=== PATIENT | male | born 1960 | race Hispanic/Latino ===

== ENCOUNTER 2018-07-27 16:06 | Observation (INO) | payer OTHER ==
[2018-07-27 17:20] LABS: Absolute Lymphocytes (CBC) 1.6 K/uL (0.7-4.9); Absolute Monocytes 0.4 K/uL (0.1-1.3); Absolute Neutrophil 3.7 K/uL (1.8-8.0); Basophils % 0.4 % (0-1.3); Hematocrit 39.2 % (39.6-49.0); Lymphocytes % 27.3 % (15.3-44.8); MPV 8.5 fL (7.6-11.3); Monocytes % 7.3 % (3.3-12.3); RBC Red Blood Cell Count 4.74 M/uL (4.33-5.43)
[2018-07-27 17:21] LABS: Protime INR 1.12
[2018-07-27 17:40] LABS: ALT/SGPT 37 U/L (12-78); AST/SGOT 44 U/L (15-37); Albumin 2.9 g/dL (3.4-5.0); Alkaline Phosphatase 78 U/L (45-117); BUN Blood Urea Nitrogen 17 mg/dL (7-18); Bicarbonate 27 mmol/L (21-32); Bilirubin Direct 0.2 mg/dL (0-0.2); Bilirubin Total 0.5 mg/dL (0.2-1.0); Glucose Level 90 mg/dL (74-106); Magnesium 2.7 mg/dL (1.8-2.4); NT PRO-BNP 905 pg/mL (<125); Potassium 4.2 mmol/L (3.5-5.1); Protein, Total 7.1 g/dL (6.4-8.2); Sodium Level 144 mmol/L (136-145); Troponin (Emerg Dept Use Only) 0.03 ng/mL (0.0-0.045)
[2018-07-27 17:59] LABS: Platelet Estimate ADEQ
[2018-07-27 18:00] LABS: Blood Morphology Comment NOT SEEN (NOT SEEN)
--- NOTE | 2018-07-27 18:07 | RAD REPORT ---
EXAM DESCRIPTION: RAD - Chest Single View - 07/27/2018 5:56 pm CLINICAL HISTORY: DYSPNEA Chest pain. COMPARISON: <Comparisons> FINDINGS: Portable technique limits examination quality. Moderate bilateral pulmonary opacities are present compatible with pulmonary edema. The heart is mode rately enlarged in size. No displaced fractures. IMPRESSION: Moderate CHF versus volume overload pattern.
[2018-07-27] MEDS ORDERED: FUROSEMIDE 20 MG/ 2ML VIAL ONE (18:36)
[2018-07-27] MEDS ORDERED: FUROSEMIDE 40 MG/4 ML VIAL ONE (18:36)
--- NOTE | 2018-07-27 18:47 | ER ---
Nurse's Notes [facility] Name: Urban Cronin Age: 58 yrs Sex: Male : 1960 Arrival Date: 07/27/2018 Time: 16:08 Bed 18 Private MD: Diagnosis: Pulmonary edema;Suspected endocarditis vs myocarditis;Hypoxia Presentation: 07/27 16:42 Presenting complaint: Patient states: He was diagnosed with pneumonia on , he was ss given antibiotics, reports that when he followed up today his oxygen level was low, he isn't feeling any better and he is still having shortness of breath. Transition of care: patient was not received from another setting of care. Onset of symptoms was July 2018. Risk Assessment: Do you want to hurt yourself or someone else? Patient reports no desire to harm self or others. Initial Sepsis Screen: Does the patient meet any 2 criteria? RR > 20 per min. No. Patient's initial sepsis screen is negative. Does the patient have a suspected source of infection? Yes: Productive cough/pneumonia. Care prior to arrival: None. 16:42 Method Of Arrival: Ambulatory ss 16:42 Acuity: SHIVA 2 ss Triage Assessment: 16:46 General: Appears in no apparent distress. uncomfortable, Behavior is calm, cooperative, ss appropriate for age. Pain: Denies pain. Neuro: Level of Consciousness is awake, alert, obeys commands, Oriented to person, place, time, situation. Cardiovascular: Patient's skin is warm and dry. Respiratory: Reports shortness of breath cough that is productive, Airway is patent Respiratory effort is even, unlabored, Respiratory pattern is regular, symmetrical, Onset: The symptoms/episode began/occurred 2 days ago, the patient has moderate shortness of breath. Historical: - Allergies: 16:45 No Known Allergies; ss - Home Meds: 19:30 atorvastatin 40 mg oral tab 1 tab once daily [Active]; amlodipine 5 mg tab 1 tab once cc3 daily [Active]; - PMHx: 16:45 Hypertension; Hyperlipidemia; CVA; Gout; ss - Immunization history:: Flu vaccine is not up to date. - Social history:: Smoking status: Patient/guardian denies using tobacco. - Ebola Screening: : Patient denies travel to an Ebola-affected area in the 21 days before illness onset. Screenin:49 Abuse screen: Denies threats or abuse. Denies injuries from another. Nutritional hj screening: No deficits noted. Tuberculosis screening: No symptoms or risk factors identified. Fall Risk None identified. Assessment: 16:49 Cardiovascular: Rhythm is. Respiratory: Airway is patent Respiratory effort is even, hj unlabored, Respiratory pattern is regular, symmetrical, Breath sounds with crackles. 16:49 General: Appears in no apparent distress. uncomfortable, Behavior is calm, cooperative, hj appropriate for age. Pain: Denies pain. Neuro: Level of Consciousness is awake, alert, obeys commands, Oriented to person, place, time, situation, Appropriate for age. GI: No signs and/or symptoms were reported involving the gastrointestinal system. : No signs and/or symptoms were reported regarding the genitourinary system. EENT: No signs and/or symptoms were reported regarding the EENT system. Derm: No signs and/or symptoms reported regarding the dermatologic system. Musculoskeletal: No signs and/or symptoms reported regarding the musculoskeletal system. 17:50 Reassessment: Patient and/or family updated on plan of care and expected duration. Pain hj level reassessed. Patient is alert, oriented x 3, equal unlabored respirations, skin warm/dry/pink. awaiting results and POC;. 18:29 Reassessment: medicated; awaiting meds from pharmacy;. hj 19:15 Reassessment: Patient appears in no apparent distress at this time. Patient and/or cc3 family updated on plan of care and expected duration. Pain level reassessed. Patient is alert, oriented x 3, equal unlabored respirations, skin warm/dry/pink. Received this male patient from morning shift MARY Christensen as a case of shortness of breath for admission awaiting orders. With IV cannula gauge 20 at the left ACV saline locked. On oxygen therapy by nasal cannula at 2 LPM saturating 98% not in distress. Patient denies pain at this time. 20:00 Reassessment: Patient appears in no apparent distress at this time. Patient and/or cc3 family updated on plan of care and expected duration. Pain level reassessed. Patient is alert, oriented x 3, equal unlabored respirations, skin warm/dry/pink. Room available in 210, called for report and handed over to MARY Villegas for continuity of care and management. 20:30 Reassessment: Patient appears in no apparent distress at this time. Patient and/or cc3 family updated on plan of care and expected duration. Pain level reassessed. Patient is alert, oriented x 3, equal unlabored respirations, skin warm/dry/pink. Patient left ER for admission vitally stable by wheelchair on oxygen therapy escorted by concrete technician Elfego and the patient's . Patient denies pain at this time. Vital Signs: 16:45 BP 122 / 76; Pulse 85; Resp 24; Temp 97.; Pulse Ox 88% on R/A; Weight 93.89 kg (R); ss Height 5 ft. 8 in. (172.72 cm) (R); 17:50 BP 109 / 76; Pulse 87; Resp 18; Pulse Ox 97% on 2 lpm NC; hj 18:29 BP 112 / 77; Pulse 81; Resp 18; Pulse Ox 100% on 2 lpm NC; hj 18:53 BP 125 / 84; Pulse 77; Resp 18; Pulse Ox 96% on 2 lpm NC; hj 19:30 BP 123 / 71; Pulse 81; Resp 25 S; Temp 98.8(O); Pulse Ox 98% on 2 lpm NC; cc3 20:15 BP 124 / 82; Pulse 83; Resp 25 S; Pulse Ox 98% on 2 lpm NC; cc3 16:45 Body Mass Index 31.47 (93.89 kg, 172.72 cm) ED Course: 16:08 Patient arrived in ED. as 16:45 Triage completed. ss 16:45 Arm band placed on Patient placed in an exam room. ss 16:48 Fermin Velasquez RN is Primary Nurse. 16:49 Jorgito Austin PA is PHCP. jr8 16:49 Daniel Alvarado MD is Attending Physician. jr8 16:50 Patient has correct armband on for positive identification. Placed in gown. Bed in low hj position. Call light in reach. Side rails up X 1. Adult w/ patient. 17:00 Inserted saline lock: 20 gauge in left forearm, using aseptic technique. Blood hj collected. 17:00 Initial lab(s) drawn, by me, sent to lab. First set of blood cultures drawn by me. hj 17:26 EKG done, by recycling technician. reviewed by Jorgito HAYWARD. sm3 17:56 XRAY Chest (1 view) In Process Unspecified. EDMS 18:24 Rn Cvicu paged at 18:24 Dr. Valle will be returning the page. eb 18:30 Rn Cvicu returned call at 18:30. connected with Jorgito Hayward for patient consultation. eb 18:45 Sunday Pitts MD is Hospitalizing Provider. jr8 20:30 No provider procedures requiring assistance completed. Patient admitted, IV remains in cc3 place. Administered Medications: 18:10 Drug: Lasix 60 mg Route: IVP; Site: left antecubital; hj 18:28 Follow up: Response: No adverse reaction hj 18:50 Follow up: Response: No adverse reaction hj 18:21 Not Given (Physician Discretion): LevaQUIN 500 mg 100 ml IVPB once over 60 mins jr8 18:38 Not Given (Other Intervention Used): DAPTOmycin 6 mg/kg IV at calculated rate once; jr8 administer over 30 minutes 19:25 Drug: Gentamicin 1 mg/kg Route: IVPB; Infused Over: 30 mins; Site: left antecubital; cc3 20:00 Follow up: Response: No adverse reaction; IV Status: Completed infusion; IV Intake: cc3 100ml 20:02 Drug: vancoMYCIN 1 grams Route: IVPB; Infused Over: 2 hrs; Site: left antecubital; cc3 20:05 Follow up: Response: No adverse reaction; IV Status: Infusion continued upon admission cc3 Intake: 20:00 IV: 100ml; Total: 100ml. cc3 Output: 20:00 Urine: 1625ml (Voided); Total: 1625ml. cc3 Outcome: 18:46 Decision to Hospitalize by Provider. jr8 20:30 Admitted to Med/surg accompanied by tech, family with patient, via wheelchair, room cc3 210, with oxygen, with chart, Report called to MARY Villegas 20:30 Condition: stable 20:30 Instructed on the need for admit, Demonstrated understanding of instructions. 20:35 Patient left the ED. cc3 Signatures: Dispatcher [employer] EDMS Kalani Gonzalez Shelby, RN RN ss Roszak, Josh, PA PA [facility] Fermin Velasquez RN RN hj Botello, Elizabeth Sandee Quach sm3 Gita Robertson cc3 Corrections: (The following items were deleted from the chart) 17:50 16:49 Respiratory: Airway is patent Respiratory effort is even, unlabored, Respiratory hj pattern is regular, symmetrical, hj
--- NOTE | 2018-07-27 18:47 | EDPHYS ---
Physician Documentation [facility] Name: Urban Cronin Age: 58 yrs Sex: Male : 1960 Arrival Date: 07/27/2018 Time: 16:08 Bed 18 Private MD: ED Physician Daniel Alvarado HPI: 07/27 18:46 This 58 yrs old Male presents to ER via Ambulatory with complaints of Cough, jr8 Fever, Shortness Of Breath. 18:46 The patient or guardian reports cough, that is intermittent, described as moderate, jr8 with productive sputum, that is yellow. Onset: The symptoms/episode began/occurred gradually, 1 week(s) ago. Severity of symptoms: At their worst the symptoms were moderate. Modifying factors: The symptoms are alleviated by nothing, the symptoms are aggravated by nothing. Associated signs and symptoms: Pertinent positives: shortness of breath. The patient has not experienced similar symptoms in the past. The patient has been recently seen by a physician:. Patient stated that he started with flu like symptoms in [place] about one week ago. Upon arriving home went to see PCP and was given zithromax. No imaging done at that time. Went for follow up today. PCP noted him to have bibasilar crackles and low SPO2. Sent to ED at that time for further evaluation. Patient stated that he is very short of breath with short walks. Very atypical for him. Historical: - Allergies: 16:45 No Known Allergies; ss - Home Meds: 19:30 atorvastatin 40 mg oral tab 1 tab once daily [Active]; amlodipine 5 mg tab 1 tab once cc3 daily [Active]; - PMHx: 16:45 Hypertension; Hyperlipidemia; CVA; Gout; ss - Immunization history:: Flu vaccine is not up to date. - Social history:: Smoking status: Patient/guardian denies using tobacco. - Ebola Screening: : Patient denies travel to an Ebola-affected area in the 21 days before illness onset. ROS: 19:08 Eyes: Negative for injury, pain, redness, and discharge, ENT: Negative for injury, jr8 pain, and discharge, Neck: Negative for injury, pain, and swelling, Cardiovascular: Negative for chest pain, palpitations, and edema, Abdomen/GI: Negative for abdominal pain, nausea, vomiting, diarrhea, and constipation, Back: Negative for injury and pain, MS/Extremity: Negative for injury and deformity, Skin: Negative for injury, rash, and discoloration, Neuro: Negative for headache, weakness, numbness, tingling, and seizure. 19:08 Constitutional: Positive for fever. 19:08 Respiratory: Positive for cough, dyspnea on exertion, shortness of breath. Exam: 19:08 Eyes: Pupils equal round and reactive to light, extra-ocular motions intact. Lids and jr8 lashes normal. Conjunctiva and sclera are non-icteric and not injected. Cornea within normal limits. Periorbital areas with no swelling, redness, or edema. ENT: Nares patent. No nasal discharge, no septal abnormalities noted. Tympanic membranes are normal and external auditory canals are clear. Oropharynx with no redness, swelling, or masses, exudates, or evidence of obstruction, uvula midline. Mucous membranes moist. Neck: Trachea midline, no thyromegaly or masses palpated, and no cervical lymphadenopathy. Supple, full range of motion without nuchal rigidity, or vertebral point tenderness. No Meningismus. Abdomen/GI: Soft, non-tender, with normal bowel sounds. No distension or tympany. No guarding or rebound. No evidence of tenderness throughout. Back: No spinal tenderness. No costovertebral tenderness. Full range of motion. Skin: Warm, dry with normal turgor. Normal color with no rashes, no lesions, and no evidence of cellulitis. MS/ Extremity: Pulses equal, no cyanosis. Neurovascular intact. Full, normal range of motion. Neuro: Awake and alert, GCS 15, oriented to person, place, time, and situation. Cranial nerves II-XII grossly intact. Motor strength 5/5 in all extremities. Sensory grossly intact. Cerebellar exam normal. Normal gait. 19:08 Cardiovascular: Rate: normal, Rhythm: regular, Pulses: Pulses are 2+ in right radial artery and left radial artery. Heart sounds: S4, increased, Edema: is not appreciated, JVD: is not appreciated. 19:08 Respiratory: mild respiratory distress is noted, Respirations: tachypnea, Breath sounds: rales, that are moderate, are located in both bases. Vital Signs: 16:45 BP 122 / 76; Pulse 85; Resp 24; Temp 97.; Pulse Ox 88% on R/A; Weight 93.89 kg (R); ss Height 5 ft. 8 in. (172.72 cm) (R); 17:50 BP 109 / 76; Pulse 87; Resp 18; Pulse Ox 97% on 2 lpm NC; hj 18:29 BP 112 / 77; Pulse 81; Resp 18; Pulse Ox 100% on 2 lpm NC; hj 18:53 BP 125 / 84; Pulse 77; Resp 18; Pulse Ox 96% on 2 lpm NC; hj 19:30 BP 123 / 71; Pulse 81; Resp 25 S; Temp 98.8(O); Pulse Ox 98% on 2 lpm NC; cc3 20:15 BP 124 / 82; Pulse 83; Resp 25 S; Pulse Ox 98% on 2 lpm NC; cc3 16:45 Body Mass Index 31.47 (93.89 kg, 172.72 cm) ss MDM: 16:49 Patient medically screened. jr8 18:33 ED course: Dr. Valle consulted and will see patient. Good with keeping him here. Will jr8 get echo first thing in the AM . 19:10 Data reviewed: vital signs, nurses notes, lab test result(s), EKG, radiologic studies, jr8 plain films. Data interpreted: Pulse oximetry: on room air is 88 %. Interpretation: hypoxia. Counseling: I had a detailed discussion with the patient and/or guardian regarding: the historical points, exam findings, and any diagnostic results supporting the discharge/admit diagnosis, lab results, radiology results, the need for further work-up and treatment in the hospital. Physician consultation: Sunday Pitts MD was called at 19:10, was contacted at 19:10, regarding admission, to the telemetry unit. consult, patient's condition, and will see patient. Admission orders: after a detailed discussion of the patient's condition and case, the admit orders are written by me. 07/27 16:57 Order name: Basic Metabolic Panel [facility] 07/27 16:57 Order name: CBC with Diff; Complete Time: 18:[address] [facility] 07/27 16:57 Order name: LFT's [facility] 07/27 16:57 Order name: Magnesium [facility] 07/27 16:57 Order name: NT PRO-BNP; Complete Time: 18:[address] [facility] 07/27 16:57 Order name: PT-INR; Complete Time: 17:32 07/27 16:57 Order name: Troponin (emerg Dept Use Only); Complete Time: 18:10 07/27 16:57 Order name: Blood Culture Adult (2) 07/27 16:57 Order name: Procalcitonin; Complete Time: 18:10 07/27 16:57 Order name: Lactate; Complete Time: 18:10 07/27 16:58 Order name: Basic Metabolic Panel; Complete Time: 18:10 EDTN 07/27 16:58 Order name: Liver (Hepatic) Function; Complete Time: 18:10 EDMS 07/27 16:58 Order name: Magnesium; Complete Time: 18:10 EDMS 07/27 17:27 Order name: Manual Differential; Complete Time: 18:10 [facility] 07/27 16:57 Order name: XRAY Chest (1 view); Complete Time: 18:10 07/27 16:57 Order name: EKG; Complete Time: 16:59 07/27 16:57 Order name: Cardiac monitoring; Complete Time: 17:07 07/27 16:57 Order name: EKG - Nurse/Tech; Complete Time: 17:28 07/27 16:57 Order name: IV Saline Lock; Complete Time: 17:07 07/27 16:57 Order name: Labs collected and sent; Complete Time: 17:07 07/27 16:57 Order name: O2 Per Protocol; Complete Time: 17:08 07/27 16:57 Order name: O2 Sat Monitoring; Complete Time: 17:08 Administered Medications: 18:10 Drug: Lasix 60 mg Route: IVP; Site: left antecubital; hj 18:28 Follow up: Response: No adverse reaction hj 18:50 Follow up: Response: No adverse reaction hj 18:21 Not Given (Physician Discretion): LevaQUIN 500 mg 100 ml IVPB once over 60 mins jr8 18:38 Not Given (Other Intervention Used): DAPTOmycin 6 mg/kg IV at calculated rate once; jr8 administer over 30 minutes 19:25 Drug: Gentamicin 1 mg/kg Route: IVPB; Infused Over: 30 mins; Site: left antecubital; cc3 20:00 Follow up: Response: No adverse reaction; IV Status: Completed infusion; IV Intake: cc3 100ml 20:02 Drug: vancoMYCIN 1 grams Route: IVPB; Infused Over: 2 hrs; Site: left antecubital; cc3 20:05 Follow up: Response: No adverse reaction; IV Status: Infusion continued upon admission cc3 Disposition: 07/27/18 18:46 Hospitalization ordered by Sunday Pitts for Observation. Preliminary diagnosis are Pulmonary edema, Suspected endocarditis vs myocarditis, Hypoxia. - Bed requested for Telemetry/MedSurg (observation). - Status is Observation. cc3 - Condition is Fair. - Problem is new. - Symptoms have improved. UTI on Admission? No Addendum: 08/01/2018 10:22 Co-signature as Attending Physician, Daniel Alvarado MD I agree with the assessment and k dr plan of care. Signatures: Dispatcher [employer] EDMS Maude Arredondo RN RN mw Rittger, Kevin, MD MD [facility] Vandana Patel RN RN Jorgito Austin PA PA jr8 Fermin Velasquez RN RN Gita Robertson cc3 Corrections: (The following items were deleted from the chart) 07/27 19:15 18:46 Hospitalization Ordered by Sunday Pitts MD for Observation. Preliminary diagnosis mw is Pulmonary edema; Suspected endocarditis vs myocarditis; Hypoxia. Bed requested for Telemetry/MedSurg (observation). Status is Observation. Condition is Fair. Problem is new. Symptoms have improved. UTI on Admission? No. jr8 19:16 19:15 07/27/2018 18:46 Hospitalization Ordered by Sunday Pitts MD for Observation. mw Preliminary diagnosis is Pulmonary edema; Suspected endocarditis vs myocarditis; Hypoxia. Bed requested for Telemetry/MedSurg (observation). Status is Observation. Condition is Fair. Problem is new. Symptoms have improved. UTI on Admission? No. mw 20:35 19:16 07/27/2018 18:46 Hospitalization Ordered by Sunday Pitts MD for Observation. cc3 Preliminary diagnosis is Pulmonary edema; Suspected endocarditis vs myocarditis; Hypoxia. Bed requested for Telemetry/MedSurg (observation). Status is Observation. Condition is Fair. Problem is new. Symptoms have improved. UTI on Admission? No. mw
[2018-07-27] MEDS ORDERED: VANCOMYCIN/NS 1 gm 1 GM/250 ML BAG IV ONE (19:00)
[2018-07-27] MEDS ORDERED: GENTAMICIN IVPB ONE (19:00)
[2018-07-27] MEDS ORDERED: NA CHLORIDE 0.9% IVPB ONE (19:00)
[2018-07-27] MEDS ORDERED: ONDANSETRON 4 MG/2 ML VIAL IV PRN (19:02)
[2018-07-27] MEDS ORDERED: ALBUTEROL 2.5 MG/3 ML NEB SOL NEB PRN (19:02)
[2018-07-27] MEDS ORDERED: ACETAMINOPHEN 500 MG TAB PO PRN (19:02)
[2018-07-27] MEDS ORDERED: NA CHLORIDE 0.9% 1,000 ML IV SCH (20:00)
[2018-07-27 21:46] VITALS: BMI 31.4
[2018-07-27 22:07] LABS: Urine Appearance CLEAR; Urine Bilirubin NEGATIVE (NEG); Urine Blood NEGATIVE (NEG); Urine Color YELLOW; Urine Glucose NEGATIVE (NEG); Urine Protein NEGATIVE (NEG); Urine Urobilinogen 0.2 mg/dL (0.2-1.0)
[2018-07-27 22:08] LABS: Urine Microscopic Reflex NO UMIC
[2018-07-28] MEDS ORDERED: METHYLPREDNISOLONE 125 MG INJ IV ONE (05:32)
[2018-07-28] MEDS ORDERED: BENZONATATE 100 MG CAP PO PRN (05:32)
[2018-07-28] MEDS ORDERED: CEFTRIAXONE 1 GM/NS 50 ML 1 GM/50 ML BAG IV SCH (06:00)
[2018-07-28 06:07] LABS: Absolute Lymphocytes (CBC) 1.5 K/uL (0.7-4.9); Absolute Monocytes 0.4 K/uL (0.1-1.3); Absolute Neutrophil 3.7 K/uL (1.8-8.0); Basophils % 0.6 % (0-1.3); Eosinophils % 1.5 % (0-4.4); Hematocrit 38.2 % (39.6-49.0); Lymphocytes % 26.4 % (15.3-44.8); MPV 8.3 fL (7.6-11.3); Monocytes % 6.9 % (3.3-12.3); RBC Red Blood Cell Count 4.62 M/uL (4.33-5.43)
[2018-07-28] MEDS: CEFTRIAXONE/SWI 1gm 1 GM/10 ML SYR IV SCH ×2 (06:10→21:23)
[2018-07-28 06:14] LABS: ALT/SGPT 33 U/L (12-78); AST/SGOT 29 U/L (15-37); Albumin 2.8 g/dL (3.4-5.0); Alkaline Phosphatase 74 U/L (45-117); BUN Blood Urea Nitrogen 15 mg/dL (7-18); Bicarbonate 28 mmol/L (21-32); Bilirubin Total 0.5 mg/dL (0.2-1.0); Glucose Level 95 mg/dL (74-106); Magnesium 2.5 mg/dL (1.8-2.4); Phosphorus 4.1 mg/dL (2.5-4.9); Potassium 3.6 mmol/L (3.5-5.1); Sodium Level 143 mmol/L (136-145); Troponin I 0.03 ng/mL (0.0-0.045)
--- NOTE | 2018-07-28 06:43 | EKG ---
Test Date: 2018-07-27 Test Time: 17:14:54 Print Finishing Worker: LISY MEASUREMENT RESULTS: Intervals: Rate: 76 NC: 154 QRSD: 146 QT: 412 QTc: 463 Dewey: P: 62 NC: 154 QRS: 101 T: 2 INTERPRETIVE STATEMENTS: Normal sinus rhythm Right bundle branch block T wave abnormality, consider lateral ischemia Abnormal ECG No previous ECG available for comparison Electronically Signed On 07-28-18 06:42:13 CDT by Jitendra Valle
--- NOTE | 2018-07-28 07:48 | P.HP ---
Certification for Inpatient Patient admitted to: Inpatient With expected LOS: >2 Midnights Patient will require the following post-hospital care: None Practitioner: I am a practitioner with admitting privileges, knowledge of patient current condition, hospital course, and medical plan of care. Services: Services provided to patient in accordance with Admission requirements found in Title 42 Section 412.3 of the Code of Federal Regulations Patient History Date of Service: 07/27/18 Reason for admission: FEVER/COUGH/CONGESTION History of Present Illness: Patient is a 58-year-old gentleman who came into the hospital from [facility]. He was seen at the [facility] [place] in told by the physician there that he needed to be evaluated in the emergency room. He had gone there earlier in the week and diagnosed with pneumonia. His symptoms started when he was in [place]. 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 By Tuesday, he was feeling really bad with cough and congestion. He states he has been feeling better since taking antibiotics. However, because he was told to go to the emergency room by the occupational health people at [place] he decided to get evaluated. He was surprised when he was told in the emergency room that he may have fluid around the heart. He is on further evaluation the chest x-ray reveals cardiomegaly with pulmonary edema. It appears he may have congestive heart failure. Will get an echocardiogram but will also need to continue him on IV antibiotic therapy for his upper respiratory infection. He spiked a temp of a 102. Continue with current workup at this time. Allergies No Known Allergies Allergy (Verified 07/27/18 20:54) Home Medications: Allopurinol 100 mg PO DAILY 07/27/18 Amlodipine [Norvasc] 5 mg PO DAILY 07/27/18 Atorvastatin Calcium 40 mg PO DAILY 07/27/18 - Past Medical/Surgical History Has patient received pneumonia vaccine in the past: No Diabetic: No -: hypertension -: hyperlipidemia -: CVA -: Gout -: [place] Past Surgical History: Patient denies surgical history - Family History Father Family History: Reviewed- Non-Contributory - Social History Smoking Status: Current every day smoker Alcohol use: Yes CD- Drugs: No Caffeine use: Yes Place of Residence: Home Review of Systems 10-point ROS is otherwise unremarkable Physical Examination - Vital Signs Temperature: 97.8 F Blood Pressure: 109/62 Pulse: 71 Respirations: 22 Pulse Ox (%): 94 - Physical Exam General: Alert, In no apparent distress, Oriented x3 HEENT: Atraumatic, PERRLA, Mucous membr. moist/pink, EOMI, Sclerae nonicteric Neck: Supple, 2+ carotid pulse no bruit, No LAD, Without JVD or thyroid abnormality Respiratory: Expiratory wheezes, Other ( Coarse breath sounds) Cardiovascular: Regular rate/rhythm, Normal S1 S2, No murmurs Gastrointestinal: Normal bowel sounds, Soft and benign, Non-distended, No tenderness Musculoskeletal: No clubbing, No swelling, No tenderness Integumentary: No rashes Neurological: Normal gait, Normal speech, Normal strength at 5/5 x4 extr, Normal tone, Sensation intact, Cranial nerves 3-12 intact, Normal affect Lymphatics: No axilla or inguinal lymphadenopathy - Studies Laboratory Data (last 24 hrs) 07/27/18 17:00: PT 13.2 H, INR 1.12 07/27/18 17:00: WBC 5.7, Hgb 13.0 L, Hct 39.2 L, Plt Count 170 07/27/18 17:00: Sodium 144, Potassium 4.2, BUN 17, Creatinine 0.86, Glucose 90, Magnesium 2.7 H, Total Bilirubin 0.5, AST 44 H, ALT 37, Alkaline Phosphatase 78 Assessment & Plan - Problems (Diagnosis) (1) Pneumonia Current Visit: Yes Status: Acute (2) Congestive heart failure, acute Current Visit: Yes Status: Acute (3) Pulmonary edema Current Visit: Yes Status: Acute - Plan Plan: 1. Continue with IV antibiotics 2. Awaiting sputum and blood culture; procalcitonin level 3. Repeat chest x-ray in AM 4. Will order CT scan of the chest w/o 5. No need for Respiratory isolation at this time 6. Continue with nebs as needed 7. O2 per protocol 8. Continue with KVO IVFs 9. Repeat labs including CBC and renal function in a.m. 10. Outpt follow-up with Pulmonary 11. Echocardiogram if it has not been performed in the last 6 months 12. We will start patient on an DAYANA inhibitor / ARB 13. We will start patient on low dose Beta wes 14. Cardiology consultation 15. Gentle diuresis 16. Strict I's and O's/Daily weights 17. Education regarding diet and treatment of congestive heart failure Discharge Plan: Home Plan to discharge in: 48 Hours - Advance Directives Does patient have a Living Will: No Does patient have a Durable POA for Healthcare: No - Code Status/Comfort Care Code Status Assessed: Yes Code Status: Full Code Critical Care: No Time Spent Managing PTS Care (In Minutes): 45
--- NOTE | 2018-07-28 08:39 | RAD REPORT ---
EXAM DESCRIPTION: CT - Thorax Wo Con - 07/28/2018 8:06 am CLINICAL HISTORY: Cough, shortness of breath COMPARISON: Chest film July 27 TECHNIQUE: Axial 5 mm thick images of the chest were obtained without IV contrast. All CT scans are performed using dose optimization technique as appropriate and may include automated exposure control or mA/KV adjustment according to patient size. FINDINGS: Minimal patchy alveolar opacification present in the right upper lobe. Left upper lobe is clear of any significant process. Minimal alveolar opacity in the right middle lobe. Superior aspect of the right lower lobe shows extensive airspace opacification with a few air bronchograms. There is airspace opacification through most of the left lower lobe with air bronchograms present. Minimal earline ateral pleural effusions are present. No pleural thickening or pleural based mass. No pneumothorax. No abnormal mediastinal or hilar masses or lymphadenopathy seen. No gross aortic or pulmonary artery finding suspected. Assessment is limited in the absence of IV contrast. Cardiomegaly is present. Per icardial effusion is present up to 15 mm in thickness. Coronary artery calcifications are present. No chest wall mass or abnormal axillary lymphadenopathy. IMPRESSION: Extensive airspace opacification in the lower lobes with cardiomegaly and significant pe ricardial adhesions at 15 mm. Findings favor CHF/volume overload. Bilateral lung base pneumonia is also a strong consideration and could be independent or concurrent with failure.
[2018-07-28] MEDS ORDERED: POTASSIUM CL SA 10 MEQ TAB PO ONE (09:00)
[2018-07-28] MEDS ORDERED: FUROSEMIDE 40 MG/4 ML VIAL IV SCH (09:00)
[2018-07-28] MEDS: ENOXAPARIN 40 MG/0.4 ML SQ SCH (09:13)
[2018-07-28] MEDS: AZITHROMYCIN IV 500 MG in NA CHLORIDE 0.9% 250 ML IVPB SCH (10:04)
--- NOTE | 2018-07-28 11:28 | ECHO ---
HEIGHT: 5 ft 8 in WEIGHT: 207 lb 0 oz DATE OF STUDY: 07/28/[address]: Mauri Levin MD 2-DIMENSIONAL: YES M.MODE: YES DOPPLER: YES COLOR FLOW: YES TDS: NO PORTABLE: NO DEFINITY: NO BUBBLE STUDY: NO DIAGNOSIS: CONGESTIVE HEART FAILURE/ ENDOCARDITIS CARDIAC HISTORY: CATHERIZATION: NO SURGERY: NO PROSTHETIC VALVE: NO PACEMAKER: NO MEASUREMENTS (cm) DIASTOLIC (NORMALS) SYSTOLIC (NORMALS) IVSd 1.5 (0.6-1.2) LA Diam 4.3 (1.9-4.0) LVEF 71% LVIDd 5.0 (3.5-5.7) LVIDs 3.0 (2.0-3.5) %FS 41% LVPWd 1.4 (0.6-1.2) Ao Diam 3.1 (2.0-3.7) 2 DIMENSIONAL ASSESSMENT: RIGHT ATRIUM: NORMAL LEFT ATRIUM: DILATED RIGHT VENTRICLE: NORMAL LEFT VENTRICLE: NORMAL TRICUSPID VALVE: NORMAL MITRAL VALVE: NORMAL PULMONIC VALVE: NORMAL AORTIC VALVE: NORMAL PERICARDIAL EFFUSION: MODERATE AORTIC ROOT: NORMAL LEFT VENTRICULAR WALL MOTION: NORMAL. DOPPLER/COLOR FLOW: MILD TRICUSPID REGURGITATION. COMMENTS: MODERATE PERICARDIAL EFFUSION. NO TAMPONADE. NORMAL LEFT VENTRICULAR SIZE AND FUNCTION. TECHNOLOGIST: JANET GORDON RDCS
--- NOTE | 2018-07-28 12:16 | CON ---
Date of Consultation: 07/28/[address] Levin's service on 07/27/2018. Reason For Consultation: Possible congestive heart failure. History Of Present Illness: Mr. Cronin is a 58-year-old [place] male with history of hyperten edward, dyslipidemia, gout. Supposedly he had a stroke about 3 years ago, was seen evaluate d and was told to have a blocked carotid artery on the right, but no medication or intervention was d one at that time. Also, according to him, he had an NH about 10 years ago and was evaluated by cardi ologist in [place], but does not remember having a heart catheterization. History in that regard is very vague nevertheless. He came in with approximately a week worth of cough, shortness of breath, fever, body aches, headaches, general weakness, unresponsive to 3 days of azithromycin, was found to have what appears to be congestive heart failure on the chest x-ray, elevated BNP of 907, elevated pr ocalcitonin, abnormal EKG with a right bundle, was admitted for further evaluation and treatment. Ov ernight, he has received antibiotics and IV Lasix and he has improved. An echocardiogram is pending. Past Medical History: As stated above. Allergies: NONE. Review of Systems: Negative. Social History: Negative for tobacco, drugs, or alcohol. Family History: Positive for heart disease. Medications: At home include allopurinol, Norvasc, and Lipitor. Physical Examination: General: Mr. Cronin seems to be rather anxious and somehow in some form of denial, has improved since yesterday, but no chest pain and no shortness of breath of breath reported. Vital Signs: Stable. He was in a sinus rhythm. He was afebrile. HEENT: Negative. Neck: Supple without bruit. No lymphadenopathy, JVD or thyromegaly. Chest: Reveals some crackles bilaterally. Cardiac: Revealed a regular rhythm and rate with what sounds like an S3 gallops. Abdomen: Benign. Extremities: Revealed trace edema. Diagnostic Data: As stated earlier. Impression And Plan: New-onset congestive heart failure. Certainly this could be a viral myocarditi s situation or a diastolic congestive heart failure secondary to his recent flu. He obviously did durant ve some kind of viral syndrome because he was having fever, chills, and cough, sore throat and headac he. The echocardiogram on this is going to be our biggest diagnostic tool to see if we are dealing w ith a cardiac issue versus a pulmonary issue. This certainly could have some form of pneumonitis as well. Nevertheless, I would continue IV Lasix and antibiotics and see how he does. Regarding his pa st medical history of possible coronary artery disease and possible cerebrovascular accident and a po ssible carotid stenosis, multiple risk factors with hypertension, dyslipidemia. Mr. Cronin need for sure to have a carotid Doppler and a Lexiscan as an outpatient and I will try to arrange that after we get through this. SATINDER/FAY Voice ID: [id number] Report ID: [id number]
[2018-07-28] MEDS: IBUPROFEN 200 MG TAB PO SCH ×2 (13:44→21:24)
--- NOTE | 2018-07-28 14:22 | P.PN ---
Subjective Date of Service: 07/28/18 Chief Complaint: FEVER/COUGH/CONGESTION Subjective: Improving Patient seen and examined at bedside. Family at bedside. Chart reviewed and case discussed with nursing staff and Dr. perez. Patient reports feeling better. Reports improved chest pain. No respiratory distress. Afebrile overnight. No acute event noted overnight. Review of Systems 10-point ROS is otherwise unremarkable Physical Examination - Vital Signs Temperature: 97.2 F Blood Pressure: 129/82 Pulse: 78 Respirations: 18 Pulse Ox (%): 94 - Physical Exam General: Alert, In no apparent distress HEENT: Atraumatic, PERRLA, EOMI Neck: Supple, JVD not distended Respiratory: Clear to auscultation bilaterally, Normal air movement Cardiovascular: Regular rate/rhythm, Abnormal S4, Systolic murmur Gastrointestinal: Normal bowel sounds, No tenderness Musculoskeletal: No tenderness Integumentary: No rashes Neurological: Normal speech, Normal tone, Normal affect Lymphatics: No axilla or inguinal lymphadenopathy - Studies Laboratory Data (last 24 hrs) 07/27/18 17:00: PT 13.2 H, INR 1.12 07/27/18 17:00: WBC 5.7, Hgb 13.0 L, Hct 39.2 L, Plt Count 170 07/27/18 17:00: Sodium 144, Potassium 4.2, BUN 17, Creatinine 0.86, Glucose 90, Magnesium 2.7 H, Total Bilirubin 0.5, AST 44 H, ALT 37, Alkaline Phosphatase 78 Assessment And Plan - Current Problems (Diagnosis) (1) Pericarditis Current Visit: Yes Status: Acute Qualifiers: Pericarditis type: infectious Infectious pericarditis etiology: viral Chronicity: acute Qualified Code(s): I30.1 - Infective pericarditis (2) Splenomegaly Current Visit: Yes Status: Acute (3) Pneumonia Current Visit: Yes Status: Acute Qualifiers: Pneumonia type: due to unspecified organism - Plan Pneumonia Continue with IV antibiotics Awaiting sputum and blood cultures Repeat chest x-ray in AM CT scan with : Extensive airspace opacification in the lower lobes with cardiomegaly and significant pericardial adhesions at 15 mm. Findings favor CHF/volume overload. Bilateral lung base pneumonia is also a strong consideration and could be independent or concurrent with failure. Continue with oxygen and nebs prn. Pericardial fluid Pericarditis Likely secondary to viral infection as patient with upper respiratory symptoms ECHO done, preserved EF but evidence of pericardial effusion, not enough to drain. Cardiology consulted Discontinue lasix, per cardiology. Start ibuprofen and colchicine Continue ACEi, and BB Splenomegaly Likely secondary to viral infection [place] screen ordered. DVT Prophylaxis: Lovenox GI prophylaxis: None Diet: Heart healthy Disposition: Pending symptomatic improvement Plan to discharge in: Greater than 2 days
[2018-07-28] MEDS ORDERED: ATORVASTATIN 40 MG TAB PO SCH (21:00)
[2018-07-28] MEDS: COLCHICINE 0.6 MG TAB PO SCH (21:23)
[2018-07-29] MEDS: IBUPROFEN 200 MG TAB PO SCH ×2 (05:19→13:00)
[2018-07-29 06:23] LABS: BUN Blood Urea Nitrogen 21 mg/dL (7-18); Bicarbonate 26 mmol/L (21-32); Glucose Level 105 mg/dL (74-106); Potassium 3.3 mmol/L (3.5-5.1); Sodium Level 143 mmol/L (136-145); Troponin I 0.02 ng/mL (0.0-0.045)
[2018-07-29] MEDS: CEFTRIAXONE/SWI 1gm 1 GM/10 ML SYR IV SCH (08:56)
[2018-07-29] MEDS: ENOXAPARIN 40 MG/0.4 ML SQ SCH (08:56)
[2018-07-29] MEDS: AZITHROMYCIN IV 500 MG in NA CHLORIDE 0.9% 250 ML IVPB SCH (08:56)
[2018-07-29] MEDS: COLCHICINE 0.6 MG TAB PO SCH (08:58)
[2018-07-29] MEDS ORDERED: AMLODIPINE 5 MG TAB PO SCH (09:00)
[2018-07-29] MEDS ORDERED: POTASSIUM 25 MEQ EFFERV TAB PO ONE (09:00)
--- NOTE | 2018-07-29 11:22 | P.SSS ---
Patient History Date of Service: 07/29/18 Reason for admission: FEVER/COUGH/CONGESTION History of Present Illness: Patient is a 58-year-old gentleman who came into the hospital from [place]. He was seen at the [facility] [place] in told by the physician there that he needed to be evaluated in the emergency room. He had gone there earlier in the week and diagnosed with pneumonia. His symptoms started when he was in [place]. 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 By Tuesday, he was feeling really bad with cough and congestion. He states he has been feeling better since taking antibiotics. However, because he was told to go to the emergency room by the occupational health people at [place] he decided to get evaluated. He was surprised when he was told in the emergency room that he may have fluid around the heart. He is on further evaluation the chest x-ray reveals cardiomegaly with pulmonary edema. It appears he may have congestive heart failure. Will get an echocardiogram but will also need to continue him on IV antibiotic therapy for his upper respiratory infection. He spiked a temp of a 102. Continue with current workup at this time. Allergies No Known Allergies Allergy (Verified 07/27/18 20:54) Home Medications: Allopurinol 100 mg PO DAILY 07/27/18 Amlodipine [Norvasc*] 5 mg PO DAILY 07/27/18 Atorvastatin Calcium 40 mg PO DAILY 07/27/18 Azithromycin 250 mg PO DAILY #7 tablet 07/29/18 Colchicine [Colcrys *] 0.6 mg PO BID #28 tab 07/29/18 Ibuprofen [Motrin*] 600 mg PO Q8H #30 tab 07/29/18 - Past Medical/Surgical History Has patient received pneumonia vaccine in the past: No Diabetic: No -: hypertension -: hyperlipidemia -: CVA -: Gout -: IN - Social History Smoking Status: Current every day smoker Alcohol use: Yes CD- Drugs: No Caffeine use: Yes Place of Residence: Home Review of Systems 10-point ROS is otherwise unremarkable Physical Examination - Vital Signs Temperature: 97.6 F Blood Pressure: 98/63 Pulse: 72 Respirations: 17 Pulse Ox (%): 95 - Physical Exam General: Alert, In no apparent distress, Oriented x3 HEENT: Atraumatic, PERRLA, Mucous membr. moist/pink, EOMI, Sclerae nonicteric Neck: Supple, 2+ carotid pulse no bruit, No LAD, Without JVD or thyroid abnormality Respiratory: Clear to auscultation bilaterally, Normal air movement Cardiovascular: Regular rate/rhythm, Abnormal S4 Gastrointestinal: Normal bowel sounds, No tenderness Musculoskeletal: No tenderness Integumentary: No rashes Neurological: Normal gait, Normal speech, Normal strength at 5/5 x4 extr, Normal tone, Normal affect Lymphatics: No axilla or inguinal lymphadenopathy - Diagnosis (Problem(s)) (1) Pericarditis Current Visit: Yes Status: Acute Qualifiers: Pericarditis type: infectious Infectious pericarditis etiology: viral Chronicity: acute Qualified Code(s): I30.1 - Infective pericarditis (2) Splenomegaly Current Visit: Yes Status: Acute (3) Pneumonia Current Visit: Yes Status: Acute Qualifiers: Pneumonia type: due to unspecified organism Treatment Summary: Patient was admitted for cough, fever and upper respiratory symptoms. In the ER he was found to have pericardial fluid. He was admitted. CT scan showed extensive airspace opacification in the lower lobes with cardiomegaly and significant pericardial adhesions at 15 mm. Findings favor CHF/volume overload. Bilateral lung base pneumonia is also a strong consideration and could be independent or concurrent with failure. He was started on IV antibiotics. Cardiology was consulted. Echocardiogram was done which showed preserved ejection fraction but evidence of pericardial effusion which was not enough to drain. It was thought that this pericardial fluid may be secondary to pericarditis secondary to a viral infection. He was given Lasix x1, without adequate diuresis. His Lasix was discontinued and he was started on ibuprofen and colchicine. His symptoms improved and resolved. He is very anxious to go home. He was cleared for discharge from cardiology point of view. He was instructed that he does need a repeat echo. He was instructed to follow up with cardiology in the next week. He was given prescription for colchicine and ibuprofen. He was also given a prescription for azithromycin to complete a course for pneumonia. Initially CT scan with no mention of splenomegaly but and addendum was added later with findings of splenomegaly. [place] screen was negative. Patient was educated on splenomegaly at increased risk for rupture. He was educated on avoidance of contact sports in strenuous activity. He was instructed to follow up with his primary care physician in 2-3 days. Prior to discharge, he was alert oriented x3, in no acute distress and hemodynamically stable. His diagnosis and treatment plan were explained to him. All questions were answered and patient verbalized understanding. He was discharged home a safe and stable manner. - Disposition Discharge Date: 07/29/18 Disposition: ROUTINE DISCHARGE Condition: GOOD Consultations: Cardiology Patient Discharge Instructions: Please follow up with the primary care physician in 2-3 days. Please follow up with Dr. Valle, cardiology, within 1 week. New medications: Colchicine, azithromycin and ibuprofen as prescribed. Please return to the emergency room for worsening symptoms Diet: AHA Activity: Ad ivan Time Spent Managing Pts Care (In Minutes): 55
[2018-07-29 14:43] VITALS: BP 97/61; TEMP 97.7
[2018-07-29 14:46] VITALS: O2SAT 98
== END 2018-07-29 14:00 | disposition home or self-care (01) ==
LOC: ER 16:06 → ERHOLD 18:42 → 2ND 20:05
PROVIDERS: ADMIT Family Medicine; ATTEND Hospitalist
DX: I30.1 Infective pericarditis (principal); R16.1 Splenomegaly, not elsewhere classified; J18.9 Pneumonia, unspecified organism; I10 Essential (primary) hypertension; E78.5 Hyperlipidemia, unspecified; M10.9 Gout, unspecified; I25.2 Old myocardial infarction; Z86.73 Personal history of transient ischemic attack (TIA), and cerebral infarction without residual deficits; F17.210 Nicotine dependence, cigarettes, uncomplicated
CPT/HCPCS: 36415; 71045; 71250; 80048; 80053; 80076; 81003; 83605; 83735; 83880; 84100; 84145; 84484; 85025; 85610; 85652; 86140; 86308; 87040; 87070; 87205; 93005; 93306; 96365; 96375; 99285; G0378; J0456; J0696; J1580; J1650; J1940; J2930; J3370; J7030

== ENCOUNTER 2018-11-03 01:43 | Emergency (ER) | payer OTHER ==
--- OUTSIDE RECORDS SUMMARY | 2018-11-03 01:45 | XMS REPORT ---
:1960 [facility] Address [address] [place] [address] Dr. Levine [address] [place] [id number] Care Team Providers Name Role Phone Unavailable Unavailable Unavailable Problems This patient has no known problems. Allergies, Adverse Reactions, Alerts This patient has no known allergies or adverse reactions. Medications This patient has no known medications.
[2018-11-03 02:45] LABS: Absolute Lymphocytes (CBC) 2.5 K/uL (0.7-4.9); Basophils % 1.2 % (0-1.3); Hematocrit 41.4 % (39.6-49.0); Lymphocytes % 28.1 % (15.3-44.8); MPV 8.7 fL (7.6-11.3); RBC Red Blood Cell Count 5.03 M/uL (4.33-5.43)
[2018-11-03 03:08] LABS: Protime INR 1.13
[2018-11-03 03:09] LABS: Albumin 3.7 g/dL (3.4-5.0); Bilirubin Direct 0.3 mg/dL (0-0.2); Bilirubin Total 1.1 mg/dL (0.2-1.0); CKMB Creatine Kinase MB 6.9 ng/mL (0.3-3.6); Magnesium 2.3 mg/dL (1.8-2.4); Potassium 3.2 mmol/L (3.5-5.1); Protein, Total 7.6 g/dL (6.4-8.2); Troponin (Emerg Dept Use Only) 0.06 ng/mL (0.0-0.045)
[2018-11-03] MEDS ORDERED: ASPIRIN 81 MG CHEWABLE TABLET ONE (03:21)
[2018-11-03] MEDS ORDERED: POTASSIUM 25 MEQ EFFERV TAB ONE (03:21)
[2018-11-03 03:56] LABS: Arterial Blood Carboxyhemoglob 2.5 % (0-1.5); Blood Gas Oxyhemoglobin 92.7 % (94-97); Blood O2 Saturation 95.8 % (92-98.5)
--- NOTE | 2018-11-03 05:52 | ER ---
Nurse's Notes [facility] Name: Urban Cronin Age: 58 yrs Sex: Male : 1960 Arrival Date: 11/03/2018 Time: 01:43 Bed 5 Private MD: Diagnosis: Acute shortness of breath;Acute CHF Presentation: 11/03 01:58 Presenting complaint: Patient states: cough and SOB intermittent since July after ak1 being admitted to hospital. pt stated SOB increased. Transition of care: patient was not received from another setting of care. Onset of symptoms is unknown. Risk Assessment: Do you want to hurt yourself or someone else? Patient reports no desire to harm self or others. Initial Sepsis Screen: Does the patient meet any 2 criteria? No. Patient's initial sepsis screen is negative. Does the patient have a suspected source of infection? No. Patient's initial sepsis screen is negative. Care prior to arrival: None. 01:58 Method Of Arrival: Ambulatory ak1 01:58 Acuity: SHIVA 2 ak1 Triage Assessment: 02:00 General: Appears distressed, uncomfortable, Behavior is calm. ak1 02:37 Respiratory: Onset: The symptoms/episode began/occurred gradually, the patient has jd3 moderate shortness of breath. Historical: - Allergies: 02:00 No Known Allergies; ak1 - Home Meds: 02:00 amlodipine 5 mg tab 1 tab once daily [Active]; atorvastatin 40 mg Oral tab 1 tab once ak1 daily [Active]; aspirin 81 mg Oral TbEC [Active]; colchicine 0.6 mg Oral tab 1 tab 2 times per day [Active]; - PMHx: 02:00 CVA; Gout; Hyperlipidemia; Hypertension; ak1 - PSHx: 02:00 None; ak1 - Immunization history:: Adult Immunizations unknown. - Social history:: Smoking status: Patient/guardian denies using tobacco. - Ebola Screening: : No symptoms or risks identified at this time. - Family history:: not pertinent. - Hospitalizations: : No recent hospitalization is reported. Screenin:27 Abuse screen: Denies threats or abuse. Denies injuries from another. Nutritional ak1 screening: No deficits noted. Tuberculosis screening: No symptoms or risk factors identified. Fall Risk None identified. Assessment: 02:07 General: Appears uncomfortable, well groomed, Behavior is cooperative, appropriate for jd3 age, anxious. Pain: Complains of pain in chest Quality of pain is described as pressure, Is continuous. Neuro: Level of Consciousness is awake, alert, obeys commands, Oriented to person, place, time, situation. Cardiovascular: Heart tones S1 S2 present Capillary refill < 3 seconds Patient's skin is warm and dry. Rhythm is sinus tachycardia. Respiratory: Reports shortness of breath cough that is non-productive, persistent pain with cough Airway is patent Respiratory effort is labored, Respiratory pattern is symmetrical, tachypnea Breath sounds are clear bilaterally. GI: No signs and/or symptoms were reported involving the gastrointestinal system. : No signs and/or symptoms were reported regarding the genitourinary system. EENT: No signs and/or symptoms were reported regarding the EENT system. Derm: Skin is intact, Skin is dry, Skin is normal, Skin temperature is warm. Musculoskeletal: Circulation, motion, and sensation intact. Range of motion: intact in all extremities. 03:00 Reassessment: Patient appears in no apparent distress at this time. Patient and/or jd3 family updated on plan of care and expected duration. Pain level reassessed. Patient is alert, oriented x 3, equal unlabored respirations, skin warm/dry/pink. Patient states feeling better. 03:45 Reassessment: Patient appears in no apparent distress at this time. No changes from jd3 previously documented assessment. Patient and/or family updated on plan of care and expected duration. Pain level reassessed. Patient is alert, oriented x 3, equal unlabored respirations, skin warm/dry/pink. 04:44 Reassessment: Patient appears in no apparent distress at this time. Patient and/or jd3 family updated on plan of care and expected duration. Pain level reassessed. Patient is alert, oriented x 3, equal unlabored respirations, skin warm/dry/pink. Patient states feeling better. 05:57 Reassessment: Patient appears in no apparent distress at this time. Patient and/or jd3 family updated on plan of care and expected duration. Pain level reassessed. Patient is alert, oriented x 3, equal unlabored respirations, skin warm/dry/pink. Patient states feeling better. 06:05 Reassessment: report given to Karen HERNANDEZ at [facility]. [facility] 06:45 Reassessment: Patient appears in no apparent distress at this time. Patient and/or jd3 family updated on plan of care and expected duration. Pain level reassessed. Patient is alert, oriented x 3, equal unlabored respirations, skin warm/dry/pink. awaiting EMS for transfer. 06:55 Reassessment: Patient appears in no apparent distress at this time. Patient and/or jd3 family updated on plan of care and expected duration. Pain level reassessed. Patient is alert, oriented x 3, equal unlabored respirations, skin warm/dry/pink. report given to EMS. IV remained in pt. site clean and dry with no redness or swelling. Vital Signs: 02:00 BP 114 / 81; Pulse 130; Resp 32; Temp 98.0(O); Pulse Ox 92% on R/A; Weight 90.72 kg ak1 (R); Height 5 ft. 8 in. (172.72 cm) (R); Pain 8/10; 02:07 Pulse Ox 67% on R/A; jd3 02:10 Pulse Ox 100% on 100% Non-rebreather mask; jd3 02:33 BP 113 / 63; Pulse 106; Resp 33 S; Pulse Ox 100% on 50% Venturi mask; jd3 02:52 BP 113 / 63; Pulse 101; Resp 38; Pulse Ox 100% on 50% Venturi mask; ak1 03:45 BP 120 / 73; Pulse 97; Resp 28 S; Pulse Ox 100% on 50% Venturi mask; jd3 04:44 BP 99 / 46; Pulse 93; Resp 24 S; Pulse Ox 100% on 50% Venturi mask; jd3 05:55 BP 108 / 72; Pulse 89; Resp 22 S; Pulse Ox 100% on 50% Venturi mask; jd3 06:54 BP 104 / 76; Pulse 96; Resp 22 S; Pulse Ox 100% on 50% Venturi mask; jd3 02:00 Body Mass Index 30.41 (90.72 kg, 172.72 cm) ak1 02:07 pulse oximeter location changed multiple times. pt placed on non-rebreather, provider stella paged. ED Course: 01:43 Patient arrived in ED. ds1 01:58 Katie Carlton, RN is Primary Nurse. ak1 01:59 Triage completed. ak1 02:00 Arm band placed on Patient placed in an exam room, on a stretcher, on oxygen, on ak1 child monitor, on pulse oximetry, Patient notified of wait time. 02:02 Grey Hutson MD is Attending Physician. wa 02:05 Patient has correct armband on for positive identification. ekg monitor tech on. Pulse jd3 ox on. NIBP on. 02:05 Warm blanket given. jd3 02:09 Inserted saline lock: 20 gauge in left forearm, using aseptic technique. Blood jd3 collected. 02:39 Bryce Enriquez RN is Primary Nurse. jd3 02:43 X-ray completed. Portable x-ray completed in exam room. Patient tolerated procedure kw well. 02:44 XRAY CXR (1 view) In Process Unspecified. EDMS 03:24 Notified ED physician of a critical lab result(s). D-Dimer 822. 05:38 CT Chest For PE Angio In Process Unspecified. EDMS 06:56 No provider procedures requiring assistance completed. Patient transferred, IV remains jd3 in place. Administered Medications: 03:29 Drug: Aspirin Chewable Tablet 324 mg Route: PO; jd3 04:29 Follow up: Response: No adverse reaction jd3 03:29 Drug: Potassium Effervescent Tablet 50 mEq Route: PO; jd3 04:29 Follow up: Response: No adverse reaction jd3 06:29 Drug: Albuterol - atroVENT (3:1) (2.5 mg - 0.5 mg) 3 ml Route: Nebulizer; jd3 06:57 Follow up: Response: No adverse reaction jd3 06:29 Drug: Lasix 40 mg Route: IVP; Site: left antecubital; jd3 06:57 Follow up: Response: No adverse reaction jd3 Outcome: 05:51 ER care complete, transfer ordered by . wa 06:56 Transferred by ground EMS to [facility], Transfer form completed. jd3 X-rays sent w/ patient. 06:56 Condition: stable 06:56 Instructed on the need for transfer, Demonstrated understanding of instructions. 06:57 Patient left the ED. jd3 Signatures: Dispatcher [employer] EDNY Anahi Jaime RN RN Malina Cyr 1 Dayami Doyle Amber, RN RN ak1 Grey Hutson MD MD wa Davies, Jonathon, RN RN jd3 Corrections: (The following items were deleted from the chart) 06:56 06:55 Reassessment: report given to MAURI CASTILLO. IV remained in pt. site clean and dry with jd3 no redness or swelling. jd3
--- NOTE | 2018-11-03 05:52 | EDPHYS ---
Physician Documentation [facility] Name: Urban Cronin Age: 58 yrs Sex: Male : 1960 Arrival Date: 11/03/2018 Time: 01:43 Bed 5 Private MD: ED Physician Grey Hutson HPI: 11/03 05:32 This 58 yrs old Male presents to ER via Ambulatory with complaints of wa Shortness Of Breath. 05:32 The patient has shortness of breath at rest. Onset: The symptoms/episode began/occurred wa today. Duration: The symptoms are continuous, and are steadily getting worse. The patient's shortness of breath is aggravated by exertion, is alleviated by nothing. Associated signs and symptoms: Pertinent negatives: non-productive cough, dizziness, fever, hemoptysis, loss of consciousness. Severity of symptoms: At their worst the symptoms were severe in the emergency department the symptoms are worse moderately. 06:08 The patient has experienced a previous episode. The patient has not recently seen a ks physician. states has h/o pneumonia and fluid around the heart and sees a car sander. has been doing better but became SOB today. drove self here. Historical: - Allergies: 02:00 No Known Allergies; ak1 - Home Meds: 02:00 amlodipine 5 mg tab 1 tab once daily [Active]; atorvastatin 40 mg Oral tab 1 tab once ak1 daily [Active]; aspirin 81 mg Oral TbEC [Active]; colchicine 0.6 mg Oral tab 1 tab 2 times per day [Active]; - PMHx: 02:00 CVA; Gout; Hyperlipidemia; Hypertension; ak1 - PSHx: 02:00 None; ak1 - Immunization history:: Adult Immunizations unknown. - Social history:: Smoking status: Patient/guardian denies using tobacco. - Ebola Screening: : No symptoms or risks identified at this time. - Family history:: not pertinent. - Hospitalizations: : No recent hospitalization is reported. ROS: 06:09 Constitutional: Negative for fever, chills, and weight loss, Eyes: Negative for injury, wa pain, redness, and discharge, ENT: Negative for injury, pain, and discharge, Neck: Negative for injury, pain, and swelling, Abdomen/GI: Negative for abdominal pain, nausea, vomiting, diarrhea, and constipation, Back: Negative for injury and pain, : Negative for injury, bleeding, discharge, and swelling, MS/Extremity: Negative for injury and deformity, Skin: Negative for injury, rash, and discoloration, Neuro: Negative for headache, weakness, numbness, tingling, and seizure, Psych: Negative for depression, anxiety, suicide ideation, homicidal ideation, and hallucinations, Allergy/Immunology: Negative for hives, rash, and allergies. 06:09 Cardiovascular: Negative for chest pain, edema, palpitations. 06:09 Respiratory: Positive for cough, dyspnea on exertion, shortness of breath. 06:09 All other systems are negative. Exam: 06:10 Head/Face: Normocephalic, atraumatic. Eyes: Pupils equal round and reactive to light, wa extra-ocular motions intact. Lids and lashes normal. Conjunctiva and sclera are non-icteric and not injected. Cornea within normal limits. Periorbital areas with no swelling, redness, or edema. ENT: Nares patent. No nasal discharge, no septal abnormalities noted. Tympanic membranes are normal and external auditory canals are clear. Oropharynx with no redness, swelling, or masses, exudates, or evidence of obstruction, uvula midline. Mucous membranes moist. Neck: Trachea midline, no thyromegaly or masses palpated, and no cervical lymphadenopathy. Supple, full range of motion without nuchal rigidity, or vertebral point tenderness. No Meningismus. Chest/axilla: Normal chest wall appearance and motion. Nontender with no deformity. No lesions are appreciated. Abdomen/GI: Soft, non-tender, with normal bowel sounds. No distension or tympany. No guarding or rebound. No evidence of tenderness throughout. Back: No spinal tenderness. No costovertebral tenderness. Full range of motion. Skin: Warm, dry with normal turgor. Normal color with no rashes, no lesions, and no evidence of cellulitis. MS/ Extremity: Pulses equal, no cyanosis. Neurovascular intact. Full, normal range of motion. Neuro: Awake and alert, GCS 15, oriented to person, place, time, and situation. Cranial nerves II-XII grossly intact. Motor strength 5/5 in all extremities. Sensory grossly intact. Cerebellar exam normal. Normal gait. Psych: Awake, alert, with orientation to person, place and time. Behavior, mood, and affect are within normal limits. 06:10 Constitutional: The patient appears alert, in obvious distress, moderately distressed. 06:10 Cardiovascular: Rate: normal, Rhythm: regular, Pulses: no pulse deficits are appreciated, Heart sounds: normal, Edema: is not appreciated, JVD: is not appreciated. 06:10 Respiratory: moderate respiratory distress is noted, Respirations: tachypnea, Breath sounds: coarse bilaterally, Respiratory rate: tachypneic Vital Signs: 02:00 BP 114 / 81; Pulse 130; Resp 32; Temp 98.0(O); Pulse Ox 92% on R/A; Weight 90.72 kg ak1 (R); Height 5 ft. 8 in. (172.72 cm) (R); Pain 8/10; 02:07 Pulse Ox 67% on R/A; jd3 02:10 Pulse Ox 100% on 100% Non-rebreather mask; jd3 02:33 BP 113 / 63; Pulse 106; Resp 33 S; Pulse Ox 100% on 50% Venturi mask; jd3 02:52 BP 113 / 63; Pulse 101; Resp 38; Pulse Ox 100% on 50% Venturi mask; ak1 03:45 BP 120 / 73; Pulse 97; Resp 28 S; Pulse Ox 100% on 50% Venturi mask; jd3 04:44 BP 99 / 46; Pulse 93; Resp 24 S; Pulse Ox 100% on 50% Venturi mask; jd3 05:55 BP 108 / 72; Pulse 89; Resp 22 S; Pulse Ox 100% on 50% Venturi mask; jd3 06:54 BP 104 / 76; Pulse 96; Resp 22 S; Pulse Ox 100% on 50% Venturi mask; jd3 02:00 Body Mass Index 30.41 (90.72 kg, 172.72 cm) ak1 02:07 pulse oximeter location changed multiple times. pt placed on non-rebreather, provider jd3 paged. MDM: 02:02 Patient medically screened. ks 06:11 Differential diagnosis: asthma, Bronchitis CHF exacerbation, Chronic Obstructive wa Pulmonary Disease Myocardial Infarction pneumonia, pulmonary edema, Pulmonary Embolism reactive airway disease, Unstable Angina. Data reviewed: vital signs, nurses notes. 06:11 Test interpretation: by ED physician or midlevel provider: EKG: interp by me: HR 116. wa sinus tach. RBBB. Diffuse T wave abnml. consider ischemia. . Response to treatment: the patient's symptoms have mildly improved after treatment. Physician consultation:. ED course: improving. noted coughing. Will give nebs. noted non-sustained runs of V-tach. will transfer for further cardiac care. 06:14 Test interpretation: by ED physician or midlevel provider: ABG noted wnl. elevated BNP ks at 1478. D-dimer 822. trop 0.06. lance K at 3.2. low plt at 148. CXR noted for cardiomegaly and CHF. 06:18 Test interpretation: by ED physician or midlevel provider: CT chest: no PE. extensive ks CHF with bilateral pleural effusions. moderate pericardial effusions. hepatosplenomegaly. 11/03 02:27 Order name: Blood Culture Adult (2) ks 11/03 02:27 Order name: BMP ks 11/03 02:27 Order name: CBC with Diff ks 11/03 02:27 Order name: Ckmb ks 11/03 02:27 Order name: CPK ks 11/03 02:27 Order name: D-Dimer ks 11/03 02:27 Order name: Hepatic Function ks 11/03 02:27 Order name: Lipase; Complete Time: 03:15 ks 11/03 02:27 Order name: Magnesium; Complete Time: 03:15 ks 11/03 02:27 Order name: NT PRO-BNP; Complete Time: 03:14 ks 11/03 02:27 Order name: PT-INR; Complete Time: 04:13 ks 11/03 02:27 Order name: Ptt, Activated; Complete Time: 04:13 ks 11/03 02:27 Order name: Troponin (emerg Dept Use Only); Complete Time: 03:14 ks 11/03 02:28 Order name: Blood Culture [facility] 11/03 02:27 Order name: XRAY CXR (1 view) ks 11/03 02:27 Order name: EKG; Complete Time: 02:29 ks 11/03 02:27 Order name: Cardiac monitoring; Complete Time: 02:28 ks 11/03 02:27 Order name: EKG - Nurse/Tech; Complete Time: 02:29 ks 11/03 02:28 Order name: Basic Metabolic Panel; Complete Time: 03:15 EDMN 11/03 02:28 Order name: CBC with Automated Diff; Complete Time: 03:14 EDMN 11/03 02:28 Order name: CKMB Creatine Kinase MB; Complete Time: 03:15 [facility] 11/03 02:28 Order name: Creatine Phosphokinase; Complete Time: 03:15 [facility] 11/03 02:28 Order name: D-Dimer; Complete Time: 04:13 [facility] 11/03 02:28 Order name: Liver (Hepatic) Function; Complete Time: 03:14 [facility] 11/03 03:14 Order name: ABG; Complete Time: 04:12 ks 11/03 04:14 Order name: CT Chest For PE Angio ks 11/03 02:27 Order name: IV Saline Lock; Complete Time: 02:29 ks 11/03 02:27 Order name: Labs collected and sent; Complete Time: 02:29 ks 11/03 02:27 Order name: O2 Per Protocol; Complete Time: 02:29 ks 11/03 02:27 Order name: O2 Sat Monitoring; Complete Time: 02:29 ks Administered Medications: 03:29 Drug: Aspirin Chewable Tablet 324 mg Route: PO; jd3 04:29 Follow up: Response: No adverse reaction jd3 03:29 Drug: Potassium Effervescent Tablet 50 mEq Route: PO; jd3 04:29 Follow up: Response: No adverse reaction jd3 06:29 Drug: Albuterol - atroVENT (3:1) (2.5 mg - 0.5 mg) 3 ml Route: Nebulizer; jd3 06:57 Follow up: Response: No adverse reaction jd3 06:29 Drug: Lasix 40 mg Route: IVP; Site: left antecubital; jd3 06:57 Follow up: Response: No adverse reaction jd3 Disposition: 11/03/18 05:[address] [facility]. Diagnosis are Acute shortness of breath, Acute CHF. - Reason for transfer: Higher level of care. - Accepting physician is Dr. Rosenberg at [facility] . - Condition is Stable. - Problem is new. - Symptoms have improved. Signatures: Dispatcher [employer] Katie Brown RN RN ak1 Grey Hutson MD MD wa Davies, Jonathon, RN RN jd3 Corrections: (The following items were deleted from the chart) 06:57 05:51 11/03/2018 05:[address] [facility]. Diagnosis is jd3 Acute shortness of breath; Acute CHF. Reason for transfer: Higher level of care. Accepting physician is Dr. Rosenberg at [facility] . Condition is Stable. Problem is new. Symptoms have improved. wa
[2018-11-03] MEDS ORDERED: ALBUTEROL 2.5 MG/3 ML NEB SOL ONE (06:21)
[2018-11-03] MEDS ORDERED: FUROSEMIDE 40 MG/4 ML VIAL ONE (06:22)
[2018-11-03] MEDS ORDERED: IPRATROPIUM BROM 0.5MG/2.5ML ONE (06:22)
[2018-11-03 07:29] VITALS: TEMP 98
[2018-11-03 07:31] VITALS: O2SAT 100
[2018-11-03 07:46] VITALS: BP 104/76
--- NOTE | 2018-11-03 08:30 | RAD REPORT ---
EXAM DESCRIPTION: Yary Single View11/03/2018 2:43 am CLINICAL HISTORY: Shortness of breath COMPARISON: August 2018 FINDINGS: Moderate bilateral pulmonary opacities. Small bilateral pleural effusions. Cardiac silhou ette remains enlarged IMPRESSION: Moderate bilateral pulmonary opacities could represent pulmonary edema or pneumonia. Cardiac silhouette remains enlarged likely representing a combination of pericardial effusion and car diomegaly
--- NOTE | 2018-11-03 12:34 | EKG ---
Test Date: 2018-11-03 Test Time: 02:01:41 Agency Manager: MARCELINO MEASUREMENT RESULTS: Intervals: Rate: 116 OR: 146 QRSD: 142 QT: 362 QTc: 503 [place]: P: 35 OR: 146 QRS: 108 T: 7 INTERPRETIVE STATEMENTS: Sinus tachycardia Right bundle branch block T wave abnormality, consider lateral ischemia Abnormal ECG Compared to ECG 07/27/2018 17:14:54 Sinus rhythm no longer present T-wave abnormality still present Possible ischemia still present Electronically Signed On 11-03-18 12:32:43 CDT by Jitendra Valle
--- NOTE | 2018-11-06 14:02 | RAD REPORT ---
EXAM DESCRIPTION: CT - Chest For Pe Angio - 11/04/2018 3:42 am CLINICAL HISTORY: The patient is 58 years old and is Male; SOB TECHNIQUE: Axial computed tomographic angiography images of the chest with intravenous contrast usin g pulmonary embolism protocol. Sagittal and coronal reformatted images were created and reviewed. This CT exam was performed using one or more of the following dose reduction techniques: automated exposure control, adjustment of the mA and/or kV according to patient size, and/or use of iterative reconstruction technique. MIP reconstructed images were created and reviewed. COMPARISON: CT of the chest July 28, 2018. FINDINGS: PULMONARY ARTERIES: There are no obvious filling defects identified within the pulmonary arteries to suggest pulmonary embolism. AORTA: No acute findings. No thoracic aortic aneurysm. LUNGS: Extensive groundglass opacities with diffuse septal thickening is noted throughout the bud ngs. PLEURAL SPACE: Moderate bilateral pleural effusions are present. No pneumothorax. HEART: A moderate sized pericardial effusion is present. Measuring 2.1 cm in greatest thickness. This has increased in size from prior exam. No evidence of RV dysfunction. BONES/JOINTS: No acute fracture. No dislocation. SOFT TISSUES: Unremarkable. LYMPH NODES: Unremarkable. No enlarged lymph nodes. LIVER: The liver is enlarged. SPLEEN: The spleen is enlarged. IMPRESSION: 1. No evidence of pulmonary embolism. 2. Findings suggestive of extensive interstitial edema with moderate bilateral pleural effusions. 3. Moderate pericardial effusion, increased from prior exam. 4. Hepatosplenomegaly Electronically signed by: Carolann Roy MD 11/03/2018 5:54 AM CDT Due to temporary technical issues with the PACS/Fluency reporting system, reports are being signed by the in house radiologist as a courtesy to ensure prompt reporting. The interpreting radiologist is f ully responsible for the content of the report.
== END 2018-11-03 06:57 | disposition short-term general hospital (02) ==
LOC: ER 01:43
DX: I11.0 Hypertensive heart disease with heart failure (principal); I50.9 Heart failure, unspecified; E78.5 Hyperlipidemia, unspecified; M10.9 Gout, unspecified; Z79.82 Long term (current) use of aspirin; Z86.73 Personal history of transient ischemic attack (TIA), and cerebral infarction without residual deficits
CPT/HCPCS: 36415; 71045; 71275; 80048; 80076; 82550; 82553; 82805; 83690; 83735; 83880; 84484; 85025; 85379; 85610; 85730; 87040; 93005; 94640; 96374; 99285; J1940; Q9967

== ENCOUNTER 2018-12-26 14:47 | Emergency (ER) | payer OTHER ==
[2018-12-26] MEDS ORDERED: FUROSEMIDE 100 MG/10 ML VIAL IV ONE (15:28)
--- NOTE | 2018-12-26 15:40 | RAD REPORT ---
EXAM DESCRIPTION: RAD - Chest Single View - 12/26/2018 3:30 pm CLINICAL HISTORY: DYSPNEA Chest pain. COMPARISON: Chest Single View dated 11/03/2018; Chest Pa And Lat (2 Views) dated 08/04/2018; Chest Singl e View dated 07/27/2018; CHEST PA AND LAT 2 VIEW dated 05/06/2010; Chest For Pe Angio dated 11/03/2018 FINDINGS: Portable technique limits examination quality. Mild bilateral pulmonary opacities are present, appearing less severe than on the comparative radiogr aphs. The heart is mildly to moderately enlarged in size. No displaced fractures.
[2018-12-26 15:58] LABS: Protime INR 1.18
[2018-12-26 15:59] LABS: Basophils % 0.9 % (0-1.3); Hematocrit 30.9 % (39.6-49.0); Lymphocytes % 25.8 % (15.3-44.8); MPV 7.9 fL (7.6-11.3); RBC Red Blood Cell Count 3.86 M/uL (4.33-5.43)
[2018-12-26 16:09] LABS: Albumin 3.3 g/dL (3.4-5.0); Bilirubin Direct 0.3 mg/dL (0-0.2); Bilirubin Total 0.9 mg/dL (0.2-1.0); Magnesium 2.2 mg/dL (1.8-2.4); Protein, Total 6.6 g/dL (6.4-8.2); Troponin (Emerg Dept Use Only) 0.04 ng/mL (0.0-0.045)
--- NOTE | 2018-12-26 16:46 | RAD REPORT ---
EXAM DESCRIPTION: CT - Chest For Pe Angio - 12/26/2018 4:31 pm CLINICAL HISTORY: Chest pain. DYSPNEA COMPARISON: Chest For Pe Angio dated 11/03/2018 TECHNIQUE: CT angiogram of the pulmonary arteries was performed with MIP. All CT scans are performed using dose optimization technique as appropriate and may include automated exposure control or mA/KV adjustment according to patient size. FINDINGS: No evidence of pulmonary thromboembolism. No acute aortic finding demonstrated. Moderate bilateral pulmonary opacities are present, greatest in the lower lobes suggesting pulmonary edema or pneumonia. Small bilateral pleural effusions. No concerning bony finding. The spleen appears significantly enlarged. IMPRESSION: No evidence of pulmonary thromboembolism. Moderate bilateral pulmonary opacities are present with small bilateral pleural effusions, probably p ulmonary edema or less likely pneumonia. The degree of pulmonary opacities is not as severe as on the 11/03/2018 prior study. Splenomegaly.
--- NOTE | 2018-12-26 17:52 | ER ---
Nurse's Notes [facility] Name: Urban Cronin Age: 58 yrs Sex: Male : 1960 Arrival Date: 12/26/2018 Time: 14:53 Bed 4 Private MD: Diagnosis: Acute on chronic systolic (congestive) heart failure Presentation: 12/26 14:54 Presenting complaint: Patient states: SOB for a couple of weeks, was going to see Dr jorge Chowdary today to discuss treatment for small B cell lymphoma and was sent here. Pt reports this is a recent diagnosis and we transferred him to [place] and they drained fluid from his heart. Transition of care: patient was not received from another setting of care. Onset of symptoms was December 2018. Risk Assessment: Do you want to hurt yourself or someone else? Patient reports no desire to harm self or others. Care prior to arrival: None. 14:54 Method Of Arrival: Wheelchair sv 14:54 Acuity: SHIVA 2 sv 15:15 Initial Sepsis Screen: Does the patient meet any 2 criteria? No. Patient's initial hb sepsis screen is negative. Does the patient have a suspected source of infection? No. Patient's initial sepsis screen is negative. Historical: - Allergies: 14:56 No Known Allergies; sv - PMHx: 14:56 CVA; Gout; Hyperlipidemia; Hypertension; Small B cell lymphoma; Spleenomegaly; sv - PSHx: 14:56 None; sv - Immunization history:: Adult Immunizations up to date. - Social history:: Smoking status: Patient/guardian denies using tobacco. - Ebola Screening: : No symptoms or risks identified at this time. Screenin:43 Abuse screen: Denies threats or abuse. Denies injuries from another. Nutritional hb screening: No deficits noted. Tuberculosis screening: No symptoms or risk factors identified. Fall Risk None identified. Assessment: 15:31 General: Appears in no apparent distress. Behavior is calm, cooperative. Pain: Denies hb pain. Neuro: Level of Consciousness is awake, alert, obeys commands, Oriented to person, place, time, situation. Cardiovascular: Heart tones S1 S2 present Capillary refill < 3 seconds Patient's skin is warm and dry. Rhythm is regular. Respiratory: Reports shortness of breath Airway is patent Respiratory effort is even, unlabored, Respiratory pattern is tachypnea Breath sounds are clear bilaterally. GI: No signs and/or symptoms were reported involving the gastrointestinal system. : No signs and/or symptoms were reported regarding the genitourinary system. EENT: No signs and/or symptoms were reported regarding the EENT system. Derm: Skin is intact, is healthy with good turgor, Skin is pink, warm \T\ dry. Musculoskeletal: No signs and/or symptoms reported regarding the musculoskeletal system. 16:30 Reassessment: Patient appears in no apparent distress at this time. Patient and/or hb family updated on plan of care and expected duration. Pain level reassessed. Patient is alert, oriented x 3, equal unlabored respirations, skin warm/dry/pink. 17:30 Reassessment: Patient appears in no apparent distress at this time. Patient and/or hb family updated on plan of care and expected duration. Pain level reassessed. Patient is alert, oriented x 3, equal unlabored respirations, skin warm/dry/pink. Vital Signs: 14:56 BP 129 / 75; Pulse 91; Resp 22; Pulse Ox 82% on R/A; Weight 85.28 kg; Height 5 ft. 8 sv in. (172.72 cm); Pain 0/10; 16:30 BP 120 / 77; Pulse 87; Resp 17; Pulse Ox 94% 3 lpm ; hb 17:44 Pulse 67; Resp 20 S; Pulse Ox 100% on R/A; iw 14:56 Body Mass Index 28.59 (85.28 kg, 172.72 cm) sv 14:56 Pt placed on O2 \T\ 3L per NC. O2 sat up to 97%. sv ED Course: 14:53 Patient arrived in ED. sv 14:55 Triage completed. sv 14:57 Arm band placed on. sv 15:13 Samanta Liu FNP-C is PHCP. snw 15:13 Garret Rodriguez MD is Attending Physician. snw 15:14 EKG done, by outdoor emergency care technician. reviewed by Garret Rodriguez MD. sm3 15:15 Elkin Estrada MD is Attending Physician. snw 15:22 Radiology exam delayed due to lab results not completed at this time. (BUN/Creatinine) sj IV insertion attempt and/or patient not having appropriate IV at this time. 15:33 Inserted saline lock: 20 gauge in right antecubital area, using aseptic technique. hb Blood collected. 15:34 XRAY Chest (1 view) In Process Unspecified. EDMS 15:43 Patient has correct armband on for positive identification. Bed in low position. Call hb light in reach. Side rails up X 1. 15:46 Juliette Terrazas, RN is Primary Nurse. hb 16:33 CT Chest For PE Angio In Process Unspecified. EDMS 18:18 No provider procedures requiring assistance completed. IV discontinued, intact, hb bleeding controlled, No redness/swelling at site. Pressure dressing applied. Administered Medications: 15:33 Drug: Lasix 60 mg Route: IVP; Site: right antecubital; hb 16:30 Follow up: Response: No adverse reaction hb Outcome: 17:51 Discharge ordered by . 18:18 Discharged to home ambulatory, with family. hb 18:18 Condition: stable 18:18 Discharge instructions given to patient, Instructed on discharge instructions, follow up and referral plans. Demonstrated understanding of instructions, follow-up care. 18:19 Patient left the ED. hb Signatures: Dispatcher [employer] EDAR Carmen Robles, RN RN Samanta Bonilla, DIRECTOR OF SUPPLY CHAIN-C DIRECTOR OF SUPPLY CHAIN-Csnw Liya Madrid Irene, RN RN iw Baxter, Heather, Elkin Mike RN, MD MD gs Montes, Shakira 3
--- NOTE | 2018-12-26 17:52 | EDPHYS ---
Physician Documentation [facility] Name: Urban Cronin Age: 58 yrs Sex: Male : 1960 Arrival Date: 12/26/2018 Time: 14:53 Bed 4 Private MD: ED Physician Elkin Estrada HPI: 12/26 17:44 This 58 yrs old Male presents to ER via Wheelchair with complaints of gs Shortness Of Breath. 17:44 The patient has shortness of breath during heavy activity. Onset: The symptoms/episode gs began/occurred gradually, 3 day(s) ago, and became worse and became persistent. Duration: The symptoms are continuous. The patient's shortness of breath is aggravated by exertion. Associated signs and symptoms: Pertinent negatives: chest pain. Severity of symptoms: At their worst the symptoms were severe in the emergency department the symptoms are unchanged. The patient has experienced similar episodes in the past, a few times. Historical: - Allergies: 14:56 No Known Allergies; sv - PMHx: 14:56 CVA; Gout; Hyperlipidemia; Hypertension; Small B cell lymphoma; Spleenomegaly; sv - PSHx: 14:56 None; sv - Immunization history:: Adult Immunizations up to date. - Social history:: Smoking status: Patient/guardian denies using tobacco. - Ebola Screening: : No symptoms or risks identified at this time. ROS: 17:44 All other systems are negative. gs Exam: 17:44 Head/Face: Normocephalic, atraumatic. Eyes: Pupils equal round and reactive to light, gs extra-ocular motions intact. Lids and lashes normal. Conjunctiva and sclera are non-icteric and not injected. Cornea within normal limits. Periorbital areas with no swelling, redness, or edema. ENT: Nares patent. No nasal discharge, no septal abnormalities noted. Tympanic membranes are normal and external auditory canals are clear. Oropharynx with no redness, swelling, or masses, exudates, or evidence of obstruction, uvula midline. Mucous membranes moist. Neck: Trachea midline, no thyromegaly or masses palpated, and no cervical lymphadenopathy. Supple, full range of motion without nuchal rigidity, or vertebral point tenderness. No Meningismus. Chest/axilla: Normal chest wall appearance and motion. Nontender with no deformity. No lesions are appreciated. Cardiovascular: Regular rate and rhythm with a normal S1 and S2. No gallops, murmurs, or rubs. Normal PMI, no JVD. No pulse deficits. 17:44 Abdomen/GI: Soft, non-tender, with normal bowel sounds. No distension or tympany. No guarding or rebound. No evidence of tenderness throughout. Back: No spinal tenderness. No costovertebral tenderness. Full range of motion. Skin: Warm, dry with normal turgor. Normal color with no rashes, no lesions, and no evidence of cellulitis. MS/ Extremity: Pulses equal, no cyanosis. Neurovascular intact. Full, normal range of motion. Neuro: Awake and alert, GCS 15, oriented to person, place, time, and situation. Cranial nerves II-XII grossly intact. Motor strength 5/5 in all extremities. Sensory grossly intact. Cerebellar exam normal. Normal gait. 17:44 Constitutional: The patient appears alert, awake, in obvious distress, moderately distressed. 17:44 ECG was reviewed by the Attending Physician. 17:44 Respiratory: the patient does not display signs of respiratory distress, Respirations: tachypnea, Breath sounds: rales, that are severe, are located in both bases. Vital Signs: 14:56 BP 129 / 75; Pulse 91; Resp 22; Pulse Ox 82% on R/A; Weight 85.28 kg; Height 5 ft. 8 sv in. (172.72 cm); Pain 0/10; 16:30 BP 120 / 77; Pulse 87; Resp 17; Pulse Ox 94% 3 lpm ; hb 17:44 Pulse 67; Resp 20 S; Pulse Ox 100% on R/A; iw 14:56 Body Mass Index 28.59 (85.28 kg, 172.72 cm) sv 14:56 Pt placed on O2 \T\ 3L per NC. O2 sat up to 97%. sv MDM: 15:14 Patient medically screened. snw 15:18 Patient medically screened. gs 17:36 Physician consultation: Jitendra Valle MD regarding echo, says no pericardial effusion. gs 17:44 Differential diagnosis: CHF exacerbation, Myocardial Infarction pericardial effusion gs tamponade. Data reviewed: vital signs, nurses notes. 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 12/26 15:20 Order name: Basic Metabolic Panel; Complete Time: 16:12 12/26 15:20 Order name: CBC with Diff; Complete Time: 16:12 12/26 15:20 Order name: LFT's; Complete Time: 16:12 12/26 15:20 Order name: Magnesium; Complete Time: 16:12 12/26 15:20 Order name: NT PRO-BNP; Complete Time: 16:12 12/26 15:20 Order name: PT-INR; Complete Time: 16:12 12/26 15:20 Order name: Troponin (emerg Dept Use Only); Complete Time: 16:12 12/26 15:20 Order name: XRAY Chest (1 view); Complete Time: 16:12 12/26 15:20 Order name: EKG; Complete Time: 15:22 12/26 15:20 Order name: Cardiac monitoring; Complete Time: 15:42 12/26 15:20 Order name: EKG - Nurse/Tech; Complete Time: 15:42 12/26 15:20 Order name: CT Chest For PE Angio; Complete Time: 17:38 gs 12/26 15:20 Order name: Echo w/ Doppler 12/26 15:20 Order name: IV Saline Lock; Complete Time: 15:42 gs 12/26 15:20 Order name: Labs collected and sent; Complete Time: 15:42 12/26 15:20 Order name: O2 Per Protocol; Complete Time: 15:42 12/26 15:20 Order name: O2 Sat Monitoring; Complete Time: 15:42 gs EC:44 Rate is 85 beats/min. Rhythm is regular. MN interval is normal. QRS interval is gs prolonged. T waves are Inverted. Clinical impression: Abnormal EKG without significant change. Interpreted by me. Administered Medications: 15:33 Drug: Lasix 60 mg Route: IVP; Site: right antecubital; hb 16:30 Follow up: Response: No adverse reaction hb Disposition: 12/26/18 17:51 Discharged to Home. Impression: Acute on chronic systolic (congestive) heart failure. - Condition is Stable. - Discharge Instructions: Heart Failure. - Medication Reconciliation Form, Thank You Letter, Antibiotic Education, Prescription Opioid Use form. - Follow up: Private Physician; When: 2 - 3 days; Reason: Re-evaluation by your physician. - Notes: INCREASE LASIX TO 40 TWICE A DAY Signatures: Dispatcher [employer] EDCarmen Redman, RN RN Samanta Liu, ACADEMIC HOSPITALIST-C ACADEMIC HOSPITALIST-Csnw Juliette Terrazas RN RN Elkin Estrada MD MD gs Corrections: (The following items were deleted from the chart) 18:19 17:51 12/26/2018 17:51 Discharged to Home. Impression: Acute on chronic systolic hb (congestive) heart failure. Condition is Stable. Forms are Medication Reconciliation Form, Thank You Letter, Antibiotic Education, Prescription Opioid Use. Follow up: Private Physician; When: 2 - 3 days; Reason: Re-evaluation by your physician. gs
[2018-12-26 18:30] VITALS: BP 120/77
[2018-12-26 18:31] VITALS: O2SAT 100
--- NOTE | 2018-12-27 07:57 | ECHO ---
HEIGHT: 5 ft 8 in WEIGHT: 188 lb 0 oz DATE OF STUDY: 12/26/[address]: Elkin Estrada MD 2-DIMENSIONAL: YES M.MODE: YES DOPPLER: YES COLOR FLOW: YES TDS: NO PORTABLE: NO DEFINITY: NO BUBBLE STUDY: NO DIAGNOSIS: EVALUATE PERICARDIAL EFFUSION CARDIAC HISTORY: CATHERIZATION: NO SURGERY: NO PROSTHETIC VALVE: NO PACEMAKER: NO MEASUREMENTS (cm) DIASTOLIC (NORMALS) SYSTOLIC (NORMALS) IVSd 1.4 (0.6-1.2) LA Diam 3.9 (1.9-4.0) LVEF 63% LVIDd 3.7 (3.5-5.7) LVIDs 2.4 (2.0-3.5) %FS 34% LVPWd 1.4 (0.6-1.2) Ao Diam 2.7 (2.0-3.7) 2 DIMENSIONAL ASSESSMENT: RIGHT ATRIUM: NORMAL LEFT ATRIUM: NORMAL RIGHT VENTRICLE: NORMAL LEFT VENTRICLE: LEFT VENTRICULAR HYPERTROPHY TRICUSPID VALVE: NORMAL MITRAL VALVE: NORMAL PULMONIC VALVE: NORMAL AORTIC VALVE: NORMAL PERICARDIAL EFFUSION: NONE AORTIC ROOT: NORMAL LEFT VENTRICULAR WALL MOTION: LEFT VENTRICULAR HYPERTROPHY. NORMAL LEFT VENTRICULAR EJECTION FRACTION. DOPPLER/COLOR FLOW: MILD TRICUSPID REGURGITATION. NORMAL RIGHT VENTRICULAR SYSTOLIC PRESSURE. COMMENTS: NORMAL LEFT VENTRICULAR EJECTION FRACTION AND FUNCTION. LEFT VENTRICULAR HYPERTROPHY. MILD TRICUSPID REGURGITATION. NORMAL RIGHT VENTRICULAR SYSTOLIC PRESSURE. NO PERICARDIAL EFFUSION. TECHNOLOGIST: Tom STARR
--- NOTE | 2018-12-27 09:25 | EKG ---
Test Date: 2018-12-26 Test Time: 15:04:16 Manager Validation: LISY MEASUREMENT RESULTS: Intervals: Rate: 85 [place]: 154 QRSD: 144 QT: 400 QTc: 476 [place]: P: 48 [place]: 154 QRS: 70 T: 258 INTERPRETIVE STATEMENTS: Normal sinus rhythm Right bundle branch block T wave abnormality, consider inferolateral ischemia Abnormal ECG Compared to ECG 11/03/2018 02:01:41 Sinus tachycardia no longer present T-wave abnormality still present Possible ischemia still present Electronically Signed On 12-27-18 09:23:47 CDT by Colt Valenzuela
== END 2018-12-26 18:19 | disposition home or self-care (01) ==
LOC: ER 14:47
DX: I50.23 Acute on chronic systolic (congestive) heart failure (principal)
CPT/HCPCS: 93005; 93306; 85025; 80048; 36415; 83735; 85610; 80076; 84484; 83880; 71275; 71045; 96374; 99284; Q9967

== ENCOUNTER 2019-01-24 15:20 | Inpatient (IN) | payer OTHER ==
[2019-01-24 15:47] LABS: Arterial Blood Carboxyhemoglob 3.3 % (0-1.5); Blood Gas Oxyhemoglobin 95.9 % (94-97); Blood O2 Saturation 99.7 % (92-98.5)
[2019-01-24] MEDS ORDERED: FUROSEMIDE 40 MG/4 ML VIAL ONE (16:15)
--- NOTE | 2019-01-24 16:18 | RAD REPORT ---
EXAM DESCRIPTION: RAD - Chest Single View - 01/24/2019 4:11 pm CLINICAL HISTORY: CONGESTION Chest pain. COMPARISON: Chest Single View dated 12/26/2018; Chest Single View dated 11/03/2018; Chest Pa And Lat (2 Views) dated 08/04/2018; Chest Single View dated 07/27/2018 FINDINGS: Portable technique limits examination quality. Moderate bilateral pulmonary opacities are present likely representing pulmonary edema. The heart is moderately enlarged. No displaced fractures. IMPRESSION: Moderate CHF versus volume overload pattern.
[2019-01-24 16:33] LABS: Absolute Lymphocytes (CBC) 0.5 K/uL (0.7-4.9); Basophils % 0.6 % (0-1.3); Hematocrit 27.7 % (39.6-49.0); Lymphocytes % 8.6 % (15.3-44.8); MPV 9.3 fL (7.6-11.3); RBC Red Blood Cell Count 3.55 M/uL (4.33-5.43)
[2019-01-24 16:36] LABS: Protime INR 1.52
[2019-01-24 16:48] LABS: Albumin 3.4 g/dL (3.4-5.0); Bilirubin Direct 0.8 mg/dL (0-0.2); Bilirubin Total 1.8 mg/dL (0.2-1.0); Protein, Total 6.6 g/dL (6.4-8.2); Troponin (Emerg Dept Use Only) 0.45 ng/mL (0.0-0.045)
[2019-01-24 16:53] LABS: CKMB Creatine Kinase MB 13.5 ng/mL (0.3-3.6)
--- NOTE | 2019-01-24 17:37 | RAD REPORT ---
EXAM DESCRIPTION: CT - Thorax Wo Con CLINICAL HISTORY: Chest pain CONGESTION COMPARISON: Chest For Pe Angio dated 12/26/2018; Chest Single View dated 01/24/2019 FINDINGS: Extensive bilateral alveolar lung opacities are present with small pleural effusions. Ther e is a basilar predominance of the opacities. The heart is mildly enlarged in size. No pericardial ef fusion. No pneumothorax. A few mildly prominent lymph nodes are seen in the mediastinum. Marked splenomegaly. No lytic or blastic bone lesion. All CT scans are performed using dose optimization technique as appropriate and may include automated exposure control or mA/KV adjustment according to patient size. IMPRESSION: Extensive bilateral alveolar lung opacities are present probably representing pulmonary edema.This could be related to CHF or volume overload. Small bilateral pleural effusions. Splenomegaly.
--- NOTE | 2019-01-24 18:45 | EDPHYS ---
Physician Documentation [facility] Name: Urban Cronin Age: 58 yrs Sex: Male : 1960 Arrival Date: 01/24/2019 Time: 15:21 Bed 4 Private MD: Colt Cummingsama ED Physician Jose Lowery HPI: 01/24 16:49 This 58 yrs old Male presents to ER via Wheelchair with complaints of kdr Breathing Difficulty. 16:49 The patient has shortness of breath at rest, with light activity. Onset: The kdr symptoms/episode began/occurred gradually, yesterday. Duration: The symptoms are continuous, and are unchanged since they started, and are steadily getting worse, and are markedly worse than the original presentation. The patient's shortness of breath is aggravated by supine position, walking, is alleviated by nothing. Associated signs and symptoms: Pertinent positives: chest pain, diaphoresis, nausea. Severity of symptoms: At their worst the symptoms were moderate just prior to arrival, in the emergency department the symptoms are unchanged. The patient has experienced similar episodes in the past, but today's symptoms are worse, more painful. The patient has been recently seen by a physician: Sent from Dr. Chowdary's office today prior to getting his second dose of chemo. had his first dose yestateday.. He was noted to be hypotensive and hypoxic sats in the 60's and c,early dyspneic - concerned for possible recurrent pericardial effusion. Historical: - Allergies: 15:31 No Known Allergies; hb - Home Meds: 19:20 amlodipine 5 mg tab 1 tab once daily [Active]; aspirin 81 mg Oral TbEC [Active]; cc3 atorvastatin 40 mg Oral tab 1 tab once daily [Active]; colchicine 0.6 mg Oral tab 1 tab 2 times per day [Active]; - PMHx: 15:31 CVA; Gout; Hyperlipidemia; Hypertension; Small B cell lymphoma; Spleenomegaly; hb - Immunization history:: Adult Immunizations unknown. - Social history:: Smoking status: Patient/guardian denies using tobacco. - Ebola Screening: : No symptoms or risks identified at this time. ROS: 01/25 09:44 Constitutional: Negative for fever, chills, and weight loss, Eyes: Negative for injury, kdr pain, redness, and discharge, ENT: Negative for injury, pain, and discharge, Neck: Negative for injury, pain, and swelling, Cardiovascular: Negative for chest pain, palpitations, and edema, Abdomen/GI: Negative for abdominal pain, nausea, vomiting, diarrhea, and constipation, Back: Negative for injury and pain, : Negative for injury, bleeding, discharge, and swelling, MS/Extremity: Negative for injury and deformity, Skin: Negative for injury, rash, and discoloration, Neuro: Negative for headache, weakness, numbness, tingling, and seizure activity. Psych: Negative for depression, anxiety, suicide ideation, homicidal ideation, and hallucinations, Allergy/Immunology: Negative for hives, rash, and allergies, Endocrine: Negative for neck swelling, polydipsia, polyuria, polyphagia, and marked weight changes, Hematologic/Lymphatic: Negative for swollen nodes, abnormal bleeding, and unusual bruising. Respiratory: Positive for cough, dyspnea on exertion, shortness of breath, wheezing, Negative for hemoptysis. Exam: 09:44 Constitutional: This is a well developed, well nourished patient who is awake, alert, kdr and in no acute distress. Head/Face: Normocephalic, atraumatic. Eyes: Pupils equal round and reactive to light, extra-ocular motions intact. Lids and lashes normal. Conjunctiva and sclera are non-icteric and not injected. Cornea within normal limits. Periorbital areas with no swelling, redness, or edema. Neck: Trachea midline, no thyromegaly or masses palpated, and no cervical lymphadenopathy. Supple, full range of motion without nuchal rigidity, or vertebral point tenderness. No Meningismus. Chest/axilla: Normal chest wall appearance and motion. Nontender with no deformity. No lesions are appreciated. Cardiovascular: Regular rate and rhythm with a normal S1 and S2. No gallops, murmurs, or rubs. Normal PMI, no JVD. No pulse deficits. Abdomen/GI: Soft, non-tender, with normal bowel sounds. No distension or tympany. No guarding or rebound. No evidence of tenderness throughout. Back: No spinal tenderness. No costovertebral tenderness. Full range of motion. Skin: Warm, dry with normal turgor. Normal color with no rashes, no lesions, and no evidence of cellulitis. MS/ Extremity: Pulses equal, no cyanosis. Neurovascular intact. Full, normal range of motion. Neuro: Awake and alert, GCS 15, oriented to person, place, time, and situation. Cranial nerves II-XII grossly intact. Motor strength 5/5 in all extremities. Sensory grossly intact. Cerebellar exam normal. Normal gait. 09:44 Respiratory: mild respiratory distress is noted, Respirations: normal, Breath sounds: rales, rhonchi, that are mild, are scattered, are located in both bases, are heard diffusely, stridor, is not appreciated, wheezing: Vital Signs: 01/24 15:30 BP 98 / 68; Pulse 102; Resp 24; Temp 97.2; Pulse Ox 68% on R/A; Weight 81.65 kg; Height hb 5 ft. 7 in. (170.18 cm); Pain 4/10; 16:42 BP 107 / 71; Pulse 79; Resp 20; Pulse Ox 100% on 100% Non-rebreather mask; ph 17:46 BP 175 / 68; Pulse 57; Resp 15; Temp 97.6(TE); Pulse Ox 98% on Non-rebreather mask; mh5 18:24 BP 108 / 74; Pulse 77; Resp 22; Pulse Ox 100% on Non-rebreather mask; ph 19:20 BP 109 / 67; Pulse 71; Resp 30 S; Temp 97.5(O); Pulse Ox 93% on 4 lpm NC; Pain 0/10; cc3 20:22 BP 104 / 73; Pulse 79; Resp 24 S; Pulse Ox 95% on 4 lpm NC; Pain 0/10; cc3 15:30 Body Mass Index 28.19 (81.65 kg, 170.18 cm) hb MDM: 18:44 Patient medically screened. tw4 01/25 09:44 Data reviewed: vital signs, nurses notes, lab test result(s), radiologic studies. kdr 01/24 15:33 Order name: Basic Metabolic Panel; Complete Time: 17:01 kdr 01/24 15:33 Order name: Blood Culture Adult (2) kdr 01/24 15:33 Order name: CBC with Diff kdr 01/24 15:33 Order name: Ckmb; Complete Time: 17:01 kdr 01/24 15:33 Order name: CPK; Complete Time: 17:01 kdr 01/24 15:33 Order name: Lactate; Complete Time: 17:01 [facility] 01/24 18:17 Interpretation: Abnormal: LAC 3.2. tw4 01/24 15:33 Order name: LFT's; Complete Time: 17:01 [facility] 01/24 18:17 Interpretation: Abnormal: AST 261; ALT 239; ALK 164; BILIT 1.8; BILID 0.8. 4 01/24 15:33 Order name: Lipase; Complete Time: 17:01 kdr 01/24 15:33 Order name: Procalcitonin; Complete Time: 18:11 kdr 01/24 18:11 Interpretation: Abnormal. 4 01/24 15:33 Order name: Protime (+inr); Complete Time: 16:48 kdr 01/24 18:17 Interpretation: Abnormal: PT 17.6. 4 01/24 15:33 Order name: Ptt, Activated; Complete Time: 16:48 [facility] 01/24 15:33 Order name: Troponin (emerg Dept Use Only); Complete Time: 17:01 [facility] 01/24 15:33 Order name: Urine Microscopic Only [facility] 01/24 15:33 Order name: ABG; Complete Time: 16:48 [facility] 01/24 18:51 Order name: CBC Smear Scan EDMS 01/24 19:27 Order name: NT PRO-BNP EDMS 01/24 19:27 Order name: Comprehensive Metabolic Panel EDMS 01/24 19:27 Order name: Comprehensive Metabolic Panel EDMS 01/24 19:27 Order name: Magnesium EDMS 01/24 19:27 Order name: Magnesium EDMS 01/24 19:27 Order name: Phosphorus EDMS 01/24 19:27 Order name: Phosphorus EDMS 01/24 19:27 Order name: NT PRO-BNP EDMS 01/24 19:27 Order name: NT PRO-BNP EDMS 01/24 19:28 Order name: ABG Arterial Blood Gas EDMS 01/24 19:28 Order name: ABG Arterial Blood Gas EDMS 01/24 19:28 Order name: CBC with Automated Diff EDMS 01/24 19:28 Order name: CBC with Automated Diff EDMS 01/24 19:28 Order name: Sedimentation Rate, [place] EDMS 01/24 19:28 Order name: Sedimentation Rate, [place] EDMS 01/24 15:33 Order name: Chest Single View XRAY; Complete Time: 16:48 [facility] 01/24 15:33 Order name: Accucheck; Complete Time: 16:30 [facility] 01/24 15:33 Order name: Cardiac monitoring; Complete Time: 16:30 [facility] 01/24 15:33 Order name: EKG - Nurse/Tech; Complete Time: 16:31 [facility] 01/24 15:33 Order name: IV Saline Lock - Large Bore; Complete Time: 16:31 [facility] 01/24 15:33 Order name: Labs collected and sent; Complete Time: 16:31 [facility] 01/24 15:33 Order name: O2 Per Protocol; Complete Time: 16:31 [facility] 01/24 15:33 Order name: O2 Sat Monitoring; Complete Time: 16:31 [facility] 01/24 15:33 Order name: Urine Dipstick-Ancillary (obtain specimen); Complete Time: 20:01 [facility] 01/24 17:05 Order name: Thorax Wo Con; Complete Time: 18:11 [facility] 01/24 18:11 Interpretation: Abnormal. [facility] 01/24 17:57 Order name: EKG Electrocardiogram; Complete Time: 18:07 [facility] 01/24 19:42 Order name: Lactate Sepsis 2 HR Follow-up [facility] 01/24 20:04 Order name: Urine Dipstick--Ancillary (enter results) mw2 Administered Medications: 01/24 16:30 Drug: Lasix 40 mg Route: IVP; Site: left hand; ph 18:53 Follow up: Response: No adverse reaction ph 19:14 Drug: Zosyn 2.25 grams Route: IVPB; Infused Over: 60 mins; Site: left hand; ph 20:18 Follow up: Response: No adverse reaction; IV Status: Completed infusion; IV Intake: cc3 100ml Disposition: 01/24/19 18:44 Hospitalization ordered by Mauri Levin for Inpatient Admission. Preliminary diagnosis are Acute pulmonary edema, Hypoxemia. - Bed requested for Intensive Care Unit. - Status is Inpatient Admission. cc3 - Condition is Fair. - Problem is an acute exacerbation. - Symptoms have improved. UTI on Admission? No Signatures: Dispatcher [employer] EDKY Maude Arredondo RN RN Daniel Alvarado MD MD [facility] Melissa Livingston RN RN Juliette Terrazas RN RN Jose Lowery MD MD [facility] Gita Robertson cc3 Corrections: (The following items were deleted from the chart) 17:05 15:43 Chest For PE Angio+CT.RAD.BRZ ordered. EDMS EDMS 19:33 18:44 Hospitalization Ordered by Mauri Levin MD for Inpatient Admission. Preliminary mw diagnosis is Acute pulmonary edema; Hypoxemia. Bed requested for Intensive Care Unit. Status is Inpatient Admission. Condition is Fair. Problem is an acute exacerbation. Symptoms have improved. UTI on Admission? No. tw4 20:56 19:33 01/24/2019 18:44 Hospitalization Ordered by Mauri Levin MD for Inpatient cc3 Admission. Preliminary diagnosis is Acute pulmonary edema; Hypoxemia. Bed requested for Intensive Care Unit. Status is Inpatient Admission. Condition is Fair. Problem is an acute exacerbation. Symptoms have improved. UTI on Admission? No. mw
--- NOTE | 2019-01-24 18:45 | ER ---
Nurse's Notes [facility] Name: Urban Cronin Age: 58 yrs Sex: Male : 1960 Arrival Date: 01/24/2019 Time: 15:21 Bed 4 Private MD: Eli Cummings Diagnosis: Acute pulmonary edema;Hypoxemia Presentation: 01/24 15:28 Presenting complaint: Sent from Dr. Chowdary's office for SOB. Pt c/o SOB upon waking and hb N/V today. Transition of care: patient was not received from another setting of care. Onset of symptoms was January 24, 2019. Risk Assessment: Do you want to hurt yourself or someone else? Patient reports no desire to harm self or others. Care prior to arrival: None. 15:28 Method Of Arrival: Wheelchair hb 15:28 Acuity: SHIVA 2 hb 16:41 Initial Sepsis Screen: Does the patient meet any 2 criteria? RR > 20 per min. HR > 90 ph bpm. Does the patient have a suspected source of infection? No. Patient's initial sepsis screen is negative. Triage Assessment: 19:15 General: Appears in no apparent distress. comfortable, Behavior is calm, cooperative, cc3 appropriate for age. Respiratory: Onset: The symptoms/episode began/occurred this morning. Respiratory: the patient reports symptoms have resolved. Historical: - Allergies: 15:31 No Known Allergies; hb - Home Meds: 19:20 amlodipine 5 mg tab 1 tab once daily [Active]; aspirin 81 mg Oral TbEC [Active]; cc3 atorvastatin 40 mg Oral tab 1 tab once daily [Active]; colchicine 0.6 mg Oral tab 1 tab 2 times per day [Active]; - PMHx: 15:31 CVA; Gout; Hyperlipidemia; Hypertension; Small B cell lymphoma; Spleenomegaly; hb - Immunization history:: Adult Immunizations unknown. - Social history:: Smoking status: Patient/guardian denies using tobacco. - Ebola Screening: : No symptoms or risks identified at this time. Screenin:10 Abuse screen: Denies threats or abuse. Denies injuries from another. Nutritional ph screening: No deficits noted. Tuberculosis screening: No symptoms or risk factors identified. Fall Risk None identified. Assessment: 15:45 General: Appears in no apparent distress. uncomfortable, well groomed, Behavior is ph calm, cooperative, appropriate for age, Denies fever. Pain: Denies pain. Neuro: Level of Consciousness is awake, obeys commands, Oriented to person, place, time, situation, Reports dizziness. Cardiovascular: Reports fatigue, lightheadedness, nausea, shortness of breath, vomiting, Denies chest pain, Rhythm is sinus rhythm. Respiratory: Reports shortness of breath at rest Airway is patent Respiratory effort is even, labored, Respiratory pattern is tachypnea Breath sounds with crackles bilaterally. GI: Abd is soft X 4 quads Abdomen is tender to palpation X 4 quads. Reports nausea, vomiting. Derm: Skin is intact, Skin is pale, Skin temperature is cool. Musculoskeletal: Circulation, motion, and sensation intact. Range of motion: intact in all extremities. 16:32 Reassessment: Patient appears in no apparent distress at this time. Patient and/or ph family updated on plan of care and expected duration. Pain level reassessed. Patient is alert, oriented x 3, equal unlabored respirations, skin warm/dry/pink. Pt color improving, reports feeling better after receiving o2 via NRB, Spo2 100%, awaiting lab and CXR results. 17:30 Reassessment: Patient appears in no apparent distress at this time. Patient and/or ph family updated on plan of care and expected duration. Pain level reassessed. Patient is alert, oriented x 3, equal unlabored respirations, skin warm/dry/pink. 18:23 Reassessment: Patient appears in no apparent distress at this time. Patient and/or ph family updated on plan of care and expected duration. Pain level reassessed. Patient is alert, oriented x 3, equal unlabored respirations, skin warm/dry/pink. Spoke to ERP about pt labs and administration of IV fluids per sepsis protocol, provider declined to order IV fluids at this time r/t pt's pulmonary edema and CHF. 19:15 Reassessment: Patient appears in no apparent distress at this time. Patient and/or cc3 family updated on plan of care and expected duration. Pain level reassessed. Patient is alert, oriented x 3, equal unlabored respirations, skin warm/dry/pink. Received this male patient from morning shift MARY Torres for admission to ICU awaiting bed availability. With IV cannula gauge 22 at the left hand with ongoing Zosyn 2.25 grams infusing well, on oxygen therapy by nasal cannula at 4LPM saturating 93%. Patient denies pain at this time. General: Appears in no apparent distress. comfortable, well groomed, Behavior is calm, cooperative, appropriate for age, Denies fever. Pain: Denies pain. Neuro: Level of Consciousness is awake, alert, obeys commands, Oriented to person, place, time, situation, Appropriate for age. Cardiovascular: Denies chest pain, Capillary refill < 3 seconds in bilateral fingers Patient's skin is warm and dry. Rhythm is sinus rhythm. Respiratory: Reports shortness of breath on exertion Airway is patent Respiratory effort is even, unlabored, Respiratory pattern is tachypnea Breath sounds with crackles bilaterally. GI: Abdomen is round non-distended, Bowel sounds present X 4 quads. Abd is soft X 4 quads Abdomen is tender to palpation X 4 quads. : No signs and/or symptoms were reported regarding the genitourinary system. EENT: No signs and/or symptoms were reported regarding the EENT system. Derm: Skin is intact, is healthy with good turgor, Skin is pale, Skin temperature is warm. Musculoskeletal: Circulation, motion, and sensation intact. Range of motion: intact in all extremities. 19:50 Reassessment: Room available in ICU Bed 3, report called and handed over to RN Sabina Parnell for continuity of care and management. Patient denies pain at this time. 20:40 Reassessment: Patient appears in no apparent distress at this time. Patient and/or cc3 family updated on plan of care and expected duration. Pain level reassessed. Patient is alert, oriented x 3, equal unlabored respirations, skin warm/dry/pink. Patient left ER for admission vitally stable by stretcher escorted by in, senior technical business analystrosa Perla and the patient's relative on continuous cardiac monitoring. No valuables left in the patient's room. Patient denies pain at this time. Patient states feeling better. Patient states symptoms have improved. Vital Signs: 15:30 BP 98 / 68; Pulse 102; Resp 24; Temp 97.2; Pulse Ox 68% on R/A; Weight 81.65 kg; Height hb 5 ft. 7 in. (170.18 cm); Pain 4/10; 16:42 BP 107 / 71; Pulse 79; Resp 20; Pulse Ox 100% on 100% Non-rebreather mask; ph 17:46 BP 175 / 68; Pulse 57; Resp 15; Temp 97.6(TE); Pulse Ox 98% on Non-rebreather mask; mh5 18:24 BP 108 / 74; Pulse 77; Resp 22; Pulse Ox 100% on Non-rebreather mask; ph 19:20 BP 109 / 67; Pulse 71; Resp 30 S; Temp 97.5(O); Pulse Ox 93% on 4 lpm NC; Pain 0/10; cc3 20:22 BP 104 / 73; Pulse 79; Resp 24 S; Pulse Ox 95% on 4 lpm NC; Pain 0/10; cc3 15:30 Body Mass Index 28.19 (81.65 kg, 170.18 cm) hb ED Course: 15:21 Patient arrived in ED. ag5 15:22 Eli Cummings MD is Private Physician. ag5 15:30 Triage completed. hb 15:30 Arm band placed on. hb 15:32 Daniel Alvarado MD is Attending Physician. kdr 15:40 Patient has correct armband on for positive identification. Placed in gown. Bed in low mh5 position. Call light in reach. Side rails up X 1. Adult w/ patient. Warm blanket given. ekg monitor on. Pulse ox on. NIBP on. 15:44 Radiology exam delayed due to lab results not completed at this time. (BUN/Creatinine). ka 15:48 EKG done, by telecommunication tower technician. reviewed by Daniel Alvarado MD. sm3 16:00 Inserted saline lock: 22 gauge in left hand, using aseptic technique. ph 16:03 Melissa Livingston, RN is Primary Nurse. ph 16:12 Chest Single View XRAY In Process Unspecified. EDMS 16:16 Radiology exam delayed due to lab results not completed at this time. (BUN/Creatinine). ka 16:27 Radiology exam delayed due to lab results not completed at this time. (BUN/Creatinine). ka 16:40 No provider procedures requiring assistance completed. ph 16:43 Notified ED physician of a critical lab result(s). plt 42. ss 16:50 Radiology exam delayed due to lab results not completed at this time. (BUN/Creatinine). ka 16:53 Notified ED physician of a critical lab result(s). [id number]. ss 17:21 Thorax Wo Con In Process Unspecified. EDMS 18:42 Attending Physician role handed off by Daniel Alvarado MD tw4 18:42 Jose Lowery MD is Attending Physician. tw4 18:42 Mauri Levin MD is Hospitalizing Provider. tw4 19:50 Patient admitted, IV remains in place. cc3 Administered Medications: 16:30 Drug: Lasix 40 mg Route: IVP; Site: left hand; ph 18:53 Follow up: Response: No adverse reaction ph 19:14 Drug: Zosyn 2.25 grams Route: IVPB; Infused Over: 60 mins; Site: left hand; ph 20:18 Follow up: Response: No adverse reaction; IV Status: Completed infusion; IV Intake: cc3 100ml Intake: 20:18 IV: 100ml; Total: 100ml. cc3 Output: 19:14 Urine: 1200ml (Voided); Total: 1200ml. ph Outcome: 18:44 Decision to Hospitalize by Provider. tw4 19:50 Admitted to ICU accompanied by nurse, accompanied by tech, family with patient, via cc3 stretcher, room 3, with oxygen, on monitor, with chart, Report called to MARY Parnell 19:50 Condition: stable 19:50 Instructed on the need for admit, Demonstrated understanding of instructions. 20:56 Patient left the ED. cc3 Signatures: Dispatcher [employer] EDMS Daniel Alvarado MD MD [facility] Vandana Patel RN RN ss Hall, Patricia, RN RN Alie Velazquez Heather, MARY HERNANDEZ Trice Gonzalez [facility] Jose Lowery MD MD [facility] Sandee Quach 3 Gita Robertson 3 Mariana Mariscal [facility] Corrections: (The following items were deleted from the chart) 17:49 17:46 BP 175 / 68; Pulse 57bpm; Resp 15bpm; Pulse Ox 98% Non-rebreather mask; [place] [id number] 20:23 19:20 BP 109 / 67; Pulse 71bpm; Resp 30bpm; Spontaneous; Pulse Ox 93% 4 lpm Nasal cc3 Cannula; Temp 97.5F Oral; cc3
[2019-01-24 18:51] LABS: Anisocytosis 2+; Blood Morphology Comment NOTED (NOT SEEN); Platelet Estimate DECR; Platelets, Giant FEW; Urine White Blood Cell Casts OK
[2019-01-24] MEDS ORDERED: PIPER/TAZO/NS 2.25gm 2.25 GM/100 ML BAG ONE (18:51)
[2019-01-24] MEDS ORDERED: ACETAMINOPHEN 500 MG TAB PO PRN (19:21)
[2019-01-24] MEDS ORDERED: ONDANSETRON 4 MG/2 ML VIAL IV PRN (19:21)
[2019-01-24] MEDS ORDERED: AZITHROMYCIN IV 500 MG in NA CHLORIDE 0.9% 250 ML IVPB ONE (19:25)
[2019-01-24] MEDS: ALBUTEROL 2.5 MG/3 ML NEB SOL NEB SCH (20:00)
[2019-01-24] MEDS: IPRATROPIUM BROM 0.5MG/2.5ML NEB SCH (20:00)
[2019-01-24] MEDS ORDERED: CEFTRIAXONE/SWI 1gm 1 GM/10 ML SYR ONE (20:42)
[2019-01-24] MEDS ORDERED: AZITHROMYCIN 500 MG INJ IVPB ONE (20:44)
[2019-01-24] MEDS ORDERED: NA CHLORIDE 0.9% 250 ML ONE (20:55)
[2019-01-24] MEDS ORDERED: CEFTRIAXONE 1 GM/NS 50 ML 1 GM/50 ML BAG IV SCH (21:00)
[2019-01-24] MEDS: POTASSIUM 25 MEQ EFFERV TAB PO SCH (21:05)
[2019-01-24 21:33] LABS: Urine Blood NEGATIVE (NEG); Urine Glucose NEGATIVE (NEG); Urine Protein NEGATIVE (NEG); Urine Specific Gravity 1.015 (1.005-1.030)
--- NOTE | 2019-01-24 22:08 | EKG ---
Test Date: 2019-01-24 Test Time: 15:40:21 Electric Stop Installer: LISY MEASUREMENT RESULTS: Intervals: Rate: 86 WV: 166 QRSD: 140 QT: 404 QTc: 483 [place]: P: 61 WV: 166 QRS: 94 T: 235 INTERPRETIVE STATEMENTS: Normal sinus rhythm Right bundle branch block T wave abnormality, consider lateral ischemia Abnormal ECG Compared to ECG 12/26/2018 15:04:16 No significant changes Electronically Signed On 01-24-19 22:08:31 CDT by Colt Valenzuela
[2019-01-24 22:52] LABS: Urine Appearance CLEAR; Urine Bilirubin NEGATIVE (NEG); Urine Blood NEGATIVE (NEG); Urine Color YELLOW; Urine Glucose NEGATIVE (NEG); Urine Protein NEGATIVE (NEG); Urine Specific Gravity 1.015 (1.005-1.030); Urine Urobilinogen 0.2 mg/dL (0.2-1.0); Urine pH 6.5 (5.0-7.0)
[2019-01-24 23:22] LABS: Urine Bacteria <20 /HPF (NONE SEEN); Urine Culture Reflex Order NOT NEEDED; Urine RBC NONE SEEN /HPF (NONE SEEN)
[2019-01-24] MEDS: METHYLPREDNISOLONE 125 MG INJ IV SCH (23:59)
[2019-01-25] MEDS: ALBUTEROL 2.5 MG/3 ML NEB SOL NEB SCH ×2 (02:00→08:25)
[2019-01-25] MEDS: IPRATROPIUM BROM 0.5MG/2.5ML NEB SCH ×2 (02:00→08:25)
[2019-01-25 05:23] LABS: Absolute Lymphocytes (CBC) 0.3 K/uL (0.7-4.9); Basophils % 0.5 % (0-1.3); Hematocrit 27.1 % (39.6-49.0); Lymphocytes % 5.4 % (15.3-44.8); RBC Red Blood Cell Count 3.45 M/uL (4.33-5.43)
[2019-01-25 05:58] LABS: Albumin 3.3 g/dL (3.4-5.0); Bilirubin Total 1.1 mg/dL (0.2-1.0); Magnesium 2.6 mg/dL (1.8-2.4); Phosphorus 4.1 mg/dL (2.5-4.9); Potassium 4.1 mmol/L (3.5-5.1); Protein, Total 6.6 g/dL (6.4-8.2)
[2019-01-25] MEDS: METHYLPREDNISOLONE 125 MG INJ IV SCH ×3 (06:08→17:30)
[2019-01-25 06:14] VITALS: BMI 27.8
[2019-01-25 06:43] LABS: Arterial Blood Carboxyhemoglob 3.5 % (0-1.5); Blood Gas Oxyhemoglobin 94.5 % (94-97); Blood O2 Saturation 98.1 % (92-98.5)
[2019-01-25] MEDS ORDERED: ALBUTEROL 2.5 MG/3 ML NEB SOL NEB PRN ×2 (08:41→15:00)
--- NOTE | 2019-01-25 08:42 | P.CNS ---
Date of Consult: 01/25/19 Chief Complaint: Shortness of breath History of Present Illness: Patient is 58 years of age recent diagnosis of B-cell lymphoma apparently got 1 dose of chemotherapy few days ago got acutely worse started having more shortness of breath patient was diagnosed with B-cell lymphoma at the [facility] presented initially with shortness of breath and was transferred there and denies any fever chills has some hemoptysis no chest pain apparently he also has splenomegaly patient does not smoke Allergies No Known Allergies Allergy (Verified 01/24/19 21:41) Home Medications: Allopurinol 300 mg PO DAILY 07/27/18 Atorvastatin Calcium 40 mg PO DAILY 07/27/18 Colchicine [Colcrys *] 0.6 mg PO BID #28 tab 07/29/18 Furosemide 40 mg PO BID 01/24/19 Ondansetron HCl [Zofran] 4 mg PO Q4HP PRN 01/24/19 Sulfamethoxazole/Trimethoprim [Sulfamethoxazole-Tmp Ds Tablet] 1 each PO M,W,F 01/24/19 Valacyclovir [Valtrex*] 500 mg PO DAILY 01/24/19 - Past Medical/Surgical History Diabetic: No -: HTN -: hyperlipidemia -: CVA -: Gout -: [place] -: CHF -: small b cell lymphoma -: spleenomegaly - Family History Father Medical History: Heart disease Brother Medical History: Hypertension, Diabetes Mother Medical History: Cancer - Social History Alcohol use: No CD- Drugs: No Caffeine use: Yes Place of Residence: Home Review of Systems 10-point ROS is otherwise unremarkable General: Weakness Respiratory: Shortness of Breath Physical Examination Temp Pulse Resp BP Pulse Ox 97 F 84 27 H 101/71 98 01/25/19 04:00 01/25/19 07:00 01/25/19 07:00 01/25/19 07:00 01/25/19 07:00 General: Alert, Oriented x3, Severe distress Neck: Supple Respiratory: Crackles/rales (Crackles bilaterally right worse than the left most home the posterior lung bases) Cardiovascular: No edema, Regular rate/rhythm, Normal S1 S2 Gastrointestinal: Normal bowel sounds, Soft and benign Musculoskeletal: No clubbing, No swelling Laboratory Data (last 24 hrs) 01/25/19 04:46: Sodium 140, Potassium 4.1, BUN 32 H, Creatinine 1.11, Glucose 133 H, Phosphorus 4.1, Magnesium 2.6 H, Total Bilirubin 1.1 H, AST 334 H*, ALT 380 H* D, Alkaline Phosphatase 149 H 01/25/19 04:46: WBC 4.8, Hgb 8.7 L, Hct 27.1 L, Plt Count 42 L* 01/24/19 16:00: PT 17.6 H, INR 1.52, APTT 25.7 01/24/19 16:00: WBC 5.4, Hgb 9.2 L, Hct 27.7 L, Plt Count 42 L* 01/24/19 16:00: Sodium 135 L, Potassium 4.0, BUN 40 H, Creatinine 1.81 H, Glucose 95, Total Bilirubin 1.8 H, AST 261 H, ALT 239 H, Alkaline Phosphatase 164 H, Lipase 206 - Problems (1) ARDS (adult respiratory distress syndrome) Current Visit: Yes Status: Acute Plan: Patient is 58 years of age admitted with ARDS secondary to chemotherapy. CT scan shows diffuse lung damage read BiPAP agree with steroids Dc Zithromax and use dose of Lasix to 40 mg daily labs reviewed patient is anemic thrombocytopenic abnormal liver function tests blood pressure is stable continue to monitor
[2019-01-25] MEDS: POTASSIUM 25 MEQ EFFERV TAB PO SCH ×2 (08:52→19:42)
[2019-01-25] MEDS: CEFTRIAXONE/SWI 1gm 1 GM/10 ML SYR IV SCH ×2 (08:52→19:42)
[2019-01-25] MEDS ORDERED: FUROSEMIDE 40 MG/4 ML VIAL IV SCH ×2 (09:00)
[2019-01-25] MEDS ORDERED: ENOXAPARIN 40 MG/0.4 ML SQ SCH (09:00)
[2019-01-25] MEDS ORDERED: AZITHROMYCIN IV 250 MG in NA CHLORIDE 0.9% 250 ML IVPB SCH (09:00)
--- NOTE | 2019-01-25 10:13 | RAD REPORT ---
EXAM DESCRIPTION: US - Liver Only - 01/25/2019 10:03 am CLINICAL HISTORY: Abnormal liver function COMPARISON: None. TECHNIQUE: Sonographic evaluation of the right upper quadrant was performed as a dedicated liver ult rasound study. FINDINGS: The liver is 14-15 cm in maximum dimension. No focal liver lesion is identifiable. Liver p arenchyma is slightly echogenic but not definitive for fatty infiltration or other diffuse hepatic pa renchymal disease. Trace amount of free fluid was seen adjacent to the right lobe. Doppler evaluation shows normal velocity, waveform and flow direction of the portal vein. No portal vein thrombus. No i ntrahepatic biliary tree dilatation. Splenomegaly is present to 17-18 cm. No focal splenic finding. No adjacent lymphadenopathy. IMPRESSION: No focal liver abnormality seen. Liver parenchymal pattern is nonspecific. Splenomegaly to 17-18 cm.
--- NOTE | 2019-01-25 12:22 | P.HP ---
Certification for Inpatient Patient admitted to: Inpatient With expected LOS: >2 Midnights Patient will require the following post-hospital care: None Practitioner: I am a practitioner with admitting privileges, knowledge of patient current condition, hospital course, and medical plan of care. Services: Services provided to patient in accordance with Admission requirements found in Title 42 Section 412.3 of the Code of Federal Regulations Patient History Date of Service: 01/24/19 Reason for admission: Shortness of breath History of Present Illness: Patient is a 58-year-old gentleman who came into the hospital with shortness of breath. Patient originally came into the hospital this past July. He has shortness of breath and his workup at that time revealed that he had extensive bilateral opacities on his CT of his chest. He was having fevers and he had been on antibiotics. An echocardiogram did not reveal cardiomyopathy. His ejection fraction was normal and there was no diastolic dysfunction. He was released with a diagnosis of pneumonia. Upon follow-up patient was diagnosed with lymphoma and recently he was started on chemotherapy. he developed some shortness of breath and is CT scan revealed extensive bilateral pulmonary opacities once again. In the emergency room they felt he may have CHF and they started him on IV diuresing. Patient diuresed about 2 L of fluid and his oxygenation has improved somewhat. However , in light of the fact that he is still having significant shortness of breath even after removal of almost 2 L of fluid I believe he may have something more extensive going on. He could have a pneumonic process or this could be related to his lymphoma. Will get pulmonary consultation as well. We will get Oncology to see the patient in the hospital as well. Allergies No Known Allergies Allergy (Verified 01/24/19 21:41) Home Medications: Allopurinol 300 mg PO DAILY 07/27/18 Atorvastatin Calcium 40 mg PO DAILY 07/27/18 Colchicine [Colcrys *] 0.6 mg PO BID #28 tab 07/29/18 Furosemide 40 mg PO BID 01/24/19 Ondansetron HCl [Zofran] 4 mg PO Q4HP PRN 01/24/19 Sulfamethoxazole/Trimethoprim [Sulfamethoxazole-Tmp Ds Tablet] 1 each PO M,W,F 01/24/19 Valacyclovir [Valtrex*] 500 mg PO DAILY 01/24/19 - Past Medical/Surgical History Has patient received pneumonia vaccine in the past: No Diabetic: No -: HTN -: hyperlipidemia -: CVA -: Gout -: [place] -: CHF -: small b cell lymphoma -: spleenomegaly Past Surgical History: Patient denies surgical history - Family History Father Medical History: Heart disease Brother Medical History: Hypertension, Diabetes Mother Medical History: Cancer - Social History Alcohol use: No CD- Drugs: No Caffeine use: Yes Place of Residence: Home Review of Systems 10-point ROS is otherwise unremarkable Physical Examination - Vital Signs Temperature: 97 F Blood Pressure: 110/69 Pulse: 81 Respirations: 27 Pulse Ox (%): 98 - Physical Exam General: Alert, In no apparent distress, Oriented x3 HEENT: Atraumatic, PERRLA, Mucous membr. moist/pink, EOMI, Sclerae nonicteric Neck: Supple, 2+ carotid pulse no bruit, No LAD, Without JVD or thyroid abnormality Respiratory: Diminished, Crackles/rales Cardiovascular: Regular rate/rhythm, Normal S1 S2, No murmurs Gastrointestinal: Normal bowel sounds, Soft and benign, Non-distended, No tenderness Musculoskeletal: No clubbing, No tenderness, Swelling Integumentary: No rashes Neurological: Normal gait, Normal speech, Normal strength at 5/5 x4 extr, Normal tone, Sensation intact, Cranial nerves 3-12 intact, Normal affect Lymphatics: No axilla or inguinal lymphadenopathy - Studies Laboratory Data (last 24 hrs) 01/25/19 04:46: Sodium 140, Potassium 4.1, BUN 32 H, Creatinine 1.11, Glucose 133 H, Phosphorus 4.1, Magnesium 2.6 H, Total Bilirubin 1.1 H, AST 334 H*, ALT 380 H* D, Alkaline Phosphatase 149 H 01/25/19 04:46: WBC 4.8, Hgb 8.7 L, Hct 27.1 L, Plt Count 42 L* 01/24/19 16:00: PT 17.6 H, INR 1.52, APTT 25.7 01/24/19 16:00: WBC 5.4, Hgb 9.2 L, Hct 27.7 L, Plt Count 42 L* 01/24/19 16:00: Sodium 135 L, Potassium 4.0, BUN 40 H, Creatinine 1.81 H, Glucose 95, Total Bilirubin 1.8 H, AST 261 H, ALT 239 H, Alkaline Phosphatase 164 H, Lipase 206 Assessment & Plan - Problems (Diagnosis) (1) B-cell lymphoma Current Visit: Yes Status: Acute (2) Hypoxemia Current Visit: Yes Status: Acute (3) Status post chemotherapy Current Visit: Yes Status: Acute (4) Congestive heart failure, acute Current Visit: No Status: Acute (5) Pneumonia Current Visit: No Status: Acute Qualifiers: Pneumonia type: due to unspecified organism (6) Pulmonary edema Current Visit: No Status: Acute - Plan Plan: 1. Continue with BiPAP support 2. Continue with IV antibiotics and IV steroids 3. Continue with diuresing 4. Pulmonary consultation 5. We will also see if Oncology will be available to see the patient and give recommendations as well. 6. Wean O2 per protocol and continue nebs as needed. 7. Monitor closely in the ICU. We will make sure patient is hemodynamically stable prior to going to the floor. 8. GI and DVT prophylaxis Discharge Plan: Home Plan to discharge in: Greater than 2 days - Advance Directives Does patient have a Living Will: No Does patient have a Durable POA for Healthcare: No - Code Status/Comfort Care Code Status Assessed: Yes Code Status: Full Code Critical Care: Yes Time Spent Managing PTS Care (In Minutes): 50
--- NOTE | 2019-01-25 13:45 | RAD REPORT ---
EXAM DESCRIPTION: RAD - Chest Single View - 01/25/2019 1:06 pm CLINICAL HISTORY: Volume overload COMPARISON: January 24 TECHNIQUE: AP portable chest image was obtained 1302 hours . FINDINGS: Lungs remain underinflated. Alveolar opacities are present in the mid and lower right lung field with alveolar opacification slightly less pronounced in the mid and lower left lung field. Ove rall pattern is improved slightly from the prior study but significant airspace disease remains. Pleu ral effusion appears less evident. Cardiomegaly remains. Vasculature remains prominent. Trachea is in the midline. No pneumothorax. No acute bony abnormality seen. No acute aortic findings suspected. IMPRESSION: Pleural fluid component appears improved from prior day imaging. Airspace disease is sli ghtly improved but significant alveolar opacification remains.
--- NOTE | 2019-01-25 14:01 | ECHO ---
HEIGHT: 5 ft 7 in WEIGHT: 178 lb 0 oz DATE OF STUDY: 01/25/[address]: Jose Hidalgo DO 2-DIMENSIONAL: YES M.MODE: YES DOPPLER: YES COLOR FLOW: YES TDS: NO PORTABLE: NO DEFINITY: NO BUBBLE STUDY: NO DIAGNOSIS: CONGESTIVE HEART FAILURE CARDIAC HISTORY: CATHERIZATION: NO SURGERY: NO PROSTHETIC VALVE: NO PACEMAKER: NO MEASUREMENTS (cm) DIASTOLIC (NORMALS) SYSTOLIC (NORMALS) IVSd 1.3 (0.6-1.2) LA Diam 4.1 (1.9-4.0) LVEF 70% LVIDd 4.2 (3.5-5.7) LVIDs 2.6 (2.0-3.5) %FS 39% LVPWd 1.2 (0.6-1.2) Ao Diam 2.8 (2.0-3.7) 2 DIMENSIONAL ASSESSMENT: RIGHT ATRIUM: NORMAL LEFT ATRIUM: NORMAL RIGHT VENTRICLE: NORMAL LEFT VENTRICLE: NORMAL TRICUSPID VALVE: NORMAL MITRAL VALVE: NORMAL PULMONIC VALVE: NORMAL AORTIC VALVE: NORMAL PERICARDIAL EFFUSION: NONE AORTIC ROOT: NORMAL LEFT VENTRICULAR WALL MOTION: NORMAL DOPPLER/COLOR FLOW: MILD TRICUSPID REGURGITATION. NORMAL RIGHT VENTRICULAR SYSTOLIC PRESSURE. COMMENTS: MILD TRICUSPID REGURGITATION. NORMAL RIGHT VENTRICULAR SYSTOLIC PRESSURE. NO EFFUSION. NO WALL MOTION ABNORMALITY. TECHNOLOGIST: Tom STARR
--- NOTE | 2019-01-25 14:31 | P.PN ---
Subjective Date of Service: 01/25/19 Primary Care Provider: Oncology-Dr. Odell; Cardiology-Dr. Jasso Chief Complaint: Shortness of breath Subjective: Other (Patient currently on BiPAP.) Physical Examination - Vital Signs Temperature: 97 F Blood Pressure: 110/69 Pulse: 81 Respirations: 27 Pulse Ox (%): 98 - Physical Exam General: Alert, Mild distress HEENT: Atraumatic Neck: Supple Respiratory: Diminished (Bilateral) Cardiovascular: Normal pulses, Regular rate/rhythm Gastrointestinal: Normal bowel sounds, Soft and benign, Non-distended, No tenderness, No masses, No rebound, No guarding Musculoskeletal: No erythema, No tenderness, No warmth Integumentary: No tenderness/swelling, No erythema, No warmth, No cyanosis Neurological: Normal speech, Normal strength at 5/5 x4 extr, Normal tone, Normal affect - Studies Laboratory Data (last 24 hrs) 01/25/19 04:46: Sodium 140, Potassium 4.1, BUN 32 H, Creatinine 1.11, Glucose 133 H, Phosphorus 4.1, Magnesium 2.6 H, Total Bilirubin 1.1 H, AST 334 H*, ALT 380 H* D, Alkaline Phosphatase 149 H 01/25/19 04:46: WBC 4.8, Hgb 8.7 L, Hct 27.1 L, Plt Count 42 L* 01/24/19 16:00: PT 17.6 H, INR 1.52, APTT 25.7 01/24/19 16:00: WBC 5.4, Hgb 9.2 L, Hct 27.7 L, Plt Count 42 L* 01/24/19 16:00: Sodium 135 L, Potassium 4.0, BUN 40 H, Creatinine 1.81 H, Glucose 95, Total Bilirubin 1.8 H, AST 261 H, ALT 239 H, Alkaline Phosphatase 164 H, Lipase 206 Medications List Reviewed: Yes Assessment & Plan Discharge Plan: Home Physician Review Additional Text: Impression: Acute respiratory failure with hypoxia suspect ARDS 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 Echocardiogram shows no pericardial effusion. Normal ejection fraction noted. Pulmonology suspects acute respiratory distress syndrome. This is likely related to recent chemotherapy. Oncology recommends transfer to higher level of care center for further evaluation as patient had recent hospitalization in [place] for pericardial effusion. Discussed case with ICU transfer center. Dr. Hoffman has agreed to accept the patient. Patient will continue with current IV Solu-Medrol, IV antibiotic therapy. Will hold IV Lasix at this time as the patient appears to be euvolemic. Patient stable for transfer. Patient will continue with BiPAP. FiO2 currently at 45% Time Spent Managing Pts Care (In Minutes): 65
--- NOTE | 2019-01-25 15:47 | P.DS ---
Admission Date: 01/25/19 Discharge Date: 01/25/19 Primary Care Provider: Oncology-Dr. Odell; Cardiology-Dr. Jasso Disposition: TRANSFER TO [facility] Discharge Condition: GOOD Reason for Admission: Shortness of breath Consultations: Cardiology-Dr. Valle Pulmonary-Dr. Chanel Oncology-Dr. Odell Nephrology-Dr. Mcclelland Procedures: Chest CT: COMPARISON: Chest For Pe Angio dated 12/26/2018; Chest Single View dated 2018 FINDINGS: Extensive bilateral alveolar lung opacities are present with small pleural effusions. There is a basilar predominance of the opacities. The heart is mildly enlarged in size. No pericardial effusion. No pneumothorax. A few mildly prominent lymph nodes are seen in the mediastinum. Marked splenomegaly. No lytic or blastic bone lesion. All CT scans are performed using dose optimization technique as appropriate and may include automated exposure control or mA/KV adjustment according to patient size. IMPRESSION: Extensive bilateral alveolar lung opacities are present probably representing pulmonary edema.This could be related to CHF or volume overload. Small bilateral pleural effusions. Splenomegaly. ECHO: EF 70% LEFT VENTRICULAR WALL MOTION: NORMAL DOPPLER/COLOR FLOW: MILD TRICUSPID REGURGITATION. NORMAL RIGHT VENTRICULAR SYSTOLIC PRESSURE. COMMENTS: MILD TRICUSPID REGURGITATION. NORMAL RIGHT VENTRICULAR SYSTOLIC PRESSURE. NO EFFUSION. NO WALL MOTION ABNORMALITY. Follow CXR: FINDINGS: Lungs remain underinflated. Alveolar opacities are present in the mid and lower right lung field with alveolar opacification slightly less pronounced in the mid and lower left lung field. Overall pattern is improved slightly from the prior study but significant airspace disease remains. Pleural effusion appears less evident. Cardiomegaly remains. Vasculature remains prominent. Trachea is in the midline. No pneumothorax. No acute bony abnormality seen. No acute aortic findings suspected. IMPRESSION: Pleural fluid component appears improved from prior day imaging. Airspace disease is slightly improved but significant alveolar opacification remains Liver ultrasound: FINDINGS: The liver is 14-15 cm in maximum dimension. No focal liver lesion is identifiable. Liver parenchyma is slightly echogenic but not definitive for fatty infiltration or other diffuse hepatic parenchymal disease. Trace amount of free fluid was seen adjacent to the right lobe. Doppler evaluation shows normal velocity, waveform and flow direction of the portal vein. No portal vein thrombus. No intrahepatic biliary tree dilatation. Splenomegaly is present to 17-18 cm. No focal splenic finding. No adjacent lymphadenopathy. IMPRESSION: No focal liver abnormality seen. Liver parenchymal pattern is nonspecific. Splenomegaly to 17-18 cm. 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 Patient with complicated history of CAD, history CVA, hypertension, hyperlipidemia, and small B-cell lymphoma. Patient was recently hospitalized at [facility] for pericardial effusion in the recent past. Patient required pericardiocentesis at that time. Most recently patient presented to the ER with shortness of breath. He reports starting chemotherapy on Tuesday. Since that time he has been having shortness of breath. Patient admitted for further evaluation. Hospital Course: Patient presented with shortness of breath secondary to acute respiratory failure with hypoxia and noted bilateral pleural effusion. Patient had recent chemotherapy for splenic marginal B-cell lymphoma this week. In the ER he was found to have bilateral opacities. Patient was admitted to ICU for further management. Patient was given Lasix early on for possible underlying acute CHF. Patient seen and evaluated by pulmonology, cardiology. Pulmonology suspects acute respiratory distress syndrome secondary to recent chemotherapy. Patient started on IV Solu-Medrol and IV antibiotic therapy. Pro calcitonin elevated. Blood cultures obtained. Echocardiogram performed showed normal ejection fraction with no pericardial effusion. Patient currently stable on on BiPAP with FiO2 of 45. Case discussed at length with hematology/oncology. Hematology/oncology is concerned that patient may worsen if with ARDS. Hematology/oncology prefers the patient to be at a higher level care center to further evaluate and treat. Case discussed with patient and he agrees. Case also discussed with pulmonology and cardiology. Case discussed with transfer center/clinical training specialist Dr. Hoffman from [facility]. Transfer accepted. Patient will be transferred for higher level of care to further evaluate and treat. Patient stable for discharge. Patient will transfer with BiPAP. Patient remains on IV Rocephin, IV Solu-Medrol, and respiratory support. Other issues include elevated liver function likely related to possible chemotherapy versus other etiology. Patient with history of splenomegaly related to lymphoma. Patient also had acute renal failure. This may be related to ARDS. Nephrology was consulted. Nephrology can be further consulted at high-level center to further assess. Patient appears to be euvolemic at this time. Cardiac enzyme and BNP were elevated. As mentioned above echo shows normal ejection fraction with no pericardial effusion. Patient may require further cardiac workup at High-level Center. Patient with prior history of pericardial effusion with pericardiocentesis in the past. Anemia of chronic disease with thrombocytopenia noted. This will need to be further monitored and addressed closely. Vital Signs/Physical Exam: Temp Pulse Resp BP Pulse Ox 97 F 79 28 H 106/68 94 01/25/19 14:31 01/25/19 15:00 01/25/19 15:00 01/25/19 15:00 01/25/19 15:00 General: Alert, Mild distress HEENT: Atraumatic Neck: Supple Respiratory: Diminished (Bilateral) Cardiovascular: Normal pulses, Regular rate/rhythm Gastrointestinal: Normal bowel sounds, Soft and benign, Non-distended, No tenderness, No masses, No rebound, No guarding Musculoskeletal: No erythema, No tenderness, No warmth Integumentary: No erythema, No warmth, No cyanosis Neurological: Normal speech, Normal strength at 5/5 x4 extr, Normal tone, Normal affect Laboratory Data at Discharge: WBC 4.8 K/uL (4.3-10.9) 01/25/19 04:46 Hgb 8.7 g/dL (13.6-17.9) L 01/25/19 04:46 Hct 27.1 % (39.6-49.0) L 01/25/19 04:46 Plt Count 42 K/uL (152-406) L* 01/25/19 04:46 PT 17.6 SECONDS (9.5-12.5) H 01/24/19 16:00 INR 1.52 01/24/19 16:00 APTT 25.7 SECONDS (24.3-36.9) 01/24/19 16:00 Sodium 140 mmol/L (136-145) 01/25/19 04:46 Potassium 4.1 mmol/L (3.5-5.1) 01/25/19 04:46 BUN 32 mg/dL (7-18) H 01/25/19 04:46 Creatinine 1.11 mg/dL (0.55-1.3) 01/25/19 04:46 Glucose 133 mg/dL (74-106) H 01/25/19 04:46 Phosphorus 4.1 mg/dL (2.5-4.9) 01/25/19 04:46 Magnesium 2.6 mg/dL (1.8-2.4) H 01/25/19 04:46 Total Bilirubin 1.1 mg/dL (0.2-1.0) H 01/25/19 04:46 AST 334 U/L (15-37) H* 01/25/19 04:46 ALT 380 U/L (12-78) H* D 01/25/19 04:46 Alkaline Phosphatase 149 U/L (45-117) H 01/25/19 04:46 Lipase 206 U/L (73-393) 01/24/19 16:00 Home Medications: Allopurinol 300 mg PO DAILY 07/27/18 Atorvastatin Calcium 40 mg PO DAILY 07/27/18 Colchicine [Colcrys *] 0.6 mg PO BID #28 tab 07/29/18 Furosemide 40 mg PO BID 01/24/19 Ondansetron HCl [Zofran] 4 mg PO Q4HP PRN 01/24/19 Sulfamethoxazole/Trimethoprim [Sulfamethoxazole-Tmp Ds Tablet] 1 each PO M,W,F 01/24/19 Valacyclovir [Valtrex*] 500 mg PO DAILY 01/24/19 Patient Discharge Instructions: Transfer to higher level care center for further evaluation and treatment of possible ARDS. Diet: AHA Activity: Bedrest Time spent managing pt's care (in minutes): 55
[2019-01-25 15:55] VITALS: O2SAT 100
--- NOTE | 2019-01-25 16:11 | CON ---
Date of Consultation: 01/25/2019 Reason For Consultation: Congestive heart failure. History Of Present Illness: Mr. Cronin is a 58-year-old [place] male with new diagnosis of sm all B-cell lymphoma. He underwent the chemotherapy first time yesterday. He came in with what appea rs to be congestive heart failure on chest x-ray. He is complaining of shortness of breath. He had a recent history of pericardial effusion, status post pericardiocentesis and he was then cared for by Dr. Jasso. He has a history of CVA, gout, and dyslipidemia. He was placed on colchicine after his pericardiocentesis. He denied any chest pain, palpitations, or syncope. Denied any fevers or chills . Past Medical History: As stated above. Allergies: NONE. Review of Systems: Negative. Social History: Negative. Family History: Noncontributory. Medications: At home include Lipitor, colchicine, Lasix, allopurinol, Valtrex, and Bactrim. Physical Examination: General: He appeared to be in mild respiratory distress. Vital Signs: He was on a face mask, 100% non-rebreather with a pO2 of 101, pCO2 of 39, pH is 7.40. HEENT: Negative. Neck: Supple with no bruit. Chest: Some rales bilaterally. Cardiac: Tachycardia with no murmurs, gallops, or rubs. Abdomen: Benign. Extremities: Revealed no clubbing, cyanosis, or edema. Skin: Dry and intact. Neurologic: Nonfocal. Diagnostic Data: Chest x-ray shows congestive heart failure. AST is 334, ALT is 380. BNP is 5060. EKG showed right bundle-branch block. Chest x-ray and CT angiogram showed congestive heart failure. Hemoglobin is 8.7, creatinine is 1.1, platelet count is 42,000. Impression And Plan: 1.Acute onset congestive heart failure, probably systolic. Patient has a history of pericardial eff usion, status post pericardiocentesis. EKG does not show any electrical alternans. We will get an e chocardiogram to check his ejection fraction and see if he has any pericardial effusion. I agree wit h IV Lasix. 2.Elevated liver function enzymes and BNP possibly secondary to congestive heart failure. The liver sonogram is pending. 3.Anemia and thrombocytopenia, probably secondary to his lymphoma and chemotherapy. Dr. Chowdary from ematology/Oncology has been consulted on his case. I agree with present regimen. I will discuss the case further with Dr. Hidalgo. SATINDER/FAY Voice ID: [id number] Report ID: [id number]
[2019-01-26] MEDS: METHYLPREDNISOLONE 125 MG INJ IV SCH (00:46)
[2019-01-26 01:22] VITALS: TEMP 98.1
[2019-01-26 01:24] VITALS: BP 103/69
== END 2019-01-26 02:25 | disposition short-term general hospital (02) | DRG 189 ==
LOC: ER 15:20 → 3RD-ICU 20:03 → OBSVTOIN 01-25 07:59
PROVIDERS: ADMIT Hospitalist; ATTEND Family Medicine
PROC: 5A09457 Assistance with Respiratory Ventilation, 24-96 Consecutive Hours, Continuous Positive Airway Pressure (ICD-10-PCS; principal; 2019-01-25)
DX: J96.01 Acute respiratory failure with hypoxia (principal); I50.21 Acute systolic (congestive) heart failure; C83.07 Small cell B-cell lymphoma, spleen; N17.9 Acute kidney failure, unspecified; I11.0 Hypertensive heart disease with heart failure; E78.5 Hyperlipidemia, unspecified; D64.81 Anemia due to antineoplastic chemotherapy; D69.59 Other secondary thrombocytopenia; R94.5 Abnormal results of liver function studies; I45.10 Unspecified right bundle-branch block; Z86.73 Personal history of transient ischemic attack (TIA), and cerebral infarction without residual deficits; I25.2 Old myocardial infarction; Z90.81 Acquired absence of spleen
CPT/HCPCS: 36415; 71045; 71250; 76705; 80048; 80053; 80076; 81001; 81003; 82550; 82553; 82805; 83605; 83690; 83735; 83880; 84100; 84145; 84484; 85025; 85610; 85652; 85730; 87040; 93005; 93306; 94640; 94660; 94760; 96365; 96375; 99285; G0378; J0456; J0696; J1940; J2543; J2930; J7030

== ENCOUNTER 2020-02-06 11:43 | Inpatient (IN) | payer OTHER ==
--- OUTSIDE RECORDS SUMMARY | 2020-02-06 11:55 | XMS REPORT | Clinical Summary ---
:1960 Author Organization [facility] Address [address] [place] [address] Care Team Providers Name Role Phone Pcp, No Primary Care Provider Unavailable Allergies No Known Allergies Medications Medication Sig Dispensed Refills Start Date End Date Status colchicine Take 0.6 mg 0 Active (COLCRYS) 0.6 mg by mouth 2 tabletIndications: (two) times acute gouty daily. arthritis aspirin 81 MG EC Take 81 mg 0 Ac tive tablet by mouth daily. atorvastatin Take 40 mg 0 Active (LIPITOR) 40 MG by mouth tablet nightly. allopurinol Take 300 mg 3 01/15/2019 Activ e (ZYLOPRIM) 300 MG by mouth tablet daily. valACYclovir Take 500 mg 0 Activ e (VALTREX) 500 MG by mouth tablet daily. sulfamethoxazole-t Take 1 0 A ctive rimethoprim tablet by (BACTRIM DS) mouth every 800-160 mg per Tuesday, tabletIndications: Tuesday, ppx Tuesday. furosemide (LASIX) Take 1 0 02/05/2019 Active 40 MG tablet tablet (40 mg total) by mouth daily. furosemide (LASIX) Take 40 mg 0 Discontinued 40 MG tablet by mouth 2 9 (Reord er) (two) times daily. amLODIPine Take 10 mg 0 Disconti nued (NORVASC) 10 MG by mouth 9 (Sto p Taking at tablet daily. Discharge) predniSONE Take 1 14 tablet 0 02/06/2019 (DELTASONE) 50 MG tablet (50 9 tablet mg total) by mouth daily for 14 days. pantoprazole Take 1 14 tablet 0 02/06/2019 d (PROTONIX) 40 MG tablet (40 9 tablet mg total) by mouth daily for 14 days. 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 Abnormal liver enzymes 11/30/2018 Hepatosplenomegaly 11/04/2018 Thrombocytopenia 11/04/2018 Shortness of breath 11/03/2018 Pericardial effusion 11/03/2018 Pleural effusion 11/03/2018 Acute respiratory insufficiency 11/03/2018 Encounters Date Type Specialty Care Team Description 01/09/2020 Outside Orders Central Scheduling Edgard Del Valle, Inte rstitial lung disease (HCC) (Primary Dx); MD Guillen of br eath 04/16/2019 Hospital Encounter Computed Tomography Chin Billingsley lenic marginal Chrissy zone b-cell lym ezio Tony MD ([facility]) [facility] 04/16/2019 Hospital Encounter Computed Tomography Chin Billingsley lenic marginal Chrissy zone b-cell lym ezio Tony MD ([facility]) [facility] 04/02/2019 Outside Orders Central Scheduling Jose Cruz, Splenic marginal Chrissy zone b-cell lym ezio Tony MD ([facility]) (Primary Dx) 03/08/2019 Outside Orders Central Scheduling Edgard Del Valle, Inte rstitial lung MD disease ([facility]) (Primary Dx) 01/26/2019 - Hospital Encounter Cardiology Hoffman Abnormal liver enzymes; 02/05/2019 , ARDS (adult res piratory distress syndrome) ([facility]); MD Mp Pericardial effusion; Hakeem, Acute respirato ry insufficiency; MD Robbi Acute hypoxemic respiratory failure ([facility] ); Cate, Hepatosplenomeg driss Gonzalez MD Pleural effusion; Payal Wynnopa Shortness of br eath; MD Melinda Hemoptysis; Diffuse pulmona ry alveolar hemorrhage; Splenic margina l zone b-cell lymphoma (HCC); RANI (obstructiv e sleep apnea); Pulmonary HTN ( HCC) after 02/05/2019 Social History Tobacco Use Types Packs/Day Years Used Date Never Smoker Smokeless Tobacco: Never Used Alcohol Use Drinks/Week oz/Week Comments No Alcohol Habits Answer Date Recorded How often do you have a drink containing alcohol? Never 11/03/2018 How many drinks containing alcohol do you have on a typical Not asked day when you are drinking? How often do you have six or more drinks on one occasion? No t asked Sex Assigned at Date Recorded Not on file Last Filed Vital Signs Vital Sign Reading Time Taken Comments Blood Pressure 93/58 02/05/2019 7:59 AM BLOWER MECHANIC Pulse 90 02/05/2019 12:40 PM BLOWER MECHANIC Temperature 35.8 C (96.4 F) 02/05/2019 7:59 AM BLOWER MECHANIC Respiratory Rate 18 02/05/2019 12:40 PM BLOWER MECHANIC Oxygen Saturation 95% 02/05/2019 12:40 PM BLOWER MECHANIC Inhaled Oxygen Concentration - - Weight 82.2 kg (181 lb 4.8 oz) 02/05/2019 5:00 AM BLOWER MECHANIC Height - - Body Mass Index 27.57 01/26/2019 3:45 AM CDT Plan of Treatment Date Type Specialty Care Team Description 07/09/2020 Appointment Computed Tomography Akash Del Valle MD [address] [facility] [address] [place] [address] [phone] [facility] Health Maintenance Due Date Last Done Comments COLON CANCER SCREENING COLONOSCOPY 1960 PNEUMOCOCCAL VACCINE 0-64 YRS (1 of 3 - PCV13) 1968 INFLUENZA VACCINE (#1) 2019 LIPID PANEL 10/23/2022 10/24/2019 Procedures Procedure Name Priority Date/Time Associated Comments Diagnosis CT CHEST WITH IV Routine 04/16/2019 12:40 Splenic marginal Res ults for this CONTRAST PM BLOWER MECHANIC zone b-cell procedure are i n lymphoma (HCC) the results section. CT ABDOMEN/PELVIS WITH Routine 04/16/2019 12:40 Splenic margin al Results for this IV CONTRAST PM [employer]OWER MECHANIC zone b-cell procedure are i n lymphoma (HCC) the results section. POCT-CREATININE Routine 04/16/2019 12:11 Results for this PM [employer]OWER MECHANIC procedure are i n the results section. REPORT OF PROCEDURE - 02/07/2019 12:05 ENDOSCOPY SCAN PM BLOWER MECHANIC RHYTHM STRIP - SCAN 02/07/2019 12:04 PM BLOWER MECHANIC POCT-GLUCOSE METER Routine 02/05/2019 7:48 Resul ts for this AM [employer] MECHANIC procedure are i n the results section. CBC W/PLT COUNT & AUTO Routine 02/05/2019 3:59 R esults for this DIFFERENTIAL AM BLOWER MECHANIC procedure are i n the results section. COMPREHENSIVE Routine 02/05/2019 3:59 Results fo r this METABOLIC PANEL AM BLOWER MECHANIC procedure ar e in the results section. CBC W/PLT COUNT & AUTO Routine 02/05/2019 3:59 R esults for this DIFFERENTIAL AM BLOWER MECHANIC procedure are i n the results section. PHOSPHORUS Routine 02/05/2019 3:59 Results for this AM BLOWER MECHANIC procedure are i n the results section. MAGNESIUM Routine 02/05/2019 3:59 Results for this AM BLOWER MECHANIC procedure are i n the results section. after 02/05/[address] Abdomen/Pelvis with IV Contrast (04/16/2019 12:40 PM BLOWER MECHANIC) Specimen Narrative Performed At FINAL REPORT [place] [facility] CT of the chest, abdomen and pelvis, wit h contrast Clinical History: Splenic marginal zon e b-cell lymphoma Technique: CT of the chest, abdomen and pelvis is performed with intravenous contrast administration. T his exam was performed according to our departmental dose optim ization program which includes automated exposure control, adj ustment of the mA and/or kV according to patient's size and/or use o f iterative reconstructive technique. Comparison Film: November 08, 2018, Augus t 2018 Discussion: Visualized thyroid gland is unremarkable . No supraclavicular, and axillary, and mediastinal or hilar lymph adenopathy. Heart is borderline enlarged, no pericardial effu edward. There is a mild degree of peripheral int erstitial thickening with groundglass opacities in both lungs, ashwin carol in the lower lungs, and mild degree of traction bronchiectas is, suggestive of pulmonary fibrosis. There is no new mass or consol idation. A 4 mm nodule in the right upper lobe, and a 5 mm groundglass nodule in the right lower lobe are unchanged. Previously seen left upper lobe nodules no longer identified. No liver lesion is identified. There is no biliary ductal dilatation, and the gallbladder is unremarkable. Spl een is enlarged, measuring 15.2 cm sagittally, and this has improve d since the previous exam, measuring 23.4 cm previously. The pancreas, adrenal glands are unremar kable. Kidneys demonstrate no mass, hydronephrosis, or radiopaque ston e. There is no evidence of bowel obstructio n, or abnormal bowel wall thickening. Normal appendix. In the pelvis, bladder is unremarkable. There is a small to moderate right inguinal hernia containing fat and trace fluid. Prostate and seminal vesicles also appear unremarkabl e There is no ascites. No lymphadenopathy. No suspicious bony lesion is identified. Impression: Decreased splenomegaly. Resolution of pleural effusions. Right inguinal hernia. Mild fibrotic changes in lung. Signed: Keli Mike MD Report Verified Date/Time: 04/16/2019 15:00:21 Reading Location: [facility] C013X [facility] Procedure Note Interface, External Ris In - 04/16/2019 3:02 PM BLOWER MECHANIC FINAL REPORT CT of the chest, abdomen and pelvis, wit h contrast 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 Th is exam was performed according to our departmental dose optim ization program which includes automated exposure control, adj ustment of the mA and/or kV according to patient's size and/or use o f iterative reconstructive technique. Comparison Film: November 08, 2018, November 06, 2018 Discussion: Visualized thyroid gland is unremarkable . No supraclavicular, and axillary, and mediastinal or hilar lymph adenopathy. Heart is borderline enlarged, no pericardial effu edward. There is a mild degree of peripheral int erstitial thickening with groundglass opacities in both lungs, ashwin carol in the lower lungs, and mild degree of traction bronchiectas is, suggestive of pulmonary fibrosis. There is no new mass or consol idation. A 4 mm nodule in the right upper lobe, and a 5 mm groundglass nodule in the right lower lobe are unchanged. Previously seen left upper lobe nodules no longer identified. No liver lesion is identified. There is no biliary ductal dilatation, and the gallbladder is unremarkable. Spl een is enlarged, measuring 15.2 cm sagittally, and this has improve d since the previous exam, measuring 23.4 cm previously. The pancreas, adrenal glands are unremar kable. Kidneys demonstrate no mass, hydronephrosis, or radiopaque ston e. There is no evidence of bowel obstructio n, or abnormal bowel wall thickening. Normal appendix. In the pelvis, bladder is unremarkable. There is a small to moderate right inguinal hernia containing fat and trace fluid. Prostate and seminal vesicles also appear unremarkabl e There is no ascites. No lymphadenopathy. No suspicious bony lesion is identified. Impression: Decreased splenomegaly. Resolution of pleural effusions. Right inguinal hernia. Mild fibrotic changes in lung. Signed: Keli Mike MD Report Verified Date/Time: 04/16/2019 1 5:00:21 Reading Location: [facility] C013X [facility] Reading Room Performing Organization Address City/State/Zipcode Phone Number [place] [facility] [facility] CT Chest with IV Contrast (04/16/2019 12:40 PM BLOWER MECHANIC) Specimen Narrative Performed At FINAL REPORT [place] CT of the chest, abdomen and pelvis, wit h contrast Clinical History: Splenic marginal zon e b-cell lymphoma Technique: CT of the chest, abdomen and pelvis is performed with intravenous contrast administration. T his exam was performed according to our departmental dose optim ization program which includes automated exposure control, adj ustment of the mA and/or kV according to patient's size and/or use o f iterative reconstructive technique. Comparison Film: November 08, 2018, Augus t 2018 Discussion: Visualized thyroid gland is unremarkable . No supraclavicular, and axillary, and mediastinal or hilar lymph adenopathy. Heart is borderline enlarged, no pericardial effu edward. There is a mild degree of peripheral int erstitial thickening with groundglass opacities in both lungs, ashwin carol in the lower lungs, and mild degree of traction bronchiectas is, suggestive of pulmonary fibrosis. There is no new mass or consol idation. A 4 mm nodule in the right upper lobe, and a 5 mm groundglass nodule in the right lower lobe are unchanged. Previously seen left upper lobe nodules no longer identified. No liver lesion is identified. There is no biliary ductal dilatation, and the gallbladder is unremarkable. Spl een is enlarged, measuring 15.2 cm sagittally, and this has improve d since the previous exam, measuring 23.4 cm previously. The pancreas, adrenal glands are unremar kable. Kidneys demonstrate no mass, hydronephrosis, or radiopaque ston e. There is no evidence of bowel obstructio n, or abnormal bowel wall thickening. Normal appendix. In the pelvis, bladder is unremarkable. There is a small to moderate right inguinal hernia containing fat and trace fluid. Prostate and seminal vesicles also appear unremarkabl e There is no ascites. No lymphadenopathy. No suspicious bony lesion is identified. Impression: Decreased splenomegaly. Resolution of pleural effusions. Right inguinal hernia. Mild fibrotic changes in lung. Signed: Keli Mike MD Report Verified Date/Time: 04/16/2019 15:00:21 Reading Location: [facility] C013X [facility] sult Reading Room Procedure Note Interface, External Ris In - 04/16/2019 3:02 PM BLOWER MECHANIC FINAL REPORT CT of the chest, abdomen and pelvis, wit h contrast 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 Th is exam was performed according to our departmental dose optim ization program which includes automated exposure control, adj ustment of the mA and/or kV according to patient's size and/or use o f iterative reconstructive technique. Comparison Film: November 08, 2018, November 06, 2018 Discussion: Visualized thyroid gland is unremarkable . No supraclavicular, and axillary, and mediastinal or hilar lymph adenopathy. Heart is borderline enlarged, no pericardial effu edward. There is a mild degree of peripheral int erstitial thickening with groundglass opacities in both lungs, ashwin carol in the lower lungs, and mild degree of traction bronchiectas is, suggestive of pulmonary fibrosis. There is no new mass or consol idation. A 4 mm nodule in the right upper lobe, and a 5 mm groundglass nodule in the right lower lobe are unchanged. Previously seen left upper lobe nodules no longer identified. No liver lesion is identified. There is no biliary ductal dilatation, and the gallbladder is unremarkable. Spl een is enlarged, measuring 15.2 cm sagittally, and this has improve d since the previous exam, measuring 23.4 cm previously. The pancreas, adrenal glands are unremar kable. Kidneys demonstrate no mass, hydronephrosis, or radiopaque ston e. There is no evidence of bowel obstructio n, or abnormal bowel wall thickening. Normal appendix. In the pelvis, bladder is unremarkable. There is a small to moderate right inguinal hernia containing fat and trace fluid. Prostate and seminal vesicles also appear unremarkabl e There is no ascites. No lymphadenopathy. No suspicious bony lesion is identified. Impression: Decreased splenomegaly. Resolution of pleural effusions. Right inguinal hernia. Mild fibrotic changes in lung. Signed: Keli Mike MD Report Verified Date/Time: 04/16/2019 1 5:00:21 Reading Location: [facility] C013X [facility] Reading Room Performing Organization Address City/[facility]/Zipcode Phone Number [facility] POC-Creatinine (04/16/2019 12:11 PM BLOWER MECHANIC) [facility] POC-Creatinine 0.9Comment: TESTED 0.6 - 1.3 [facility] 7200 mg/dL [facility] [address] POC-EGFR 87 mL/min/1.73M2 [facility] Specimen Blood Performing Organization Address [facility] Cent[facility]ode Phone Number [address] [address] CENTER EKG-SCANNED (02/07/2019 12:05 PM BLOWER MECHANIC) Narrative Performed At This result has an attachment that is no t available. RHYTHM STRIP - SCAN (02/07/2019 12:04 PM BLOWER MECHANIC) Narrative Performed At This result has an attachment that is no t available. POC-Glucose meter (02/05/2019 7:48 AM BLOWER MECHANIC) [facility] POC-Glucose Meter 71Comment: : 70 - 110 mg/dL [facility] TESTED AT [address], [id number]: Photographer Helper/Technici an ID = [id number] for JENNA MALAGON Specimen Blood Performing Organization Address [facility]/Zipcode Phone Number [address] [address] [place] CBC with platelet count + automated diff (02/05/2019 3:59 AM BLOWER MECHANIC) Pathologist [facility] WBC 4.7 3.5 - 10.5 [facility] RBC 3.80 (L) 4.63 - 6.08 [facility] M/L [facility] Hemoglobin 9.2 (L) 13.7 - 17.5 [facility] GM/DL [facility] Hematocrit 32.4 (L) 40.1 - 51.0 % [facility] MCV 85.3 79.0 - 92.2 fL [facility] MCH 24.2 (L) 25.7 - 32.2 pg [facility] MCHC 28.4 (L) 32.3 - 36.5 [facility] GM/DL [facility] RDW 17.3 (H) 11.6 - 14.4 % [facility] Platelets 202 150 - 450 K/CU [facility] MPV 9.1 (L) 9.4 - 12.4 fL [facility] nRBC 0 0 - 0 /100 WBC [facility] % Neutros 71 % [facility] % Lymphs 19 % [facility] % Monos 7 % [facility] % Eos 2 % [facility] % Baso 0 % [facility] # Neutros 3.35 1.78 - 5.38 [facility] # Lymphs 0.90 (L) 1.32 - 3.57 [facility] # Monos 0.35 0.30 - 0.82 [facility] # Eos 0.10 0.04 - 0.54 [facility] # Baso 0.01 0.01 - 0.08 [facility] Immature 1 0 - 1 % [facility] Granulocytes-Relative [facility] Specimen Blood Performing Organization Address City/State/Zipcode Phone Number [address] [address] CENTER Phosphorus (02/05/2019 3:59 AM BLOWER MECHANIC) Pathologist Sig nature Phosphorus 4.0 2.3 - 4.7 mg/dL [facility] Specimen Blood Performing Organization Address City/[facility]/Zipcode Phone Number [address] [address] CENTER Magnesium (02/05/2019 3:59 AM BLOWER MECHANIC) Pathologist Sig nature Magnesium 2.0 1.6 - 2.6 mg/dL [facility] Specimen Blood Performing Organization Address City/[facility] Cent[facility]ode Phone Number [address] [address] CENTER Comprehensive metabolic panel (02/05/2019 3:59 AM BLOWER MECHANIC) Protein, Total 4.9 (L) 6.0 - 8.3 [facility] gm/dL [facility] Albumin 3.2 (L) 3.5 - 5.0 [facility] g/dL [facility] Alkaline 54 40 - 150 U/L [facility] Phosphatase [facility] Total Bilirubin 0.4 0.2 - 1.2 [facility] mg/dL [facility] Sodium 137 136 - 145 [facility] meq/L [facility] Potassium 3.9 3.5 - 5.1 [facility] meq/L [facility] Chloride 105 98 - 107 [facility] meq/L [facility] CO2 24 22 - 29 meq/L [facility] BUN 16 7 - 21 mg/dL [facility] Creatinine 0.68 0.57 - 1.25 [facility] mg/dL [facility] Glucose 88 70 - 105 [facility] mg/dL [facility] Calcium 8.1 (L) 8.4 - 10.2 [facility] mg/dL [facility] AST 21 5 - 34 U/L [facility] ALT 51 6 - 55 U/L [facility] EGFR 121Comment: mL/min/1.73 [facility] ESTIMATED GFR IS sq m [facility] NOT ACCURATE MEDICAL CENTER CREATININE CLEARANCE IN PREDICTING GLOMERULAR FILTRATION RATE. ESTIMATED GFR IS NOT APPLICABLE FOR DIALYSIS PATIENTS. Specimen Blood Performing Organization Address City/State/Zipcode Phone Number [facility] [address], [place] [id number] CENTER after 02/05/2019 Insurance Payer Benefit Plan / Subscriber ID Effective Dates Phone Addre ss Type Group [employer] - MGD [employer] HMO POS [id number] 2018-Present HMO/POS CARE QPOS Advance Directives For more information, please contact: [phone] Code Status Date Activated Date Inactivated Comments Full Code 01/26/2019 4:17 AM 02/05/2019 4:57 PM This code status was determined by: Patient Full Code 11/03/2018 8:49 AM 11/09/2018 7:23 PM This code status was determined by: Patient
--- OUTSIDE RECORDS SUMMARY | 2020-02-06 11:59 | XMS REPORT | Summary of Care ---
:1960 Author Organization [place] [address] Care Team Providers Name Role Phone Unavailable Primary Care Provider Unavailable Reason for Referral Consult, Test & Treat (Routine) Status Reason Specialty Diagnoses / Referred By Referred To Procedures Contact Contact Pending Consult, Gastroenterology Diagnoses Abdominal bloating Edgard Del Valle Mn Test, and Procedures CT OFFICE OUTPATIENT NEW 30 MINUTES Gastroenterolog Treat [address] [facility] [address], Phone: [phone] [phone] [place], [place] Fax: [phone] Radiology Services (Routine) Status Reason Specialty Diagnoses / Referred By Contact Refe rred To Contact Procedures Pending Radiology Diagnoses Shortness of breath Interstitial lung disease (HCCode) Edgard Del Valle MD Radiology, Daniel Procedures CT CHEST HIGH RESOLUTION WO CONTRAST [address] [facility] [address] [place], [address] [facility] 8A Floor [place], [place] [address] [place] [address] Phone: [phone] (Routine) Status Reason Specialty Diagnoses / Procedures Referred By R eferred To Contact Contact E-Auth Not Pulmonology Diagnoses Shortness of breath Interstitial lung disease (HCCode) Edgard Del Valle Mn Pft Lab Needed Procedures COMPLETE PFT WITHOUT BRONCHODILATOR CT BREATHING CAPACITY TEST CT PLETHYSMOGRAPHY LUNG VOLUMES W/WO AIRWAY RESIST CT DIFFUSING CAPACITY [address] [place] [address] [facility]; [place], [place] [address] [address] [place], [place] Phone: [phone] Phone: Reason for Visit Reason Comments Shortness of Breath Encounter Details Date Type Department Care Team Description 01/09[facility]2020 [facility] Shortness of Breath Medicine Pulmonary [address] [place] [address]; [address] [place] [address] [place], [place] [phone] Allergies No Known Allergiesdocumented as of this encounter (statuses as of 01/09/2020) Medications Medication Sig Dispensed Refills Start Date End Date Status furosemide (LASIX) Take 40 mg by 0 Active 40 MG tablet mouth daily. ASPIRIN 81 OR Take by 0 Active mouth. metoprolol (TOPROL Take 1 Tab by 90 Tab 3 10/24/2019 Active XL) 25 MG XL mouth daily. tablet colchicine 0.6 MG Take 0.6 mg 0 Discontinued tablet by mouth two 0 (*Thera py times daily. complet ed) atorvastatin Take 40 mg by 0 Dis continued (LIPITOR) 40 MG mouth daily. 0 ( *Therapy tablet completed) allopurinol Take 300 mg 0 01/15/2019 Disco ntinued (ZYLOPRIM) 300 MG by mouth 0 (* Therapy tablet daily. completed) valacyclovir daily. 0 01/24/2019 Discon tinued (VALTREX) 500 MG 0 (*T herapy tablet completed) ondansetron 4 Act by 0 01/24/2019 Discont inued (ZOFRAN) 4 MG Anterior 0 (*Ther apy tablet [facility] complete d) route two times daily. allopurinol 100 mg two 0 07/27/2018 Discon tinued (ZYLOPRIM) 100 MG times daily. 0 tablet atorvastatin 40 mg two 0 07/27/2018 Discon tinued (LIPITOR) 40 MG times daily. 0 ( *Therapy tablet completed) colchicine 0.6 MG 0.6 mg two 0 07/29/2018 Discontinued tablet times daily. 0 (*Thera py completed) furosemide (LASIX) 40 mg two 0 01/24/2019 Discontinued 40 MG tablet times daily. 0 (*Th erapy completed) documented as of this encounter (statuses as of 01/09/2020) Active Problems Problem Noted Date Apical variant hypertrophic cardiomyopathy (HCCode) Overview: Echo reviewed Will obtain exercise echo to evaluate gr adient and pulmonary pressures. After stress test done start Toprol XL 2 5 C/w asa and lipitor for hx of CVA Check lipidis Check HbA1c Last Assessment & Plan: Echo reviewed Will obtain exercise echo to evaluate gr adient and pulmonary pressures. 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 Never 11/27/2018 How many drinks containing alcohol do you have on a typical Not asked day when you are drinking? How often do you have six or more drinks on one occasion? No t asked Sex Assigned at Date Recorded Male 10/10/2019 9:19 AM CDT documented as of this encounter Last Filed Vital Signs Vital Sign Reading Time Taken Comments Blood Pressure 119/69 01/09/2020 8:42 AM CDT Pulse 96 01/09/2020 8:42 AM CDT Temperature 36.3 C (97.4 F) 01/09/2020 8:42 AM CDT Respiratory Rate 16 01/09/2020 8:42 AM CDT Oxygen Saturation - - Inhaled Oxygen Concentration - - Weight 97.1 kg (214 lb) 01/09/2020 8:42 AM CDT Height 165.1 cm (5' 5") 01/09/2020 8:42 AM CDT Body Mass Index 35.61 01/09/2020 8:42 AM CDT documented in this encounter Patient Instructions Patient InstructionsKEdgard khan MD - 01/09/2020 8:40 AM CDTStay active Return visit in [address] chest and pulmonary function test I will prepare portable oxygen to use during exercise and heavy physical activity documented in this encounter Progress Notes Soraya Ford - 01/09/2020 8:48 AM CDT Patients oxygen saturations were 96 at rest on room air Patients oxygen saturations were 84 during exercise on room air Patients oxygen saturations were 90 during exercise with 2 L/Min per Nasal Cannula Patient is in need of oxygen to maintain o2 above 90% to help overall and maintain health. Edgard Del Valle MD - 01/09/2020 8:40 AM CDT [facility] Follow Up Reason for Visit/CC: follow up shortness of breath Date last seen: 05/04/2019 Initial HPI: He was diagnosed of splenic marginal zone lymphoma in 11/2018, received the first dose of rituximab 375mg/m2 without streoid on 01/23, developed acute respiratory distress and hospitalized at [facility] between 01/26-02/05/2019. His other medical history includes pericardial effusion at the time of lymphoma diagnosis in 11/2018 s/p drainage, stroke, CAD, HTN, HLD, gout. He complains of chronic hemoptysis for many months, and CT of the chest shows diffuse GGOs. No pulmonary embolism is present. Sputum culture is growing respiratory olya only. Negative studiesinclude Streptococus pneumoniae and Legionella Ags, MRSA screen, and RVP. Of note T-Spot TB was borderline in 11/2018, however repeat on 01/30 was negative. TTE on 01/26 demonstrates LVEF >60%, mildly dilated RV with normal function, and PASP 30-35 mmHg. Diagnostic bronchoscopy with BALon 01/31 demonstratesdiffuse alveolar hemorrhage (DAH). BAL studies are notable for negative RVP, infectious stains, cytology, and flow cytometry. DAH serologic evaluation is notable for RF 1:2, FRACISCO 1:160 with cytoplasmic staining, and negative anti-dsDNA.Etiologies for DAHwas thought to be possibly fromlymphoma,rheumatologic disease (given son with juvenile rheumatoid arthritis),systemic vasculitis, and less likely Rituximab itself. Upon discharge, he was prescribed of rapid tapering regimen of steroid x 2weeks and he was off of steroid complete for the last 1 week. He continues to cough up the same amount of blood daily. He has shortness of breath with exertion, but he feels 'fine' and able to walk 2 miles daily. Received oxygenupon discharge, but does not use anymore. Interval history 05/04/2019 Hemoptysis has resolved since last winter, after the visit with me. He noted exertional shortness ofbreath but still able to walk 3 miles daily and tries to stay active. Intermittent cough when tryingto take a deep breaths. Noted dry skin on bilateral harrell, a new hip pain, but otherwise he is doing well and overall feeling better compared to his last visit with me. Denies fever, sputum, night sweat, weight loss, leg swelling, chest pain, dizziness or syncope. He was seen by Dr. Tena, rheumatology and seems to not meet criteria for any specific connective tissue disease/vasculitis. Dr. Billingsley, hematology, is planning to review the re-staging scan (which was done in Apr 16 2019) and decide regarding further treatment of lymphoma, either with rituximab single or BR. 6min walk today reveals desaturation to 86% upon exertion but patient declined to use oxygen. Pulmonary function test is consistent to mild restriction, and DLCO was not able to be done due to coughing. 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 There are scattered micronodules. HPI/interval history: 01/09/2020 He completed the course of rituximab single agent for his lymphoma throughout this year (his local oncologist. Dr. Samuels had also been in communication with him). Due to covid19 pandemic, the infusion had been interrupted and recently the course had been completed ( he recalls maybe a month ago), and hewas told that his sleep is now smaller. He reports persistent shortness of breath with extreme exertion or after eating. He noticed that hisoxygen level remains stable with sleep or mild exertion that he had not been using oxygen, but did notice shortness of breath when going up on stairs or lifting heavy weights. Denies hemoptysis, fever,sputum production. Along with worsening shortness of breath right after eating, he noticed mild abdominal distention with bloating sensation, morning cough, and reflux symptoms. Mild abdominal tenderness on epigastric area, felt to be 'bulging'. Prior echo noted to have high LVOT gradient and PASP. Repeat echo confirmed apical variant hypertrophic cardiomyopathy, seen by marble machine tender recently and started on beta wes. Continued on furosemide. Dr. Tena noted that repeat rheum serologies had been converted to negative/lower titer in October 2019, after rituximab. (anticardiolipin IgM, complements, ANCA titer). Most recent CT chest imaging was in Apr 2019, reviewed as above. PFT today shows restrictive pattern, FVC 2.84 (63.7%) FEV1 2.42(69.8%) TLC 4.34 (64.6%), and DLCO was not able to be performed due to coughing. Compared to prior study in 05/03/2019, lung volumes have been mildly, but further reduced. Review of Systems A 14 system ROS negative except as mentioned in HPI and below Past Medical History: Diagnosis Date Hypertension Irregular heartbeat Lymphoma (HCCode) Splenic marginal lymphoma Pericardial effusion November 2018 Stroke (HCCode) No past surgical history on file. Social History Socioeconomic History Marital status: Spouse name: Not on file Number of children: 3 Years of education: Not on file Highest education level: Not on file Occupational History Occupation: Chemical plant Social Needs Financial resource strain: Not on file Food insecurity Worry: Not on file Inability: Not on file Transportation needs Medical: Not on file Non-medical: Not on file Tobacco Use Smoking status: Never Smoker Smokeless tobacco: Current User Substance and Sexual Activity Alcohol use: Not Currently Frequency: Never Drug use: Not Currently Comment: Tried MJ in high school. Sexual activity: Not Currently Partners: Female Comment: No stable sexual partner - has ex . Lifestyle Physical activity Days per week: Not on file Minutes per session: Not on file Stress: Not on file Relationships Social connections Talks on phone: Not on file Gets together: Not on file Attends pentecostal service: Not on file Active member of club or organization: Not on file Attends meetings of clubs or organizations: Not on file Relationship status: Not on file Intimate partner violence Fear of current or ex partner: Not on file Emotionally abused: Not on file Physically abused: Not on file Forced sexual activity: Not on file Other Topics Concerns: Not on file Social History Narrative Not on file Family History Problem Relation Name Age of Onset Lung Cancer Mother Heart Attack Father Hypertension Brother Diabetes Brother Liver Disease Brother Other (juvenile arthritis) Other Son Medications: Current Outpatient Medications: ASPIRIN 81 OR, Take by mouth., Disp: , Rfl: furosemide (LASIX) 40 MG tablet, Take 40 mg by mouth daily., Disp: , Rfl: metoprolol (TOPROL XL) 25 MG XL tablet, Take 1 Tab by mouth daily., Disp: 90 Tab, Rfl: 3 Physical Exam: Vital Signs Height: 5' 5" (165.1 cm) Weight - Scale: 214 lb (97.1 kg) Temp: 97.4 F (36.3 C) Temp Source: Oral Pulse: 96 Respirations: 16 BP: 119/69 Patient Position: Sitting Cuff Size: regular BP Location: right arm Oxygen Therapy O2 Sat: 97 % Height and Weight BSA (Calculated - sq m): 2.11 sq meters BMI (Calculated): 35.7 Predicted Body Weight: 135.58 Physical Exam Constitutional: He is oriented to person, place, and time and well-developed, well-nourished, and inno distress. No distress. HENT: Head: Normocephalic and atraumatic. Eyes: Pupils are equal, round, and reactive to light. Conjunctivae are normal. Neck: Normal range of motion. Neck supple. Cardiovascular: Normal rate, regular rhythm and normal heart sounds. Exam reveals no friction rub. No murmur heard. Pulmonary/Chest: Breath sounds normal. No respiratory distress. He has no wheezes. He has no rales. He exhibits no tenderness. Abdominal: Soft. He exhibits distension. He exhibits no mass. There is abdominal tenderness. There is no rebound and no guarding. Musculoskeletal: Normal range of motion. Neurological: He is alert and oriented to person, place, and time. He exhibits normal muscle tone. Coordination normal. Skin: Skin is warm and dry. He is not diaphoretic. Lab or Test Results: reviewed as above Assessment # chronic exertional hypoxia, likely associated with pulmonary peripheral scarring, likely from the event of DAH. Component of cardiac (HCM), on diuretics and beta wes. Cannot completely rule out progressive pulmonary fibrosis or vasculitic process. - mildly worsening lung volumes. Patient was never be able to perform DLCO. # Diffuse alveolar hemorrhage, chronic hemoptysis has resolved. #. Interstitial lung disease, consistent to NSIP pattern/diffuse GGO initially, now more fibrotic #. Marginal zone lymphoma s/p rituximab [id number] #. History of pericardial effusion in Nov 2018 #. Shortness of breath #. Apical variant hypertropic cardiomyopathy # mild elevation of serum Cr compared to prior, was noted. # abdominal distention and bloating sensation Recommendation - PFT suggestive of progressive restrictive process and exertional hypoxia persists. Although weightgain and cardiac condition may contribute shortness of breath. Immediate immunosuppression would notbe indicated as patient recently completed the course of rituximab and diagnosis of primariy vasculit ic/connective tissue disease is unclear. DAH in 2019 was thought to be associated with lymphoma. Will continue follow up his lung function and image study in 6-8 months, and determine further necessityfor immunosuppression or antifibrotic use. - GI consultation for abdominal distention and bloating. Possible dysmotility or hernia - preserved exercise capacity despite exertional hypoxia. Given high activity level, portal oxygen is indicated and will request, 2LPM - monitor renal function - patient refused flu shot - return visit in 6-8 months Edgard Del Valle MD documented in this encounter Plan of Treatment Date Type Specialty Care Team Description 01/09/2020 Ancillary Procedure Cardiology Arrived 01/15/2020 Office Visit Rheumatology Yaw Tena MD [address] [place], [place] [address] [phone] 07/09/2020 Procedure Visit-Tech Pulmonology [facility] Pft-Pft Tech Performed 07/09/2020 Procedure Visit-Tech Pulmonology [facility] Pft-Pft Tech Performed 07/09/2020 Office Visit Pulmonology Edgard Del Valle MD [address] [place], [place] [address] [phone] Name Type Priority Associated Order Schedule Diagnoses NOVEL 2019 Microbiology Routine Screening for viral 1 Occurr ences CORONAVIRUS(COVID-19),NA disease sta rting 01/09/2020 A until COMPLETE PFT WITHOUT PFT Routine Shortness o f breath Expected: BRONCHODILATOR Interstitial lung 07/10/19 21, Expires: disease (HCCode) 01/08/2021 SIX MINUTE WALK TEST PFT Routine Shortness o f breath Expected: Interstitial lung 07/09/2020 , Expires: disease (HCCode) 01/08/2021 CT CHEST HIGH RESOLUTION Imaging Routine Shortne ss of breath Expected: WO CONTRAST Interstitial lung 07/09/2020 , Expires: disease (HCCode) 01/08/2021 Name Type Priority Associated Order Schedule Diagnoses AMB REF TO Outpatient Routine Abdominal bloating Ordered: GASTROENTEROLOGY [facility] Referral 10/2019 Health Maintenance Due Date Last Done Comments COLON CANCER SCREENING: COLONOSCOPY 1960 TETANUS SHOT (ADULT) 1977 BMI FOLLOW UP PLAN 1980 ZOSTER VACCINE (1 of 2) 2012 HEPATITIS C SCREENING Completed 11/04/2018, 11/04/2018 HIV SCREENING Completed 11/07/2018, 11/07/2018 FLU VACCINE > 6 MONTHS Discontinued documented as of this encounter Results Not on filedocumented in this encounter Visit Diagnoses Diagnosis Dyspnea, unspecified type Interstitial lung disease (HCCode) Postinflammatory pulmonary fibrosis Screening for viral disease Special screening examination for unspec ified viral disease Abdominal bloating Flatulence, eructation, and gas pain Apical variant hypertrophic cardiomyopat hy (HCCode) Other primary cardiomyopathies documented in this encounter Insurance Payer Benefit Plan / Subscriber ID Effective Dates Phone Addre ss Type Group [employer] OPEN ACCESS [id number] 2000-Present [address] POS HMO/POS/EPO/PPO - [place], [place] [employer] [phone] documented as of this encounter
--- OUTSIDE RECORDS SUMMARY | 2020-02-06 11:59 | XMS REPORT | Continuity of Care Document ---
:1960 Author Organization [facility] t Address [address] [place] [address] Care Team Providers Name Role Phone Pcp, No Primary Care Physician Unavailable Yaw Tena MD Attending Clinician Ivon HERMAN Attending Clinician Ivon HERMAN Attending Clinician Lawrence Wheatley MD Attending Clinician Elizabeth Billingsley MD Attending Clinician [phone] Elizabeth Billingsley MD Attending Clinician [phone] Room Attending Clinician Unavailable ELIZABETH BILLINGSLEY Attending Clinician Unavailable YASMIN CASTILLO Attending Clinician Unavailable Yasmin Castillo MD Attending Clinician Hakeem HERMAN Attending Clinician Cate HERMAN Attending Clinician Melinda Wynn MD Attending Clinician Arya HERMAN, PhD Attending Clinician [phone] HELDER HAYDEN Attending Clinician Unavailable YASMIN CASTILLO Admitting Clinician Unavailable HELDER HAYDEN Admitting Clinician Unavailable Payers Payer Name Policy Type Policy Number Effective Date Expiration Date Rubén wilkinson AETNA - MGD [id number] [address] [facility] CAREAETNA HMO 00:00:00 - Medical POS Center [id number] /POS Problems Condition Condition Condition Status Onset Resolution Last Treating Co mments Source Name Details Category Date Date Treatment Clinician Date Coronary Coronary Disease [facility] 2018[facility] - disease disease 00:00: Medical 00 [place] HLD HLD Disease Active 2018-[address] (hyperlipi (hyperlipi 0-28 Charley kes - demia) demia) 00:00: Medical 00 [place] Hypertensi Hypertensi Disease Active 2018-[address] on on 0 [facility] - 00:00: Medical 00 [place] Lymphoma Lymphoma Disease Active 2018-04 [facility] - 00:[facility]: Medical 00 [place] Acute Acute Disease Active 2018-[address] hypoxemic hypoxemic 0-25 [facility] - respirator respirator 00:00: Me dical y failure y failure 00 Cent er Splenic Splenic Disease Active [facility] marginal marginal 11-30 [facility] - zone zone 00:00: Medical b-cell b-cell 00 Center lymphoma lymphoma Abnormal Abnormal Disease Active [facility] liver liver 8 [facility] - enzymes enzymes 00:00: Medical 00 [place] Hepatosple Hepatosple Disease Active [facility] nomegaly nomegaly 11-04 [facility] - 00:00: Medical 00 [place] Thrombocyt Thrombocyt Disease Active [facility] openia openia 11-04 [facility] - 00:00: Medical 00 [place] Shortness Shortness Disease Active [address] [facility] of breath of breath 8 [facility] - 00:00: Medical 00 [place] Pericardia Pericardia Disease Active 2019- [facility] l effusion l effusion 8- [facility] kes - 00:00: Medical 00 [place] Pleural Pleural Disease Active [address] effusion effusion 8 [facility] - 00:00: Medical 00 Center Acute Acute Disease Active [address] respirator respirator 8- Charley kes - y y 00:00: Medical insufficie insufficie 00 Ce nter ncy ncy Allergies, Adverse Reactions, Alerts This patient has no known allergies or adverse reactions. Social History Social Habit Start Date Stop Date Quantity Comments Source History SDOH [facility] - Alcohol Std Drinks Medica l Center History SDOH [facility] - Alcohol Binge Medical [address] ter Sex Assigned At [facility] kes - [facility] Tobacco use and 2019-01-30 2019-01-30 Never used [facility] Charley kes - exposure 00:00:00 00:00:00 [facility] Alcohol intake 2019-01-30 2019-01-[address] [address] [facility] - 00:00:00 00:00:00 non-drinker of Medical Ce nter alcohol (finding) History SDOH 2018-11-03 2018-11-[address] [facility] - Alcohol Frequency 00:00:00 00:00:00 Medical Center Smoking Status Start Date Stop Date Source [facility] smoker [facility] Medications Ordered Filled Start Stop Current Ordering Indication Dosage Frequency Signature Comments Components Source Medication Medication Date Date Medication? Clinician (SIG) Name Name predniSONE 2018-04 No 50mg QD Take [address] [facility] [address] (DELTASONE) 04-08- tablet (50 L ukes - 50 MG 00:00: 23:59 mg total) Medica l tablet 00 :00 by mouth Center daily for 14 days. pantoprazol 2018-04 No 40mg QD Take [address] e 04-08- tablet (40 [facility] - (PROTONIX) 00:00: 23:59 mg total) M edical 40 MG 00 :00 by mouth Center tablet daily for 14 days. colchicine 2018-04 Yes acute gouty .6mg Q.5D Take 0.[address] (COLCRYS) 1-04 arthritis mg by Luke s - 0.6 mg 14:57: mouth 2 Medical tablet 45 (two) Center times daily. aspirin 81 2018-04 Yes 81mg QD Take [address] MG EC 1-04 by mouth [facility] - tablet 14:57: daily. Medical 45 [place] atorvastati 2018-04 Yes 40mg QD Take [address] n (LIPITOR) 1-04 by mouth Luke s - 40 MG 14:57: nightly. Medical tablet 45 Center valACYclovi 2018-04 Yes 500mg QD Take [address] (VALTREX) 1-04 mg by [facility] - 500 MG 14:57: mouth Medical tablet 45 daily. Center sulfamethox 2018-04 Yes 1{tbl} Take [address] azole-trime 1-04 tablet by Seema es - thoprim 14:57: mouth Medical (BACTRIM 45 every Center DS) 800-160 Tuesday, mg per Tuesday, tablet Tuesday. furosemide 2018-04- No 40mg Q.5D Take [address] [facility] (LASIX) 40 04-07 by mouth 2 Charley kes - MG tablet 10:00: 00:00 (two) Medica l 04 :00 times Center daily. amLODIPine 2018-04- No 10mg QD Take [address] (NORVASC) 04-07 by mouth [facility] - 10 MG 10:00: 00:00 daily. Medical tablet 04 :00 Center furosemide 2018-04 Yes 40mg QD Take 1 [facility] (LASIX) 40 04-07 tablet (40 Seema es - MG tablet 00:00: mg total) Med ical 00 by mouth Center daily. allopurinol 2018-04 Yes 300mg QD Take [address] (ZYLOPRIM) 0-14 mg by [facility] - 300 MG 00:00: mouth Medical tablet 00 daily. Center Vital Signs Vital Name Observation Time Observation Value Comments Source Heart rate 2019-02-05 12:40:00 90 /min [facility] Respiratory rate 2019-02-05 12:40:00 18 /min [facility] Oxygen saturation in 2019-02-05 12:40:00 95 /min [facility] - Arterial blood by Medical Ce nter Pulse oximetry Systolic blood 2019-02-05 07:59:00 93 mm[Hg] [facility] Diastolic blood 2019-02-05 07:59:00 58 mm[Hg] [facility] S t [facility] Body temperature 2019-02-05 07:59:00 35.78 Erin [facility] Body weight 2019-02-05 05:00:00 82.237 kg [facility] BMI 2019-02-05 05:00:00 27.57 kg/m2 [facility] Procedures Procedure Date / Time Performed Performing Clinician [facility] e CT ABDOMEN/PELVIS WITH IV 2019-04-16 12:40:00 Yoni Billingsley ma [facility] - CONTRAST [facility] CT CHEST WITH IV CONTRAST 2019-04-16 12:40:00 Jose CruzYoni ma [facility] POCT-CREATININE 2019-04-16 12:11:00 Jose CruzChrissy [facility] REPORT OF PROCEDURE - 2019-02-07 12:05:03 Provider, Default [facility] ENDOSCOPY SCAN [facility] RHYTHM STRIP - SCAN 2019-02-07 12:04:51 Provider, Default [facility] Scanning [facility] POCT-GLUCOSE METER 2019-02-05 07:48:00 Carrie Wynn [facility] MAGNESIUM 2019-02-05 03:59:00 Halie [facility] [place] PHOSPHORUS 2019-02-05 03:59:00 Ambrose [facility] [place] COMPREHENSIVE METABOLIC 2019-02-05 03:59:00 Tabitha Carrie Melinda I [facility] CBC W/PLT COUNT & AUTO 2019-02-05 03:59:00 Ted Cat [facility] Plan of Care Planned Activity Planned Date Details Comments Source Future Scheduled 2022-10-23 [facility]id [facility] Test 00:00:00 (procedure) [code = [facility] [id number]] Future Scheduled 2019-12-04 INFLUENZA VACCINE (#1) [facility] - Test 00:00:00 [code = INFLUENZA Medical Ce nter VACCINE (#1)] Future Scheduled [address] [facility] - Test 00:00:00 0-64 YRS (1 of 3 - Medical C enter PCV13) [code = PNEUMOCOCCAL VACCINE 0-64 YRS (1 of 3 - PCV13)] Future Scheduled [address] [facility] - Test 00:00:00 malignant neoplasm of Medica l Center colon (procedure) [code = 381074239] Encounters Start End Encounter Admission Attending Care Care Encounter Source Date/Time Date/Time Type Type Clinicians Facility Department ID 2020-01-15 2020-01-15 Office Yaw Tena [id number] 07:32:40 08:38:39 Visit Chuan AMBULATOR [id number] Y [id number] [id number] 2020-01-09 2020-01-09 Office AGAPITO Del Valle [id number] 07:44:47 09:54:57 Visit Eliudung AMBULATOR [id number] Y 0.2.7.2.686 [id number] 2019-10-24 2019-10-24 Office Mika ALTMAN [id number] 07:41:16 11:36:09 Visit Ruiz Dangelo AMBULATOR [id number] Lawrence Y 0.2.7.2.686 [id number] 2019-10-12 2019-10-[address] [facility] [id number] 11:23:18 11:53:18 Visit Kielan AMBULATOR [id number] Y 0.2.7.2.686 [id number] 2019-06-12 2019-06-[address] [facility] [id number] 13:43:22 14:55:38 Visit Matthew AMBULATOR [id number] Y 0.2.7.2.686 [id number] 2019-05-14 2019-05-[address] [facility] [id number] 10:48:49 11:18:49 Visit , Chrissy Bondr 350.1.13.21 Sravanti 0.2.7.2.686 [id number] 2019-05-04 2019-05-04 Office AGAPITO Del Valle [id number] 14:34:20 15:51:39 Visit Eliudung AMBULATOR 350.1.13.21 Y 0.2.7.2.686 [id number] 2019-01-01 2019-01-01 Office [facility] 1.2.840.114 [id number] 11:58:16 13:17:42 Visit , Chrissy MckeonNair 350.1.13.21 Sravanti 0.2.7.2.686 [id number] 2018-12-25 2018-12-25 Office Lashawn BCM 1.2.840.114 [id number] 08:22:24 09:37:53 Visit -Osvaldo AMBULATOR 350.1.13.21 Deidre Y 0.2.7.2.686 [id number] 2018-11-27 2018-11-27 Office Jose Cruz B[facility] 1.2.840.114 [id number] 12:30:35 13:50:17 Visit , Chrissy AMBULATOR 350.1.13.21 Elizabeth Y 0.2.7.2.686 [id number] Results Test Description Test Time Test Comments Results Result [facility] e Comments CT, ABDOMEN 2019-04-16 FINAL REPORT 15:00:00 CT of the chest, abdomen and pelvis, with contrast 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 This exam was performed according to our departmental dose optimization program which includes automated exposure control, adjustment of the mA and/or kV according to patient's size and/or use of iterative reconstructive technique. Comparison Film: November 08, 2018, November 06, 2018 Discussion: Visualized thyroid gland is unremarkable. No supraclavicular, and axillary, and mediastinal or hilar lymphadenopathy. Heart is borderline enlarged, no pericardial effusion. There is a mild degree of peripheral interstitial thickening with groundglass opacities in both lungs, primarily in the lower lungs, and mild degree of traction bronchiectasis, suggestive of pulmonary fibrosis. There is no new mass or consolidation. A 4 mm nodule in the right upper lobe, and a 5 mm groundglass nodule in the right lower lobe are unchanged. Previously seen left upper lobe nodules no longer identified. No liver lesion is identified. There is no biliary ductal dilatation, and the gallbladder is unremarkable. Spleen is enlarged, measuring 15.2 cm sagittally, and this has improved since the previous exam, measuring 23.4 cm previously. The pancreas, adrenal glands are unremarkable. Kidneys demonstrate no mass, hydronephrosis, or radiopaque stone. There is no evidence of bowel obstruction, or abnormal bowel wall thickening. Normal appendix. In the pelvis, bladder is unremarkable. There is a small to moderate right inguinal hernia containing fat and trace fluid. Prostate and seminal vesicles also appear unremarkable There is no ascites. No lymphadenopathy. No suspicious bony lesion is identified. Impression: Decreased splenomegaly. Resolution of pleural effusions. Right inguinal hernia. Mild fibrotic changes in lung. 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 This exam was performed according to our departmental dose optimization program which includes automated exposure control, adjustment of the mA and/or kV according to patient's size and/or use of iterative reconstructive technique. Comparison Film: November 08, 2018, November 06, 2018 Discussion: Visualized thyroid gland is unremarkable. No supraclavicular, and axillary, and mediastinal or hilar lymphadenopathy. Heart is borderline enlarged, no pericardial effusion. There is a mild degree of peripheral interstitial thickening with groundglass opacities in both lungs, primarily in the lower lungs, and mild degree of traction bronchiectasis, suggestive of pulmonary fibrosis. There is no new mass or consolidation. A 4 mm nodule in the right upper lobe, and a 5 mm groundglass nodule in the right lower lobe are unchanged. Previously seen left upper lobe nodules no longer identified. No liver lesion is identified. There is no biliary ductal dilatation, and the gallbladder is unremarkable. Spleen is enlarged, measuring 15.2 cm sagittally, and this has improved since the previous exam, measuring 23.4 cm previously. The pancreas, adrenal glands are unremarkable. Kidneys demonstrate no mass, hydronephrosis, or radiopaque stone. There is no evidence of bowel obstruction, or abnormal bowel wall thickening. Normal appendix. In the pelvis, bladder is unremarkable. There is a small to moderate right inguinal hernia containing fat and trace fluid. Prostate and seminal vesicles also appear unremarkable There is no ascites. No lymphadenopathy. No suspicious bony lesion is identified. Impression: Decreased splenomegaly. Resolution of pleural effusions. Right inguinal hernia. Mild fibrotic changes in lung. 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 This exam was performed according to our departmental dose optimization program which includes automated exposure control, adjustment of the mA and/or kV according to patient's size and/or use of iterative reconstructive technique. Comparison Film: November 08, 2018, November 06, 2018 Discussion: Visualized thyroid gland is unremarkable. No supraclavicular, and axillary, and mediastinal or hilar lymphadenopathy. Heart is borderline enlarged, no pericardial effusion. There is a mild degree of peripheral interstitial thickening with groundglass opacities in both lungs, primarily in the lower lungs, and mild degree of traction bronchiectasis, suggestive of pulmonary fibrosis. There is no new mass or consolidation. A 4 mm nodule in the right upper lobe, and a 5 mm groundglass nodule in the right lower lobe are unchanged. Previously seen left upper lobe nodules no longer identified. No liver lesion is identified. There is no biliary ductal dilatation, and the gallbladder is unremarkable. Spleen is enlarged, measuring 15.2 cm sagittally, and this has improved since the previous exam, measuring 23.4 cm previously. The pancreas, adrenal glands are unremarkable. Kidneys demonstrate no mass, hydronephrosis, or radiopaque stone. There is no evidence of bowel obstruction, or abnormal bowel wall thickening. Normal appendix. In the pelvis, bladder is unremarkable. There is a small to moderate right inguinal hernia containing fat and trace fluid. Prostate and seminal vesicles also appear unremarkable There is no ascites. No lymphadenopathy. No suspicious bony lesion is identified. Impression: Decreased splenomegaly. Resolution of pleural effusions. Right inguinal hernia. Mild fibrotic changes in lung. 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 This exam was performed according to our departmental dose optimization program which includes automated exposure control, adjustment of the mA and/or kV according to patient's size and/or use of iterative reconstructive technique. Comparison Film: November 08, 2018, November 06, 2018 Discussion: Visualized thyroid gland is unremarkable. No supraclavicular, and axillary, and mediastinal or hilar lymphadenopathy. Heart is borderline enlarged, no pericardial effusion. There is a mild degree of peripheral interstitial thickening with groundglass opacities in both lungs, primarily in the lower lungs, and mild degree of traction bronchiectasis, suggestive of pulmonary fibrosis. There is no new mass or consolidation. A 4 mm nodule in the right upper lobe, and a 5 mm groundglass nodule in the right lower lobe are unchanged. Previously seen left upper lobe nodules no longer identified. No liver lesion is identified. There is no biliary ductal dilatation, and the gallbladder is unremarkable. Spleen is enlarged, measuring 15.2 cm sagittally, and this has improved since the previous exam, measuring 23.4 cm previously. The pancreas, adrenal glands are unremarkable. Kidneys demonstrate no mass, hydronephrosis, or radiopaque stone. There is no evidence of bowel obstruction, or abnormal bowel wall thickening. Normal appendix. In the pelvis, bladder is unremarkable. There is a small to moderate right inguinal hernia containing fat and trace fluid. Prostate and seminal vesicles also appear unremarkable There is no ascites. No lymphadenopathy. No suspicious bony lesion is identified. Impression: Decreased splenomegaly. Resolution of pleural effusions. Right inguinal hernia. Mild fibrotic changes in lung. Signed: Keli Mike MDReport Verified Date/Time: 04/16/2019 15:00:21 Reading Location: [address] Consult Reading Room -Creatinine 2019-04-16 12:17:00 Test Item Value Reference Range Interpretation Comme nts POC-Creatinine (test code = 0.9 mg/dL 0.6-1.[address] [facility] 7200 1859) CARMELITA BLDG A [facility] [address] POC-EGFR (test code = 1860) 87 mL/min/1.73M2 [id number] 12:17:00 Test Item Value Reference Range Interpretation Comments POC-CREATININE 0.9 mg/dL 0.6-1.3 TESTED AT [facility] 7200 (BEAKER) (test ACKERLY BLD G A code = 1859) [facility] 7703 0 POC-EGFR 87 mL/min/1.73M2 (BEAKER) (test code = 1860) AFB CULTURE + [id number] 13:09:00 Test Item Value Reference Range Interpretation Comments CULTURE (BEAKER) (test No acid-fast bacilli code = 1095) isolated in 42 days AFB SMEAR (BEAKER) No acid fast bacilli (test code = 994) seen FUNGUS CULTURE + [id number] 17:24:00 Test Item Value Reference Range Interpretation Comments CULTURE (BEAKER) (test No fungus isolated in code = 1095) 28 days FUNGUS SMEAR (BEAKER) No fungi seen (test code = 1406) CMV [id number] 07:55:00 Test Item Value Reference Range Interpretation Comments CULTURE (BEAKER) No cytomegalovirus (CMV) (test code = 1095) isolated POC-Glucose [id number] 09:00:00 Test Item Value Reference Range Interpretation Comments POC-Glucose Meter (test 71 mg/dL 70-110 : TE STED AT [facility] code = 1538) [address] [facility], 770 30: Leather Grainer/Techni reanna ID = [id number] for YAQUELIN MALAGON N Lab Interpretation (test Normal code = 41389-1) [facility] [id number] 09:00:00 Test Item Value Reference Range Interpretation Comments POC-GLUCOSE METER 71 mg/dL 70-110 : TESTED A T [facility] 6720 ([facility] (test code = GUEROWV Rosa Maria [facility], 1538) [address]: Leather Grainer/Techni reanna ID = [id number] for JENNA HARP Comprehensive metabolic [id number] 06:38:00 Test Item Value Reference Range Interpretation Comments Protein, Total (test 4.9 6.0- 8.3 gm/dL L code = 2885-2) Albumin (test code = 3.2 g/dL 3.5-5 L 49882-6) Alkaline Phosphatase 54 U/L 40-150 (test code = 6768-6) Total Bilirubin (test 0.4 mg/dL 0.2-1.2 code = 1975-2) Sodium (test code = 137 meq/L 767-856 9011-2) Potassium (test code = 3.9 meq/L 3.5-5.1 2823-3) Chloride (test code = 105 meq/L 98-107 2075-0) CO2 (test code = 24 meq/L 22-29 2028-9) BUN (test code = 16 mg/dL 7-21 3094-0) Creatinine (test code = 0.68 mg/dL 0.57-1.25 2160-0) Glucose (test code = 88 mg/dL 70-105 2345-7) Calcium (test code = 8.1 mg/dL 8.4-10.2 L 10548-3) AST (test code = 21 U/L 5-34 1920-8) ALT (test code = 51 U/L 6-55 1742-6) EGFR (test code = 121 mL/min/1.73 [place] [address]-5) NOT ACCURATE CREATININE CLEARANCE IN PREDICTING GLOMERULAR FILTRATION RATE . ESTIMATED GFR I S NOT APPLICABLE FOR DIALYSIS PATIEN TS. Lab Interpretation Abnormal (test code = 52617-8) [facility] [id number] 06:38:00 Test Item Value Reference Range Interpretation Comments TOTAL PROTEIN 4.9 gm/dL 6.0-8.3 L (BEAKER) (test code = 770) ALBUMIN (BEAKER) 3.2 g/dL 3.5-5.0 L (test code = 1145) ALKALINE PHOSPHATASE 54 U/L 40-150 (BEAKER) (test code = 346) BILIRUBIN TOTAL 0.4 mg/dL 0.2-1.2 (BEAKER) (test code = 377) SODIUM (BEAKER) (test 137 meq/L 136-145 code = 381) POTASSIUM (BEAKER) 3.9 meq/L 3.5-5.1 (test code = 379) CHLORIDE (BEAKER) 105 meq/L 98-107 (test code = 382) CO2 (BEAKER) (test 24 meq/L 22-29 code = 355) BLOOD UREA NITROGEN 16 mg/dL 7-21 (BEAKER) (test code = 354) CREATININE (BEAKER) 0.68 mg/dL 0.57-1.25 (test code = 358) GLUCOSE RANDOM 88 mg/dL 70-105 (BEAKER) (test code = 652) CALCIUM (BEAKER) 8.1 mg/dL 8.4-10.2 L (test code = 697) AST (SGOT) (BEAKER) 21 U/L 5-34 (test code = 353) ALT (SGPT) (BEAKER) 51 U/L 6-55 (test code = 347) EGFR (BEAKER) (test 121 ESTIMATE D GFR IS code = 1092) mL/min/1.73 sq NOT ACCURA TE m CREATININE CLEARANCE IN PREDICTING GLOMERULAR FILTRATION RATE . ESTIMATED GFR I S NOT APPLICABLE FOR DIALYSIS PATIEN TS. [id number] 05:53:00 Test Item Value Reference Range Interpretation Comments Magnesium (test code = 94996-2) 2.0 mg/dL 1.6-2.6 Lab Interpretation (test code = Normal 63075-1) [facility] 05:53:00 Test Item Value Reference Range Interpretation Comments Phosphorus (test code = 2777-1) 4.0 mg/dL 2.3-4.7 Lab Interpretation (test code = Normal 13621-5) [facility]-04 05:53:00 Test Item Value Reference Range Interpretation Comments MAGNESIUM (BEAKER) (test code = 2.0 mg/dL 1.6-2.6 627) [id number] 05:53:00 Test Item Value Reference Range Interpretation Comments PHOSPHORUS (BEAKER) (test code = 4.0 mg/dL 2.3-4.7 604) CBC with platelet count + automated [id number] 04:39:00 Test Item Value Reference Range Interpretation Comments WBC (test code = 6690-2) 4.7 3.5- 10.5 K/L RBC (test code = 789-8) 3.80 4.63- 6.08 M/L L MCHC (test code = 786-4) 28.4 32.3- 36.5 GM/DL L Hematocrit (test code = 4544-3) 32.4 % 40.1-51 L MCV (test code = 787-2) 85.3 fL 79-92.2 MCH (test code = 785-6) 24.2 pg 25.7-32.2 L RDW (test code = 788-0) 17.3 % 11.6-14.4 H Platelets (test code = 777-3) 202 150- 450 K/CU MM MPV (test code = 53740-9) 9.1 fL 9.4-12.4 L nRBC (test code = 413) 0 0- 0 /100 WBC % Neutros (test code = 429) 71 % % Lymphs (test code = 430) 19 % % Monos (test code = 431) 7 % % Eos (test code = 432) 2 % % Baso (test code = 437) 0 % # Neutros (test code = 670) 3.35 1.78- 5.38 K/L # Lymphs (test code = 414) 0.90 1.32- 3.57 K/L L # Monos (test code = 415) 0.35 0.30- 0.82 K/L # Eos (test code = 416) 0.10 0.04- 0.54 K/L # Baso (test code = 417) 0.01 0.01- 0.08 K/L Immature Granulocytes-Relative 1 % 0-1 (test code = 2801) Lab Interpretation (test code = Abnormal 73714-5) [facility] W/PLT COUNT & AUTO [id number] 04:39:00 Test Item Value Reference Range Interpretation Comments WHITE BLOOD CELL COUNT (BEAKER) 4.7 K/ L 3.5-10.5 (test code = 775) RED BLOOD CELL COUNT (BEAKER) 3.80 M/ L 4.63-6.08 L (test code = 761) HEMOGLOBIN (BEAKER) (test code = 9.2 GM/DL 13.7-17.5 L 410) HEMATOCRIT (BEAKER) (test code = 32.4 % 40.1-51.0 L 411) MEAN CORPUSCULAR VOLUME (BEAKER) 85.3 fL 79.0-92.2 (test code = 753) MEAN CORPUSCULAR HEMOGLOBIN 24.2 pg 25.7-32.2 L (BEAKER) (test code = 751) MEAN CORPUSCULAR HEMOGLOBIN CONC 28.4 GM/DL 32.3-36.5 L (BEAKER) (test code = 752) RED CELL DISTRIBUTION WIDTH 17.3 % 11.6-14.4 H (BEAKER) (test code = 412) PLATELET COUNT (BEAKER) (test 202 K/CU MM 150-450 code = 756) MEAN PLATELET VOLUME (BEAKER) 9.1 fL 9.4-12.4 L (test code = 754) NUCLEATED RED BLOOD CELLS 0 /100 WBC 0-0 (BEAKER) (test code = 413) NEUTROPHILS RELATIVE PERCENT 71 % (BEAKER) (test code = 429) LYMPHOCYTES RELATIVE PERCENT 19 % (BEAKER) (test code = 430) MONOCYTES RELATIVE PERCENT 7 % (BEAKER) (test code = 431) EOSINOPHILS RELATIVE PERCENT 2 % (BEAKER) (test code = 432) BASOPHILS RELATIVE PERCENT 0 % (BEAKER) (test code = 437) NEUTROPHILS ABSOLUTE COUNT 3.35 K/ L 1.78-5.38 (BEAKER) (test code = 670) LYMPHOCYTES ABSOLUTE COUNT 0.90 K/ L 1.32-3.57 L (BEAKER) (test code = 414) MONOCYTES ABSOLUTE COUNT (BEAKER) 0.35 K/ L 0.30-0.82 (test code = 415) EOSINOPHILS ABSOLUTE COUNT 0.10 K/ L 0.04-0.54 (BEAKER) (test code = 416) BASOPHILS ABSOLUTE COUNT (BEAKER) 0.01 K/ L 0.01-0.08 (test code = 417) IMMATURE GRANULOCYTES-RELATIVE 1 % 0-1 PERCENT (BEAKER) (test code = 2801) POCT-GLUCOSE [id number] 18:31:00 Test Item Value Reference Range Interpretation Comments POC-GLUCOSE METER 133 mg/dL 70-110 H : TESTED A T [facility] 6720 (BEAKER) (test code = [place], 1538) [address]: Leather Grainer/Techni reanna ID = [id number] for Juan Pablo Vogt POCT-GLUCOSE [id number] 18:29:00 Test Item Value Reference Range Interpretation Comments POC-GLUCOSE METER 69 mg/dL 70-110 L : [facility] (BEAKER) (test code = AR[place] [facility], 1538) [address]: Leather Grainer/Techni reanna ID = [id number] for Juan Pablo Richmond RAD, CHEST, 1 VIEW, NON [id number] 14:44:00Reason for exam:->DAHShould this be performed at the bedside?->YesFINAL REPORT AP chest dated 02/04/2019 Comment: Heart is in upper limits of normal in size. Pulmonary vasculature is unremarkable. Lungs are clear. No pulmonary infiltrate or pleural effusion. Impression: No active cardiopulmonary disease. Signed: Freddy Bautista MDRepvishal Verified Date/Time: 02/04/2019 14:44:02 Reading Location: [facility] [id number] Consult Reading Room Electronicallysigned by: FREDDY BAUTISTA M.D. on 02/04/2019 02:44 PMCREATINE KINASE (CK)2019-02-04 13:44:00 Test Item Value Reference Range Interpretation Comments CREATINE KINASE TOTAL (BEAKER) (test 210 U/L 29-200 H code = 380) [id number] 05:11:00 Test Item Value Reference Range Interpretation Comments PHOSPHORUS (BEAKER) (test code = 4.4 mg/dL 2.3-4.7 604) [id number] 05:11:00 Test Item Value Reference Range Interpretation Comments MAGNESIUM (BEAKER) (test code = 2.1 mg/dL 1.6-2.6 627) COMPREHENSIVE METABOLIC [id number] 05:11:00 Test Item Value Reference Range Interpretation Comments TOTAL PROTEIN 5.3 gm/dL 6.0-8.3 L (BEAKER) (test code = 770) ALBUMIN (BEAKER) 3.2 g/dL 3.5-5.0 L (test code = 1145) ALKALINE PHOSPHATASE 58 U/L 40-150 (BEAKER) (test code = 346) BILIRUBIN TOTAL 0.5 mg/dL 0.2-1.2 (BEAKER) (test code = 377) SODIUM (BEAKER) (test 140 meq/L 136-145 code = 381) POTASSIUM (BEAKER) 4.0 meq/L 3.5-5.1 (test code = 379) CHLORIDE (BEAKER) 106 meq/L 98-107 (test code = 382) CO2 (BEAKER) (test 25 meq/L 22-29 code = 355) BLOOD UREA NITROGEN 16 mg/dL 7-21 (BEAKER) (test code = 354) CREATININE (BEAKER) 0.74 mg/dL 0.57-1.25 (test code = 358) GLUCOSE RANDOM 94 mg/dL 70-105 (BEAKER) (test code = 652) CALCIUM (BEAKER) 8.3 mg/dL 8.4-10.2 L (test code = 697) AST (SGOT) (BEAKER) 22 U/L 5-34 (test code = 353) ALT (SGPT) (BEAKER) 55 U/L 6-55 (test code = 347) EGFR (BEAKER) (test 109 ESTIMATE D GFR IS code = 1092) mL/min/1.73 sq NOT ACCURA TE m CREATININE CLEARANCE IN PREDICTING GLOMERULAR FILTRATION RATE . ESTIMATED GFR I S NOT APPLICABLE FOR DIALYSIS PATIEN TS. CBC W/PLT COUNT & AUTO [id number] 04:52:00 Test Item Value Reference Range Interpretation Comments WHITE BLOOD CELL COUNT (BEAKER) 5.4 K/ L 3.5-10.5 (test code = 775) RED BLOOD CELL COUNT (BEAKER) 4.20 M/ L 4.63-6.08 L (test code = 761) HEMOGLOBIN (BEAKER) (test code = 10.2 GM/DL 13.7-17.5 L 410) HEMATOCRIT (BEAKER) (test code = 36.1 % 40.1-51.0 L 411) MEAN CORPUSCULAR VOLUME (BEAKER) 86.0 fL 79.0-92.2 (test code = 753) MEAN CORPUSCULAR HEMOGLOBIN 24.3 pg 25.7-32.2 L (BEAKER) (test code = 751) MEAN CORPUSCULAR HEMOGLOBIN CONC 28.3 GM/DL 32.3-36.5 L (BEAKER) (test code = 752) RED CELL DISTRIBUTION WIDTH 17.5 % 11.6-14.4 H (BEAKER) (test code = 412) PLATELET COUNT (BEAKER) (test 231 K/CU MM 150-450 code = 756) MEAN PLATELET VOLUME (BEAKER) 9.0 fL 9.4-12.4 L (test code = 754) NUCLEATED RED BLOOD CELLS 0 /100 WBC 0-0 (BEAKER) (test code = 413) NEUTROPHILS RELATIVE PERCENT 72 % (BEAKER) (test code = 429) LYMPHOCYTES RELATIVE PERCENT 19 % (BEAKER) (test code = 430) MONOCYTES RELATIVE PERCENT 5 % (BEAKER) (test code = 431) EOSINOPHILS RELATIVE PERCENT 3 % (BEAKER) (test code = 432) BASOPHILS RELATIVE PERCENT 0 % (BEAKER) (test code = 437) NEUTROPHILS ABSOLUTE COUNT 3.84 K/ L 1.78-5.38 (BEAKER) (test code = 670) LYMPHOCYTES ABSOLUTE COUNT 1.02 K/ L 1.32-3.57 L (BEAKER) (test code = 414) MONOCYTES ABSOLUTE COUNT (BEAKER) 0.27 K/ L 0.30-0.82 L (test code = 415) EOSINOPHILS ABSOLUTE COUNT 0.18 K/ L 0.04-0.54 (BEAKER) (test code = 416) BASOPHILS ABSOLUTE COUNT (BEAKER) 0.02 K/ L 0.01-0.08 (test code = 417) IMMATURE GRANULOCYTES-RELATIVE 1 % 0-1 PERCENT (BEAKER) (test code = 2801) POCT-GLUCOSE [id number] 18:01:00 Test Item Value Reference Range Interpretation Comments POC-GLUCOSE METER 114 mg/dL 70-110 H : TESTED A T [facility] 6720 (BEAKER) (test code = [facility], 1538) 12872: Leather Grainer/Techni reanna ID = [id number] for Juan Pablo Vogt POCT-GLUCOSE [id number] 12:15:00 Test Item Value Reference Range Interpretation Comments POC-GLUCOSE METER 83 mg/dL 70-110 : TESTED A T [facility] 6720 (BEAKER) (test code = [facility], 1538) 17334: Leather Grainer/Techni reanna ID = [id number] for Juan Pablo Richmond POCT-GLUCOSE [id number] 08:26:00 Test Item Value Reference Range Interpretation Comments POC-GLUCOSE METER 72 mg/dL 70-110 : TESTED A T [facility] 6720 (BEAKER) (test code = [place], 1538) 538[address]: Leather Grainer/Techni reanna ID = [id number] for Juan Pablo Richmond CALCIUM, [id number] 07:00:00 Test Item Value Reference Range Interpretation Comments CALCIUM IONIZED (BEAKER) (test 0.92 mmol/L 1.12-1.27 L code = 698) PH, BLOOD (BEAKER) (test code = 7.44 1810) [id number] 05:59:00 Test Item Value Reference Range Interpretation Comments PHOSPHORUS (BEAKER) (test code = 4.2 mg/dL 2.3-4.7 604) [id number] 05:59:00 Test Item Value Reference Range Interpretation Comments MAGNESIUM (BEAKER) (test code = 1.9 mg/dL 1.6-2.6 627) BASIC METABOLIC [id number] 05:59:00 Test Item Value Reference Range Interpretation Comments SODIUM (BEAKER) 140 meq/L 136-145 (test code = 381) POTASSIUM (BEAKER) 3.7 meq/L 3.5-5.1 (test code = 379) CHLORIDE (BEAKER) 108 meq/L 98-107 H (test code = 382) CO2 (BEAKER) (test 27 meq/L 22-29 code = 355) BLOOD UREA NITROGEN 17 mg/dL 7-21 (BEAKER) (test code = 354) CREATININE (BEAKER) 0.73 mg/dL 0.57-1.25 (test code = 358) GLUCOSE RANDOM 104 mg/dL 70-105 (BEAKER) (test code = 652) CALCIUM (BEAKER) 8.0 mg/dL 8.4-10.2 L (test code = 697) EGFR (BEAKER) (test 111 mL/min/1.73 ESTIM ATED GFR IS code = 1092) sq m NOT ACCURATE CREATININE CLEARANCE IN PREDICTING GLOMERULAR FILTRATION RATE . ESTIMATED GFR I S NOT APPLICABLE FOR DIALYSIS PATIEN TS. CBC W/PLT COUNT & AUTO [id number] 05:13:00 Test Item Value Reference Range Interpretation Comments WHITE BLOOD CELL COUNT (BEAKER) 4.9 K/ L 3.5-10.5 (test code = 775) RED BLOOD CELL COUNT (BEAKER) 4.05 M/ L 4.63-6.08 L (test code = 761) HEMOGLOBIN (BEAKER) (test code = 9.7 GM/DL 13.7-17.5 L 410) HEMATOCRIT (BEAKER) (test code = 34.1 % 40.1-51.0 L 411) MEAN CORPUSCULAR VOLUME (BEAKER) 84.2 fL 79.0-92.2 (test code = 753) MEAN CORPUSCULAR HEMOGLOBIN 24.0 pg 25.7-32.2 L (BEAKER) (test code = 751) MEAN CORPUSCULAR HEMOGLOBIN CONC 28.4 GM/DL 32.3-36.5 L (BEAKER) (test code = 752) RED CELL DISTRIBUTION WIDTH 17.4 % 11.6-14.4 H (BEAKER) (test code = 412) PLATELET COUNT (BEAKER) (test 218 K/CU MM 150-450 code = 756) MEAN PLATELET VOLUME (BEAKER) 8.8 fL 9.4-12.4 L (test code = 754) NUCLEATED RED BLOOD CELLS 0 /100 WBC 0-0 (BEAKER) (test code = 413) NEUTROPHILS RELATIVE PERCENT 78 % (BEAKER) (test code = 429) LYMPHOCYTES RELATIVE PERCENT 11 % (BEAKER) (test code = 430) MONOCYTES RELATIVE PERCENT 7 % (BEAKER) (test code = 431) EOSINOPHILS RELATIVE PERCENT 3 % (BEAKER) (test code = 432) BASOPHILS RELATIVE PERCENT 0 % (BEAKER) (test code = 437) NEUTROPHILS ABSOLUTE COUNT 3.83 K/ L 1.78-5.38 (BEAKER) (test code = 670) LYMPHOCYTES ABSOLUTE COUNT 0.55 K/ L 1.32-3.57 L (BEAKER) (test code = 414) MONOCYTES ABSOLUTE COUNT (BEAKER) 0.34 K/ L 0.30-0.82 (test code = 415) EOSINOPHILS ABSOLUTE COUNT 0.13 K/ L 0.04-0.54 (BEAKER) (test code = 416) BASOPHILS ABSOLUTE COUNT (BEAKER) 0.01 K/ L 0.01-0.08 (test code = 417) IMMATURE GRANULOCYTES-RELATIVE 0 % 0-1 PERCENT (BEAKER) (test code = 7161) POCT-GLUCOSE [id number] 21:42:00 Test Item Value Reference Range Interpretation Comments POC-GLUCOSE METER 153 mg/dL 70-110 H : TESTED A T [facility] 6720 (BEAKER) (test code = [facility], 1538) 14974: Leather Grainer/Techni reanna ID = [id number] for URBAN JEFFERSON POCT-GLUCOSE [id number] 17:23:00 Test Item Value Reference Range Interpretation Comments POC-GLUCOSE METER 129 mg/dL 70-110 H : TESTED A T [facility] 6720 (BEAKER) (test code = [facility], 1538) 92489: Leather Grainer/Techni reanna ID = [id number] for Juan Pablo Vogt POCT-GLUCOSE [id number] 13:12:00 Test Item Value Reference Range Interpretation Comments POC-GLUCOSE METER 81 mg/dL 70-110 : TESTED A T [facility] 6720 (BEAKER) (test code = [facility], 1538) 17727: Leather Grainer/Techni reanna ID = [id number] for Juan Pablo Richmond BRONCHIAL CULTURE + GRAM [id number] 09:57:00 Test Item Value Reference Range Interpretation Comments CULTURE (BEAKER) 1+ Normal respiratory (test code = 1095) olya present GRAM STAIN RESULT 1+ WBCs (BEAKER) (test code = 1123) GRAM STAIN RESULT No organisms seen (BEAKER) (test code = 112207) POCT-GLUCOSE [id number] 08:15:00 Test Item Value Reference Range Interpretation Comments POC-GLUCOSE METER 69 mg/dL 70-110 L : TESTED A T [facility] 6720 (BEAKER) (test code = [facility], 1538) 76731: Leather Grainer/Techni reanna ID = [id number] for Juan Pablo Richmond CALCIUM, [id number] 07:14:00 Test Item Value Reference Range Interpretation Comments CALCIUM IONIZED (BEAKER) (test 1.03 mmol/L 1.12-1.27 L code = 698) PH, BLOOD (BEAKER) (test code = 7.48 1810) [id number] 05:03:00 Test Item Value Reference Range Interpretation Comments PHOSPHORUS (BEAKER) (test code = 4.0 mg/dL 2.3-4.7 604) [id number] 05:03:00 Test Item Value Reference Range Interpretation Comments MAGNESIUM (BEAKER) (test code = 2.0 mg/dL 1.6-2.6 627) BASIC METABOLIC [id number] 05:03:00 Test Item Value Reference Range Interpretation Comments SODIUM (BEAKER) 139 meq/L 136-145 (test code = 381) POTASSIUM (BEAKER) 3.7 meq/L 3.5-5.1 (test code = 379) CHLORIDE (BEAKER) 107 meq/L 98-107 (test code = 382) CO2 (BEAKER) (test 29 meq/L 22-29 code = 355) BLOOD UREA NITROGEN 17 mg/dL 7-21 (BEAKER) (test code = 354) CREATININE (BEAKER) 0.67 mg/dL 0.57-1.25 (test code = 358) GLUCOSE RANDOM 96 mg/dL 70-105 (BEAKER) (test code = 652) CALCIUM (BEAKER) 8.0 mg/dL 8.4-10.2 L (test code = 697) EGFR (BEAKER) (test 123 mL/min/1.73 ESTIM ATED GFR IS code = 1092) sq m NOT ACCURATE CREATININE CLEARANCE IN PREDICTING GLOMERULAR FILTRATION RATE . ESTIMATED GFR I S NOT APPLICABLE FOR DIALYSIS PATIEN TS. CBC W/PLT COUNT & AUTO [id number] 04:38:00 Test Item Value Reference Range Interpretation Comments WHITE BLOOD CELL COUNT (BEAKER) 4.4 K/ L 3.5-10.5 (test code = 775) RED BLOOD CELL COUNT (BEAKER) 4.05 M/ L 4.63-6.08 L (test code = 761) HEMOGLOBIN (BEAKER) (test code = 9.9 GM/DL 13.7-17.5 L 410) HEMATOCRIT (BEAKER) (test code = 34.4 % 40.1-51.0 L 411) MEAN CORPUSCULAR VOLUME (BEAKER) 84.9 fL 79.0-92.2 (test code = 753) MEAN CORPUSCULAR HEMOGLOBIN 24.4 pg 25.7-32.2 L (BEAKER) (test code = 751) MEAN CORPUSCULAR HEMOGLOBIN CONC 28.8 GM/DL 32.3-36.5 L (BEAKER) (test code = 752) RED CELL DISTRIBUTION WIDTH 17.5 % 11.6-14.4 H (BEAKER) (test code = 412) PLATELET COUNT (BEAKER) (test 209 K/CU MM 150-450 code = 756) MEAN PLATELET VOLUME (BEAKER) 9.1 fL 9.4-12.4 L (test code = 754) NUCLEATED RED BLOOD CELLS 0 /100 WBC 0-0 (BEAKER) (test code = 413) NEUTROPHILS RELATIVE PERCENT 72 % (BEAKER) (test code = 429) LYMPHOCYTES RELATIVE PERCENT 19 % (BEAKER) (test code = 430) MONOCYTES RELATIVE PERCENT 6 % (BEAKER) (test code = 431) EOSINOPHILS RELATIVE PERCENT 3 % (BEAKER) (test code = 432) BASOPHILS RELATIVE PERCENT 0 % (BEAKER) (test code = 437) NEUTROPHILS ABSOLUTE COUNT 3.14 K/ L 1.78-5.38 (BEAKER) (test code = 670) LYMPHOCYTES ABSOLUTE COUNT 0.82 K/ L 1.32-3.57 L (BEAKER) (test code = 414) MONOCYTES ABSOLUTE COUNT (BEAKER) 0.24 K/ L 0.30-0.82 L (test code = 415) EOSINOPHILS ABSOLUTE COUNT 0.13 K/ L 0.04-0.54 (BEAKER) (test code = 416) BASOPHILS ABSOLUTE COUNT (BEAKER) 0.00 K/ L 0.01-0.08 L (test code = 417) IMMATURE GRANULOCYTES-RELATIVE 1 % 0-1 PERCENT (BEAKER) (test code = 2801) POCT-GLUCOSE [id number] 23:24:00 Test Item Value Reference Range Interpretation Comments POC-GLUCOSE METER 118 mg/dL 70-110 H : TESTED A T [facility] 6720 (BEAKER) (test code = [place], 1538) 27870: Leather Grainer/Techni reanna ID = [id number] for EV ANS, URBAN URINALYSIS WITH MICROSCOPIC IF [id number] 22:01:00 Test Item Value Reference Range Interpretation Comments COLOR (BEAKER) (test code = 470) Yellow CLARITY (BEAKER) (test code = 469) Clear SPECIFIC GRAVITY UA (BEAKER) (test 1.017 1.001-1.035 code = 468) PH UA (BEAKER) (test code = 467) 7.0 5.0-8.0 PROTEIN UA (BEAKER) (test code = Negative Negative 464) GLUCOSE UA (BEAKER) (test code = Negative Negative 365) KETONES UA (BEAKER) (test code = Negative Negative 371) BILIRUBIN UA (BEAKER) (test code = Negative Negative 462) BLOOD UA (BEAKER) (test code = 461) Negative Negative NITRITE UA (BEAKER) (test code = Negative Negative 465) LEUKOCYTE ESTERASE UA (BEAKER) Negative Negative (test code = 466) UROBILINOGEN UA (BEAKER) (test code 2.0 mg/dL 0.2-1.0 H = 463) SOURCE(BEAKER) (test code = 2795) POCT-GLUCOSE [id number] 17:09:00 Test Item Value Reference Range Interpretation Comments POC-GLUCOSE METER 123 mg/dL 70-110 H : TESTED A T [facility] 6720 (BEAKER) (test code = [facility] [employer] [facility], 1538) 47137: Leather Grainer/Techni reanna ID = [id number] for CA STRO, JENNA POCT-GLUCOSE [id number] 14:00:00 Test Item Value Reference Range Interpretation Comments POC-GLUCOSE METER 122 mg/dL 70-110 H : TESTED A T [facility] 6720 (BEAKER) (test code = [facility] [employer] [facility], 1538) 82508: Leather Grainer/Techni reanna ID = [id number] for CA STRO, JENNA DOUBLE-STRANDED DNA (DSDNA) [id number] 10:18:00 Test Item Value Reference Range Interpretation Comments ANTI-DNA DS (BEAKER) (test code = Negative 1055) POCT-GLUCOSE [id number] 09:52:00 Test Item Value Reference Range Interpretation Comments POC-GLUCOSE METER 71 mg/dL 70-110 : TESTED A T [facility] 6720 (BEAKER) (test code = [facility] [employer] [facility], 1538) 26004: Leather Grainer/Techni reanna ID = [id number] for CAST RO, JENNA POCT-GLUCOSE [id number] 09:08:00 Test Item Value Reference Range Interpretation Comments POC-GLUCOSE METER 54 mg/dL 70-110 L : TESTED A T [facility] 6720 (BEAKER) (test code = [facility], 1538) 03290: Leather Grainer/Techni reanna ID = [id number] for JENNA HARP POCT-GLUCOSE [id number] 08:14:00 Test Item Value Reference Range Interpretation Comments POC-GLUCOSE METER 68 mg/dL 70-110 L : [facility] (BEAKER) (test code = [facility], 1538) 91855: Leather Grainer/Techni reanna ID = [id number] for JENNA HARP [id number] 02:36:00 Test Item Value Reference Range Interpretation Comments PHOSPHORUS (BEAKER) (test code = 3.7 mg/dL 2.3-4.7 604) [id number] 02:36:00 Test Item Value Reference Range Interpretation Comments MAGNESIUM (BEAKER) (test code = 2.1 mg/dL 1.6-2.6 627) BASIC METABOLIC [id number] 02:36:00 Test Item Value Reference Range Interpretation Comments SODIUM (BEAKER) 141 meq/L 136-145 (test code = 381) POTASSIUM (BEAKER) 3.8 meq/L 3.5-5.1 (test code = 379) CHLORIDE (BEAKER) 108 meq/L 98-107 H (test code = 382) CO2 (BEAKER) (test 30 meq/L 22-29 H code = 355) BLOOD UREA NITROGEN 16 mg/dL 7-21 (BEAKER) (test code = 354) CREATININE (BEAKER) 0.66 mg/dL 0.57-1.25 (test code = 358) GLUCOSE RANDOM 100 mg/dL 70-105 (BEAKER) (test code = 652) CALCIUM (BEAKER) 8.0 mg/dL 8.4-10.2 L (test code = 697) EGFR (BEAKER) (test 125 mL/min/1.73 ESTIM ATED GFR IS code = 1092) sq m NOT ACCURATE CREATININE CLEARANCE IN PREDICTING GLOMERULAR FILTRATION RATE . ESTIMATED GFR I S NOT APPLICABLE FOR DIALYSIS PATIEN TS. CALCIUM, [id number] 02:30:00 Test Item Value Reference Range Interpretation Comments CALCIUM IONIZED (BEAKER) (test 1.10 mmol/L 1.12-1.27 L code = 698) PH, BLOOD (BEAKER) (test code = 7.42 1810) CBC W/PLT COUNT & AUTO [id number] 02:19:00 Test Item Value Reference Range Interpretation Comments WHITE BLOOD CELL COUNT (BEAKER) 4.8 K/ L 3.5-10.5 (test code = 775) RED BLOOD CELL COUNT (BEAKER) 4.11 M/ L 4.63-6.08 L (test code = 761) HEMOGLOBIN (BEAKER) (test code = 9.8 GM/DL 13.7-17.5 L 410) HEMATOCRIT (BEAKER) (test code = 34.1 % 40.1-51.0 L 411) MEAN CORPUSCULAR VOLUME (BEAKER) 83.0 fL 79.0-92.2 (test code = 753) MEAN CORPUSCULAR HEMOGLOBIN 23.8 pg 25.7-32.2 L (BEAKER) (test code = 751) MEAN CORPUSCULAR HEMOGLOBIN CONC 28.7 GM/DL 32.3-36.5 L (BEAKER) (test code = 752) RED CELL DISTRIBUTION WIDTH 17.5 % 11.6-14.4 H (BEAKER) (test code = 412) PLATELET COUNT (BEAKER) (test 202 K/CU MM 150-450 code = 756) MEAN PLATELET VOLUME (BEAKER) 8.8 fL 9.4-12.4 L (test code = 754) NUCLEATED RED BLOOD CELLS 0 /100 WBC 0-0 (BEAKER) (test code = 413) NEUTROPHILS RELATIVE PERCENT 77 % (BEAKER) (test code = 429) LYMPHOCYTES RELATIVE PERCENT 15 % (BEAKER) (test code = 430) MONOCYTES RELATIVE PERCENT 5 % (BEAKER) (test code = 431) EOSINOPHILS RELATIVE PERCENT 3 % (BEAKER) (test code = 432) BASOPHILS RELATIVE PERCENT 0 % (BEAKER) (test code = 437) NEUTROPHILS ABSOLUTE COUNT 3.66 K/ L 1.78-5.38 (BEAKER) (test code = 670) LYMPHOCYTES ABSOLUTE COUNT 0.70 K/ L 1.32-3.57 L (BEAKER) (test code = 414) MONOCYTES ABSOLUTE COUNT (BEAKER) 0.25 K/ L 0.30-0.82 L (test code = 415) EOSINOPHILS ABSOLUTE COUNT 0.12 K/ L 0.04-0.54 (BEAKER) (test code = 416) BASOPHILS ABSOLUTE COUNT (BEAKER) 0.00 K/ L 0.01-0.08 L (test code = 417) IMMATURE GRANULOCYTES-RELATIVE 0 % 0-1 PERCENT (BEAKER) (test code = 2801) [id number] 13:54:00Medical Cytology Report Case: [id number] Authorizing Provider: Edgard Del Valle MD Collected: 01/30/2019 1438 Ordering Location: [address] Received: 01/30/2019 1736 Service Pathologist: Larry Schroeder MD Specimen: Lung, Right Middle Lobe NEGATIVE FOR MALIGNANCY RIGHT MIDDLE LOBE LUNG BAL (CYTOSPINS): - NO MALIGNANT EPITHELIAL CELLS IDENTIFIED Signing Pathologist Direct Phone Line: [phone] signed by Larry Schroeder MD on 01/31/2019 at 1:54 [id number] on chronic respiratory failure with hypoxia, 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 on chemotherapy on 01/23 RIGHT MIDDLE LOBE LUNG BALReceived 5 ml cytorich red fixative sample Prepared 4 cytospinsCollected: [id number]: [id number].[facility], Department of Pathology, [address] [place] [address], [facility], [address] [place] [address], [facility], [address] [place] [address], [facility] [id number] 13:48:00Flow Cytometry Report Case: [id number] Authorizing Provider: Edgard Del Valle MD Collected: 01/30/2019 1435 Ordering Location: [address] Received: 01/30/2019 174 Service Pathologist: Kit Vázquez MD Specimen: Other BRONCHOALVEOLAR LAVAGE, FLOW CYTOMETRY:SPECIMEN LIMITED BY LOW VIABILITY AND PAUCITY OF LYMPHOCYTESNO MONOCLONAL B-CELL POPULATION IDENTIFIEDNO ABNORMAL T-CELL POPULATION IDENTIFIED [id number] 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 Rheumatologic process vs. vasculitisBronchoalveolar uixuqsMP02, CD3, CD4, CD8, surface-kappa, CD56, surf lukasz-lambda, CD5, CD19, CD10, [id number] Viability: 58.0% Number of Events Acquired: [id number] Thefollowing populations are identified: Lymphocytes: Bright CD45+ lymphocytes comprise 0.9% of total cells. T cells show a CD4:CD8 ratio of 4.8 and normal expression of the reis T cell antigens CD3 and CD5. B cell kappa:lambda ratio cannot be assessed due to paucity of the B-cell population. Myeloid/monocytic populations: As identified by CD45 and light scatter characteristics, granulocytes comprise 40.5% of total cells, and monocytes comprise 7.8% of total cells. The remaining events analyzed represent nonviable cells, non-hematolymphoid cells, and debris.These tests were developed and their performance characteristics determined by [facility]. They have not been cleared or approved by the U.S. Food and Drug Administration. The FDA has determined that such clearance or approval is not necessary. It should not be regarded as investigational or for research. This laboratory is certified under the Clinical Laboratory Improvement Amendments of 1988 ("CLIA") as qualified to perform high-complexity clinical testing.BLOOD [id number] 12:01:00 Test Item Value Reference Range Interpretation Comments CULTURE (BEAKER) (test No growth in 5 days code = 1095) FRACISCO TITER AND [id number] 08:49:00 Test Item Value Reference Range Interpretation Comments FRACISCO TITER :160 (BEAKER) (test code = 1541) FRACISCO PATTERN Cytoplasmic/Anti-sm Cytoplas terri (BEAKER) (test ooth muscle staining is p resent code = 1781) antibodies - see suggestive of comment Anti-smooth mus gavin antibodies. If clinically indicated, recommend testi ng for Anti-smooth muscle antibodi es. ANTI-NUCLEAR ANTIBODY (FRACISCO)2019-01-31 08:46:00 Test Item Value Reference Range Interpretation Comments ANTI-NUCLEAR ANTIBODY (FRACISCO) (BEAKER) Negative Negative (test code = 418) Test performed by IFA method.FLOW CYTOMETRY [id number] 08:05:00 Test Item Value Reference Range Interpretation Comments FLOW CYTOMETRY RESULT See Separate Report POINTER (BEAKER) (test code = 2758) FLOW CYTOMETRY AP CASE # [id number] (BEAKER) (test code = 2759) BLOOD [id number] 08:00:00 Test Item Value Reference Range Interpretation Comments CULTURE (BEAKER) (test No growth in 5 days code = 1095) [id number] 04:38:00 Test Item Value Reference Range Interpretation Comments PHOSPHORUS (BEAKER) (test code = 3.7 mg/dL 2.3-4.7 604) [id number] 04:38:00 Test Item Value Reference Range Interpretation Comments MAGNESIUM (BEAKER) (test code = 2.1 mg/dL 1.6-2.6 627) CBC W/PLT COUNT & AUTO [id number] 04:17:00 Test Item Value Reference Range Interpretation Comments WHITE BLOOD CELL COUNT (BEAKER) 5.5 K/ L 3.5-10.5 (test code = 775) RED BLOOD CELL COUNT (BEAKER) 4.29 M/ L 4.63-6.08 L (test code = 761) HEMOGLOBIN (BEAKER) (test code = 10.2 GM/DL 13.7-17.5 L 410) HEMATOCRIT (BEAKER) (test code = 35.1 % 40.1-51.0 L 411) MEAN CORPUSCULAR VOLUME (BEAKER) 81.8 fL 79.0-92.2 (test code = 753) MEAN CORPUSCULAR HEMOGLOBIN 23.8 pg 25.7-32.2 L (BEAKER) (test code = 751) MEAN CORPUSCULAR HEMOGLOBIN CONC 29.1 GM/DL 32.3-36.5 L (BEAKER) (test code = 752) RED CELL DISTRIBUTION WIDTH 17.4 % 11.6-14.4 H (BEAKER) (test code = 412) PLATELET COUNT (BEAKER) (test 200 K/CU MM 150-450 code = 756) MEAN PLATELET VOLUME (BEAKER) 8.6 fL 9.4-12.4 L (test code = 754) NUCLEATED RED BLOOD CELLS 0 /100 WBC 0-0 (BEAKER) (test code = 413) NEUTROPHILS RELATIVE PERCENT 77 % (BEAKER) (test code = 429) LYMPHOCYTES RELATIVE PERCENT 14 % (BEAKER) (test code = 430) MONOCYTES RELATIVE PERCENT 5 % (BEAKER) (test code = 431) EOSINOPHILS RELATIVE PERCENT 3 % (BEAKER) (test code = 432) BASOPHILS RELATIVE PERCENT 0 % (BEAKER) (test code = 437) NEUTROPHILS ABSOLUTE COUNT 4.26 K/ L 1.78-5.38 (BEAKER) (test code = 670) LYMPHOCYTES ABSOLUTE COUNT 0.79 K/ L 1.32-3.57 L (BEAKER) (test code = 414) MONOCYTES ABSOLUTE COUNT (BEAKER) 0.28 K/ L 0.30-0.82 L (test code = 415) EOSINOPHILS ABSOLUTE COUNT 0.14 K/ L 0.04-0.54 (BEAKER) (test code = 416) BASOPHILS ABSOLUTE COUNT (BEAKER) 0.00 K/ L 0.01-0.08 L (test code = 417) IMMATURE GRANULOCYTES-RELATIVE 1 % 0-1 PERCENT (BEAKER) (test code = 2801) SPIN/CONCENTRATION [id number] 02:42:00 Test Item Value Reference Range Interpretation Comments CONCENTRATION CHARGED (BEAKER) (test Done code = 2657) CYTOLOGY [id number] 19:00:00 Test Item Value Reference Range Interpretation Comments CYTOLOGY RESULT POINTER See Separate Report (BEAKER) (test code = 2629) BODY FLUID CELL COUNT WITH [id number] 18:22:00 Test Item Value Reference Range Interpretation Comments APPEARANCE FLUID (BEAKER) (test Bloody Clear A code = 510) COLOR FLUID (BEAKER) (test code Red Colorless, Straw A = 511) RBC FLUID (BEAKER) (test code = 71115 /cu mm <=1 H 513) ADJUSTED WBC FLUID (BEAKER) 569 /cu mm <=5 H (test code = 1691) LINING CELLS (BEAKER) (test 0 /cu mm <=1 code = 1590) NEUTROPHILS FLUID (BEAKER) 32 % (test code = 1656) LYMPHS FLUID (BEAKER) (test 18 % code = 488) MONO/MACROPHAGE FLUID (BEAKER) 50 % (test code = 489) EOSINOPHILS FLUID (BEAKER) 0 % (test code = 491) BASO FLUID (BEAKER) (test code 0 % = 492) CONTAINER BODY FLUID (BEAKER) EDTA Tube (test code = 2873) RHEUMATOID FACTOR AB, REFLEX TO [id number] 11:54:00 Test Item Value Reference Range Interpretation Comments RHEUMATOID FACTOR (BEAKER) (test Positive code = 573) RHEUMATOID FACTOR [id number] 11:54:00 Test Item Value Reference Range Interpretation Comments RHEUMATOID FACTOR TITER (BEAKER) (test :2 code = 2285) CALCIUM, [id number] 07:10:00 Test Item Value Reference Range Interpretation Comments CALCIUM IONIZED (BEAKER) (test 1.12 mmol/L 1.12-1.27 code = 698) PH, BLOOD (BEAKER) (test code = 7.38 1810) [id number] 07:10:00 Test Item Value Reference Range Interpretation Comments PHOSPHORUS (BEAKER) (test code = 4.0 mg/dL 2.3-4.7 604) [id number] 07:10:00 Test Item Value Reference Range Interpretation Comments MAGNESIUM (BEAKER) (test code = 2.1 mg/dL 1.6-2.6 627) BASIC METABOLIC [id number] 07:10:00 Test Item Value Reference Range Interpretation Comments SODIUM (BEAKER) 140 meq/L 136-145 (test code = 381) POTASSIUM (BEAKER) 4.1 meq/L 3.5-5.1 (test code = 379) CHLORIDE (BEAKER) 107 meq/L 98-107 (test code = 382) CO2 (BEAKER) (test 29 meq/L 22-29 code = 355) BLOOD UREA NITROGEN 17 mg/dL 7-21 (BEAKER) (test code = 354) CREATININE (BEAKER) 0.68 mg/dL 0.57-1.25 (test code = 358) GLUCOSE RANDOM 98 mg/dL 70-105 (BEAKER) (test code = 652) CALCIUM (BEAKER) 8.3 mg/dL 8.4-10.2 L (test code = 697) EGFR (BEAKER) (test 121 mL/min/1.73 ESTIM ATED GFR IS code = 1092) sq m NOT ACCURATE CREATININE CLEARANCE IN PREDICTING GLOMERULAR FILTRATION RATE . ESTIMATED GFR I S NOT APPLICABLE FOR DIALYSIS PATIEN TS. CBC W/PLT COUNT & AUTO [id number] 05:43:00 Test Item Value Reference Range Interpretation Comments WHITE BLOOD CELL COUNT (BEAKER) 5.4 K/ L 3.5-10.5 (test code = 775) RED BLOOD CELL COUNT (BEAKER) 4.22 M/ L 4.63-6.08 L (test code = 761) HEMOGLOBIN (BEAKER) (test code = 10.4 GM/DL 13.7-17.5 L 410) HEMATOCRIT (BEAKER) (test code = 35.3 % 40.1-51.0 L 411) MEAN CORPUSCULAR VOLUME (BEAKER) 83.6 fL 79.0-92.2 (test code = 753) MEAN CORPUSCULAR HEMOGLOBIN 24.6 pg 25.7-32.2 L (BEAKER) (test code = 751) MEAN CORPUSCULAR HEMOGLOBIN CONC 29.5 GM/DL 32.3-36.5 L (BEAKER) (test code = 752) RED CELL DISTRIBUTION WIDTH 17.2 % 11.6-14.4 H (BEAKER) (test code = 412) PLATELET COUNT (BEAKER) (test 171 K/CU MM 150-450 code = 756) MEAN PLATELET VOLUME (BEAKER) 9.1 fL 9.4-12.4 L (test code = 754) NUCLEATED RED BLOOD CELLS 0 /100 WBC 0-0 (BEAKER) (test code = 413) NEUTROPHILS RELATIVE PERCENT 73 % (BEAKER) (test code = 429) LYMPHOCYTES RELATIVE PERCENT 18 % (BEAKER) (test code = 430) MONOCYTES RELATIVE PERCENT 5 % (BEAKER) (test code = 431) EOSINOPHILS RELATIVE PERCENT 3 % (BEAKER) (test code = 432) BASOPHILS RELATIVE PERCENT 0 % (BEAKER) (test code = 437) NEUTROPHILS ABSOLUTE COUNT 3.92 K/ L 1.78-5.38 (BEAKER) (test code = 670) LYMPHOCYTES ABSOLUTE COUNT 0.99 K/ L 1.32-3.57 L (BEAKER) (test code = 414) MONOCYTES ABSOLUTE COUNT (BEAKER) 0.28 K/ L 0.30-0.82 L (test code = 415) EOSINOPHILS ABSOLUTE COUNT 0.15 K/ L 0.04-0.54 (BEAKER) (test code = 416) BASOPHILS ABSOLUTE COUNT (BEAKER) 0.01 K/ L 0.01-0.08 (test code = 417) IMMATURE GRANULOCYTES-RELATIVE 1 % 0-1 PERCENT (BEAKER) (test code = 2801) CT, CHEST WITH IV CONTRAST- PE TEST [id number] 13:10:00Possible CTEPHFINAL REPORT CT Chest PE Protocol dated 01/29/2019 Clinical information: Dyspnea, chronic Technique: This exam was performed according to our departmental dose-optimization program, which includes automated exposure control, adjustment of the mA and/or kV according to patient size and/or use of interactive reconstruction technique. Precontrast axial images were obtained at pulmonary trunk level for the purpose of monitoring subsequent IV contrast. Postcontrast axial images of the chest were obtained from above the arch level to the lower chest at maximum enhancement of pulmonary artery. Delayed axial images of the entire chest were obtained subsequently. Coronal and sagittal reformations of the pulmonary arteries were performed. Comment: Heart is in upper limits of normalin size. Greater vessels are unremarkable. No filling detect is noted in the pulmonary trunk or pulmonary arteries. No adenopathy is noted in the mediastinum or perihilar region. Trachea and mainstem bronchi are patent. Groundglass pulmonary parenchymal disease is seen in both lungs. Differential diagnosis for the groundglass pulmonary parenchymal disease is the following: usual interstitial pneumonia, nonspecific interstitial pneumonitis, desquamative interstitial pneumonia, hypersensitivity pneumonitis, pulmonary edema or pulmonary hemorrhage. There is trace bilateral pleural effusion. Impression: 1. No pulmonary thromboembolism.2. Trace bilateral pleural effusion.3. Nonspecific groundglass pulmonary parenchyma disease in both lungs. Differential as described as above but favoring pulmonary edema. Please correlate clinically. Signed: Freddy Bautista MDReport Verified Date/Time: 01/29/2019 13:10:45 Reading Location: [address] Body Reading Room SPUTUM CULTURE + GRAM [id number] 12:56:00 Test Item Value Reference Range Interpretation Comments CULTURE (BEAKER) 4+ Normal respiratory (test code = 1095) olya present GRAM STAIN RESULT 2+ White blood cells (BEAKER) (test code = seen 1123) GRAM STAIN RESULT <1+ gram negative rods (BEAKER) (test code = 28949) GRAM STAIN RESULT <1+ gram positive rods (BEAKER) (test code = 93966) GRAM STAIN RESULT 3+ gram positive cocci (BEAKER) (test code = in pairs and clusters 886383) MRSA [id number] 12:55:00 Test Item Value Reference Range Interpretation Comments CULTURE (BEAKER) (test code No MRSA isolated = 1095) CBC W/PLT COUNT & AUTO [id number] 11:59:00 Test Item Value Reference Range Interpretation Comments WHITE BLOOD CELL COUNT (BEAKER) 4.6 K/ L 3.5-10.5 (test code = 775) RED BLOOD CELL COUNT (BEAKER) 4.11 M/ L 4.63-6.08 L (test code = 761) HEMOGLOBIN (BEAKER) (test code = 10.0 GM/DL 13.7-17.5 L 410) HEMATOCRIT (BEAKER) (test code = 33.5 % 40.1-51.0 L 411) MEAN CORPUSCULAR VOLUME (BEAKER) 81.5 fL 79.0-92.2 (test code = 753) MEAN CORPUSCULAR HEMOGLOBIN 24.3 pg 25.7-32.2 L (BEAKER) (test code = 751) MEAN CORPUSCULAR HEMOGLOBIN CONC 29.9 GM/DL 32.3-36.5 L (BEAKER) (test code = 752) RED CELL DISTRIBUTION WIDTH 17.3 % 11.6-14.4 H (BEAKER) (test code = 412) PLATELET COUNT (BEAKER) (test 155 K/CU MM 150-450 code = 756) MEAN PLATELET VOLUME (BEAKER) 9.2 fL 9.4-12.4 L (test code = 754) NUCLEATED RED BLOOD CELLS 0 /100 WBC 0-0 (BEAKER) (test code = 413) NEUTROPHILS RELATIVE PERCENT 92 % (BEAKER) (test code = 429) LYMPHOCYTES RELATIVE PERCENT 4 % (BEAKER) (test code = 430) MONOCYTES RELATIVE PERCENT 3 % (BEAKER) (test code = 431) EOSINOPHILS RELATIVE PERCENT 0 % (BEAKER) (test code = 432) BASOPHILS RELATIVE PERCENT 0 % (BEAKER) (test code = 437) NEUTROPHILS ABSOLUTE COUNT 4.20 K/ L 1.78-5.38 (BEAKER) (test code = 670) LYMPHOCYTES ABSOLUTE COUNT 0.19 K/ L 1.32-3.57 L (BEAKER) (test code = 414) MONOCYTES ABSOLUTE COUNT (BEAKER) 0.13 K/ L 0.30-0.82 L (test code = 415) EOSINOPHILS ABSOLUTE COUNT 0.01 K/ L 0.04-0.54 L (BEAKER) (test code = 416) BASOPHILS ABSOLUTE COUNT (BEAKER) 0.01 K/ L 0.01-0.08 (test code = 417) IMMATURE GRANULOCYTES-RELATIVE 1 % 0-1 PERCENT (BEAKER) (test code = 2801) COMPREHENSIVE METABOLIC [id number] 08:34:00 Test Item Value Reference Range Interpretation Comments TOTAL PROTEIN 4.9 gm/dL 6.0-8.3 L (BEAKER) (test code = 770) ALBUMIN (BEAKER) 3.0 g/dL 3.5-5.0 L (test code = 1145) ALKALINE PHOSPHATASE 74 U/L 40-150 (BEAKER) (test code = 346) BILIRUBIN TOTAL 1.0 mg/dL 0.2-1.2 (BEAKER) (test code = 377) SODIUM (BEAKER) (test 139 meq/L 136-145 code = 381) POTASSIUM (BEAKER) 4.5 meq/L 3.5-5.1 (test code = 379) CHLORIDE (BEAKER) 108 meq/L 98-107 H (test code = 382) CO2 (BEAKER) (test 25 meq/L 22-29 code = 355) BLOOD UREA NITROGEN 19 mg/dL 7-21 (BEAKER) (test code = 354) CREATININE (BEAKER) 0.67 mg/dL 0.57-1.25 (test code = 358) GLUCOSE RANDOM 117 mg/dL 70-105 H (BEAKER) (test code = 652) CALCIUM (BEAKER) 8.3 mg/dL 8.4-10.2 L (test code = 697) AST (SGOT) (BEAKER) 44 U/L 5-34 H (test code = 353) ALT (SGPT) (BEAKER) 231 U/L 6-55 H (test code = 347) EGFR (BEAKER) (test 123 ESTIMATE D GFR IS code = 1092) mL/min/1.73 sq NOT ACCURA TE m CREATININE CLEARANCE IN PREDICTING GLOMERULAR FILTRATION RATE . ESTIMATED GFR I S NOT APPLICABLE FOR DIALYSIS PATIEN TS. [id number] 07:04:00 Test Item Value Reference Range Interpretation Comments PHOSPHORUS (BEAKER) (test code = 4.0 mg/dL 2.3-4.7 604) [id number] 07:04:00 Test Item Value Reference Range Interpretation Comments MAGNESIUM (BEAKER) (test code = 2.2 mg/dL 1.6-2.6 627) VANCOMYCIN LEVEL, [id number] 10:48:00 Test Item Value Reference Range Interpretation Comments VANCOMYCIN TROUGH (BEAKER) (test 9.4 ug/mL 10.0-20.0 L code = 522) [id number] 08:03:00 Test Item Value Reference Range Interpretation Comments PROCALCITONIN (BEAKER) (test code 1.98 ng/mL <0.05 H = 3036) SEPSIS RISK (ng/mL)Low: 0.05-0.50Intermediate: 0.51-2.00High: >=[id number] 07:35:00 Test Item Value Reference Range Interpretation Comments PHOSPHORUS (BEAKER) (test code = 4.4 mg/dL 2.3-4.7 604) [id number] 07:35:00 Test Item Value Reference Range Interpretation Comments MAGNESIUM (BEAKER) (test code = 2.4 mg/dL 1.6-2.6 627) COMPREHENSIVE METABOLIC [id number] 07:35:00 Test Item Value Reference Range Interpretation Comments TOTAL PROTEIN 5.4 gm/dL 6.0-8.3 L (BEAKER) (test code = 770) ALBUMIN (BEAKER) 3.3 g/dL 3.5-5.0 L (test code = 1145) ALKALINE PHOSPHATASE 84 U/L 40-150 (BEAKER) (test code = 346) BILIRUBIN TOTAL 0.9 mg/dL 0.2-1.2 (BEAKER) (test code = 377) SODIUM (BEAKER) (test 137 meq/L 136-145 code = 381) POTASSIUM (BEAKER) 4.2 meq/L 3.5-5.1 (test code = 379) CHLORIDE (BEAKER) 106 meq/L 98-107 (test code = 382) CO2 (BEAKER) (test 26 meq/L 22-29 code = 355) BLOOD UREA NITROGEN 21 mg/dL 7-21 (BEAKER) (test code = 354) CREATININE (BEAKER) 0.68 mg/dL 0.57-1.25 (test code = 358) GLUCOSE RANDOM 125 mg/dL 70-105 H (BEAKER) (test code = 652) CALCIUM (BEAKER) 8.5 mg/dL 8.4-10.2 (test code = 697) AST (SGOT) (BEAKER) 76 U/L 5-34 H (test code = 353) ALT (SGPT) (BEAKER) 322 U/L 6-55 H (test code = 347) EGFR (BEAKER) (test 121 ESTIMATE D GFR IS code = 1092) mL/min/1.73 sq NOT ACCURA TE m CREATININE CLEARANCE IN PREDICTING GLOMERULAR FILTRATION RATE . ESTIMATED GFR I S NOT APPLICABLE FOR DIALYSIS PATIEN TS. CBC W/PLT COUNT & AUTO [id number] 07:02:00 Test Item Value Reference Range Interpretation Comments WHITE BLOOD CELL COUNT (BEAKER) 3.6 K/ L 3.5-10.5 (test code = 775) RED BLOOD CELL COUNT (BEAKER) 3.72 M/ L 4.63-6.08 L (test code = 761) HEMOGLOBIN (BEAKER) (test code = 9.1 GM/DL 13.7-17.5 L 410) HEMATOCRIT (BEAKER) (test code = 31.3 % 40.1-51.0 L 411) MEAN CORPUSCULAR VOLUME (BEAKER) 84.1 fL 79.0-92.2 (test code = 753) MEAN CORPUSCULAR HEMOGLOBIN 24.5 pg 25.7-32.2 L (BEAKER) (test code = 751) MEAN CORPUSCULAR HEMOGLOBIN CONC 29.1 GM/DL 32.3-36.5 L (BEAKER) (test code = 752) RED CELL DISTRIBUTION WIDTH 17.4 % 11.6-14.4 H (BEAKER) (test code = 412) PLATELET COUNT (BEAKER) (test 125 K/CU MM 150-450 L code = 756) MEAN PLATELET VOLUME (BEAKER) 9.5 fL 9.4-12.4 (test code = 754) NUCLEATED RED BLOOD CELLS 0 /100 WBC 0-0 (BEAKER) (test code = 413) NEUTROPHILS RELATIVE PERCENT 89 % (BEAKER) (test code = 429) LYMPHOCYTES RELATIVE PERCENT 7 % (BEAKER) (test code = 430) MONOCYTES RELATIVE PERCENT 3 % (BEAKER) (test code = 431) EOSINOPHILS RELATIVE PERCENT 0 % (BEAKER) (test code = 432) BASOPHILS RELATIVE PERCENT 0 % (BEAKER) (test code = 437) NEUTROPHILS ABSOLUTE COUNT 3.18 K/ L 1.78-5.38 (BEAKER) (test code = 670) LYMPHOCYTES ABSOLUTE COUNT 0.26 K/ L 1.32-3.57 L (BEAKER) (test code = 414) MONOCYTES ABSOLUTE COUNT (BEAKER) 0.11 K/ L 0.30-0.82 L (test code = 415) EOSINOPHILS ABSOLUTE COUNT 0.00 K/ L 0.04-0.54 L (BEAKER) (test code = 416) BASOPHILS ABSOLUTE COUNT (BEAKER) 0.00 K/ L 0.01-0.08 L (test code = 417) IMMATURE GRANULOCYTES-RELATIVE 1 % 0-1 PERCENT (BEAKER) (test code = 2801) PROTHROMBIN [id number] 06:47:00 Test Item Value Reference Range Interpretation Comments PROTIME (BEAKER) (test code = 14.4 seconds 11.9-14.2 H 759) INR (BEAKER) (test code = 370) 1.2 <=5.9 Effective 08/30/2018: PT Reference Range ChangeNew: 11.9-14.2 Previous: 11.7- 14.7RECOMMENDED COUMADIN/WARFARIN INR THERAPY RANGESSTANDARD DOSE: 2.0-3.0 Includes: PROPHYLAXIS for venous thrombosis, systemic embolization; TREATMENT for venous thrombosis and/or pulmonary embolus.HIGH RISK: Target INR is2.5-3.5 for patients wiht mechanical heart valves.TROPONIN [id number] 15:48:00 Test Item Value Reference Range Interpretation Comments TROPONIN I (BEAKER) (test code = 0.05 ng/mL 0.00-0.03 H 397) Troponin I (TnI) levels must be interpreted in the context of the presenting symptoms and the clinical findings. Elevated TnI levels indicate myocardial damage, but are not specific for ischemic heart disease. Elevated TnI levels are seen in patients with other cardiac conditions (including myocarditis and congestive heart failure), and slight TnI elevations occur in patients with other conditions, including sepsis, renal failure, acidosis, acute neurological disease, and persistent tachyarrhythmia.RESPIRATORY PANEL [id number] 13:23:00 Test Item Value Reference Range Interpretation Comments HUMAN METAPNEUMOVIRUS Not detected Not detected, (BEAKER) (test code = 2683) Equivocal RHINOVIRUS (BEAKER) (test Not detected Not detected, code = 2684) Equivocal INFLUENZA A (BEAKER) (test Not detected Not detected, code = 2685) Equivocal INFLUENZA A (NO SUBTYPE) (test code = 3606) INFLUENZA A SUBTYPE H1 (BEAKER) (test code = 2686) INFLUENZA A SUBTYPE H3 (BEAKER) (test code = 2687) INFLUENZA A SUBTYPE H1-2009 (BEAKER) (test code = 3198) INFLUENZA B (BEAKER) (test Not detected Not detected, code = 2688) Equivocal RESPIRATORY SYNCYTIAL VIRUS Not detected Not detected, (BEAKER) (test code = 3199) Equivocal PARAINFLUENZA VIRUS 1 Not detected Not detected, (BEAKER) (test code = 2691) Equivocal PARAINFLUENZA VIRUS 2 Not detected Not detected, (BEAKER) (test code = 2692) Equivocal PARAINFLUENZA VIRUS 3 Not detected Not detected, (BEAKER) (test code = 2693) Equivocal PARAINFLUENZA VIRUS 4 Not detected Not detected, (BEAKER) (test code = 3200) Equivocal ADENOVIRUS (BEAKER) (test Not detected Not detected, code = 2694) Equivocal CORONAVIRUS 229E (BEAKER) Not detected Not detected, (test code = 3201) Equivocal CORONAVIRUS HKU1 (BEAKER) Not detected Not detected, (test code = 3202) Equivocal CORONAVIRUS NL63 (BEAKER) Not detected Not detected, (test code = 3203) Equivocal CORONAVIRUS OC43 (BEAKER) Not detected Not detected, (test code = 3204) Equivocal BORDETELLA PERTUSSIS Not detected Not detected, (BEAKER) (test code = 3205) Equivocal CHLAMYDOPHILA PNEUMONIAE Not detected Not detected, (BEAKER) (test code = 3206) Equivocal MYCOPLASMA PNEUMONIAE Not detected Not detected, (BEAKER) (test code = 3207) Equivocal Other viruses and bacteria not targeted by this PCR panel cannot be excluded; therefore clinical correlation and follow up of serology, culture results, and other molecular studies is required. The results are not intended to be used as the sole means for clinical diagnosis or patient management decisions. This sample was tested at the [facility] Molecular Diagnostics Laboratory using the [employer] Respiratory Panel. It is FDA cleared and has been verified and approved by the [facility] Molecular Diagnostics [facility] for clinical use on nasopharyngeal swab specimens.The performance of the FilmArrayRP has not been established in individuals who received influenza vaccine. Recent administration ofa nasal influenza vaccine may cause false positive results for Influenza A and/orInfluenza B.[id number] 04:47:00 Test Item Value Reference Range Interpretation Comments PHOSPHORUS (BEAKER) (test code = 4.7 mg/dL 2.3-4.7 604) [id number] 04:47:00 Test Item Value Reference Range Interpretation Comments MAGNESIUM (BEAKER) (test code = 2.7 mg/dL 1.6-2.6 H 627) COMPREHENSIVE METABOLIC [id number] 04:47:00 Test Item Value Reference Range Interpretation Comments TOTAL PROTEIN 5.9 gm/dL 6.0-8.3 L (BEAKER) (test code = 770) ALBUMIN (BEAKER) 3.5 g/dL 3.5-5.0 (test code = 1145) ALKALINE PHOSPHATASE 103 U/L 40-150 (BEAKER) (test code = 346) BILIRUBIN TOTAL 1.0 mg/dL 0.2-1.2 (BEAKER) (test code = 377) SODIUM (BEAKER) (test 140 meq/L 136-145 code = 381) POTASSIUM (BEAKER) 4.7 meq/L 3.5-5.1 (test code = 379) CHLORIDE (BEAKER) 106 meq/L 98-107 (test code = 382) CO2 (BEAKER) (test 28 meq/L 22-29 code = 355) BLOOD UREA NITROGEN 26 mg/dL 7-21 H (BEAKER) (test code = 354) CREATININE (BEAKER) 0.77 mg/dL 0.57-1.25 (test code = 358) GLUCOSE RANDOM 136 mg/dL 70-105 H (BEAKER) (test code = 652) CALCIUM (BEAKER) 9.0 mg/dL 8.4-10.2 (test code = 697) AST (SGOT) (BEAKER) 133 U/L 5-34 H (test code = 353) ALT (SGPT) (BEAKER) 421 U/L 6-55 H (test code = 347) EGFR (BEAKER) (test 105 ESTIMATE D GFR IS code = 1092) mL/min/1.73 sq NOT ACCURA TE m CREATININE CLEARANCE IN PREDICTING GLOMERULAR FILTRATION RATE . ESTIMATED GFR I S NOT APPLICABLE FOR DIALYSIS PATIEN TS. CBC W/PLT COUNT & AUTO [id number] 04:23:00 Test Item Value Reference Range Interpretation Comments WHITE BLOOD CELL COUNT (BEAKER) 4.2 K/ L 3.5-10.5 (test code = 775) RED BLOOD CELL COUNT (BEAKER) 3.66 M/ L 4.63-6.08 L (test code = 761) HEMOGLOBIN (BEAKER) (test code = 9.0 GM/DL 13.7-17.5 L 410) HEMATOCRIT (BEAKER) (test code = 30.6 % 40.1-51.0 L 411) MEAN CORPUSCULAR VOLUME (BEAKER) 83.6 fL 79.0-92.2 (test code = 753) MEAN CORPUSCULAR HEMOGLOBIN 24.6 pg 25.7-32.2 L (BEAKER) (test code = 751) MEAN CORPUSCULAR HEMOGLOBIN CONC 29.4 GM/DL 32.3-36.5 L (BEAKER) (test code = 752) RED CELL DISTRIBUTION WIDTH 17.8 % 11.6-14.4 H (BEAKER) (test code = 412) PLATELET COUNT (BEAKER) (test 112 K/CU MM 150-450 L code = 756) MEAN PLATELET VOLUME (BEAKER) 10.3 fL 9.4-12.4 (test code = 754) NUCLEATED RED BLOOD CELLS 0 /100 WBC 0-0 (BEAKER) (test code = 413) NEUTROPHILS RELATIVE PERCENT 92 % (BEAKER) (test code = 429) LYMPHOCYTES RELATIVE PERCENT 5 % (BEAKER) (test code = 430) MONOCYTES RELATIVE PERCENT 2 % (BEAKER) (test code = 431) EOSINOPHILS RELATIVE PERCENT 0 % (BEAKER) (test code = 432) BASOPHILS RELATIVE PERCENT 0 % (BEAKER) (test code = 437) NEUTROPHILS ABSOLUTE COUNT 3.82 K/ L 1.78-5.38 (BEAKER) (test code = 670) LYMPHOCYTES ABSOLUTE COUNT 0.22 K/ L 1.32-3.57 L (BEAKER) (test code = 414) MONOCYTES ABSOLUTE COUNT (BEAKER) 0.09 K/ L 0.30-0.82 L (test code = 415) EOSINOPHILS ABSOLUTE COUNT 0.00 K/ L 0.04-0.54 L (BEAKER) (test code = 416) BASOPHILS ABSOLUTE COUNT (BEAKER) 0.01 K/ L 0.01-0.08 (test code = 417) IMMATURE GRANULOCYTES-RELATIVE 1 % 0-1 PERCENT (BEAKER) (test code = 2801) PROTHROMBIN [id number] 04:09:00 Test Item Value Reference Range Interpretation Comments PROTIME (BEAKER) (test code = 15.0 seconds 11.9-14.2 H 759) INR (BEAKER) (test code = 370) 1.2 <=5.9 Effective 08/30/2018: PT Reference Range ChangeNew: 11.9-14.2 Previous: 11.7- 14.7RECOMMENDED COUMADIN/WARFARIN INR THERAPY RANGESSTANDARD DOSE: 2.0-3.0 Includes: PROPHYLAXIS for venous thrombosis, systemic embolization; TREATMENT for venous thrombosis and/or pulmonary embolus.HIGH RISK: Target INR is2.5-3.5 for patients wiht mechanical heart valves.B-TYPE NATRIURETIC FACTOR (BNP) 2019-01-26 20:30:00 Test Item Value Reference Range Interpretation Comments B-TYPE NATRIURETIC PEPTIDE (BEAKER) 744 pg/mL 0-100 H (test code = 700) STREP PNEUMONIAE [id number] 18:21:00 Test Item Value Reference Range Interpretation Comments STREP PNEUMONIAE Presumptive negative Presumptive negative ANTIGEN (BEAKER) for pneumococcal for pneumococcal (test code = 1615) pneumonia - see pneumonia - see comment commen Presumptive negative for pneumococcal pneumonia, suggesting no current or recent pneumococcal infection. Infection due to S. pneumoniae cannot be ruled out since the antigen present in the sample may be below the detection limit of the test. LEGIONELLA ANTIGEN, [id number] 18:20:00 Test Item Value Reference Range Interpretation Comments L. PNEUMOPHILA Negative - see Negative fo r L. SEROGP 1 UR AG comment pneumophila (BEAKER) (test code serogrou p 1 antigen, = 1156) suggesting no r ecent or current infe ction with this serog roup. Legionellosis c annot be ruled out si nce other serogroup s and species may cau se disease. RAPID INFLUENZA A&B [id number] 11:08:00 Test Item Value Reference Range Interpretation Comments RAPID INFLUENZA A AG (BEAKER) Negative Negative, Inconclusive (test code = 1622) RAPID INFLUENZA B AG (BEAKER) Negative Negative, Inconclusive (test code = 1623) BLOOD GAS, [id number] 10:49:00 Test Item Value Reference Range Interpretation Comments PH ARTERIAL (BEAKER) (test code = 7.48 7.35-7.45 H 383) PCO2 ARTERIAL (BEAKER) (test code 38 mmHg 35-45 = 384) PO2 ARTERIAL (BEAKER) (test code = 108 mmHg 80-90 H 385) O2 SATURATION ARTERIAL (BEAKER) 98.3 % 96.0-97.0 H (test code = 386) HCO3 ARTERIAL (BEAKER) (test code 28 mmol/L 21-29 = 388) BASE EXCESS ARTERIAL (BEAKER) 4.0 mmol/L -2.0-3.0 H (test code = 387) PATIENT TEMPERATURE (BEAKER) (test 36.5 C code = 1818) FIO2 (BEAKER) (test code = 1819) 40.0 % LACTIC ACID, [id number] 10:28:00 Test Item Value Reference Range Interpretation Comments LACTATE BLOOD VENOUS 0.9 mmol/L 0.5-2.2 Specime n slightly (2) (BEAKER) (test hemolyzed code = 1019) [id number] 07:47:00 Test Item Value Reference Range Interpretation Comments PROCALCITONIN (BEAKER) (test code 27.07 ng/mL <0.05 HH = 3036) SEPSIS RISK (ng/mL)Low: 0.05-0.50Intermediate: 0.51-2.00High: >=2.01TROPONIN [id number] 07:07:00 Test Item Value Reference Range Interpretation Comments TROPONIN I (BEAKER) (test code = 0.08 ng/mL 0.00-0.03 H 397) Troponin I (TnI) levels must be interpreted in the context of the presenting symptoms and the clinical findings. Elevated TnI levels indicate myocardial damage, but are not specific for ischemic heart disease. Elevated TnI levels are seen in patients with other cardiac conditions (including myocarditis and congestive heart failure), and slight TnI elevations occur in patients with other conditions, including sepsis, renal failure, acidosis, acute neurological disease, and persistent tachyarrhythmia.COMPREHENSIVE METABOLIC [id number] 07:00:00 Test Item Value Reference Range Interpretation Comments TOTAL PROTEIN 6.4 gm/dL 6.0-8.3 (BEAKER) (test code = 770) ALBUMIN (BEAKER) 3.7 g/dL 3.5-5.0 (test code = 1145) ALKALINE PHOSPHATASE 118 U/L 40-150 (BEAKER) (test code = 346) BILIRUBIN TOTAL 1.2 mg/dL 0.2-1.2 (BEAKER) (test code = 377) SODIUM (BEAKER) (test 136 meq/L 136-145 code = 381) POTASSIUM (BEAKER) 4.4 meq/L 3.5-5.1 (test code = 379) CHLORIDE (BEAKER) 103 meq/L 98-107 (test code = 382) CO2 (BEAKER) (test 26 meq/L 22-29 code = 355) BLOOD UREA NITROGEN 24 mg/dL 7-21 H (BEAKER) (test code = 354) CREATININE (BEAKER) 0.70 mg/dL 0.57-1.25 (test code = 358) GLUCOSE RANDOM 137 mg/dL 70-105 H (BEAKER) (test code = 652) CALCIUM (BEAKER) 8.8 mg/dL 8.4-10.2 (test code = 697) AST (SGOT) (BEAKER) 164 U/L 5-34 H (test code = 353) ALT (SGPT) (BEAKER) 378 U/L 6-55 H (test code = 347) EGFR (BEAKER) (test 117 ESTIMATE D GFR IS code = 1092) mL/min/1.73 sq NOT ACCURA TE m CREATININE CLEARANCE IN PREDICTING GLOMERULAR FILTRATION RATE . ESTIMATED GFR I S NOT APPLICABLE FOR DIALYSIS PATIEN TS. LACTIC ACID, [id number] 06:55:00 Test Item Value Reference Range Interpretation Comments LACTATE BLOOD VENOUS (2) (BEAKER) 0.6 mmol/L 0.5-2.2 (test code = 2872) PROTHROMBIN [id number] 06:54:00 Test Item Value Reference Range Interpretation Comments PROTIME (BEAKER) (test code = 14.9 seconds 11.9-14.2 H 759) INR (BEAKER) (test code = 370) 1.2 <=5.9 Effective 08/30/2018: PT Reference Range ChangeNew: 11.9-14.2 Previous: 11.7- 14.7RECOMMENDED COUMADIN/WARFARIN INR THERAPY RANGESSTANDARD DOSE: 2.0-3.0 Includes: PROPHYLAXIS for venous thrombosis, systemic embolization; TREATMENT for venous thrombosis and/or pulmonary embolus.HIGH RISK: Target INR is2.5-3.5 for patients wiht mechanical heart valves.CBC W/PLT COUNT & AUTO [id number] 06:50:00 Test Item Value Reference Range Interpretation Comments WHITE BLOOD CELL COUNT (BEAKER) 4.3 K/ L 3.5-10.5 (test code = 775) RED BLOOD CELL COUNT (BEAKER) 3.38 M/ L 4.63-6.08 L (test code = 761) HEMOGLOBIN (BEAKER) (test code = 8.3 GM/DL 13.7-17.5 L 410) HEMATOCRIT (BEAKER) (test code = 28.5 % 40.1-51.0 L 411) MEAN CORPUSCULAR VOLUME (BEAKER) 84.3 fL 79.0-92.2 (test code = 753) MEAN CORPUSCULAR HEMOGLOBIN 24.6 pg 25.7-32.2 L (BEAKER) (test code = 751) MEAN CORPUSCULAR HEMOGLOBIN CONC 29.1 GM/DL 32.3-36.5 L (BEAKER) (test code = 752) RED CELL DISTRIBUTION WIDTH 18.1 % 11.6-14.4 H (BEAKER) (test code = 412) PLATELET COUNT (BEAKER) (test code 80 K/CU MM 150-450 L = 756) MEAN PLATELET VOLUME (BEAKER) 11.0 fL 9.4-12.4 (test code = 754) NUCLEATED RED BLOOD CELLS (BEAKER) 0 /100 WBC 0-0 (test code = 413) NEUTROPHILS RELATIVE PERCENT 92 % (BEAKER) (test code = 429) LYMPHOCYTES RELATIVE PERCENT 5 % (BEAKER) (test code = 430) MONOCYTES RELATIVE PERCENT 2 % (BEAKER) (test code = 431) EOSINOPHILS RELATIVE PERCENT 0 % (BEAKER) (test code = 432) BASOPHILS RELATIVE PERCENT 0 % (BEAKER) (test code = 437) NEUTROPHILS ABSOLUTE COUNT 3.93 K/ L 1.78-5.38 (BEAKER) (test code = 670) LYMPHOCYTES ABSOLUTE COUNT 0.22 K/ L 1.32-3.57 L (BEAKER) (test code = 414) MONOCYTES ABSOLUTE COUNT (BEAKER) 0.08 K/ L 0.30-0.82 L (test code = 415) EOSINOPHILS ABSOLUTE COUNT 0.00 K/ L 0.04-0.54 L (BEAKER) (test code = 416) BASOPHILS ABSOLUTE COUNT (BEAKER) 0.00 K/ L 0.01-0.08 L (test code = 417) IMMATURE GRANULOCYTES-RELATIVE 1 % 0-1 PERCENT (BEAKER) (test code = 2801) RAD, CHEST, 1 VIEW, NON [id number] 05:01:00Post-intubationReason for exam:- >ARDSShould this be performed at the bedside?->YesFINAL REPORT History: ARDS. Comparison: 11/04/2018 Findings: A single view of the chest is submitted. The examination is limited by low lung volumes. The cardiac silhouette is stable in its prominent size. There is central vascular congestion. Diffuse bilateral pulmonary opacities are centered on the perihilar lungs and suggest pulmonary edema. Superimposed pneumonitis should be excluded clinically. There is no pneumothorax, large pleural effusion or acute bony abnormality. Signed: Ilana Almaguer MDReport Verified Date/Time: 01/26/2019 05:01:38 BONE MARROW [id number] 14:50:00Bone Marrow Pathology Report Case: [id number] Authorizing Provider: Saud Gonzalez MD Collected: 11/09/2018 1602 Ordering Location: [address] Received: 11/09/2018 1602 Service Pathologist: Vanessa Drummond MD Specimens: A) - Iliac Crest, Right B) -Bone Marrow, Clot C) - Bone Marrow, Core The results of the cytogenetic studies do not alter the previously rendered diagnosis (see attached report). 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 Cytogenetic studies are pending, and will be reported separately. An addendum will follow. [id number]; 31085; 41760 x 2; 31945; 88662; 50313; 95447 X5 Splenomegaly, anemiaBone marrowThe specimen is received in three parts all labeled with the patient's name, medical record number and accession number. Specimen A consists ofseveral aspirate smears, including one unstained slide for iron stain. Specimen B consists of a blood clot measuring 1.2 x 0.5cm. The specimen is sectioned and entirely submitted in B1. Specimen C received in formalin and consists of one bone cores measuring 1.4 cm in length. The specimen is entirelysubmitted in C1, following decalcification. BONE MARROW ASPIRATE:QUALITY:Aspirate- AdequateTouch imprint- AdequateMARROW DIFFERENTIAL COUNT: Number of cells counted: 3001 % Blasts 1 % Promyelocytes 17 % Myelocytes/Metamyelocytes 34 % Bands/Segmented granulocytes 1 % Eosinophils and precursors 1% Basophils and precursors 25 % Erythroid precursors 17 % Lymphocytes 2 % Monocytes1 % Plasma cellsMyeloid: Erythroid Ratio: 2.28; DecreasedBlasts: Not IncreasedErythropoiesis: Left shifted and co mplete maturation Myelopoiesis: Normal and complete maturationOther: Lymphoid cells are predominantly small in size with mature chromatin. Megakaryocytes: Present and appear normalStainable iron is very focally present based on an iron stain performed on the aspirate smear, and iron stores appear reduced. There are no ring sideroblasts identified. BONE MARROW BIOPSY:Biopsy- AdequateClot- InadequateHypercellular ( 90 %). Cellular composition similar to aspirate smears and touch imprints. Erythropoiesis and myelopoiesis are complete. Several nodular ymphoid aggregates comprised of small lymphoid cells are noted; also present is a subtle interstitial sinusoidal lymphoid infiltrate, best highlighted with immunostaining. Immunohistochemical stains reveal that majority of cells within the infiltrate are B cells positive for CD20 and neg ative for cyclin D1. Involvement is estimated at 10-20% of marrow space. Immunohistochemical stains also show very few CD138 positive plasma cells with polytypic expression of kappa and lambda light chains. A minor subset of cells within the lymphoid aggregates are CD3 positive. Megakaryocytes are present in slightly increased numbers, and are without significant morphologic abnormalities. Bony trabeculae: unremarkableStainable storageiron cannot be assessed based on an iron stain performed on the clot section due to the lack of adequate marrow particles. PERIPHERAL BLOOD:RBCs: Normocytic, increased polychromasia WBCs: Abnormal small lympoid cells with mature chromatin, moderate amounts of chromat in, occasional villous projections Platelets: Mildly decreasedThe interpretation of this case included the use of immunohistochemistry or specialstains.B1: iron C1: CD20, CD3, cyclin D1, CD138, kappa, lambdaControl Slides Examined: In-house known positive controls were evaluated along with the test tissue. These control slides run alongside of the patients sample show appropriate staining. Internal positive and negative controls when available are evaluated Immunohistochemistry technical testing was performed at [facility], Pathology Laboratory where it was developed and its performance characteristics were determined. It has not been cleared or approved by the U.S. Food and Drug Administration. The FDA has determined that such clearance or approval is not necessary. The test is used for clinical purposes. It shouldnot be regarded as investigational or for research. This laboratory is certified under the Clinical Laboratory Improvement Amendments of 1988 (CLIA-88) as qualified to perform high complexity clinical l aboratory testing.MISCELLANEOUS LAB [id number] 07:54:00 Test Item Value Reference Range Interpretation Comments SCAN RESULT (test code = 4882267) FLOW CYTOMETRY [id number] 09:03:00 Test Item Value Reference Range Interpretation Comments FLOW CYTOMETRY RESULT See Separate Report POINTER (KAITY) (test code = 2758) FLOW CYTOMETRY AP CASE # [id number] (KAITY) (test code = 2759) FLOW [id number] 08:23:00Flow Cytometry Report Case: [id number] Authorizing Provider: Suad Gonzalez MD Collected: 11/09/2018 1601 Ordering Location: [address] Received: 11/09/2018 1622 Service Pathologist: Vanessa Drummond MD Specimen: Other BONE MARROW, FLOWCYTOMETRY:-NO INCREASE IN MYELOBLASTS-MONOTYPIC B LYMPHOID POPULATION (8% OF TOTAL CELLS)-NO ABERRANT T CELL POPULATION-NO MONOTYPIC PLASMA CELL POPULATION-SEE COMMENT The history of splenomegaly is noted, however the phenotype is NOT typical of hairy cell leukemia. The differential diagnosis would include marginal zone lymphoma as well as other possibilities. See [id number] for correlation with the morphologic and other features. [id number], thrombocytopenia, splenomegaly, dyspnea, moderate pericardial effusionBone marrowCD8, surface-Goss, CD56, surface- Lambda, CD5, CD19, CD10, CD3, CD20, CD4, CD45, CD14, CD13, CD33, CD117, CD34, CD200, CD123, CD11c, CD25, CD103, CD138, cytoplasmic kappa, cytoplasmic lambda, [id number] Viability: 99.4% Number of Events Acquired: [id number], monotypic B cell population identified (8% of cellularity)POSITIVE: surface kappa light chain restricted, CD20, CD19, [id number]: CD5,CD10, CD103, CD11C, CD123, CD25, CD38 In addition, the following populations are identified: Blasts: the dim CD45+ CD34+ blasts comprise 1.3% of total cells. The majority of these cells express CD13 and CD33 (myeloblasts). Lymphocytes: Bright CD45+ lymphocytes comprise 14.0% of total cells. T cells show a CD4:CD8 ratio of 2.6 and normal expression of the reis T cell antigens CD3 and CD5. The abnormalB cell population is described above. Also present are few CD10+ B cells with an immunophenotype compatible with hematogones. Myeloid/monocytic populations: As identified by CD45 and light scatter characteristics, granulocytes comprise the majority of cells analyzed, and CD14+ monocytes comprise 1.9%of total cells. Plasma cells: Less than 1% (0.2%) CD138 positive plasma cells are noted with polytypic cytoplasmic light chain expression. The remaining events analyzed represent nonviable cells, non-hematolymphoid cells, and debris.These tests were developed and their performance characteristics determined by [facility]. They have not been cleared or approved by the U.S. Foodand Drug Administration. The FDA has determined that such clearance or approval is not necessary. Itshould not be regarded as investigational or for research. This laboratory is certified under the Clinical Laboratory Improvement Amendments of 1988 ("CLIA") as qualified to perform high-complexity clinical testing.BONE MARROW PROCESS.2018-11-09 16:34:00 Test Item Value Reference Range Interpretation Comments ANATOMIC CASE# (BEAKER) (test code M19-134 = 2470) ORDERED BY DOCTOR# (BEBETH) (test AL HADIDI code = 2457) PERFORMED BY DOCTOR# (BEAKER) (test SAMY code = 2458) CLOT RECEIVED? (BEAKER) (test code Yes = 2459) BIOPSY RECEIVED? (BEAKER) (test Yes code = 2460) CULTURE RECEIVED? (BEAKER) (test No code = 2464) FLOW RECEIVED? (BEAKER) (test code Yes = 2461) CYTOGENICS? (BEAKER) (test code = Yes 2462) MOLECULAR GENETICS? (BEAKER) (test Yes code = 2463) CBC W/PLT COUNT & AUTO [id number] 08:40:00 Test Item Value Reference Range Interpretation Comments WHITE BLOOD CELL COUNT (BEAKER) 4.0 K/ L 3.5-10.5 (test code = 775) RED BLOOD CELL COUNT (BEAKER) 3.99 M/ L 4.63-6.08 L (test code = 761) HEMOGLOBIN (BEAKER) (test code = 10.3 GM/DL 13.7-17.5 L 410) HEMATOCRIT (BEAKER) (test code = 33.8 % 40.1-51.0 L 411) MEAN CORPUSCULAR VOLUME (BEAKER) 84.7 fL 79.0-92.2 (test code = 753) MEAN CORPUSCULAR HEMOGLOBIN 25.8 pg 25.7-32.2 (BEAKER) (test code = 751) MEAN CORPUSCULAR HEMOGLOBIN CONC 30.5 GM/DL 32.3-36.5 L (BEAKER) (test code = 752) RED CELL DISTRIBUTION WIDTH 14.8 % 11.6-14.4 H (BEAKER) (test code = 412) PLATELET COUNT (BEAKER) (test 132 K/CU MM 150-450 L code = 756) MEAN PLATELET VOLUME (BEAKER) 10.5 fL 9.4-12.4 (test code = 754) NUCLEATED RED BLOOD CELLS 0 /100 WBC 0-0 (BEAKER) (test code = 413) (CELLAVISION MANUAL DIFF)2018-11-09 08:40:00 Test Item Value Reference Range Interpretation Comments NEUTROPHILS - REL 71 % (CELLAVISION)(BEAKER) (test code = 2816) LYMPHOCYTES - REL 23 % (CELLAVISION)(BEAKER) (test code = 2817) MONOCYTES - REL 4 % (CELLAVISION)(BEAKER) (test code = 2818) EOSINOPHILS - REL 1 % (CELLAVISION)(BEAKER) (test code = 2819) BANDS - REL (CELLAVISION)(BEAKER) 1 % 0-10 (test code = 2826) NEUTROPHILS - ABS 2.84 K/ul 1.78-5.38 (CELLAVISION)(BEAKER) (test code = 2830) LYMPHOCYTES - ABS 0.92 K/ul 1.32-3.57 L (CELLAVISION)(BEAKER) (test code = 2831) MONOCYTES - ABS 0.16 K/uL 0.30-0.82 L (CELLAVISION)(BEAKER) (test code = 2832) EOSINOPHILS - ABS 0.04 K/uL 0.04-0.54 (CELLAVISION)(BEAKER) (test code = 2834) BANDS - ABS (CELLAVISION)(BEAKER) 0.04 K/uL 0.00-0.80 (test code = 2840) TOTAL COUNTED (BEAKER) (test code = 100 1351) RBC MORPHOLOGY (BEAKER) (test code Normal = 762) WBC MORPHOLOGY (BEAKER) (test code Normal = 487) PLT MORPHOLOGY (BEAKER) (test code Normal = 486) ARTIFACT (CELLAVISION)(BEAKER) Present (test code = 8902) PLATELET CONCENTRATION Decreased (CELLAVISION)(BEAKER) (test code = 3438) Received comment: User comments: Slide comments:[id number] 06:03:00 Test Item Value Reference Range Interpretation Comments PHOSPHORUS (BEAKER) (test code = 4.2 mg/dL 2.3-4.7 604) [id number] 06:03:00 Test Item Value Reference Range Interpretation Comments MAGNESIUM (BEAKER) (test code = 2.4 mg/dL 1.6-2.6 627) BASIC METABOLIC [id number] 06:03:00 Test Item Value Reference Range Interpretation Comments SODIUM (BEAKER) 140 meq/L 136-145 (test code = 381) POTASSIUM (BEAKER) 4.4 meq/L 3.5-5.1 (test code = 379) CHLORIDE (BEAKER) 102 meq/L 98-107 (test code = 382) CO2 (BEAKER) (test 28 meq/L 22-29 code = 355) BLOOD UREA NITROGEN 17 mg/dL 7-21 (BEAKER) (test code = 354) CREATININE (BEAKER) 0.82 mg/dL 0.57-1.25 (test code = 358) GLUCOSE RANDOM 101 mg/dL 70-105 (BEAKER) (test code = 652) CALCIUM (BEAKER) 8.9 mg/dL 8.4-10.2 (test code = 697) EGFR (BEAKER) (test 97 mL/min/1.73 ESTIMA SHAYNE GFR IS code = 1092) sq m NOT ACCURATE CREATININE CLEARANCE IN PREDICTING GLOMERULAR FILTRATION RATE . ESTIMATED GFR I S NOT APPLICABLE FOR DIALYSIS PATIEN TS. HEPATIC FUNCTION [id number] 06:03:00 Test Item Value Reference Range Interpretation Comments TOTAL PROTEIN (BEAKER) (test code = 6.5 gm/dL 6.0-8.3 770) ALBUMIN (BEAKER) (test code = 1145) 3.5 g/dL 3.5-5.0 BILIRUBIN TOTAL (BEAKER) (test code 0.7 mg/dL 0.2-1.2 = 377) BILIRUBIN DIRECT (BEAKER) (test 0.5 mg/dL 0.1-0.5 code = 706) ALKALINE PHOSPHATASE (BEAKER) (test 309 U/L 40-150 H code = 346) AST (SGOT) (BEAKER) (test code = 94 U/L 5-34 H 353) ALT (SGPT) (BEAKER) (test code = 85 U/L 6-55 H 347) GAMMA GLUTAMYL TRANSFERASE (GGT)2018-11-09 06:03:00 Test Item Value Reference Range Interpretation Comments GAMMA GLUTAMYL TRANSFERASE (BEAKER) 110 U/L 9-64 H (test code = 364) PROTHROMBIN [id number] 05:32:00 Test Item Value Reference Range Interpretation Comments PROTIME (BEAKER) (test code = 13.8 seconds 11.9-14.2 759) INR (BEAKER) (test code = 370) 1.1 <=5.9 Effective 08/30/2018: PT Reference Range ChangeNew: 11.9-14.2 Previous: 11.7- 14.7RECOMMENDED COUMADIN/WARFARIN INR THERAPY RANGESSTANDARD DOSE: 2.0-3.0 Includes: PROPHYLAXIS for venous thrombosis, systemic embolization; TREATMENT for venous thrombosis and/or pulmonary embolus.HIGH RISK: Target INR is2.5-3.5 for patients wiht mechanical heart valves.TSH/FREE T4 IF [id number] 05:31:00 Test Item Value Reference Range Interpretation Comments THYROID STIMULATING HORMONE 4.72 uIU/mL 0.35-4.94 (BEAKER) (test code = 772) CT, CHEST, WITH [id number] 18:42:00FINAL REPORT TECHNIQUE: CT scan of the chest WITH intravenous contrast. Dose modulation, iterative reconstruction, and/or weight-based adjustment of the mA/kV was utilized to reduce the radiation dose to as low as reasonably achievable. INDICATION: Neoplasm: abdomen, heme/lymphatic, suspected. COMPARISON: CT of the abdomen and pelvis from 11/06/2018. FINDINGS: LINES/TUBES: None. LUNGS AND AIRWAYS: Prominent interstitial changes of the lungs in the bases with some underlying groundglass opacity. This appearance has decreased compared to 11/06/2018. A right middle lobe pulmonary nodule axial image 32 measures 0.4 cm. A medial right upper lobe point nodule measures 0.4 cm on axial image 17. A left upper lobe pulmonary nodule measures 0.5 cm on axial image 19. PLEURA: And left pleural effusion has decreased in size and is now trace. HEART AND MEDIASTINUM: The visualized thyroid gland is normal. Prominent but nonenlarged mediastinal lymph nodes measure up to 0.8 cm in the right upper paratracheal region on axial image 11. The left ventricular myocardium is thickened. Interval removal of the pericardial drain. Possible stent in the right coronary artery. Severe calcification left anterior descending coronary artery with mild calcification of the left circumflex coronary artery. SOFT TISSUES AND BONES: Unremarkable. UPPER ABDOMEN: The partially visualized spleen measures up to20.4 cm in length. IMPRESSION: 1.No definitive signs of lymphoma in the chest. The appearance of the lungs is most likely due to improving pulmonary edema. Improving infection is also possible but considered less likely. 2.A left pleural effusion has decreased in size and is now trace. 3.Interval removal of the pericardial drain. 4.Left ventricular hypertrophy. 5.Marked coronary arterial calcifications. 6.Pulmonary nodules measure up to 0.5 cm. If the patient is at increased risk for lung cancer, an optional follow-up chest CT can be obtained in 12 months. Otherwise, no CT follow-up is necessary. 7.The partially visualized spleen is enlarged. Signed: María Reis MDReport Verified Date/Time: 11/08/2018 18:42:57 Reading Location: [facility] B1 C013Y CT Body Reading Room PROTEIN ELECTROPHORESIS, SERUM 2018-11-08 14:08:00 Test Item Value Reference Range Interpretation Comments ALBUMIN FRACTION 2.9 g/dL 3.5-5.5 L (BEAKER) (test code = 405) ALPHA 1 FRACTION 0.5 g/dL 0.2-0.4 H (BEAKER) (test code = 389) ALPHA 2 FRACTION 1.1 g/dL 0.5-0.9 H (BEAKER) (test code = 390) BETA FRACTION 0.8 g/dL 0.6-1.1 (BEAKER) (test code = 392) GAMMA GLOBULIN 0.7 g/dL 0.7-1.7 FRACTION (BEAKER) (test code = 391) INTERPRETATION-119 Albumin decreased. Alpha (BEAKER) (test code = globulin percentages 2615) increased. This suggests an acute phase response. No monoclonal bands detected. BFAH-SFFUFIXNOST-117 Lopez Velázquez MD (BEAKER) (test code = (electronic signature) 1523) PROTEIN TOTAL SERUM, 6.0 gm/dL 6.0-8.3 SPEP (BEAKER) (test code = 2660) BLOOD [id number] 14:01:00 Test Item Value Reference Range Interpretation Comments CULTURE (BEAKER) (test No growth in 5 days code = 1095) BLOOD [id number] 12:01:00 Test Item Value Reference Range Interpretation Comments CULTURE (BEAKER) (test No growth in 5 days code = 1095) CBC W/PLT COUNT & AUTO [id number] 10:57:00 Test Item Value Reference Range Interpretation Comments WHITE BLOOD CELL COUNT (BEAKER) 3.7 K/ L 3.5-10.5 (test code = 775) RED BLOOD CELL COUNT (BEAKER) 4.11 M/ L 4.63-6.08 L (test code = 761) HEMOGLOBIN (BEAKER) (test code = 10.6 GM/DL 13.7-17.5 L 410) HEMATOCRIT (BEAKER) (test code = 33.8 % 40.1-51.0 L 411) MEAN CORPUSCULAR VOLUME (BEAKER) 82.2 fL 79.0-92.2 (test code = 753) MEAN CORPUSCULAR HEMOGLOBIN 25.8 pg 25.7-32.2 (BEAKER) (test code = 751) MEAN CORPUSCULAR HEMOGLOBIN CONC 31.4 GM/DL 32.3-36.5 L (BEAKER) (test code = 752) RED CELL DISTRIBUTION WIDTH 14.4 % 11.6-14.4 (BEAKER) (test code = 412) PLATELET COUNT (BEAKER) (test 132 K/CU MM 150-450 L code = 756) MEAN PLATELET VOLUME (BEAKER) 10.5 fL 9.4-12.4 (test code = 754) NUCLEATED RED BLOOD CELLS 0 /100 WBC 0-0 (BEAKER) (test code = 413) (CELLAVISION MANUAL DIFF)2018-11-08 10:57:00 Test Item Value Reference Range Interpretation Comments NEUTROPHILS - REL 68 % (CELLAVISION)(BEAKER) (test code = 2816) LYMPHOCYTES - REL 26 % (CELLAVISION)(BEAKER) (test code = 2817) MONOCYTES - REL 3 % (CELLAVISION)(BEAKER) (test code = 2818) EOSINOPHILS - REL 2 % (CELLAVISION)(BEAKER) (test code = 2819) ATYPICAL LYMPHOCYTES - REL 1 % 0-0 H (CELLAVISION)(BEAKER) (test code = 2829) NEUTROPHILS - ABS 2.52 K/ul 1.78-5.38 (CELLAVISION)(BEAKER) (test code = 2830) LYMPHOCYTES - ABS 0.96 K/ul 1.32-3.57 L (CELLAVISION)(BEAKER) (test code = 2831) MONOCYTES - ABS 0.11 K/uL 0.30-0.82 L (CELLAVISION)(BEAKER) (test code = 2832) EOSINOPHILS - ABS 0.07 K/uL 0.04-0.54 (CELLAVISION)(BEAKER) (test code = 2834) ATYPICAL LYMPHOCYTES - ABS 0.04 K/uL 0.00-0.00 H (CELLAVISION)(BEAKER) (test code = 2858) TOTAL COUNTED (BEAKER) (test code = 100 1351) RBC MORPHOLOGY (BEAKER) (test code Normal = 762) SMUDGE CELLS (BEAKER) (test code = Present 1371) GIANT PLATELETS (BEAKER) (test code Present = 313) ARTIFACT (CELLAVISION)(BEAKER) Present (test code = 3432) PLATELET CONCENTRATION Decreased (CELLAVISION)(BEAKER) (test code = 3438) Received comment: User comments: Slide comments:HEPATIC FUNCTION [id number] 07:05:00 Test Item Value Reference Range Interpretation Comments TOTAL PROTEIN (BEAKER) (test code = 6.5 gm/dL 6.0-8.3 770) ALBUMIN (BEAKER) (test code = 1145) 3.4 g/dL 3.5-5.0 L BILIRUBIN TOTAL (BEAKER) (test code 0.7 mg/dL 0.2-1.2 = 377) BILIRUBIN DIRECT (BEAKER) (test 0.4 mg/dL 0.1-0.5 code = 706) ALKALINE PHOSPHATASE (BEAKER) (test 262 U/L 40-150 H code = 346) AST (SGOT) (BEAKER) (test code = 63 U/L 5-34 H 353) ALT (SGPT) (BEAKER) (test code = 53 U/L 6-55 347) [id number] 06:38:00 Test Item Value Reference Range Interpretation Comments PHOSPHORUS (BEAKER) (test code = 4.6 mg/dL 2.3-4.7 604) [id number] 06:38:00 Test Item Value Reference Range Interpretation Comments MAGNESIUM (BEAKER) (test code = 2.5 mg/dL 1.6-2.6 627) BASIC METABOLIC [id number] 06:38:00 Test Item Value Reference Range Interpretation Comments SODIUM (BEAKER) 138 meq/L 136-145 (test code = 381) POTASSIUM (BEAKER) 3.2 meq/L 3.5-5.1 L (test code = 379) CHLORIDE (BEAKER) 100 meq/L 98-107 (test code = 382) CO2 (BEAKER) (test 27 meq/L 22-29 code = 355) BLOOD UREA NITROGEN 17 mg/dL 7-21 (BEAKER) (test code = 354) CREATININE (BEAKER) 0.75 mg/dL 0.57-1.25 (test code = 358) GLUCOSE RANDOM 104 mg/dL 70-105 (BEAKER) (test code = 652) CALCIUM (BEAKER) 8.7 mg/dL 8.4-10.2 (test code = 697) EGFR (BEAKER) (test 108 mL/min/1.73 ESTIM ATED GFR IS code = 1092) sq m NOT ACCURATE CREATININE CLEARANCE IN PREDICTING GLOMERULAR FILTRATION RATE . ESTIMATED GFR I S NOT APPLICABLE FOR DIALYSIS PATIEN TS. LACTATE DEHYDROGENASE (LDH)2018-11-07 16:32:00 Test Item Value Reference Range Interpretation Comments LACTATE DEHYDROGENASE 614 U/L 125-220 H Specim en slightly (BEAKER) (test code = hemoly zed 635) [id number] 15:18:00 Test Item Value Reference Range Interpretation Comments HAPTOGLOBIN (BEAKER) (test code = 354 mg/dL 14-258 H 366) RETICULOCYTE [id number] 14:30:00 Test Item Value Reference Range Interpretation Comments RETICULOCYTE COUNT PCT (BEAKER) (test 2.4 % 0.5-1.8 H code = 575) Received comment: User comments: Slide comments:TREPONEMA PALLIDUM - SYPHILIS [id number] 11:41:00 Test Item Value Reference Range Interpretation Comments TREPONEMA PALLIDUM, SYPHILIS IGG Nonreactive Nonreactive (BEAKER) (test code = 3427) Test performed by COLIN method.CBC W/PLT COUNT & AUTO [id number] 11:26:00 Test Item Value Reference Range Interpretation Comments WHITE BLOOD CELL COUNT (BEAKER) 3.7 K/ L 3.5-10.5 (test code = 775) RED BLOOD CELL COUNT (BEAKER) 3.89 M/ L 4.63-6.08 L (test code = 761) HEMOGLOBIN (BEAKER) (test code = 10.2 GM/DL 13.7-17.5 L 410) HEMATOCRIT (BEAKER) (test code = 32.1 % 40.1-51.0 L 411) MEAN CORPUSCULAR VOLUME (BEAKER) 82.5 fL 79.0-92.2 (test code = 753) MEAN CORPUSCULAR HEMOGLOBIN 26.2 pg 25.7-32.2 (BEAKER) (test code = 751) MEAN CORPUSCULAR HEMOGLOBIN CONC 31.8 GM/DL 32.3-36.5 L (BEAKER) (test code = 752) RED CELL DISTRIBUTION WIDTH 14.4 % 11.6-14.4 (BEAKER) (test code = 412) PLATELET COUNT (BEAKER) (test 141 K/CU MM 150-450 L code = 756) MEAN PLATELET VOLUME (BEAKER) 11.6 fL 9.4-12.4 (test code = 754) NUCLEATED RED BLOOD CELLS 0 /100 WBC 0-0 (BEAKER) (test code = 413) (CELLAVISION MANUAL DIFF)2018-11-07 11:26:00 Test Item Value Reference Range Interpretation Comments NEUTROPHILS - REL 62 % (CELLAVISION)(BEAKER) (test code = 2816) LYMPHOCYTES - REL 23 % (CELLAVISION)(BEAKER) (test code = 2817) MONOCYTES - REL 8 % (CELLAVISION)(BEAKER) (test code = 2818) EOSINOPHILS - REL 2 % (CELLAVISION)(BEAKER) (test code = 2819) BASOPHILS - REL 1 % (CELLAVISION)(BEAKER) (test code = 2820) BANDS - REL (CELLAVISION)(BEAKER) 2 % 0-10 (test code = 2826) ATYPICAL LYMPHOCYTES - REL 2 % 0-0 H (CELLAVISION)(BEAKER) (test code = 2829) NEUTROPHILS - ABS 2.29 K/ul 1.78-5.38 (CELLAVISION)(BEAKER) (test code = 2830) LYMPHOCYTES - ABS 0.85 K/ul 1.32-3.57 L (CELLAVISION)(BEAKER) (test code = 2831) MONOCYTES - ABS 0.30 K/uL 0.30-0.82 (CELLAVISION)(BEAKER) (test code = 2832) EOSINOPHILS - ABS 0.07 K/uL 0.04-0.54 (CELLAVISION)(BEAKER) (test code = 2834) BASOPHILS - ABS 0.04 K/uL 0.01-0.08 (CELLAVISION)(BEAKER) (test code = 2835) BANDS - ABS (CELLAVISION)(BEAKER) 0.07 K/uL 0.00-0.80 (test code = 2840) ATYPICAL LYMPHOCYTES - ABS 0.07 K/uL 0.00-0.00 H (CELLAVISION)(BEAKER) (test code = 5178) TOTAL COUNTED (BEAKER) (test code = 100 1351) WBC MORPHOLOGY (BEAKER) (test code Normal = 487) PLT MORPHOLOGY (BEAKER) (test code Normal = 486) POLYCHROMATOPHILLIC RBCS(BEAKER) 1+ few (test code = 478) ARTIFACT (CELLAVISION)(BEAKER) Present (test code = 3432) PLATELET CONCENTRATION Decreased (CELLAVISION)(BEAKER) (test code = 3438) Received comment: User comments: Slide comments:[id number] 11:13:00 Test Item Value Reference Range Interpretation Comments RPR SCREEN (BEAKER) (test code = Reactive Nonreactive A 420) RPR [id number] 11:13:00 Test Item Value Reference Range Interpretation Comments RPR TITER (BEAKER) (test code = 1485) :2 CRYPTOCOCCAL [id number] 11:12:00 Test Item Value Reference Range Interpretation Comments CRYPTOCOCCAL ANTIGEN, SERUM Negative Negative, Interference (BEAKER) (test code = 1828) VITAMIN [id number] 09:22:00 Test Item Value Reference Range Interpretation Comments VITAMIN B12 (BEAKER) (test code = 388 pg/mL 213-816 774) PERIPHERAL BLOOD SMEAR - HOLD [id number] 08:45:00 Test Item Value Reference Range Interpretation Comments PERIPHERAL SMEAR SAVE (BEAKER) (test Saved code = 1815) BODY FLUID CULTURE + GRAM [id number] 08:23:00 Test Item Value Reference Range Interpretation Comments CULTURE (BEAKER) (test No growth code = 1095) GRAM STAIN RESULT 1+ White blood cells (BEAKER) (test code = seen 1123) GRAM STAIN RESULT No organisms seen (BEAKER) (test code = 00974) COMPLEMENT COMPONENT [id number] 06:05:00 Test Item Value Reference Range Interpretation Comments C3 COMPLEMENT (BEAKER) (test code = 146 mg/dL 82-193 393) IMMUNOGLOBULIN G (IGG)2018-11-07 06:05:00 Test Item Value Reference Range Interpretation Comments IMMUNOGLOBULIN G (IGG) (BEAKER) 932 mg/dL 540-1,822 (test code = 427) HIV-1 ANTIGEN WITH HIV-1/2 [id number] 05:51:00 Test Item Value Reference Range Interpretation Comments HIV-1 ANTIGEN WITH HIV 1\\T\\2 Nonreactive Nonreactive ANTIBODY (2) (BEAKER) (test code = 2586) [id number] 05:27:00 Test Item Value Reference Range Interpretation Comments MAGNESIUM (BEAKER) 2.4 mg/dL 1.6-2.6 Specimen slightly (test code = 627) hemolyzed [id number] 05:27:00 Test Item Value Reference Range Interpretation Comments PHOSPHORUS (BEAKER) 4.0 mg/dL 2.3-4.7 Specimen slightly (test code = 604) hemolyzed BASIC METABOLIC [id number] 05:27:00 Test Item Value Reference Range Interpretation Comments SODIUM (BEAKER) 134 meq/L 136-145 L (test code = 381) POTASSIUM (BEAKER) 3.8 meq/L 3.5-5.1 Specimen slightly (test code = 379) hemolyzed CHLORIDE (BEAKER) 97 meq/L 98-107 L (test code = 382) CO2 (BEAKER) (test 27 meq/L 22-29 code = 355) BLOOD UREA NITROGEN 18 mg/dL 7-21 (BEAKER) (test code = 354) CREATININE (BEAKER) 0.73 mg/dL 0.57-1.25 Specimen slightly (test code = 358) hemolyzed GLUCOSE RANDOM 101 mg/dL 70-105 (BEAKER) (test code = 652) CALCIUM (BEAKER) 8.7 mg/dL 8.4-10.2 (test code = 697) EGFR (BEAKER) (test 111 mL/min/1.73 ESTIM ATED GFR IS code = 1092) sq m NOT ACCURATE CREATININE CLEARANCE IN PREDICTING GLOMERULAR FILTRATION RATE . ESTIMATED GFR I S NOT APPLICABLE FOR DIALYSIS PATIEN TS. HEPATIC FUNCTION [id number] 05:27:00 Test Item Value Reference Range Interpretation Comments TOTAL PROTEIN (BEAKER) 6.7 gm/dL 6.0-8.3 Speci men slightly (test code = 770) hemolyzed ALBUMIN (BEAKER) (test 3.4 g/dL 3.5-5.0 L Speci men slightly code = 1145) hemolyzed BILIRUBIN TOTAL 1.0 mg/dL 0.2-1.2 Specimen sli ghtly (BEAKER) (test code = hemoly zed 377) BILIRUBIN DIRECT 0.4 mg/dL 0.1-0.5 Specimen sl ightly (BEAKER) (test code = hemoly zed 706) ALKALINE PHOSPHATASE 222 U/L 40-150 H (BEAKER) (test code = 346) AST (SGOT) (BEAKER) 48 U/L 5-34 H Specimen slightly (test code = 353) hemolyzed ALT (SGPT) (BEAKER) 34 U/L 6-55 Specimen slightly (test code = 347) hemolyzed C-REACTIVE [id number] 05:27:00 Test Item Value Reference Range Interpretation Comments C-REACTIVE PROTEIN (BEAKER) (test 16.05 mg/dL 0.00-0.50 H code = 676) PROTHROMBIN [id number] 05:06:00 Test Item Value Reference Range Interpretation Comments PROTIME (BEAKER) (test code = 13.9 seconds 11.9-14.2 759) INR (BEAKER) (test code = 370) 1.1 <=5.9 Effective 08/30/2018: PT Reference Range ChangeNew: 11.9-14.2 Previous: 11.7- 14.7RECOMMENDED COUMADIN/WARFARIN INR THERAPY RANGESSTANDARD DOSE: 2.0-3.0 Includes: PROPHYLAXIS for venous thrombosis, systemic embolization; TREATMENT for venous thrombosis and/or pulmonary embolus.HIGH RISK: Target INR is2.5-3.5 for patients wiht mechanical heart valves.[id number] 18:49:00Medical Cytology Report Case: [id number] Authorizing Provider: Cici Moreno MD Collected: 11/03/20182002 Ordering Location: [place] [address] ICU Received: 11/06/2018 09 Pathologist: Karla Sheets MD Specimen: Pericardial PERICARDIAL FLUID(CYTOSPINS): - NUMEROUS RED BLOOD CELLS - NO MALIGNANT CELLS SEEN Signing Pathologist Direct Phone Line: [phone] signed by Karla Sheets MD on 11/06/2018 at 6:99XD33740Qzfrimnlrll effusion, hepatosplenomegalyPERICARDIAL FLUID 8 mls bloody; 4 cytospinsCollected:[id number]: [id number][facility], [facility] of Pathology, [address] [place] [address], [facility], [address] [place] [address], [facility], [facility], [address] [place] [address], HZYV-NUCLEAR ANTIBODY (FRACISCO) 2018-11-06 10:11:00 Test Item Value Reference Range Interpretation Comments ANTI-NUCLEAR ANTIBODY (FRACISCO) (BEAKER) Negative Negative (test code = 418) Test performed by IFA method.Test performed by IFA method.CT, ABDOMEN, WITHOUT 2018-11-06 08:10:00CT triple phase liver protocolFINAL REPORT CT abdomen without and with contrast History: Hepatosplenomegaly, assess for underlying liver disease Comparison: none Technique: serial axial imaging was performed without and subsequently following up to 100cc of non ionic iodinated intravenous contrast as per departmental protocol. Multiplanar images are reconstructed and reviewed when indicated. This CT examination is performed using one or more of the following dose reduction techniques: Automated exposurecontrol, adjustment of the mA and /or kV according to patient size, and/or use of iterative reconstruction technique. Findings: Mild cardiomegaly. Small pericardial and bilateral pleural effusions. Pericardial drainage catheter is noted. Patchy bilateral pulmonary groundglass densities. Unremarkable appearance of the pancreas. The spleen is severely enlarged, measuring 23 cm in craniocaudal dimension. No focal splenic lesion is seen. Unremarkable appearance of liver and gallbladder. The central portal and hepatic veins appear patent. Unremarkable appearance of the adrenal glands, kidneys, and visualized ureters. . No small or large bowel obstruction. No apparent bowel wall thickening. Nofindings to indicate acute appendicitis. A small amount of free fluid is seen within the left paracolic gutter. No lymphadenopathy is seen. No abdominal aortic aneurysm. No aggressive osseous lesion. Impression:1. Severely enlarged spleen, measuring 23 cm in craniocaudal dimension.2. Small amount of free fluid within the left paracolic gutter.3. Small pericardial and bilateral pleural effusions. Pericardial drainage catheter in place.4. Mild cardiomegaly. Signed: Bc Parada MDReport Verified Date/Time: 11/06/2018 08:10:30 Reading Location: [facility] Diagnostic Imaging Reading Room - [place] [address] (CELLAVISION MANUAL DIFF)2018-11-06 07:38:00 Test Item Value Reference Range Interpretation Comments NEUTROPHILS - REL 64 % (CELLAVISION)(BEAKER) (test code = 2816) LYMPHOCYTES - REL 31 % (CELLAVISION)(BEAKER) (test code = 2817) MONOCYTES - REL 3 % (CELLAVISION)(BEAKER) (test code = 2818) BASOPHILS - REL 1 % (CELLAVISION)(BEAKER) (test code = 2820) ATYPICAL LYMPHOCYTES - REL 1 % 0-0 H (CELLAVISION)(BEAKER) (test code = 2829) NEUTROPHILS - ABS 2.88 K/ul 1.78-5.38 (CELLAVISION)(BEAKER) (test code = 2830) LYMPHOCYTES - ABS 1.40 K/ul 1.32-3.57 (CELLAVISION)(BEAKER) (test code = 2831) MONOCYTES - ABS 0.14 K/uL 0.30-0.82 L (CELLAVISION)(BEAKER) (test code = 2832) BASOPHILS - ABS 0.05 K/uL 0.01-0.08 (CELLAVISION)(BEAKER) (test code = 2835) ATYPICAL LYMPHOCYTES - ABS 0.05 K/uL 0.00-0.00 H (CELLAVISION)(BEAKER) (test code = 2858) TOTAL COUNTED (BEAKER) (test code = 100 1351) WBC MORPHOLOGY (BEAKER) (test code Normal = 487) PLT MORPHOLOGY (BEAKER) (test code Normal = 486) POLYCHROMATOPHILLIC RBCS(BEAKER) 1+ few (test code = 478) ARTIFACT (CELLAVISION)(BEAKER) Present (test code = 3432) PLATELET CONCENTRATION Decreased (CELLAVISION)(BEAKER) (test code = 3438) Received comment: User comments: Slide comments:CBC W/PLT COUNT & AUTO [id number] 07:37:00 Test Item Value Reference Range Interpretation Comments WHITE BLOOD CELL COUNT (BEAKER) 4.5 K/ L 3.5-10.5 (test code = 775) RED BLOOD CELL COUNT (BEAKER) 4.06 M/ L 4.63-6.08 L (test code = 761) HEMOGLOBIN (BEAKER) (test code = 10.6 GM/DL 13.7-17.5 L 410) HEMATOCRIT (BEAKER) (test code = 33.6 % 40.1-51.0 L 411) MEAN CORPUSCULAR VOLUME (BEAKER) 82.8 fL 79.0-92.2 (test code = 753) MEAN CORPUSCULAR HEMOGLOBIN 26.1 pg 25.7-32.2 (BEAKER) (test code = 751) MEAN CORPUSCULAR HEMOGLOBIN CONC 31.5 GM/DL 32.3-36.5 L (BEAKER) (test code = 752) RED CELL DISTRIBUTION WIDTH 14.4 % 11.6-14.4 (BEAKER) (test code = 412) PLATELET COUNT (BEAKER) (test 105 K/CU MM 150-450 L code = 756) MEAN PLATELET VOLUME (BEAKER) 10.8 fL 9.4-12.4 (test code = 754) NUCLEATED RED BLOOD CELLS 0 /100 WBC 0-0 (BEAKER) (test code = 413) U/S, ABDOMINAL, [id number] 05:02:00Reason for exam:- >HepatosplenomagaliShould this be performed at the bedside?->YesFINAL REPORT INDICATION: Hepatosplenomagali COMPARISON: None. TECHNIQUE: Real-time transabdominal soto scale and color Doppler ultrasound of the abdomen. FINDINGS:Liver: Size: 16.7cm. Echogenicity: Normal. Masses/lesions: None. Surface Nodularity: None. Intrahepatic bile ducts: Normal. Common bile duct: 0.3 cm. MPV: 1.0cm. Gallbladder: Stones: None. Sludge: None. Wall thickness: 0.3 cm. The gallbladder lumen is nondistended. Pericholecystic fluid: None. Sonographic Wall's sign: No sonographic Wall's sign. Pancreas: Head and uncinate process: Not well-seen. Body and tail: Not well-seen. Spleen: Size: 18.1cm. Echogenicity: Unremarkable. Right kidney: Size: 10.4 x 5.9 x 5.3 cm. Parenchyma: Normal echogenicity. No cysts. No stones. Hydronephrosis: None. Left kidney: Size: 10.0 x 5.2 x 4.8 cm. Parenchyma: Normal echogenicity. No cysts. No stones. Hydronephrosis: None. Ascites: None. Regional Vasculature: The visible abdominal aorta, IVC and hepatic veins are patent. The aorta measures 2.3 cm proximally, 2.1 cm in the midportion, distally not well-seen secondary to poor acoustic windowing. Additional findings: Small left pleural effusion.. IMPRESSION: Hepatosplenomegaly. Small left pleural effusion. Otherwise unremarkable abdominal ultrasound. Signed: Aarti Borrego [facility] Verified Date/Time: 11/06/2018 05:02:22 [id number] 04:43:00 Test Item Value Reference Range Interpretation Comments MAGNESIUM (BEAKER) 2.4 mg/dL 1.6-2.6 Specimen slightly (test code = 627) hemolyzed [id number] 04:43:00 Test Item Value Reference Range Interpretation Comments PHOSPHORUS (BEAKER) 3.9 mg/dL 2.3-4.7 Specimen slightly (test code = 604) hemolyzed BASIC METABOLIC [id number] 04:43:00 Test Item Value Reference Range Interpretation Comments SODIUM (BEAKER) 134 meq/L 136-145 L (test code = 381) POTASSIUM (BEAKER) 3.9 meq/L 3.5-5.1 Specimen slightly (test code = 379) hemolyzed CHLORIDE (BEAKER) 97 meq/L 98-107 L (test code = 382) CO2 (BEAKER) (test 29 meq/L 22-29 code = 355) BLOOD UREA NITROGEN 20 mg/dL 7-21 (BEAKER) (test code = 354) CREATININE (BEAKER) 0.72 mg/dL 0.57-1.25 Specimen slightly (test code = 358) hemolyzed GLUCOSE RANDOM 99 mg/dL 70-105 (BEAKER) (test code = 652) CALCIUM (BEAKER) 8.8 mg/dL 8.4-10.2 (test code = 697) EGFR (BEAKER) (test 113 mL/min/1.73 ESTIM ATED GFR IS code = 1092) sq m NOT ACCURATE CREATININE CLEARANCE IN PREDICTING GLOMERULAR FILTRATION RATE . ESTIMATED GFR I S NOT APPLICABLE FOR DIALYSIS PATIEN TS. ALPHA FETOPROTEIN (AFP), TUMOR [id number] 11:03:00 Test Item Value Reference Range Interpretation Comments ALPHA-FETOPROTEIN (BEAKER) (test code < ng/mL <10.0 = 1094) HEPATIC FUNCTION [id number] 10:03:00 Test Item Value Reference Range Interpretation Comments TOTAL PROTEIN (BEAKER) 6.4 gm/dL 6.0-8.3 Speci men slightly (test code = 770) hemolyzed ALBUMIN (BEAKER) (test 3.4 g/dL 3.5-5.0 L Speci men slightly code = 1145) hemolyzed BILIRUBIN TOTAL 1.4 mg/dL 0.2-1.2 H Specimen sli ghtly (BEAKER) (test code = hemoly zed 377) BILIRUBIN DIRECT 0.6 mg/dL 0.1-0.5 H Specimen sl ightly (BEAKER) (test code = hemoly zed 706) ALKALINE PHOSPHATASE 82 U/L 40-150 (BEAKER) (test code = 346) AST (SGOT) (BEAKER) 32 U/L 5-34 Specimen slightly (test code = 353) hemolyzed ALT (SGPT) (BEAKER) 15 U/L 6-55 Specimen slightly (test code = 347) hemolyzed [id number] 08:09:00 Test Item Value Reference Range Interpretation Comments MAGNESIUM (BEAKER) 2.2 mg/dL 1.6-2.6 Specimen slightly (test code = 627) hemolyzed [id number] 08:09:00 Test Item Value Reference Range Interpretation Comments PHOSPHORUS (BEAKER) 3.4 mg/dL 2.3-4.7 Specimen slightly (test code = 604) hemolyzed BASIC METABOLIC [id number] 08:09:00 Test Item Value Reference Range Interpretation Comments SODIUM (BEAKER) 134 meq/L 136-145 L (test code = 381) POTASSIUM (BEAKER) 4.0 meq/L 3.5-5.1 Specimen slightly (test code = 379) hemolyzed CHLORIDE (BEAKER) 100 meq/L 98-107 (test code = 382) CO2 (BEAKER) (test 26 meq/L 22-29 code = 355) BLOOD UREA NITROGEN 17 mg/dL 7-21 (BEAKER) (test code = 354) CREATININE (BEAKER) 0.69 mg/dL 0.57-1.25 Specimen slightly (test code = 358) hemolyzed GLUCOSE RANDOM 93 mg/dL 70-105 (BEAKER) (test code = 652) CALCIUM (BEAKER) 8.6 mg/dL 8.4-10.2 (test code = 697) EGFR (BEAKER) (test 119 mL/min/1.73 ESTIM ATED GFR IS code = 1092) sq m NOT ACCURATE CREATININE CLEARANCE IN PREDICTING GLOMERULAR FILTRATION RATE . ESTIMATED GFR I S NOT APPLICABLE FOR DIALYSIS PATIEN TS. CBC W/PLT COUNT & AUTO [id number] 06:23:00 Test Item Value Reference Range Interpretation Comments WHITE BLOOD CELL COUNT (BEAKER) 4.9 K/ L 3.5-10.5 (test code = 775) RED BLOOD CELL COUNT (BEAKER) 3.97 M/ L 4.63-6.08 L (test code = 761) HEMOGLOBIN (BEAKER) (test code = 10.5 GM/DL 13.7-17.5 L 410) HEMATOCRIT (BEAKER) (test code = 33.9 % 40.1-51.0 L 411) MEAN CORPUSCULAR VOLUME (BEAKER) 85.4 fL 79.0-92.2 (test code = 753) MEAN CORPUSCULAR HEMOGLOBIN 26.4 pg 25.7-32.2 (BEAKER) (test code = 751) MEAN CORPUSCULAR HEMOGLOBIN CONC 31.0 GM/DL 32.3-36.5 L (BEAKER) (test code = 752) RED CELL DISTRIBUTION WIDTH 15.0 % 11.6-14.4 H (BEAKER) (test code = 412) PLATELET COUNT (BEAKER) (test 105 K/CU MM 150-450 L code = 756) MEAN PLATELET VOLUME (BEAKER) 10.9 fL 9.4-12.4 (test code = 754) NUCLEATED RED BLOOD CELLS 0 /100 WBC 0-0 (BEAKER) (test code = 413) NEUTROPHILS RELATIVE PERCENT 56 % (BEAKER) (test code = 429) LYMPHOCYTES RELATIVE PERCENT 33 % (BEAKER) (test code = 430) MONOCYTES RELATIVE PERCENT 8 % (BEAKER) (test code = 431) EOSINOPHILS RELATIVE PERCENT 2 % (BEAKER) (test code = 432) BASOPHILS RELATIVE PERCENT 1 % (BEAKER) (test code = 437) NEUTROPHILS ABSOLUTE COUNT 2.75 K/ L 1.78-5.38 (BEAKER) (test code = 670) LYMPHOCYTES ABSOLUTE COUNT 1.61 K/ L 1.32-3.57 (BEAKER) (test code = 414) MONOCYTES ABSOLUTE COUNT (BEAKER) 0.39 K/ L 0.30-0.82 (test code = 415) EOSINOPHILS ABSOLUTE COUNT 0.08 K/ L 0.04-0.54 (BEAKER) (test code = 416) BASOPHILS ABSOLUTE COUNT (BEAKER) 0.05 K/ L 0.01-0.08 (test code = 417) IMMATURE GRANULOCYTES-RELATIVE 1 % 0-1 PERCENT (BEAKER) (test code = 2801) [id number] 13:45:00 Test Item Value Reference Range Interpretation Comments FERRITIN (BEAKER) (test code = 361) 236 ng/mL 5-275 RAD, CHEST, 1 VIEW, NON [id number] 13:30:00Reason for exam:->rule out retrocardiac consolidationShould this be performed at the bedside?->YesFINAL REPORT Chest, portable AP view History: Retrocardiac consolidation Comparison: Chest x-ray dated 11/03/2018 IMPRESSION: The cardiac silhouette is decreased in size status post placement of a pericardial drain. There is diffuse interstitial prominence compatible with a component of edema. Bibasilar atelectasis is present. No definite focal consolidation, sizable pleural effusion, or pneumothorax. Signed: Chidi Beebe [facility] Verified Date/Time: 11/04/2018 13:30:24 Reading Location: [facility] P048 Angio Body Reading Room TITIS B SURFACE [id number] 13:14:00 Test Item Value Reference Range Interpretation Comments HEPATITIS B SURFACE ANTIBODY < mIU/mL <8.0 (BEAKER) (test code = 647) HEPATITIS A ANTIBODY, [id number] 13:14:00 Test Item Value Reference Range Interpretation Comments HEPATITIS A IGG ANTIBODY (BEAKER) Reactive Nonreactive A (test code = 2797) HEPATITIS A ANTIBODY, [id number] 13:12:00 Test Item Value Reference Range Interpretation Comments HEPATITIS A IGM ANTIBODY (BEAKER) Nonreactive Nonreactive (test code = 498) HEPATITIS B CORE ANTIBODY, [id number] 13:12:00 Test Item Value Reference Range Interpretation Comments HEPATITIS B CORE TOTAL ANTIBODY Nonreactive Nonreactive (BEAKER) (test code = 497) HEPATITIS B SURFACE [id number] 13:09:00 Test Item Value Reference Range Interpretation Comments HEPATITIS B SURFACE ANTIGEN (2) Nonreactive Nonreactive (BEAKER) (test code = 2585) HEPATITIS C [id number] 13:09:00 Test Item Value Reference Range Interpretation Comments HEPATITIS C ANTIBODY (BEAKER) Nonreactive Nonreactive (test code = 367) IRON, TIBC, % SAT. (WITHOUT FERRITIN)2018-11-04 12:49:00 Test Item Value Reference Range Interpretation Comments IRON (BEAKER) (test code = 547) 17.0 ug/dL 40.0-160.0 L TOTAL IRON BINDING CAPACITY 203 ug/dL 250-450 L (BEAKER) (test code = 769) IRON % SATURATION (2) (BEAKER) 8 % 20-55 L (test code = 2590) [id number] 12:49:00 Test Item Value Reference Range Interpretation Comments ALPHA-1 ANTITRYPSIN (BEAKER) (test > mg/dL 90.00-200.00 H code = 502) TROPONIN [id number] 05:46:00 Test Item Value Reference Range Interpretation Comments TROPONIN I (BEAKER) (test code = 0.07 ng/mL 0.00-0.03 H 397) Troponin I (TnI) levels must be interpreted in the context of the presenting symptoms and the clinical findings. Elevated TnI levels indicate myocardial damage, but are not specific for ischemic heart disease. Elevated TnI levels are seen in patients with other cardiac conditions (including myocarditis and congestive heart failure), and slight TnI elevations occur in patients with other conditions, including sepsis, renal failure, acidosis, acute neurological disease, and persistent tachyarrhythmia.[id number] 05:39:00 Test Item Value Reference Range Interpretation Comments PHOSPHORUS (BEAKER) (test code = 5.1 mg/dL 2.3-4.7 H 604) [id number] 05:39:00 Test Item Value Reference Range Interpretation Comments MAGNESIUM (BEAKER) (test code = 2.1 mg/dL 1.6-2.6 627) BASIC METABOLIC [id number] 05:39:00 Test Item Value Reference Range Interpretation Comments SODIUM (BEAKER) 139 meq/L 136-145 (test code = 381) POTASSIUM (BEAKER) 4.0 meq/L 3.5-5.1 (test code = 379) CHLORIDE (BEAKER) 101 meq/L 98-107 (test code = 382) CO2 (BEAKER) (test 29 meq/L 22-29 code = 355) BLOOD UREA NITROGEN 18 mg/dL 7-21 (BEAKER) (test code = 354) CREATININE (BEAKER) 0.96 mg/dL 0.57-1.25 (test code = 358) GLUCOSE RANDOM 114 mg/dL 70-105 H (BEAKER) (test code = 652) CALCIUM (BEAKER) 8.7 mg/dL 8.4-10.2 (test code = 697) EGFR (BEAKER) (test 81 mL/min/1.73 ESTIMA SHAYNE GFR IS code = 1092) sq m NOT ACCURATE CREATININE CLEARANCE IN PREDICTING GLOMERULAR FILTRATION RATE . ESTIMATED GFR I S NOT APPLICABLE FOR DIALYSIS PATIEN TS. CBC W/PLT COUNT & AUTO [id number] 04:56:00 Test Item Value Reference Range Interpretation Comments WHITE BLOOD CELL COUNT (BEAKER) 7.5 K/ L 3.5-10.5 (test code = 775) RED BLOOD CELL COUNT (BEAKER) 4.16 M/ L 4.63-6.08 L (test code = 761) HEMOGLOBIN (BEAKER) (test code = 10.9 GM/DL 13.7-17.5 L 410) HEMATOCRIT (BEAKER) (test code = 35.3 % 40.1-51.0 L 411) MEAN CORPUSCULAR VOLUME (BEAKER) 84.9 fL 79.0-92.2 (test code = 753) MEAN CORPUSCULAR HEMOGLOBIN 26.2 pg 25.7-32.2 (BEAKER) (test code = 751) MEAN CORPUSCULAR HEMOGLOBIN CONC 30.9 GM/DL 32.3-36.5 L (BEAKER) (test code = 752) RED CELL DISTRIBUTION WIDTH 15.6 % 11.6-14.4 H (BEAKER) (test code = 412) PLATELET COUNT (BEAKER) (test 111 K/CU MM 150-450 L code = 756) MEAN PLATELET VOLUME (BEAKER) 10.1 fL 9.4-12.4 (test code = 754) NUCLEATED RED BLOOD CELLS 0 /100 WBC 0-0 (BEAKER) (test code = 413) NEUTROPHILS RELATIVE PERCENT 69 % (BEAKER) (test code = 429) LYMPHOCYTES RELATIVE PERCENT 23 % (BEAKER) (test code = 430) MONOCYTES RELATIVE PERCENT 7 % (BEAKER) (test code = 431) EOSINOPHILS RELATIVE PERCENT 0 % (BEAKER) (test code = 432) BASOPHILS RELATIVE PERCENT 0 % (BEAKER) (test code = 437) NEUTROPHILS ABSOLUTE COUNT 5.18 K/ L 1.78-5.38 (BEAKER) (test code = 670) LYMPHOCYTES ABSOLUTE COUNT 1.70 K/ L 1.32-3.57 (BEAKER) (test code = 414) MONOCYTES ABSOLUTE COUNT (BEAKER) 0.51 K/ L 0.30-0.82 (test code = 415) EOSINOPHILS ABSOLUTE COUNT 0.01 K/ L 0.04-0.54 L (BEAKER) (test code = 416) BASOPHILS ABSOLUTE COUNT (BEAKER) 0.03 K/ L 0.01-0.08 (test code = 417) IMMATURE GRANULOCYTES-RELATIVE 1 % 0-1 PERCENT (BEAKER) (test code = 2801) TROPONIN [id number] 23:09:00 Test Item Value Reference Range Interpretation Comments TROPONIN I (BEAKER) (test code = 0.03 ng/mL 0.00-0.03 397) Troponin I (TnI) levels must be interpreted in the context of the presenting symptoms and the clinical findings. Elevated TnI levels indicate myocardial damage, but are not specific for ischemic heart disease. Elevated TnI levels are seen in patients with other cardiac conditions (including myocarditis and congestive heart failure), and slight TnI elevations occur in patients with other conditions, including sepsis, renal failure, acidosis, acute neurological disease, and persistent tachyarrhythmia.BODY FLUID CELL COUNT WITH DIFFERENTIAL 2018-11-03 21:59:00 Test Item Value Reference Range Interpretation Comments APPEARANCE FLUID (BEAKER) Bloody Clear A (test code = 510) COLOR FLUID (BEAKER) (test Red Colorless, Straw A code = 511) RBC FLUID (BEAKER) (test code 504692 /cu mm <=1 H = 513) ADJUSTED WBC FLUID (BEAKER) 670 /cu mm <=5 H (test code = 1691) LINING CELLS (BEAKER) (test 40 /cu mm <=1 H code = 1590) NEUTROPHILS FLUID (BEAKER) 62 % (test code = 1656) LYMPHS FLUID (BEAKER) (test 11 % code = 488) MONO/MACROPHAGE FLUID (BEAKER) 24 % (test code = 489) EOSINOPHILS FLUID (BEAKER) 3 % (test code = 491) BASO FLUID (BEAKER) (test code 0 % = 492) CONTAINER BODY FLUID (BEAKER) EDTA Tube (test code = 2873) LACTATE DEHYDROGENASE (LDH), BODY [id number] 21:09:00 Test Item Value Reference Range Interpretation Comments LACTATE DEHYDROGENASE FLUID (BEAKER) 229 U/L 276-517 L (test code = 634) Absence of reference range indicates that normals have not been defined.Assay performance has not been validated for this type of specimen.PROTEIN, BODY FLUID 2018-11-03 21:09:00 Test Item Value Reference Range Interpretation Comments PROTEIN FLUID (BEAKER) (test code = 4.7 g/dL 2.8-3.8 H 579) Absence of reference range indicates that normals have not been defined.Assay performance has not been validated for this type of specimen.GLUCOSE, BODY FLUID 2018-11-03 21:09:00 Test Item Value Reference Range Interpretation Comments GLUCOSE, BODY FLUID (BEAKER) (test 101 mg/dL 106-159 L code = 1528) Absence of reference range indicates that normals have not been defined.Assay performance has not been validated for this type of specimen.TROPONIN I 2018-11-03 16:23:00 Test Item Value Reference Range Interpretation Comments TROPONIN I (BEAKER) (test code = 0.04 ng/mL 0.00-0.03 H 397) Troponin I (TnI) levels must be interpreted in the context of the presenting symptoms and the clinical findings. Elevated TnI levels indicate myocardial damage, but are not specific for ischemic heart disease. Elevated TnI levels are seen in patients with other cardiac conditions (including myocarditis and congestive heart failure), and slight TnI elevations occur in patients with other conditions, including sepsis, renal failure, acidosis, acute neurological disease, and persistent tachyarrhythmia.URINALYSIS W/ REFLEX URINE CULTURE 2018-11-03 12:15:00 Test Item Value Reference Range Interpretation Comments COLOR (BEAKER) (test code = 470) Yellow CLARITY (BEAKER) (test code = 469) Clear SPECIFIC GRAVITY UA (BEAKER) (test 1.027 1.001-1.035 code = 468) PH UA (BEAKER) (test code = 467) 6.5 5.0-8.0 PROTEIN UA (BEAKER) (test code = Negative Negative 464) GLUCOSE UA (BEAKER) (test code = Negative Negative 365) KETONES UA (BEAKER) (test code = Negative Negative 371) BILIRUBIN UA (BEAKER) (test code = Negative Negative 462) BLOOD UA (BEAKER) (test code = 461) Negative Negative NITRITE UA (BEAKER) (test code = Negative Negative 465) LEUKOCYTE ESTERASE UA (BEAKER) Negative Negative (test code = 466) UROBILINOGEN UA (BEAKER) (test code 0.2 mg/dL 0.2-1.0 = 463) RBC UA (BEAKER) (test code = 519) 0 /HPF WBC UA (BEAKER) (test code = 520) < /HPF SOURCE(BEAKER) (test code = 2795) TROPONIN [id number] 09:53:00 Test Item Value Reference Range Interpretation Comments TROPONIN I (BEAKER) (test code = 0.06 ng/mL 0.00-0.03 H 397) Troponin I (TnI) levels must be interpreted in the context of the presenting symptoms and the clinical findings. Elevated TnI levels indicate myocardial damage, but are not specific for ischemic heart disease. Elevated TnI levels are seen in patients with other cardiac conditions (including myocarditis and congestive heart failure), and slight TnI elevations occur in patients with other conditions, including sepsis, renal failure, acidosis, acute neurological disease, and persistent tachyarrhythmia.B-TYPE NATRIURETIC FACTOR (BNP) 2018-11-03 09:50:00 Test Item Value Reference Range Interpretation Comments B-TYPE NATRIURETIC PEPTIDE (BEAKER) 278 pg/mL 0-100 H (test code = 700) [id number] 09:47:00 Test Item Value Reference Range Interpretation Comments MAGNESIUM (BEAKER) (test code = 2.1 mg/dL 1.6-2.6 627) COMPREHENSIVE METABOLIC [id number] 09:47:00 Test Item Value Reference Range Interpretation Comments TOTAL PROTEIN 7.1 gm/dL 6.0-8.3 (BEAKER) (test code = 770) ALBUMIN (BEAKER) 4.0 g/dL 3.5-5.0 (test code = 1145) ALKALINE PHOSPHATASE 89 U/L 40-150 (BEAKER) (test code = 346) BILIRUBIN TOTAL 1.1 mg/dL 0.2-1.2 (BEAKER) (test code = 377) SODIUM (BEAKER) (test 140 meq/L 136-145 code = 381) POTASSIUM (BEAKER) 3.5 meq/L 3.5-5.1 (test code = 379) CHLORIDE (BEAKER) 103 meq/L 98-107 (test code = 382) CO2 (BEAKER) (test 24 meq/L 22-29 code = 355) BLOOD UREA NITROGEN 14 mg/dL 7-21 (BEAKER) (test code = 354) CREATININE (BEAKER) 0.97 mg/dL 0.57-1.25 (test code = 358) GLUCOSE RANDOM 105 mg/dL 70-105 (BEAKER) (test code = 652) CALCIUM (BEAKER) 8.5 mg/dL 8.4-10.2 (test code = 697) AST (SGOT) (BEAKER) 26 U/L 5-34 (test code = 353) ALT (SGPT) (BEAKER) 15 U/L 6-55 (test code = 347) EGFR (BEAKER) (test 80 mL/min/1.73 ESTIMA SHAYNE GFR IS code = 1092) sq m NOT ACCURATE CREATININE CLEARANCE IN PREDICTING GLOMERULAR FILTRATION RATE . ESTIMATED GFR I S NOT APPLICABLE FOR DIALYSIS PATIEN TS. PROTHROMBIN TIME/[id number] 09:40:00 Test Item Value Reference Range Interpretation Comments PROTIME (BEAKER) (test code = 14.8 seconds 11.9-14.2 H 759) INR (BEAKER) (test code = 370) 1.2 <=5.9 Effective 08/30/2018: PT Reference Range ChangeNew: 11.9-14.2 Previous: 11.7- 14.7RECOMMENDED COUMADIN/WARFARIN INR THERAPY RANGESSTANDARD DOSE: 2.0-3.0 Includes: PROPHYLAXIS for venous thrombosis, systemic embolization; TREATMENT for venous thrombosis and/or pulmonary embolus.HIGH RISK: Target INR is2.5-3.5 for patients wiht mechanical heart valves.PT/[id number] 09:40:00 Test Item Value Reference Range Interpretation Comments PROTIME (BEAKER) (test code = 14.8 seconds 11.9-14.2 H 759) INR (BEAKER) (test code = 370) 1.2 <=5.9 PARTIAL THROMBOPLASTIN TIME 27.9 seconds 22.5-36.0 (BEAKER) (test code = 760) Effective 08/30/2018: PT Reference Range ChangeNew: 11.9-14.2 Previous: 11.7- 14.7RECOMMENDED COUMADIN/WARFARIN INR THERAPY RANGESSTANDARD DOSE: 2.0-3.0 Includes: PROPHYLAXIS for venous thrombosis, systemic embolization; TREATMENT for venous thrombosis and/or pulmonary embolus.HIGH RISK: Target INR is2.5-3.5 for patients wiht mechanical heart valves.LACTIC ACID, [id number] 09:39:00 Test Item Value Reference Range Interpretation Comments LACTATE BLOOD VENOUS (2) (BEAKER) 1.0 mmol/L 0.5-2.2 (test code = 2872) CBC W/PLT COUNT & AUTO [id number] 09:24:00 Test Item Value Reference Range Interpretation Comments WHITE BLOOD CELL COUNT (BEAKER) 6.6 K/ L 3.5-10.5 (test code = 775) RED BLOOD CELL COUNT (BEAKER) 4.35 M/ L 4.63-6.08 L (test code = 761) HEMOGLOBIN (BEAKER) (test code = 11.9 GM/DL 13.7-17.5 L 410) HEMATOCRIT (BEAKER) (test code = 36.9 % 40.1-51.0 L 411) MEAN CORPUSCULAR VOLUME (BEAKER) 84.8 fL 79.0-92.2 (test code = 753) MEAN CORPUSCULAR HEMOGLOBIN 27.4 pg 25.7-32.2 (BEAKER) (test code = 751) MEAN CORPUSCULAR HEMOGLOBIN CONC 32.2 GM/DL 32.3-36.5 L (BEAKER) (test code = 752) RED CELL DISTRIBUTION WIDTH 15.7 % 11.6-14.4 H (BEAKER) (test code = 412) PLATELET COUNT (BEAKER) (test 108 K/CU MM 150-450 L code = 756) MEAN PLATELET VOLUME (BEAKER) 9.6 fL 9.4-12.4 (test code = 754) NUCLEATED RED BLOOD CELLS 0 /100 WBC 0-0 (BEAKER) (test code = 413) NEUTROPHILS RELATIVE PERCENT 68 % (BEAKER) (test code = 429) LYMPHOCYTES RELATIVE PERCENT 24 % (BEAKER) (test code = 430) MONOCYTES RELATIVE PERCENT 6 % (BEAKER) (test code = 431) EOSINOPHILS RELATIVE PERCENT 0 % (BEAKER) (test code = 432) BASOPHILS RELATIVE PERCENT 1 % (BEAKER) (test code = 437) NEUTROPHILS ABSOLUTE COUNT 4.47 K/ L 1.78-5.38 (BEAKER) (test code = 670) LYMPHOCYTES ABSOLUTE COUNT 1.61 K/ L 1.32-3.57 (BEAKER) (test code = 414) MONOCYTES ABSOLUTE COUNT (BEAKER) 0.39 K/ L 0.30-0.82 (test code = 415) EOSINOPHILS ABSOLUTE COUNT 0.01 K/ L 0.04-0.54 L (BEAKER) (test code = 416) BASOPHILS ABSOLUTE COUNT (BEAKER) 0.06 K/ L 0.01-0.08 (test code = 417) IMMATURE GRANULOCYTES-RELATIVE 1 % 0-1 PERCENT (BEAKER) (test code = 2801) RAD, CHEST, 1 VIEW, NON [id number] 09:18:00Shortness of breathReason for exam:->shortness of breathShould this be performed at the bedside?->Yes FINAL REPORT RAD, CHEST, 1 VIEW, NON DEPT INDICATION: shortness of breath COMPARISON: None FINDINGS: Portable frontal view of the chest. IMPRESSION: Support Lines: None Lungs and pleura: Diffuse edema. No consolidation or effusion. No pneumothorax.Heart and mediastinum: Enlargement of the cardiac silhouette. Normal aortic caliber.Additional findings: None. Signed: JR Robins Robert MDReport Verified Date/Time: 11/03/2018 09:18:21 Reading Location: [facility] Radiology Reading Room
--- OUTSIDE RECORDS SUMMARY | 2020-02-06 11:59 | XMS REPORT | Summary of Care ---
:1960 Author Organization [facility] [place] [address] Care Team Providers Name Role Phone Unavailable Primary Care Provider Unavailable Reason for Visit Reason Comments Disease Management Encounter Details Date Type Department Care Team Description 01/15/2020 Office Visit [facility], Kassi Menedz ase Management Medicine Rheumatolog y [address] [facility] [address] [facility], [address] [place] [address] [phone] [place], [place] [address] [phone] Allergies No Known Allergiesdocumented as of this encounter (statuses as of 01/15/2020) Medications Medication Sig Dispensed Refills Start Date End Date Status furosemide (LASIX) 40 Take 40 mg by 0 Active MG tablet mouth daily. ASPIRIN 81 OR Take by mouth. 0 Active metoprolol (TOPROL XL) Take 1 Tab by 90 Tab 3 10/24/2019 Active 25 MG XL tablet mouth daily. meloxicam (MOBIC) 15 MG Take 1 Tab by 90 Tab 1 01/15/2020 Active tablet mouth daily. documented as of this encounter (statuses as of 01/15/2020) Active Problems Problem Noted Date Apical variant [...] as of this encounter (statuses as of 01/15/2020) Immunizations Name Administration Dates Next Due Influenza Quad-PF 01/15/2020 documented as of this encounter Social History Tobacco Use Types Packs/Day Years [...] Sign Reading Time Taken Comments Blood Pressure 124/81 01/15/2020 7:57 AM CDT Pulse 68 01/15/2020 7:57 AM CDT Temperature 35.3 C (95.6 F) 01/15/2020 7:57 AM CDT Respiratory Rate 16 01/15/2020 7:57 AM CDT Oxygen Saturation 96% 01/15/2020 7:57 AM CDT Inhaled Oxygen Concentration - - Weight 98.8 kg (217 lb 12.8 oz) 01/15/2020 7:57 AM CDT Height 165.1 cm (5' 5") 01/15/2020 7:57 AM CDT Body Mass Index 36.24 01/15/2020 7:57 AM CDT documented in this encounter Patient Instructions Patient InstructionsWu, Yaw Castro MD - 01/15/2020 8:00 AM CDTWe will repeat some blood work. I still think your findings are related to your lymphoma. I am most worried about your heart. We will check the heart muscle enzymes and if they are up I would consider a cardiac MRI. I will discuss with your culture room worker but call to get a follow up soon. The culture room worker name is Ruiz Wheatley MD. For your hip pain try meloxicam as needed. Take with food and if you have upset stomach take pepcidwith it. See me in 4 months documented in this encounter Progress Notes Yaw Tena MD - 01/15/2020 8:00 AM CDT RHEUMATOLOGY CLINIC HISTORY OF PRESENT ILLNESS: Urban Cronin is a 59 y.o. 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 Unclear autoimmune process. Synopsis: He was referred by Dr. Del Valle for + RF and + FRACISCO in setting of DAH. He was diagnosed with splenic marginal zone lymphoma in 11/2018 and received Rituximab 01/23 but developed acute respiratory distress afterwards and was hospitalized 01/26-02/05/2019 . He was also noted to have a pericardial effusion at the time of lymphoma diagnosis in 11/2018 s/p drainage. Fluid from that did not have any malignant cells. He has seen pulmonary who preformed a full infectious workup which was negative. He had complaints of chronic hemoptysis for many months even prior to receiving the Rituximab. His inpatient workup included: Diagnostic bronchoscopy with BAL on 01/31 showed DAH. BAL with negative infectious or malignant workup. Due to DAH he was give a steroid taper over 2 weeks. He was seen by pulmonary 02/27 after 1 week of being off steroids with improving symptoms. Since being off steroids for >3 weeks he reports no more episodes of coughing up blood. He does not need supplemental oxygen. He is able to walk 3 miles and does his treadmill with an incline. He feels back to normal and has no breathing complaints. Interval events: Seen by oncology with promising restaging CT with decrease in splenomegaly and resolution of pleuraleffusions. He has completed rituximab with oncology and per patient they say he is in remission. Repeat PFT is relatively stable. He is continuing with Dr. 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 Work up notable for elevated LDH. Normal ESR/CRP. Serologies with mild CL IgM to 28, low C3/C4 but FRACISCO negative, and 1:40 cANCA but negative PR3/MPO. He is RPR + but LAC negative. Interestingly after Rituximab infusions his antibody abnormalities have resolved. Could be drug related due to CD20 effect or his antibody changes were due to his lymphoma. His breathing continues to be difficulty with activity. TTE with hypertrophic CM. He was seen by cardiology with a stress test ordered, he has not heard back. He continues to have pain in his left posterior hip/back. XR show moderate hip OA. He does not wanta CSI. He is taking NSAIDs PRN which help. REVIEW OF SYSTEMS No coughing blood SOB still difficult Metoprolol given by cardiology No fevers, chills, sweats PAST MEDICAL HISTORY Past Medical History: Diagnosis Date Hypertension Irregular heartbeat Lymphoma (HCCode) Splenic marginal lymphoma Pericardial effusion November 2018 Stroke (HCCode) PAST SURGICAL HISTORY No past surgical history on file. MEDICATIONS Current Outpatient Medications on File Prior to Visit Medication Sig Dispense Refill ASPIRIN 81 OR Take by mouth. furosemide (LASIX) 40 MG tablet Take 40 mg by mouth daily. metoprolol (TOPROL XL) 25 MG XL tablet Take 1 Tab by mouth daily. 90 Tab 3 No current facility-administered medications on file prior to visit. ALLERGIES Allergies as of 01/15/2020 (No Known Allergies) FAMILY HISTORY FH: Family History Problem Relation Name Age of Onset Lung Cancer Mother Heart Attack Father Hypertension Brother Diabetes Brother Liver Disease Brother Other (juvenile arthritis) Other Son SOCIAL HISTORY Social History Tobacco Use Smoking status: Never Smoker Smokeless tobacco: Current User Substance Use Topics Alcohol use: Not Currently Frequency: Never Drug use: Not Currently Comment: Tried MJ in high school. PHYSICAL EXAM VS : Blood pressure 124/81, pulse 68, temperature 95.6 F (35.3 C), temperature source Temporal, resp. rate 16, height 5' 5" (1.651 m), weight 217 lb 12.8 oz (98.8 kg), SpO2 96 %. GENERAL: NAD, pleasant, healthy appearing HEENT: sclera anicteric, OP clear NECK: supple CV: RRR CHEST: a little increased WOB ABD: soft EXT: no edema Neuro: grossly intact, normal gait, motor exam with nl strength in UE and LE SKIN dry skin to his ankles, normal texture, no erythema MUSCULOSKELETAL EXAM : DIP- no Heberdens nodes, no synovitis, nontender (bilateral) PIP - no Bouchards nodes,no synovitis, nontender (bilateral) MCP - neg squeeze, no synovitis or effusion, nontender (bilateral) WRIST - FROM to palmar and dorsi flexion, no effusion, no synovitis KNEES - no effusion, no synovitis, nontender ADDITIONAL DATA Labs and Xrays were reviewed. Lab Results Component Value Date WBC 6.7 10/12/2019 HGB 15.7 10/12/2019 HCT 46.2 10/12/2019 MCV 87.3 10/12/2019 PLT 165 10/12/2019 Results for orders placed or performed in visit on 10/12/19 COMPREHENSIVE METABOLIC PANEL Result Value GLUCOSE 90 BLOOD UREA NITROGEN 17 CREATININE 1.01 EGFR AA 95 EGFR 82 BUN/CREAT RATIO 17 SODIUM 145 POTASSIUM 4.4 CHLORIDE 104 CO2 26 CALCIUM 9.9 PROTEIN TOTAL 7.0 ALBUMIN 5.0 GLOBULINS, SERUM, TOTAL 2.0 A/G RATIO 2.5 BILIRUBIN TOTAL 0.7 ALKALINE PHOSPHATASE 66 AST (SGOT) 28 ALT (SGPT) 27 CK 395 High <-- 210 LDH 290 <-- 637 Work up notable for elevated LDH. Normal ESR/CRP. Serologies with mild CL IgM to 28 --> RESOLVED on repeat, low C3/C4 --> RESOLVED on repeat butANA negative, and 1:40 cANCA but negative PR3/MPO. He is RPR + but LAC negative. CT abd/chest 04/2019 IMPRESSION Impression: Decreased splenomegaly. Resolution of pleural effusions. Right inguinal hernia. Mild fibrotic changes in lung. CK 210 Troponin 0.05 BNP 744 CRP 16 mg/dL H T spot negative HIV negative RPR reactive, but titer 1;2 HepB/C negative RF positive FRACISCO 1:160, cytoplasmic that typically is seen in smooth muscle Alpha 1 antrypsin H Ceruloplasmin 51 H AFP negative C3 normal CCP 16 negative PR3 negative MPO negative Smooth muscle 41 then <20 negative Sm/[employer] negative dsDNA negative Ro/La negative scl70 negative TSH 4.72 Ferritin 236 BAL RBC 53790 WBC 569 Pericardial fluid RBC 282,500 Adjusted WBC 670 LDH 229 L Glucose 101 L Protein 4.7 H BMB BONE MARROW ASPIRATE, CLOT, AND DECALCIFIED BIOPSY: -INVOLVED BY SMALL B CELL LYMPHOMA (see comment) -HYPERCELLULAR MARROW WITH TRILINEAGE HEMATOPOIESIS -REDUCED IRON STORES -PENDING CYTOGENETIC STUDIES PERIPHERAL BLOOD: -NORMOCYTIC ANEMIA, THROMBOCYTOPENIA, AND ABNORMAL CIRCULATING LYMPHOID CELLS SPEP Albumin decreased. Alpha globulin percentages increased. This suggests an acute phase response. No monoclonal bands detected. TTE 01/2019 Summary 1. Normal LV size. Hyperdynamic LV EF >70%. All segments are hyperdynamic. 2. Intracavitary gradient at rest is 89mmHg. 3. Grade 1 diastolic dysfunction (impaired relaxation and low-normal LA pressure) 4. Estimated peak systolic PA pressure is 50-55 mmHg + RA pressure. (RA pressure indeterminate on this exam) 5. Mildly dilated RV size with normal function. CT chest Impression: 1. No pulmonary thromboembolism. 2. Trace bilateral pleural effusion. 3. Nonspecific groundglass pulmonary parenchyma disease in both lungs. Differential as described as above but favoring pulmonary edema. Please correlate clinically.' PFT IMPRESSION AND PLAN Urban Cronin is a 59 y.o. male with a past medical history of CVA, CAD, HTN, HLD, and gout who presents for follow up for ILD with ?autoimmune process. Currently s/p Rituximab for lymphoma with resolution of some of his autoantibody changes. Per history Mr. Cronin had scant hemoptysis prior to his Rituximab infusion. He was subsequently admitted for respiratory distress a few days after his first Rituximab infusion with a diagnosis of DAH. He was discharged on a 2 week rapid prednisone taper and has not had recurrence of his hemoptysis and is back to his baseline respiratory function with normal O2 saturation at rest. He has been off steroids without change in his pulmonary function. At the time of his hospitalization he was noted to have a + FRACISCO and + RF antibody. Further SLE/Sjogren's/RA workup was negative. Additional small vessel vasculitis workup was also negative with negative ANCA/PR3/MPO antibodies. Repeat labs with negative FRACISCO, low C3/C4 and low titer antiCL. Due to low complements and previous + RF, cryoglobulin obtained and was negative. Notably with rituximab for his lymphoma his low complement and low titer antiCL has resolved. We will repeat serologies today since his last Rituximab dose was 3+ months ago. Ultimately Mr. Cronin has no other systemic symptoms that are associated with a + FRACISCO, + RF antibodysuch as joint pain, dry mouth/eyes, rash, sinusitis, hematuria, etc. Without any systemic symptoms it is less likely he has a systemic autoimmune process driving his DAH. While this could be seen in a SLE process I am still suspicious that his low complement, +FRACISCO (now negative), and +RF are secondary to his lymphoma. Ultimately he does not meet the 2012 SLICC criteriafor SLE as he does not have any disease defining manifestation. Since he is s/p his Rituximab with improvement in his serologies. He continues to have left back/hip pain. Based on his XR I have recommended a CSI of his left hip which he declined. We will try PRN meloxicam. If he has GERD he will take pepcid. For his ILD we can trend PFT post rituximab to evaluate for any improvement. Repeat PFT stable. For his low DLCO and high RVSP I ordered a TTE which showed hypertrophic cardiomyopathy. He is being seen by cardiology. I will check CKMB and troponin. If high he may need a cardiac MRI to evaluate a infiltrative process. Will discuss with cardiology. Immunization History Administered Date(s) Administered Influenza Quad-PF 01/15/2020 Follow up 4 months Yaw Tena MD Department of Medicine Section of Immunology, Allergy and Rheumatology Orders Placed This Encounter Procedures Fluzone Quadrivalent >3yo - Preservative FREE Aldolase Comprehensive metabolic panel Sedimentation rate, automated C-reactive protein CK total and CKMB CBC and differential COMPLEMENT C3 AND C4 DNA (DS) ANTIBODY, CRITHIDIA IFA W/RX TITER Lupus Anticoagulant w Rflx Cardiolipin antibodies Beta-2 glycoprotein antibodies Rheumatoid factor [employer]ER ANTIBODY Sjogren's SS-A & SS-B AB VENTURA (SM) ANTIBODY RANDOM URINE PROTEIN/CREATININE URINALYSIS, COMPLETE W/REFLEX TO CULTURE Brain natriuretic peptide Lactate Dehydrogenase (LDH) documented in this encounter Plan of Treatment Date Type Specialty Care Team Description 01/16/2020 Telemedicine Gastroenterology William Hook MD [address] [facility] [address] [place], [place] [address] [phone] 07/09/2020 Procedure Visit-Tech Pulmonology [place] Pft-Pft Tech Performed 07/09/2020 Procedure Visit-Tech Pulmonology [place] Pft-Pft Tech Performed 07/09/2020 Office Visit Pulmonology Edgard Del Valle MD [address] [facility] [address] [place], [place] [address] [phone] Name Type Priority Associated Diagnoses Order S chedule ALDOLASE Lab Routine Lymphoma, unspecified Ordere d: 01/15/2020 body region, unspecified lymphoma type (H CCode) Positive FRACISCO (antinuclear ant ibody) Rheumatoid factor positive COMPREHENSIVE METABOLIC Lab Routine Lymphoma, unspeci fied Ordered: 01/15/2020 PANEL body region, unspecified lymphoma type (H CCode) Positive FRACISCO (antinuclear ant ibody) Rheumatoid factor positive SEDIMENTATION RATE MODIFIED Lab Routine Lymphoma, uns pecified Ordered: 01/15/2020 [place] body region, unspecified lymphoma type (H CCode) Positive FRACISCO (antinuclear ant ibody) Rheumatoid factor positive C-REACTIVE PROTEIN Lab Routine Lymphoma, unspecified Ordered: 01/15/2020 body region, unspecified lymphoma type (H CCode) Positive FRACISCO (antinuclear ant ibody) Rheumatoid factor positive CK TOTAL AND CKMB Lab Routine Lymphoma, unspecified O rdered: 01/15/2020 body region, unspecified lymphoma type (H CCode) Positive FRACISCO (antinuclear ant ibody) Rheumatoid factor positive CBC W/AUTO DIFF WITH Lab Routine Lymphoma, unspecifie d Ordered: 01/15/2020 PLATELETS body region, unspecified lymphoma type (H CCode) Positive FRACISCO (antinuclear ant ibody) Rheumatoid factor positive COMPLEMENT C3 AND C4 Lab Routine Lymphoma, unspecifie d Ordered: 01/15/2020 body region, unspecified lymphoma type (H CCode) Positive FRACISCO (antinuclear ant ibody) Rheumatoid factor positive DNA (DS) ANTIBODY, Lab Routine Lymphoma, unspecified Ordered: 01/15/2020 CRITHIDIA IFA W/RX TITER body region, uns pecified lymphoma type (H CCode) Positive FRACISCO (antinuclear ant ibody) Rheumatoid factor positive LUPUS ANTICOAGULANT WITH Lab Routine Lymphoma, unspec ified Ordered: 01/15/2020 REFLEX body region, unspecified lymphoma type (H CCode) Positive FRACISCO (antinuclear ant ibody) Rheumatoid factor positive CARDIOLIPIN ANTIBODIES Lab Routine Lymphoma, unspecif ied Ordered: 01/15/2020 body region, unspecified lymphoma type (H CCode) Positive FRACISCO (antinuclear ant ibody) Rheumatoid factor positive BETA-2 GLYCOPROTEIN Lab Routine Lymphoma, unspecified Ordered: 01/15/2020 ANTIBODIES body region, unspecified lymphoma type (H CCode) Positive FRACISCO (antinuclear ant ibody) Rheumatoid factor positive RHEUMATOID FACTOR Lab Routine Lymphoma, unspecified O rdered: 01/15/2020 body region, unspecified lymphoma type (H CCode) Positive FRACISCO (antinuclear ant ibody) Rheumatoid factor positive [employer] ANTIBODY Lab Routine Lymphoma, unspecified Ordere d: 01/15/2020 body region, unspecified lymphoma type (H CCode) Positive FRACISCO (antinuclear ant ibody) Rheumatoid factor positive SJOGREN'S SS-A AND SS-B Lab Routine Lymphoma, unspeci fied Ordered: 01/15/2020 ANTIBODIES body region, unspecified lymphoma type (H CCode) Positive FRACISCO (antinuclear ant ibody) Rheumatoid factor positive VENTURA (SM) ANTIBODY Lab Routine Lymphoma, unspecified Ordered: 01/15/2020 body region, unspecified lymphoma type (H CCode) Positive FRACISCO (antinuclear ant ibody) Rheumatoid factor positive RANDOM URINE Lab Routine Lymphoma, unspecified Ordere d: 01/15/2020 PROTEIN/CREATININE body region, unspecifi ed lymphoma type (H CCode) Positive FRACISCO (antinuclear ant ibody) Rheumatoid factor positive URINALYSIS, COMPLETE Lab Routine Lymphoma, unspecifie d Ordered: 01/15/2020 W/REFLEX TO CULTURE body region, unspecif ied lymphoma type (H CCode) Positive FRACISCO (antinuclear ant ibody) Rheumatoid factor positive BRAIN NATRIURETIC PEPTIDE Lab Routine Lymphoma, unspe cified Ordered: 01/15/2020 body region, unspecified lymphoma type (H CCode) Positive FRACISCO (antinuclear ant ibody) Rheumatoid factor positive LACTATE DEHYDROGENASE Lab Routine Lymphoma, unspecifi ed Ordered: 01/15/2020 body region, unspecified lymphoma type (H CCode) Positive FRACISCO (antinuclear ant ibody) Rheumatoid factor positive Health Maintenance Due Date Last Done Comments COLON CANCER SCREENING: COLONOSCOPY 1960 TETANUS SHOT (ADULT) 1977 BMI FOLLOW UP PLAN 1980 ZOSTER VACCINE (1 of 2) 2012 HEPATITIS C SCREENING Completed 11/04/2018, 11/04/2018 HIV SCREENING Completed 11/07/2018, 11/07/2018 FLU VACCINE > 6 MONTHS Discontinued documented as of this encounter Results Not on filedocumented in this encounter Visit Diagnoses Diagnosis Lymphoma, unspecified body region, unspe cified lymphoma type (HCCode) - Primary Positive FRACISCO (antinuclear antibody) Other and unspecified nonspecific immuno logical findings Rheumatoid factor positive Other and unspecified nonspecific immuno logical findings Need for influenza vaccination Need for prophylactic vaccination and in oculation against influenza Hypertrophic cardiomegaly Shortness of breath documented in this encounter Insurance Payer Benefit Plan / Subscriber ID Effective Dates Phone Addre ss Type Group [employer] OPEN ACCESS [id number] 2000-Present [address] POS HMO/POS/EPO/PPO [place] [employer] [id number] documented as of this encounter
[2020-02-06] MEDS ORDERED: ALBUTEROL INHALER 60 PUFF/8 GM IH ONE (13:19)
--- NOTE | 2020-02-06 13:38 | RAD REPORT ---
EXAM DESCRIPTION: RAD - Chest Single View - 02/06/2020 1:25 pm CLINICAL HISTORY: COUGH Chest pain. COMPARISON: Chest Single View dated 01/25/2019; Chest Single View dated 01/24/2019; Chest Single Vie w dated 12/26/2018; Chest Single View dated 11/03/2018 FINDINGS: Portable technique limits examination quality. Mild interstitial prominence is seen. The heart is moderately enlarged in size. No displaced fracture s. IMPRESSION: Mild interstitial pneumonia versus interstitial pneumonitis.
[2020-02-06 13:48] LABS: Absolute Lymphocytes (CBC) 0.3 K/uL (0.7-4.9); Basophils % 0.7 % (0-1.3); Hematocrit 45.9 % (39.6-49.0); Lymphocytes % 11.3 % (15.3-44.8); MPV 9.3 fL (7.6-11.3); RBC Red Blood Cell Count 5.08 M/uL (4.33-5.43)
[2020-02-06 14:01] LABS: Protime INR 1.1
[2020-02-06 14:20] LABS: Bilirubin Direct 0.2 mg/dL (0-0.2); Bilirubin Total 0.8 mg/dL (0.2-1.0); Magnesium 2.4 mg/dL (1.8-2.4); Potassium 3.6 mmol/L (3.5-5.1); Protein, Total 7.6 g/dL (6.4-8.2); Troponin (Emerg Dept Use Only) 0.05 ng/mL (0.0-0.045)
--- NOTE | 2020-02-06 15:40 | RAD REPORT ---
EXAM DESCRIPTION: CT - Chest For Pe Angio - 02/06/2020 3:30 pm CLINICAL HISTORY: Chest pain. COUGH COMPARISON: Thorax Wo Con dated 01/24/2019; Chest Abdomen Pelvis W Cont dated 11/12/2019; Chest Singl e View dated 02/06/2020 TECHNIQUE: CT angiogram of the pulmonary arteries was performed with MIP. All CT scans are performed using dose optimization technique as appropriate and may include automated exposure control or mA/KV adjustment according to patient size. FINDINGS: No evidence of pulmonary thromboembolism. No acute aortic finding demonstrated. Moderate bilateral interstitial and alveolar lung opacities are noted likely representing interstitia l pneumonia or pulmonary edema. No significant pericardial or pleural fluid. No concerning bony finding. Mild splenomegaly. IMPRESSION: No evidence of pulmonary thromboembolism. Moderate bilateral interstitial and alveolar lung opacities are present representing interstitial pne umonia or edema.
--- NOTE | 2020-02-06 15:59 | EDPHYS ---
Physician Documentation [facility] Name: Urban Cronin Age: 59 yrs Sex: Male : 1960 Arrival Date: 02/06/2020 Time: 11:44 Bed 16 Private MD: ED Physician Chai Kent HPI: 02/05 12:20 This 59 yrs old Male presents to ER via Ambulatory with complaints of Cough, cp Shortness Of Breath. 12:20 The patient or guardian reports cough, with productive sputum, that is purulent, cp hemoptysis, difficulty breathing. 12:20 Onset: The symptoms/episode began/occurred 4 day(s) ago. Severity of symptoms: in the emergency department the symptoms are unchanged, despite home interventions. Associated signs and symptoms: Pertinent positives: fever, Pertinent negatives: chest pain, diarrhea, vomiting. Patient reports that friend recently tested positive for Coronavirus. Historical: - Allergies: 12:03 No Known Allergies; jd3 - PMHx: 12:03 CVA; Gout; Hyperlipidemia; Hypertension; Small B cell lymphoma; Spleenomegaly; jd3 - Immunization history:: Adult Immunizations up to date. - Social history:: Smoking status: Patient denies any tobacco usage or history of. ROS: 12:30 Constitutional: Negative for body aches, chills, fever, poor PO intake. cp 12:30 Eyes: Negative for injury, pain, redness, and discharge. cp 12:30 ENT: Negative for drainage from ear(s), ear pain, sore throat, difficulty swallowing, difficulty handling secretions. 12:30 Neck: Negative for pain with movement, pain at rest, stiffness. 12:30 Cardiovascular: Negative for chest pain, edema, palpitations. 12:30 Respiratory: Positive for cough, "sounds productive", hemoptysis, shortness of breath, at rest. 12:30 Abdomen/GI: Negative for abdominal pain, vomiting, diarrhea, constipation. 12:30 Back: Negative for pain at rest, pain with movement. Exam: 12:35 Head/Face: Normocephalic, atraumatic. cp 12:35 Constitutional: The patient appears in no acute distress, alert, awake, non-diaphoretic, non-toxic, well developed, well nourished. 12:35 Eyes: Periorbital structures: appear normal, Conjunctiva: normal, no exudate, no injection, Sclera: no appreciated abnormality, Lids and lashes: appear normal, bilaterally. 12:35 ENT: External ear(s): are unremarkable, Ear canal(s): are normal, clear, TM's: dullness, bilaterally, Nose: is normal, Mouth: Lips: moist, Oral mucosa: moist, Posterior pharynx: Airway: no evidence of obstruction, patent. 12:35 Neck: ROM/movement: Meningeal signs: are not present, nuchal rigidity, is not appreciated. 12:35 Chest/axilla: Inspection: normal, Palpation: is normal, no crepitus, no tenderness. 12:35 Cardiovascular: Rate: normal, Rhythm: regular, Edema: is not appreciated, JVD: is not appreciated. 12:35 Respiratory: the patient does not display signs of respiratory distress, Respirations: labored breathing, that is mild, intercostal retractions, are absent, tachypnea, is not appreciated, Breath sounds: bronchial sounds, that are mild, are heard diffusely, stridor, is not appreciated, wheezing: is not appreciated. 12:35 Abdomen/GI: Exam negative for discomfort, distension, guarding, Inspection: abdomen appears normal. 12:35 Back: pain, is absent. 12:35 Neuro: Orientation: to person, place \\T\\ time. Mentation: is normal, Motor: moves all fours, strength is normal. 13:05 ECG was reviewed by the Attending Physician. cp Vital Signs: 11:57 BP 130 / 70; Pulse 98; Resp 20 S; Temp 99.8(O); Pulse Ox 92% on R/A; Weight 95.25 kg jd3 (R); Height 5 ft. 8 in. (172.72 cm) (R); Pain 2/10; 13:02 BP 134 / 89; Pulse 85; Resp 16 S; Pulse Ox 97% on 2 lpm NC; ca1 14:05 BP 113 / 58; Pulse 85; Resp 22 S; Pulse Ox 99% on 2 lpm NC; ca1 15:00 BP 115 / 69; Pulse 85; Resp 22; Pulse Ox 98% on 2 lpm NC; ca1 16:00 BP 111 / 75; Pulse 82; Resp 21 S; Pulse Ox 98% on 2 lpm NC; ca1 17:00 BP 126 / 76; Pulse 87; Resp 22 S; Pulse Ox 99% on 2 lpm NC; ca1 17:44 BP 122 / 98; Pulse 85; Resp 22 S; Pulse Ox 99% on 2 lpm NC; ca1 11:57 Body Mass Index 31.93 (95.25 kg, 172.72 cm) jd3 MDM: 12:16 Patient medically screened. cp 13:00 Differential Diagnosis: Bronchitis Influenza Pneumonia Other pulmonary embolism, cp pulmonary edema. 15:55 Physician consultation: Mauri Levin MD was contacted at 15:55, regarding admission, cp to the telemetry unit. patient's condition. 16:15 Data reviewed: vital signs, nurses notes, lab test result(s), EKG, radiologic studies, cp plain films. 16:15 Test interpretation: by ED physician or midlevel provider: ECG. Response to treatment: cp the patient's symptoms have mildly improved after treatment, and as a result, I will admit patient. 02/05 12:17 Order name: Basic Metabolic Panel; Complete Time: 14:45 cp 02/05 12:17 Order name: CBC with Diff; Complete Time: 14:45 cp 02/05 12:17 Order name: LFT's; Complete Time: 14:45 cp 02/05 12:17 Order name: Magnesium; Complete Time: 14:45 cp 02/05 12:17 Order name: NT PRO-BNP; Complete Time: 14:45 cp 02/05 12:17 Order name: PT-INR; Complete Time: 14:45 cp 02/05 12:17 Order name: Troponin (emerg Dept Use Only); Complete Time: 14:45 cp 02/05 12:17 Order name: Ptt, Activated; Complete Time: 14:45 cp 02/05 12:17 Order name: Procalcitonin; Complete Time: 15:02 cp 02/05 15:02 Interpretation: Reviewed. cp 02/05 12:17 Order name: Lactate; Complete Time: 15:02 cp 02/05 12:17 Order name: Blood Culture Adult (2) cp 02/05 12:17 Order name: Influenza Screen (a \\T\\ B); Complete Time: 14:45 cp 02/05 12:17 Order name: D-Dimer; Complete Time: 14:45 cp 02/05 16:52 Order name: SARS-COV-2 RT PCR EDID 02/05 16:55 Order name: CBC with Automated Diff EDMS 02/05 16:55 Order name: CBC with Automated Diff EDMS 02/05 16:55 Order name: Comprehensive Metabolic Panel EDMS 02/05 16:55 Order name: Comprehensive Metabolic Panel EDMS 02/05 16:55 Order name: Lactate EDMS 02/05 16:55 Order name: Lactate EDMS 02/05 16:55 Order name: Lipid Profile EDMS 02/05 16:55 Order name: Lipid Profile EDMS 02/05 16:55 Order name: Magnesium EDMS 02/05 16:55 Order name: Magnesium EDMS 02/05 16:55 Order name: NT PRO-BNP EDMS 02/05 16:55 Order name: NT PRO-BNP EDMS 02/05 16:55 Order name: Phosphorus EDMS 02/05 16:55 Order name: Phosphorus EDMS 02/05 16:55 Order name: Protime (+INR) EDMS 02/05 12:17 Order name: XRAY Chest (1 view); Complete Time: 14:45 cp 02/05 12:17 Order name: EKG; Complete Time: 12:19 cp 02/05 12:17 Order name: Cardiac monitoring; Complete Time: 13:14 cp 02/05 12:17 Order name: EKG - Nurse/Tech; Complete Time: 13:14 cp 02/05 12:17 Order name: IV Saline Lock; Complete Time: 13:14 cp 02/05 12:17 Order name: Labs collected and sent; Complete Time: 13:14 cp 02/05 12:17 Order name: O2 Per Protocol; Complete Time: 13:14 cp 02/05 12:17 Order name: O2 Sat Monitoring; Complete Time: 13:14 cp 02/05 13:57 Order name: Labs - recollect needed: recollect lactate; Complete Time: 14:12 bd 02/05 14:46 Order name: CT Chest For PE Angio; Complete Time: 16:11 cp 02/05 16:55 Order name: CONS Physician Consult EDMS 02/05 16:55 Order name: Heart Healthy EDMS 02/05 16:55 Order name: Protime (+INR) EDMS 02/05 16:55 Order name: PTT, Activated Partial Thromb EDMS 02/05 16:55 Order name: PTT, Activated Partial Thromb EDMS 02/05 16:55 Order name: Troponin I EDMS 02/05 16:55 Order name: Troponin I EDID 02/05 16:55 Order name: Troponin I EDID 02/05 16:58 Order name: C-Reactive Protein EDMS 02/05 16:58 Order name: D-Dimer EDMS 02/05 16:58 Order name: Ferritin EDMS 02/05 16:58 Order name: Lactate EDMS 02/05 16:58 Order name: Lactic Dehydrogenase EDMS 02/05 16:58 Order name: Procalcitonin EDID EC:05 Rate is 86 beats/min. Rhythm is regular. NE interval is normal. QRS interval is cp prolonged at 152 msec. QT interval is normal. T waves are Inverted in leads I, aVL, V2, V3, V4. Interpreted by me. Reviewed by me. Administered Medications: 13:14 Drug: Albuterol HFA Inhaler 2 puffs Route: Inhalation; ca1 16:23 Drug: Rocephin - (cefTRIAXone) 1 grams Route: IVPB; Infused Over: 30 mins; Site: left ca1 antecubital; 17:00 Follow up: Response: No adverse reaction; IV Status: Completed infusion ca1 16:54 Drug: Zithromax 500 mg Route: IVPB; Infused Over: 1 hrs; Site: left antecubital; ca1 18:00 Follow up: Response: No adverse reaction; IV Status: Completed infusion; IV Intake: ca1 250ml 16:59 Drug: Decadron - Dexamethasone 6 mg Route: IVP; Site: left antecubital; ca1 Disposition: 18:15 Co-signature as Attending Physician, Chai Kent MD. rn Disposition: 02/06/20 15:59 Hospitalization ordered by Mauri Levin for Inpatient Admission. Preliminary diagnosis are Pneumonia due to other specified infectious organisms, Hypoxemia, Coronavirus infection, unspecified. - Bed requested for Intensive Care Unit. - Status is Inpatient Admission. ca1 - Condition is Stable. - Problem is new. - Symptoms have improved. Signatures: Dispatcher [employer] EDMS Elba Mesa Roman, MD MD rn Page, Corey, PA PA cp Davies, Jonathon, RN RN jd3 Albania Singh RN RN ca1 Corrections: (The following items were deleted from the chart) 15:57 12:18 CORONAVIRUS+MR.LAB.BRZ ordered. EDMS EDMS 16:51 15:59 Hospitalization Ordered by Mauri Levin MD for Inpatient Admission. Preliminary cp diagnosis is Pneumonia due to other specified infectious organisms; Hypoxemia. Bed requested for Telemetry/MedSurg (Inpatient). Status is Inpatient Admission. Condition is Stable. Problem is new. Symptoms have improved. cp 17:06 16:51 02/06/2020 15:59 Hospitalization Ordered by Mauri Levin MD for Inpatient bd Admission. Preliminary diagnosis is Pneumonia due to other specified infectious organisms; Hypoxemia; Coronavirus infection, unspecified. Bed requested for Telemetry/MedSurg (Inpatient). Status is Inpatient Admission. Condition is Stable. Problem is new. Symptoms have improved. cp 18:06 17:06 02/06/2020 15:59 Hospitalization Ordered by Mauri Levin MD for Inpatient ca1 Admission. Preliminary diagnosis is Pneumonia due to other specified infectious organisms; Hypoxemia; Coronavirus infection, unspecified. Bed requested for Intensive Care Unit. Status is Inpatient Admission. Condition is Stable. Problem is new. Symptoms have improved. bd 21:52 02/04 12:35 Constitutional: The patient appears in no acute distress, alert, awake, cp non-diaphoretic, non-toxic, well developed, well nourished, cp 02/05 21:52 02/04 12:35 Head/Face: Normocephalic, atraumatic. cp cp 02/05 21:52 02/04 12:35 Eyes: Periorbital structures: appear normal, Conjunctiva: normal, no cp exudate, no injection, Sclera: no appreciated abnormality, Lids and lashes: appear normal, bilaterally, cp 02/05 21:52 02/04 12:35 ENT: External ear(s): are unremarkable, Ear canal(s): are normal, clear, cp TM's: dullness, bilaterally, Nose: is normal, Mouth: Lips: moist, Oral mucosa: moist, Posterior pharynx: Airway: no evidence of obstruction, patent, cp 02/05 21:52 02/04 12:35 Neck: ROM/movement: Meningeal signs: are not present, nuchal rigidity, is cp not appreciated, cp 02/05 21:52 02/04 12:35 Chest/axilla: Inspection: normal, Palpation: is normal, no crepitus, no cp tenderness, cp 02/05 21:02/04 12:35 Cardiovascular: Rate: normal, Rhythm: regular, Edema: is not appreciated, cp JVD: is not appreciated, cp 02/05 21:52 02/04 12:35 Respiratory: the patient does not display signs of respiratory distress, cp Respirations: labored breathing, that is mild, intercostal retractions, are absent, tachypnea, is not appreciated, Breath sounds: bronchial sounds, that are mild, are heard diffusely, stridor, is not appreciated, wheezing: is not appreciated, cp 02/05 21:52 02/04 12:35 Abdomen/GI: Exam negative for discomfort, distension, guarding, Inspection: cp abdomen appears normal, cp 02/05 21:02/04 12:35 Back: pain, is absent, cp cp 02/05 21:02/04 12:35 Neuro: Orientation: to person, place \\T\\ time. Mentation: is normal, Motor: cp moves all fours, strength is normal, cp
--- NOTE | 2020-02-06 15:59 | ER ---
Nurse's Notes [facility] Name: Urban Cronin Age: 59 yrs Sex: Male : 1960 Arrival Date: 02/06/2020 Time: 11:44 Bed 16 Private MD: Diagnosis: Pneumonia due to other specified infectious organisms;Hypoxemia;Coronavirus infection, unspecified Presentation: 02/05 11:55 Chief complaint: Patient states: "My oxygen level went down and I started coughing up jd3 blood, since Tuesday.". Coronavirus screen: cough unrelated to allergies, difficulty breathing. Ebola Screen: Patient negative for fever greater than or equal to 101.5 degrees Fahrenheit, and additional compatible Ebola Virus Disease symptoms. Initial Sepsis Screen: Does the patient meet any 2 criteria? No. Patient's initial sepsis screen is negative. Does the patient have a suspected source of infection? No. Patient's initial sepsis screen is negative. Risk Assessment: Do you want to hurt yourself or someone else? Patient reports no desire to harm self or others. Onset of symptoms was February 02, 2020. 11:55 Method Of Arrival: Ambulatory jd3 11:55 Acuity: SHIVA 3 jd3 Historical: - Allergies: 12:03 No Known Allergies; jd3 - PMHx: 12:03 CVA; Gout; Hyperlipidemia; Hypertension; Small B cell lymphoma; Spleenomegaly; jd3 - Immunization history:: Adult Immunizations up to date. - Social history:: Smoking status: Patient denies any tobacco usage or history of. Screenin:05 Abuse screen: Denies threats or abuse. Denies injuries from another. Nutritional ca1 screening: No deficits noted. Tuberculosis screening: No symptoms or risk factors identified. Fall Risk IV access (20 points). Assessment: 12:05 General: Appears in no apparent distress. comfortable, Behavior is calm, cooperative, ca1 appropriate for age. Pain: Denies pain. Neuro: Level of Consciousness is awake, alert, obeys commands, Oriented to person, place, time, situation. Cardiovascular: Heart tones S1 S2 present Capillary refill < 3 seconds Patient's skin is warm and dry. Rhythm is sinus rhythm. Respiratory: Reports shortness of breath on exertion cough that is since Tuesday - Tuesday Airway is patent Respiratory effort is even, unlabored, Respiratory pattern is regular, symmetrical, Breath sounds are clear bilaterally. 12:05 GI: Abdomen is round non-distended, Bowel sounds present X 4 quads. Abd is soft and non ca1 tender X 4 quads. : No signs and/or symptoms were reported regarding the genitourinary system. EENT: No signs and/or symptoms were reported regarding the EENT system. Derm: Skin is intact, is healthy with good turgor, Skin is pink, warm \\T\\ dry. Musculoskeletal: Circulation, motion, and sensation intact. Capillary refill < 3 seconds. 13:02 Reassessment: Patient appears in no apparent distress at this time. Patient and/or ca1 family updated on plan of care and expected duration. Pain level reassessed. Patient is alert, oriented x 3, equal unlabored respirations, skin warm/dry/pink. 14:05 Reassessment: Patient appears in no apparent distress at this time. Patient and/or ca1 family updated on plan of care and expected duration. Pain level reassessed. Patient is alert, oriented x 3, equal unlabored respirations, skin warm/dry/pink. 15:00 Reassessment: Patient appears in no apparent distress at this time. Patient and/or ca1 family updated on plan of care and expected duration. Pain level reassessed. Patient is alert, oriented x 3, equal unlabored respirations, skin warm/dry/pink. 16:00 Reassessment: Patient appears in no apparent distress at this time. Patient and/or ca1 family updated on plan of care and expected duration. Pain level reassessed. Patient is alert, oriented x 3, equal unlabored respirations, skin warm/dry/pink. 17:00 Reassessment: Patient appears in no apparent distress at this time. Patient and/or ca1 family updated on plan of care and expected duration. Pain level reassessed. Patient is alert, oriented x 3, equal unlabored respirations, skin warm/dry/pink. 17:42 Reassessment: Patient appears in no apparent distress at this time. Patient is alert, ca1 oriented x 3, equal unlabored respirations, skin warm/dry/pink. Vital Signs: 11:57 BP 130 / 70; Pulse 98; Resp 20 S; Temp 99.8(O); Pulse Ox 92% on R/A; Weight 95.25 kg jd3 (R); Height 5 ft. 8 in. (172.72 cm) (R); Pain 2/10; 13:02 BP 134 / 89; Pulse 85; Resp 16 S; Pulse Ox 97% on 2 lpm NC; ca1 14:05 BP 113 / 58; Pulse 85; Resp 22 S; Pulse Ox 99% on 2 lpm NC; ca1 15:00 BP 115 / 69; Pulse 85; Resp 22; Pulse Ox 98% on 2 lpm NC; ca1 16:00 BP 111 / 75; Pulse 82; Resp 21 S; Pulse Ox 98% on 2 lpm NC; ca1 17:00 BP 126 / 76; Pulse 87; Resp 22 S; Pulse Ox 99% on 2 lpm NC; ca1 17:44 BP 122 / 98; Pulse 85; Resp 22 S; Pulse Ox 99% on 2 lpm NC; ca1 11:57 Body Mass Index 31.93 (95.25 kg, 172.72 cm) jd3 ED Course: 11:44 Patient arrived in ED. ag5 11:56 Triage completed. jd3 11:59 Garret Harris PA is PHCP. cp 11:59 Chai Kent MD is Attending Physician. cp 11:59 Arm band placed on. jd3 12:05 Placed in gown. Side rails up X2. Warm blanket given. ca1 12:09 Albania Singh, RN is Primary Nurse. ca1 12:37 Flu and/or RSV swab sent to lab. Pt swabbed for COVID-19. jp3 12:37 Oxygen administration via nasal cannula \\T\\ 2L/min. jp3 12:45 Initial lab(s) drawn, by ri, sent to lab. First set of blood cultures drawn by me. jp3 Inserted saline lock: 20 gauge in left antecubital area, using aseptic technique. Blood collected. 12:55 pvc monitor on. Pulse ox on. NIBP on. jp3 12:55 Bed in low position. Call light in reach. Side rails up X 1. Verbal reassurance given. jp3 12:55 Second set of blood cultures drawn by me, EKG done, by ED staff, reviewed by Garret VELASCO. 13:23 X-ray(s) taken. jp3 13:25 XRAY Chest (1 view) In Process Unspecified. EDMS 14:26 Notified Nurse Practitioner and/or Physician Senior Systems Programmer of a critical lab result(s), ca1 D-dimer 546. 15:30 CT Chest For PE Angio In Process Unspecified. EDMS 15:58 Mauri Levin MD is Hospitalizing Provider. cp 17:44 No provider procedures requiring assistance completed. Patient admitted, IV remains in ca1 place. Administered Medications: 13:14 Drug: Albuterol HFA Inhaler 2 puffs Route: Inhalation; ca1 16:23 Drug: Rocephin - (cefTRIAXone) 1 grams Route: IVPB; Infused Over: 30 mins; Site: left ca1 antecubital; 17:00 Follow up: Response: No adverse reaction; IV Status: Completed infusion ca1 16:54 Drug: Zithromax 500 mg Route: IVPB; Infused Over: 1 hrs; Site: left antecubital; ca1 18:00 Follow up: Response: No adverse reaction; IV Status: Completed infusion; IV Intake: ca1 250ml 16:59 Drug: Decadron - Dexamethasone 6 mg Route: IVP; Site: left antecubital; ca1 Intake: 18:00 IV: 250ml; Total: 250ml. ca1 Outcome: 15:59 Decision to Hospitalize by Provider. cp 17:44 Admitted to ICU accompanied by tech, via wheelchair, room 8, with chart, Report called ca1 to MARY Serna 17:44 Condition: stable ca1 18:06 Patient left the ED. ca1 Signatures: Dispatcher [employer] EDMS Garret Harris PA PA cp Davies, Jonathon RN RN Jesus Olmstead jp3 Albania Singh RN RN ca1 Mariana Mariscal 5
[2020-02-06] MEDS ORDERED: CEFTRIAXONE/SWI 1gm 1 GM/10 ML SYR ONE (16:32)
[2020-02-06] MEDS ORDERED: ALBUTEROL 2.5 MG/3 ML NEB SOL NEB PRN (16:49)
[2020-02-06] MEDS ORDERED: IPRATROPIUM BROM 0.5MG/2.5ML NEB PRN (16:49)
[2020-02-06] MEDS ORDERED: ONDANSETRON 4 MG/2 ML VIAL IV PRN (16:49)
[2020-02-06] MEDS ORDERED: AZITHROMYCIN IV 500 MG in NA CHLORIDE 0.9% 250 ML IVPB ONE (17:00)
[2020-02-06] MEDS ORDERED: dexAMETHasone 4 MG/ML VIAL ONE (17:10)
[2020-02-06] MEDS: NA CHLORIDE 0.9% 1,000 ML IV SCH (19:04)
[2020-02-06] MEDS: METHYLPREDNISOLONE 40 MG INJ IV SCH ×2 (19:04→23:11)
[2020-02-06] MEDS: ENOXAPARIN 40 MG/0.4 ML SQ SCH (19:52)
[2020-02-06] MEDS ORDERED: CEFTRIAXONE/SWI 1gm 1 GM/10 ML SYR IVP SCH (21:00)
[2020-02-07 05:21] LABS: Absolute Lymphocytes (CBC) 0.3 K/uL (0.7-4.9); Basophils % 0.3 % (0-1.3); Hematocrit 49.3 % (39.6-49.0); Lymphocytes % 20.2 % (15.3-44.8); MPV 9.4 fL (7.6-11.3); RBC Red Blood Cell Count 5.42 M/uL (4.33-5.43)
[2020-02-07 05:28] LABS: Protime INR 1.02
[2020-02-07 05:58] LABS: Albumin 3.6 g/dL (3.4-5.0); Bilirubin Total 0.5 mg/dL (0.2-1.0); Magnesium 2.9 mg/dL (1.8-2.4); Phosphorus 3.6 mg/dL (2.5-4.9); Protein, Total 7.4 g/dL (6.4-8.2); Troponin I 0.04 ng/mL (0.0-0.045)
[2020-02-07] MEDS: METHYLPREDNISOLONE 40 MG INJ IV SCH ×3 (06:14→19:53)
[2020-02-07] MEDS: NA CHLORIDE 0.9% 1,000 ML IV SCH (06:14)
[2020-02-07 06:39] LABS: C-Reactive Protein 55.6 mg/L (<3.00); Ferritin 514.7 ng/mL (26-388)
[2020-02-07 07:15] LABS: Blood Morphology Comment NOT SEEN (NOT SEEN); Platelet Estimate DECR; White Blood Cell Scan OK (OK)
--- NOTE | 2020-02-07 07:34 | EKG ---
Test Date: 2020-02-06 Test Time: 12:58:11 Md Ophthalmologist: CRAIG MEASUREMENT RESULTS: Intervals: Rate: 86 IA: 164 QRSD: 152 QT: 386 QTc: 461 [place]: P: 56 IA: 164 QRS: -13 T: 113 INTERPRETIVE STATEMENTS: Normal sinus rhythm Right bundle branch block T wave abnormality, consider lateral ischemia Abnormal ECG Compared to ECG 01/24/2019 15:40:21 No significant changes Electronically Signed On 02-07-20 07:32:30 PALLIATIVE CARE NURSE PRACTITIONER by Jitendra Valle
[2020-02-07] MEDS: ENOXAPARIN 40 MG/0.4 ML SQ SCH (08:30)
[2020-02-07] MEDS ORDERED: AZITHROMYCIN IV 500 MG in NA CHLORIDE 0.9% 250 ML IVPB SCH (09:00)
[2020-02-07] MEDS ORDERED: CEFTRIAXONE/SWI 1gm 1 GM/10 ML SYR IVP SCH (09:00)
--- NOTE | 2020-02-07 10:04 | P.HP ---
Certification for Inpatient Patient admitted to: Inpatient With expected LOS: >2 Midnights Patient will require the following post-hospital care: None Practitioner: I am a practitioner with admitting privileges, knowledge of patient current condition, hospital course, and medical plan of care. Services: Services provided to patient in accordance with Admission requirements found in Title 42 Section 412.3 of the Code of Federal Regulations Patient History Date of Service: 02/06/20 Reason for admission: COVID-19 pneumonia History of Present Illness: Patient is a 59-year-old gentleman who came to the hospital with shortness of breath. Patient was having fever along with cough and congestion. Patient has a history of lymphoma. Patient came into the emergency room for further evaluation. In emergency room, patient had a chest x-ray which revealed moderate bilateral interstitial and alveolar lung opacities indicative of interstitial pneumonia or edema. Patient's procalcitonin was negative. Inflammatory markers are pending. At this time, will admit the patient to the COVID-19 ICU. Continue with nebs, steroids, and antibiotics. Allergies No Known Allergies Allergy (Verified 01/24/19 21:41) Home Medications: NK [No Home Meds] 02/06/20 - Past Medical/Surgical History Diabetic: No -: HTN -: hyperlipidemia -: CVA -: Gout -: [place] -: CHF -: small b cell lymphoma -: spleenomegaly Past Surgical History: Reviewed- Non-Contributory - Family History Father Medical History: Heart disease Brother Medical History: Hypertension, Diabetes Mother Medical History: Cancer - Social History Smoking Status: Never smoker Alcohol use: No CD- Drugs: No Caffeine use: Yes Place of Residence: Home Review of Systems 10-point ROS is otherwise unremarkable Physical Examination - Vital Signs Temperature: 97.4 F Blood Pressure: 112/81 Pulse: 68 Respirations: 25 Pulse Ox (%): 90 - Physical Exam General: Alert, In no apparent distress, Oriented x3 HEENT: Atraumatic, PERRLA, Mucous membr. moist/pink, EOMI, Sclerae nonicteric Neck: Supple, 2+ carotid pulse no bruit, No LAD, Without JVD or thyroid abnormality Respiratory: Diminished, Expiratory wheezes Cardiovascular: Regular rate/rhythm, Normal S1 S2, No murmurs Gastrointestinal: Normal bowel sounds, Soft and benign, Non-distended, No tenderness Musculoskeletal: No clubbing, No swelling, No tenderness Integumentary: No rashes Neurological: Normal gait, Normal speech, Normal strength at 5/5 x4 extr, Normal tone, Normal affect Lymphatics: No axilla or inguinal lymphadenopathy - Studies Laboratory Data (last 24 hrs) 02/06/20 12:45: PT 12.9 H, INR 1.10, APTT 28.4 02/06/20 12:45: WBC 3.0 L, Hgb 16.2, Hct 45.9, Plt Count 103 L 02/06/20 12:45: Sodium 136, Potassium 3.6, BUN 12, Creatinine 1.12, Glucose 114 H, Magnesium 2.4, Total Bilirubin 0.8, AST 38 H, ALT 41, Alkaline Phosphatase 63 Microbiology Data (last 24 hrs): 02/06/20 12:37 Nasopharnyx Influenza Type A Antigen Screen - Final 02/06/20 12:37 Nasopharnyx Influenza Type B Antigen Screen - Final Assessment & Plan - Problems (Diagnosis) (1) Pneumonia due to COVID-19 virus Current Visit: Yes Status: Acute (2) B-cell lymphoma Current Visit: No Status: Acute (3) Congestive heart failure, acute Current Visit: No Status: Acute (4) Hypoxemia Current Visit: No Status: Acute (5) Status post chemotherapy Current Visit: No Status: Acute - Plan 1. Continue with IV antibiotics 2. COVID-19 pneumonia testing was positive 3. Repeat chest x-ray is symptoms are progressively worsening 4. O2 per protocol 5. Pulmonary consultation 6. Continue with albuterol inhaler therapy; IV steroids; zinc and vitamin-C 7. Would probably consider Remdesivir as pt has a history of lymphoma 8. Monitor LFTs 9. Repeat labs including D-dimer, ferritin, and CRP and LFTs 10. GI and DVT prophylaxis Discharge Plan: Home Plan to discharge in: Greater than 2 days - Advance Directives Does patient have a Living Will: No Does patient have a Durable POA for Healthcare: No - Code Status/Comfort Care Code Status Assessed: Yes Code Status: Full Code Critical Care: No Time Spent Managing PTS Care (In Minutes): 45
--- NOTE | 2020-02-07 12:36 | P.CNS ---
Date of Consult: 02/07/20 Chief Complaint: COVID-19 pneumonia History of Present Illness: Patient is 59 years of age with a history of lymphoma he has tested positive for rodríguez virus bilateral infiltrates consistent with pneumonia he has been sick for about a week has had progressive cough shortness of breath started on Tuesday also had some fever some hemoptysis and appeared in the hospital he looks fine right now apart from hemoptysis no new complaint Allergies No Known Allergies Allergy (Verified 01/24/19 21:41) Home Medications: NK [No Home Meds] 02/06/20 - Past Medical/Surgical History Diabetic: No -: HTN -: hyperlipidemia -: CVA -: Gout -: AR -: CHF -: small b cell lymphoma -: spleenomegaly - Family History Father Medical History: Heart disease Brother Medical History: Hypertension, Diabetes Mother Medical History: Cancer - Social History Alcohol use: No CD- Drugs: No Caffeine use: Yes Place of Residence: Home Review of Systems 10-point ROS is otherwise unremarkable General: Weakness Respiratory: Cough, Shortness of Breath Physical Examination Temp Pulse Resp BP Pulse Ox 97.4 F 68 25 H 112/81 90 L 02/07/20 10:04 02/07/20 10:04 02/07/20 10:04 02/07/20 10:04 02/07/20 10:04 General: Alert, In no apparent distress, Cooperative Respiratory: Clear to auscultation bilaterally Cardiovascular: No edema, Normal S1 S2 Gastrointestinal: Normal bowel sounds, Soft and benign Laboratory Data (last 24 hrs) 02/06/20 12:45: PT 12.9 H, INR 1.10, APTT 28.4 02/06/20 12:45: WBC 3.0 L, Hgb 16.2, Hct 45.9, Plt Count 103 L 02/06/20 12:45: Sodium 136, Potassium 3.6, BUN 12, Creatinine 1.12, Glucose 114 H, Magnesium 2.4, Total Bilirubin 0.8, AST 38 H, ALT 41, Alkaline Phosphatase 63 - Problems (1) Pneumonia due to COVID-19 virus Current Visit: Yes Status: Acute Plan: Patient is 59 years of age admitted with 1 week history of shortness of breath cough have been having some fever at home chest x-ray shows bilateral infiltrates consistent with and a virus pneumonia of ordered sputum cultures change to b.i.d. of Solu-Medrol change to p.o. levofloxacin final signs otherwise stable plan to discharge home on prednisone 20 b.i.d. for a week then 10 b.i.d. follow with me telephone visit in a week evaluate for home O2 patient is neutropenic with mild thrombocytopenia consider low-dose apixaban or possibly low-dose outpatient Lovenox possible discharge a.m.
[2020-02-08] MEDS: ACETAMINOPHEN 500 MG TAB PO PRN ×5 (03:51→18:14)
[2020-02-08] MEDS ORDERED: NA CHLORIDE 0.9% 500 ML ONE (04:55)
[2020-02-08 05:54] LABS: Absolute Lymphocytes (CBC) 0.2 K/uL (0.7-4.9); Basophils % 0.1 % (0-1.3); Lymphocytes % 3.2 % (15.3-44.8); RBC Red Blood Cell Count 5.12 M/uL (4.33-5.43)
[2020-02-08 06:00] LABS: C-Reactive Protein 23.5 mg/L (<3.00); Ferritin 755.4 ng/mL (26-388); Potassium 3.9 mmol/L (3.5-5.1)
[2020-02-08] MEDS: NA CHLORIDE 0.9% 1,000 ML IV SCH (06:22)
--- NOTE | 2020-02-08 08:50 | P.PN ---
Subjective Date of Service: 02/07/20 Patient appears to have declined somewhat more today. He appears more tachypneic and anxious. Patient denies any other complaints. He is hypoxic on getting out of bed into the chair. He dropped into the 80s even on 3 L of oxygen. Patient's O2 sats increased at rest. Leukopenia as well. Continue with IV steroids. Considering the severe. Appreciate pulmonary recommendations. Review of Systems 10-point ROS is otherwise unremarkable Physical Examination - Vital Signs Temperature: 99.4 F Blood Pressure: 90/62 Pulse: 95 Respirations: 35 Pulse Ox (%): 93 - Physical Exam General: Alert, In no apparent distress, Oriented x3 Respiratory: Diminished, Expiratory wheezes Cardiovascular: Regular rate/rhythm, Normal S1 S2, No murmurs Gastrointestinal: Normal bowel sounds, Soft and benign, Non-distended, No tenderness Musculoskeletal: No clubbing, No swelling, No tenderness Neurological: Sensation intact, Cranial nerves 3-12 intact - Studies Medications List Reviewed: Yes Assessment & Plan - Problems (Diagnosis) (1) Pneumonia due to COVID-19 virus Current Visit: Yes Status: Acute (2) B-cell lymphoma Current Visit: No Status: Acute (3) Congestive heart failure, acute Current Visit: No Status: Acute (4) Hypoxemia Current Visit: No Status: Acute (5) Status post chemotherapy Current Visit: No Status: Acute - Plan Continue with POC as mentioned below: 1. Continue with IV antibiotics and IV steroids 2. Repeat chest x-ray is symptoms are progressively worsening 3. O2 per protocol 4. Pulmonary consultation appreciated 5. Continue with albuterol inhaler therapy; IV steroids; zinc and vitamin-C 6. Would probably consider Remdesivir as pt has a history of lymphoma 7. Monitor LFTs 8. Repeat labs including D-dimer, ferritin, and CRP and LFTs 9. GI and DVT prophylaxis Discharge Plan: Home Plan to discharge in: Greater than 2 days - Advance Directives Does patient have a Living Will: No Does patient have a Durable POA for Healthcare: No - Code Status/Comfort Care Code Status: Full Code Critical Care: No Time Spent Managing PTS Care (In Minutes): 35
[2020-02-08] MEDS ORDERED: POTASSIUM CL SA 10 MEQ TAB PO ONE (09:00)
[2020-02-08] MEDS: METHYLPREDNISOLONE 40 MG INJ IV SCH ×3 (09:06→23:13)
[2020-02-08] MEDS: ENOXAPARIN 40 MG/0.4 ML SQ SCH (09:07)
[2020-02-08] MEDS: levoFLOXacin 500 MG TAB PO SCH (09:07)
[2020-02-08 09:42] LABS: Anisocytosis 1+; Blood Morphology Comment NOTED (NOT SEEN); Platelet Estimate DECR
--- NOTE | 2020-02-08 10:45 | P.PN ---
Subjective Date of Service: 02/08/20 Chief Complaint: COVID-19 pneumonia Patient's condition is stable still having some fever minimal hemoptysis Review of Systems General: Weakness Respiratory: Shortness of Breath Physical Examination - Vital Signs Temperature: 101.3 F Blood Pressure: 90/62 Pulse: 95 Respirations: 35 Pulse Ox (%): 93 - Studies Medications List Reviewed: Yes Assessment & Plan - Problems (Diagnosis) (1) Pneumonia due to COVID-19 virus Current Visit: Yes Status: Acute Plan: Patient admitted with pneumonia due to coronal virus condition stable febrile chemistries reviewed very mild thrombocytopenia cultures all negative patient is still requiring up to 5 L on nasal cannula oxygen continue with IV steroids will check with pharmacy if he qualifies for remdesmir C-reactive protein is less than 50 evaluate for home O2 possible discharge by tomorrow if stable
[2020-02-08] MEDS ORDERED: Remdesivir 200 MG in NA CHLORIDE 0.9% 250 ML IV ONE (12:00)
[2020-02-08] MEDS ORDERED: GUAIFENESIN/CODEINE 5ML UCUP PO PRN (18:45)
[2020-02-08] MEDS ORDERED: TEMAZEPAM 15 MG CAP PO PRN (18:45)
[2020-02-08] MEDS: ACETAMINOPHEN 325 MG TABLET PO SCH (19:00)
[2020-02-09] MEDS: ACETAMINOPHEN 325 MG TABLET PO SCH ×2 (00:20→06:25)
[2020-02-09] MEDS: NA CHLORIDE 0.9% 1,000 ML IV SCH (01:34)
[2020-02-09] MEDS: GUAIFENESIN/CODEINE 5ML UCUP PO PRN ×3 (03:29→21:31)
[2020-02-09 04:55] LABS: Absolute Lymphocytes (CBC) 0.1 K/uL (0.7-4.9); Basophils % 0.1 % (0-1.3); Hematocrit 44.5 % (39.6-49.0); Lymphocytes % 2.2 % (15.3-44.8); MPV 9.2 fL (7.6-11.3); RBC Red Blood Cell Count 4.89 M/uL (4.33-5.43)
[2020-02-09 05:04] LABS: Albumin 3.2 g/dL (3.4-5.0); Bilirubin Direct 0.3 mg/dL (0-0.2); Potassium 4.7 mmol/L (3.5-5.1); Protein, Total 6.6 g/dL (6.4-8.2)
[2020-02-09] MEDS: METHYLPREDNISOLONE 40 MG INJ IV SCH (05:04)
[2020-02-09 05:52] LABS: Ferritin 4323.3 ng/mL (26-388); Magnesium 2.7 mg/dL (1.8-2.4); Phosphorus 3.5 mg/dL (2.5-4.9)
--- NOTE | 2020-02-09 09:28 | P.PN ---
Subjective Date of Service: 02/09/20 Chief Complaint: Respiratory failure Patient is getting slightly worse is getting more hypoxic his more dyspneic still having hemoptysis gently feeling weak eyes are 90% oxygen Review of Systems General: Weakness Respiratory: Shortness of Breath Physical Examination - Vital Signs Temperature: 96.8 F Blood Pressure: 110/65 Pulse: 76 Respirations: 33 Pulse Ox (%): 87 - Physical Exam General: Alert, Moderate distress Respiratory: Crackles/rales Cardiovascular: Regular rate/rhythm - Studies Medications List Reviewed: Yes Assessment & Plan - Problems (Diagnosis) (1) Pneumonia due to COVID-19 virus Current Visit: Yes Status: Acute Plan: Progressive worsening of patient's condition he still continues to have hemoptysis high risk for bronchoscopy sputum cultures are negative CBC unremark able (2) Respiratory failure Current Visit: Yes Status: Acute Plan: Patient's condition has worsened scheduled to get Remdesmir. ALT mildly elevated continue with high-dose steroids CRP is also elevated change to BiPAP alternating with high-flow Qualifiers: Chronicity: acute
[2020-02-09] MEDS: ENOXAPARIN 40 MG/0.4 ML SQ SCH (09:45)
[2020-02-09] MEDS: levoFLOXacin 500 MG TAB PO SCH (09:46)
[2020-02-09] MEDS: VITAMIN D 1000 UNIT TAB PO SCH (09:46)
[2020-02-09] MEDS: THIAMINE HCL 100 MG TABLET PO SCH (09:46)
[2020-02-09] MEDS: ATORVASTATIN 40 MG TAB PO SCH ×2 (09:47→20:50)
[2020-02-09] MEDS: Remdesivir 100 MG in NA CHLORIDE 0.9% 250 ML IV SCH (11:30)
--- NOTE | 2020-02-09 12:18 | RAD REPORT ---
EXAM DESCRIPTION: Yary Single View02/09/2020 11:54 am CLINICAL HISTORY: Chest pain COMPARISON: February 06, 2020 FINDINGS: Bilateral alveolar opacities have worsened. The heart is enlarged IMPRESSION: Worsening in the moderate bilateral pneumonia
--- NOTE | 2020-02-09 16:06 | P.PN ---
Subjective Date of Service: 02/08/20 Patient's symptoms seemed to worsen whenever his temperature goes up. I am going to schedule his Tylenol. He is continuing to get his Remdisivir. He is on high-flow oxygen as well. He is having quite a bit of anxiety and will go ahead and prescribe him an anxiolytic. Physical Examination - Vital Signs Temperature: 97.7 F Blood Pressure: 128/64 Pulse: 84 Respirations: 32 Pulse Ox (%): 87 - Studies Medications List Reviewed: Yes Assessment & Plan - Problems (Diagnosis) (1) Pneumonia due to COVID-19 virus Current Visit: Yes Status: Acute (2) B-cell lymphoma Current Visit: No Status: Acute (3) Congestive heart failure, acute Current Visit: No Status: Acute (4) Hypoxemia Current Visit: No Status: Acute (5) Status post chemotherapy Current Visit: No Status: Acute - Plan Continue with POC as mentioned below: 1. Continue with IV antibiotics and IV steroids 2. Repeat chest x-ray as symptoms are progressively worsening 3. Continue with high-flow oxygen 4. Pulmonary consultation appreciated 5. Continue with nebulizer therapy along with vitamins 6. Continue Remdesivir 7. Monitor LFTs 8. Monitor inflammatory markers 9. GI and DVT prophylaxis Discharge Plan: Home Plan to discharge in: Greater than 2 days - Advance Directives Does patient have a Living Will: No Does patient have a Durable POA for Healthcare: No - Code Status/Comfort Care Code Status: Full Code Critical Care: No Time Spent Managing PTS Care (In Minutes): 35
[2020-02-09] MEDS ORDERED: ALPRAZOLAM 0.25 MG TABLET PO PRN (17:14)
[2020-02-09] MEDS: ACETAMINOPHEN 500 MG TAB PO PRN (17:29)
[2020-02-09] MEDS: MELATONIN 3 MG TABLET PO SCH (20:50)
[2020-02-09] MEDS ORDERED: METHYLPREDNISOLONE 40 MG INJ IV SCH (21:00)
[2020-02-10] MEDS ORDERED: LORazepam 2 MG/ML VIAL IV STA (00:10)
[2020-02-10] MEDS ORDERED: LORazepam 2 MG/ML VIAL ONE ×2 (00:26→02:22)
[2020-02-10] MEDS ORDERED: MORPHINE 4 MG/ML SYR IV ONE (01:00)
[2020-02-10] MEDS ORDERED: MORPHINE 4 MG/ML SYR ONE ×2 (01:15→06:51)
[2020-02-10] MEDS ORDERED: LORazepam 2 MG/ML VIAL IV ONE (02:09)
[2020-02-10 06:11] LABS: Absolute Lymphocytes (CBC) 0.2 K/uL (0.7-4.9); Basophils % 0.1 % (0-1.3); Hematocrit 42.5 % (39.6-49.0); Lymphocytes % 2.6 % (15.3-44.8); MPV 9.1 fL (7.6-11.3); RBC Red Blood Cell Count 4.68 M/uL (4.33-5.43)
[2020-02-10 06:30] LABS: Albumin 3.1 g/dL (3.4-5.0); Bilirubin Direct 0.3 mg/dL (0-0.2); Bilirubin Total 1.2 mg/dL (0.2-1.0); Magnesium 2.7 mg/dL (1.8-2.4); Phosphorus 2.3 mg/dL (2.5-4.9); Potassium 4.2 mmol/L (3.5-5.1)
[2020-02-10] MEDS ORDERED: MORPHINE 4 MG/ML SYR IV STA (06:46)
[2020-02-10] MEDS: Remdesivir 100 MG in NA CHLORIDE 0.9% 250 ML IV SCH (08:52)
[2020-02-10] MEDS: ENOXAPARIN 40 MG/0.4 ML SQ SCH (08:52)
[2020-02-10] MEDS: levoFLOXacin 500 MG TAB PO SCH (09:00)
[2020-02-10] MEDS ORDERED: CEFTRIAXONE 1 GM/NS 50 ML 1 GM/50 ML BAG IV SCH (09:00)
[2020-02-10] MEDS: THIAMINE HCL 100 MG TABLET PO SCH (09:00)
[2020-02-10] MEDS: VITAMIN D 1000 UNIT TAB PO SCH (09:00)
--- NOTE | 2020-02-10 09:58 | P.PN ---
Subjective Date of Service: 02/09/20 Chief Complaint: Respiratory failure Patient is feeling a little bit better today. However he remains hypoxic. She remains on high-flow oxygen and 90%. He does desat whenever he moves around. His chest x-ray findings show progressive pneumonia. He has been on Remdesivir for 3 days now. No significant improvement noted. Have spoken to the patient today and he is able to interact better. He said he has been keeping his family up-to-date. I did ask him if he wanted me to touch base with the family but he stated that he would continue talking with him. His clinical condition does not really show any significant improvement. Review of Systems 10-point ROS is otherwise unremarkable Physical Examination - Vital Signs Temperature: 98.7 F Blood Pressure: 91/61 Pulse: 102 Respirations: 46 Pulse Ox (%): 85 - Physical Exam General: Alert, In no apparent distress, Oriented x3 Respiratory: Diminished, Other (Persistent coughing on deep inspiration) Cardiovascular: Regular rate/rhythm, Normal S1 S2 Gastrointestinal: Normal bowel sounds, Soft and benign, Non-distended, No tenderness Musculoskeletal: No clubbing, No swelling, No tenderness Integumentary: No rashes Neurological: Sensation intact, Cranial nerves 3-12 intact - Studies Medications List Reviewed: Yes Assessment & Plan - Problems (Diagnosis) (1) Pneumonia due to COVID-19 virus Current Visit: Yes Status: Acute (2) B-cell lymphoma Current Visit: No Status: Acute (3) Congestive heart failure, acute Current Visit: No Status: Acute (4) Hypoxemia Current Visit: No Status: Acute (5) Status post chemotherapy Current Visit: No Status: Acute (6) ARDS (adult respiratory distress syndrome) Current Visit: No Status: Acute - Plan Continue with POC as mentioned below: 1. Continue with IV antibiotics and IV steroids 2. Repeat chest x-ray worsening infiltrates diffusely 3. O2 per protocol; currently on high-flow oxygen 4. Pulmonary consultation appreciated 5. Continue with nebulizer therapy 6. Day 3 of Remdesivir 7. Monitor labs closely 8. GI and DVT prophylaxis Discharge Plan: Home Plan to discharge in: Greater than 2 days - Advance Directives Does patient have a Living Will: No Does patient have a Durable POA for Healthcare: No - Code Status/Comfort Care Code Status: Full Code Critical Care: Yes Time Spent Managing PTS Care (In Minutes): 31
[2020-02-10] MEDS ORDERED: ENOXAPARIN 60 MG/0.6 ML SQ ONE (10:00)
[2020-02-10] MEDS ORDERED: FUROSEMIDE 20 MG/ 2ML VIAL IV ONE ×2 (10:05→18:45)
[2020-02-10] MEDS ORDERED: ALBUMIN HUMAN 25% 50 ML IV ONE (10:05)
--- NOTE | 2020-02-10 10:16 | RAD REPORT ---
EXAM DESCRIPTION: RAD - Chest Single View - 02/10/2020 7:12 am CLINICAL HISTORY: Pneumonia added to rodríguez virus Chest pain. COMPARISON: Chest Single View dated 02/09/2020; Chest Single View dated 02/06/2020; Chest Single View dated 01/25/2019; Chest Single View dated 01/24/2019 FINDINGS: Portable technique limits examination quality. Moderate worsening in bilateral pulmonary opacities and consolidations is noted since yesterday's exa mination. The heart is mildly enlarged. No displaced fractures. IMPRESSION: Moderate worsening in bilateral pulmonary consolidations and opacities since yesterday's study.
[2020-02-10] MEDS: METHYLPREDNISOLONE 125 MG INJ IV SCH ×2 (10:17→20:26)
[2020-02-10] MEDS: MORPHINE 2 MG/ML SYR IV PRN ×3 (10:45→18:15)
[2020-02-10] MEDS: THIAMINE 200 MG/2 ML INJ IVP SCH (11:27)
[2020-02-10] MEDS: CEFTRIAXONE/SWI 1gm 1 GM/10 ML SYR IV SCH (11:35)
[2020-02-10] MEDS ORDERED: METHYLPRED NA SUC 1,000 MG in NA CHLORIDE 0.9% 100 ML IV ONE (12:00)
[2020-02-10] MEDS ORDERED: FENTANYL 25 MCG/PATCH TD ONE (13:00)
--- NOTE | 2020-02-10 14:32 | P.PN ---
Subjective Date of Service: 02/10/20 Patient was placed on BiPAP overnight. His chest x-ray findings show progressive pneumonia. He has been on Remdesivir for 4 days now. Condition has been getting progressively worse. Possibly going to try convalescent plasma. Physical Examination - Vital Signs Temperature: 98.7 F Blood Pressure: 91/61 Pulse: 102 Respirations: 46 Pulse Ox (%): 85 - Studies Medications List Reviewed: Yes Assessment & Plan - Problems (Diagnosis) (1) Pneumonia due to COVID-19 virus Current Visit: Yes Status: Acute (2) B-cell lymphoma Current Visit: No Status: Acute (3) Congestive heart failure, acute Current Visit: No Status: Acute (4) Hypoxemia Current Visit: No Status: Acute (5) Status post chemotherapy Current Visit: No Status: Acute (6) ARDS (adult respiratory distress syndrome) Current Visit: No Status: Acute - Plan 1. Continue with IV antibiotics and IV steroids-the patient was given IV steroids high dosage 2. Repeat chest x-ray worsening infiltrates diffusely 3. O2 per protocol; started on BiPAP overnight; continues with very high pressures; monitor closely 4. Pulmonary consultation appreciated 5. Continue with nebulizer therapy 6. Day 4 of Remdesivir 7. Monitor labs closely 8. GI and DVT prophylaxis I spoke with the patient's ex- who he has chosen to make decisions for him if he continues to decline. She continues to want everything done for him. She is concerned that he is not improving. She does state that he had similar episodes a year ago at [facility] which was described as ARDS. Hopefully, patient can start improving. Spoke with Pulmonary and they want to continue with current plan of care. We will try to diurese the patient and continue medications to keep him comfortable. Will try convalescent plasma. Also getting high-dose steroids. Hopefully, patient can improve during his h ospitalization. - Advance Directives Does patient have a Living Will: No Does patient have a Durable POA for Healthcare: No - Code Status/Comfort Care Code Status: Full Code
--- NOTE | 2020-02-10 20:23 | P.PN ---
Subjective Date of Service: 02/10/20 Chief Complaint: Respiratory failure Patient's condition worsened is chest x-ray looks worse as non 100% oxygen with high level of BiPAP support agitated as worse in the morning and later Re settled down with some morphine Review of Systems is unable to be obtained Physical Examination - Vital Signs Temperature: 97.7 F Blood Pressure: 118/79 Pulse: 103 Respirations: 38 Pulse Ox (%): 79 - Physical Exam General: Severe distress Respiratory: Crackles/rales Cardiovascular: No edema, Regular rate/rhythm - Studies Medications List Reviewed: Yes Assessment & Plan - Problems (Diagnosis) (1) Pneumonia due to COVID-19 virus Current Visit: Yes Status: Acute Plan: Severe pneumonia (2) Respiratory failure Current Visit: Yes Status: Acute Plan: Respiratory failure condition worsened patient responds well to morphine I have also added fentanyl patch Lasix 1 g of Solu-Medrol chest x-ray significant worsening patient's CRP is declining CBC reviewed fully anti coagulated patient rodríguez virus plasma I also added Rocephin increase Solu-Medrol to 250 IV Q 12 Qualifiers: Chronicity: acute
[2020-02-10] MEDS: MELATONIN 3 MG TABLET PO SCH (20:25)
[2020-02-10] MEDS: ATORVASTATIN 40 MG TAB PO SCH (20:25)
[2020-02-10] MEDS: ENOXAPARIN 100 MG/ML SYR SQ SCH (20:26)
[2020-02-10] MEDS ORDERED: NA CHLORIDE 0.9% 100 ML ONE (20:32)
[2020-02-11] MEDS: MORPHINE 2 MG/ML SYR IV PRN ×3 (00:21→21:12)
[2020-02-11 06:18] LABS: Absolute Lymphocytes (CBC) 0.1 K/uL (0.7-4.9); Basophils % 0.3 % (0-1.3); Hematocrit 38.6 % (39.6-49.0); Lymphocytes % 2.5 % (15.3-44.8); MPV 9.2 fL (7.6-11.3); RBC Red Blood Cell Count 4.26 M/uL (4.33-5.43)
[2020-02-11 07:24] LABS: Albumin 3.2 g/dL (3.4-5.0); Bilirubin Direct 0.5 mg/dL (0-0.2); Bilirubin Total 1.5 mg/dL (0.2-1.0); Ferritin 3512.5 ng/mL (26-388); Magnesium 3.4 mg/dL (1.8-2.4); Phosphorus 2.6 mg/dL (2.5-4.9); Potassium 4.4 mmol/L (3.5-5.1); Protein, Total 6.5 g/dL (6.4-8.2)
[2020-02-11] MEDS: THIAMINE 200 MG/2 ML INJ IVP SCH ×2 (08:56→09:08)
[2020-02-11] MEDS: VITAMIN D 1000 UNIT TAB PO SCH (08:56)
[2020-02-11] MEDS: FUROSEMIDE 20 MG/ 2ML VIAL IV SCH (09:08)
[2020-02-11] MEDS: ENOXAPARIN 100 MG/ML SYR SQ SCH ×2 (09:09→20:53)
[2020-02-11] MEDS: Remdesivir 100 MG in NA CHLORIDE 0.9% 250 ML IV SCH (09:09)
[2020-02-11 10:24] LABS: Blood Gas Oxyhemoglobin 83.7 % (94-97); Blood O2 Saturation 86.4 % (92-98.5)
[2020-02-11] MEDS: WATER FOR INJ,STERILE 10 ML IM PRN (12:12)
[2020-02-11] MEDS: ZIPRASIDONE MESYLA 20 MG/VIAL IM PRN (12:12)
[2020-02-11] MEDS: CEFTRIAXONE/SWI 1gm 1 GM/10 ML SYR IV SCH (12:13)
[2020-02-11] MEDS: METHYLPREDNISOLONE 125 MG INJ IV SCH ×2 (12:13→20:54)
--- NOTE | 2020-02-11 12:32 | P.PN ---
Subjective Date of Service: 02/11/20 Chief Complaint: Respiratory failure Patient remains in critical condition still very hypoxic delirious Review of Systems is unable to be obtained Physical Examination - Vital Signs Temperature: 97.2 F Blood Pressure: 109/89 Pulse: 86 Respirations: 34 Pulse Ox (%): 84 - Physical Exam General: Moderate distress - Studies Medications List Reviewed: Yes Assessment & Plan - Problems (Diagnosis) (1) Respiratory failure Current Visit: Yes Status: Acute Plan: Patient remains in critical condition severe rodríguez virus pneumonia continue with high-dose steroids BiPAP he had to be intubated patient has had rodríguez virus plasma and Remdesvir. Son maximum recommended treatment in courage prone positioning maintain a slight negative fluid balance patient responds well to morphine the also has a fentanyl patch Qualifiers: Chronicity: acute - Code Status/Comfort Care Code Status: Full Code
--- NOTE | 2020-02-11 12:41 | P.PN ---
Subjective Date of Service: 02/11/20 Primary Care Provider: Dr. Reyes Chief Complaint: Respiratory failure Subjective: Other (Still on BIPAP) Physical Examination - Vital Signs Temperature: 97.2 F Blood Pressure: 109/89 Pulse: 86 Respirations: 34 Pulse Ox (%): 84 - Physical Exam General: Alert, Cooperative HEENT: Other (mouth is dry) Respiratory: Other (on BIPAP) Cardiovascular: Normal pulses Gastrointestinal: No guarding Neurological: Normal speech, Normal strength at 5/5 x4 extr, Normal tone, Normal affect - Studies Medications List Reviewed: Yes Assessment & Plan Discharge Plan: Home Plan to discharge in: Greater than 2 days Physician Review Additional Text: Impression: Dyspnea secondary to ARDS with COVID 19 pneumonia Hyperlipidemia Hx of B cell Lymphoma HTN Plan: Dyspnea secondary to ARDS with COVID 19 pneumonia: Case discussed with pulmonology. Continue with high-dose IV steroids. Continue Remdesivir. Continue to wean off BiPAP. Continue Rocephin to cover for bacterial superimposed infection. Will also start Diflucan to cover for possible underlying fungal infection due to high-dose steroids. Patient on full-dose anti coagulation therapy. Continue to monitor closely. Continue to wean off BiPAP. Anticipate improvement over the next 5 days. Hypertension: Will provide medication as needed. Hyperlipidemia: Continue home medication if taking good oral intake. History of B-cell lymphoma: Will monitor closely. Time Spent Managing Pts Care (In Minutes): 55
--- NOTE | 2020-02-11 12:43 | P.PN ---
Subjective Date of Service: 02/11/20 Chief Complaint: Respiratory failure Patient's condition worsened is chest x-ray looks worse as non 100% oxygen with high level of BiPAP support agitated as worse in the morning and later Re settled down with some morphine Physical Examination - Vital Signs Temperature: 97.2 F Blood Pressure: 109/89 Pulse: 86 Respirations: 34 Pulse Ox (%): 84 - Studies Medications List Reviewed: Yes Assessment & Plan - Problems (Diagnosis) (1) Pneumonia due to COVID-19 virus Current Visit: Yes Status: Acute Plan: Severe pneumonia (2) Respiratory failure Current Visit: Yes Status: Acute Plan: Respiratory failure condition worsened patient responds well to morphine I have also added fentanyl patch Lasix 1 g of Solu-Medrol chest x-ray significant worsening patient's CRP is declining CBC reviewed fully anti coagulated patient rodríguez virus plasma I also added Rocephin increase Solu-Medrol to 250 IV Q 12 Qualifiers: Chronicity: acute
[2020-02-11] MEDS: FLUCONAZOLE 100mg IVPB 100 MG/50 ML BAG IV SCH (13:11)
--- NOTE | 2020-02-11 15:14 | RAD REPORT ---
EXAM DESCRIPTION: RAD - Chest Single View - 02/11/2020 2:52 pm CLINICAL HISTORY: oxygen desat, CHF COMPARISON: Portable February TECHNIQUE: AP portable chest image was obtained 02/11/2020 2:52 pm . FINDINGS: Alveolar opacities are present in the lung valente worse in the lower left lung field. Air bronchograms are seen in the lower left lung field. Findings are significantly improved since the Feb study. Cardiomegaly and vascular engorgement remain. Trachea is midline. No measurable pleura l effusion and no pneumothorax. No acute bony abnormality seen. No acute aortic findings suspected. IMPRESSION: Bilateral airspace opacification worse in the lower left lung field. Findings represent a significant improvement from February 09.
[2020-02-11] MEDS: ENSURE HIGH PROTEIN 237 ML CAN PO SCH (21:00)
[2020-02-11] MEDS: ATORVASTATIN 40 MG TAB PO SCH (21:00)
[2020-02-11] MEDS: MELATONIN 3 MG TABLET PO SCH (21:00)
[2020-02-11] MEDS ORDERED: HALOPERIDOL LACT 5 MG/ML INJ IV STA (21:09)
[2020-02-11 22:15] LABS: Arterial Blood Carboxyhemoglob 1.9 % (0-1.5); Blood O2 Saturation 85.6 % (92-98.5)
[2020-02-11] MEDS ORDERED: FUROSEMIDE 40 MG/4 ML VIAL IV ONE (22:55)
[2020-02-12] MEDS ORDERED: LORazepam 2 MG/ML VIAL IV STA (03:22)
[2020-02-12] MEDS ORDERED: LORazepam 2 MG/ML VIAL ONE (05:06)
[2020-02-12] MEDS ORDERED: NA CHLORIDE 0.9% 1,000 ML ONE (05:17)
[2020-02-12] MEDS ORDERED: RSI MEDICATION KIT IV ONE (05:20)
[2020-02-12 05:25] LABS: Absolute Lymphocytes (CBC) 0.1 K/uL (0.7-4.9); Basophils % 0.4 % (0-1.3); Hematocrit 39.1 % (39.6-49.0); Lymphocytes % 1.7 % (15.3-44.8); MPV 9.4 fL (7.6-11.3); RBC Red Blood Cell Count 4.33 M/uL (4.33-5.43)
[2020-02-12] MEDS ORDERED: propofoL 1,000 MG/100 ML VIAL IV ONE (05:35)
[2020-02-12] MEDS ORDERED: HALOPERIDOL LACT 5 MG/ML INJ IV PRN (05:41)
[2020-02-12] MEDS ORDERED: MIDAZOLAM HCL 2 MG/2 ML INJ ONE (05:44)
[2020-02-12] MEDS ORDERED: NOREPINEPHRINE 4 MG/4 ML VIAL ONE (05:49)
[2020-02-12] MEDS ORDERED: NOREPINEPHRINE 4mg/D5W 250mL 4 MG/250 ML BAG IV ONE (05:53)
[2020-02-12 05:59] LABS: Albumin 3.2 g/dL (3.4-5.0); Bilirubin Direct 0.4 mg/dL (0-0.2); Bilirubin Total 1.4 mg/dL (0.2-1.0); Ferritin 1895.6 ng/mL (26-388); Magnesium 3.7 mg/dL (1.8-2.4); Potassium 3.9 mmol/L (3.5-5.1); Protein, Total 6.5 g/dL (6.4-8.2)
--- NOTE | 2020-02-12 06:28 | P.PN ---
Date of Service: 02/12/20 Patient became very agitated overnight. He was no longer keeping his BiPAP mask on. His oxygen saturation continued to drop, reaching the low 40s. He failed treatment with anxiolytics on multiple occasions. A decision was made to intubate the patient for acute hypoxemic respiratory failure due to COVID 19 pneumonia. Central line was placed. Sign out given to daytime primary team and pulmonary.
--- NOTE | 2020-02-12 06:32 | P.PN ---
Date of Service: 02/12/20 Procedure: Central line placement Indication: Vasopressors Location: Right internal jugular vein The site was prepped using chlorhexidine. Right internal jugular vein and right carotid artery are identified using ultrasound. Patient was trached. The needle was advanced into the right internal jugular vein using ultrasound for guidance. Blood return was noted. Guidewire was threaded through the needle followed by removal of the needle through the guidewire. Using a scalpel, an incision was made into the skin. A dilator was then advanced through the guidewire into the incision site. Dilator successfully removed. A triple-lumen was advanced through the guidewire into the incision site. This was followed by removal of the guidewire. Blood flow was checked and there was successful withdrawal through all 3 ports. Triple-lumen catheter was sutured in place. Patient tolerated the procedure well. Attempt: 1 Confirmation: CXR Complications: none
[2020-02-12] MEDS: propofoL 1,000 MG/100 ML VIAL IV PRN ×6 (08:13→21:31)
[2020-02-12] MEDS: ENSURE HIGH PROTEIN 237 ML CAN PO SCH (08:14)
--- NOTE | 2020-02-12 08:25 | RAD REPORT ---
EXAM DESCRIPTION: RAD - Chest Single View - 02/11/2020 10:02 pm CLINICAL HISTORY: shortness of breath Chest pain. COMPARISON: Chest Single View dated 02/11/2020; Chest Single View dated 02/10/2020; Chest Single View dated 02/09/2020; Chest Single View dated 02/06/2020 FINDINGS: Portable technique limits examination quality. Moderate worsening in bilateral pulmonary opacities noted since comparative study. The heart is mildl y enlarged in size. No displaced fractures. IMPRESSION: Moderate worsening in lung aeration since comparative study.
--- NOTE | 2020-02-12 08:33 | RAD REPORT ---
EXAM DESCRIPTION: RAD - Chest Single View - 02/12/2020 7:11 am CLINICAL HISTORY: central line placememt Chest pain. COMPARISON: Chest Single View dated 02/12/2020; Chest Single View dated 02/11/2020; Chest Single View dated 02/11/2020; Chest Single View dated 02/10/2020 FINDINGS: Portable technique limits examination quality. Right-sided jugular venous catheter has been placed. The tip is in the SVC. No pneumothorax is eviden t.
[2020-02-12] MEDS: METHYLPREDNISOLONE 125 MG INJ IV SCH ×2 (08:52→20:10)
[2020-02-12] MEDS: THIAMINE 200 MG/2 ML INJ IVP SCH (08:53)
[2020-02-12] MEDS: FUROSEMIDE 20 MG/ 2ML VIAL IV SCH (08:53)
[2020-02-12] MEDS: ENOXAPARIN 100 MG/ML SYR SQ SCH ×2 (08:53→20:08)
[2020-02-12] MEDS: VITAMIN D 1000 UNIT TAB PO SCH (08:56)
[2020-02-12] MEDS: FAMOTIDINE 20 MG/2 ML VIAL IV SCH ×2 (08:57→20:07)
[2020-02-12] MEDS: Remdesivir 100 MG in NA CHLORIDE 0.9% 250 ML IV SCH (09:03)
[2020-02-12] MEDS: NOREPINEPHRINE 4 MG in D5W 250 ML IV PRN (09:48)
--- NOTE | 2020-02-12 09:54 | RAD REPORT ---
EXAM DESCRIPTION: CHEST, ONE VIEW XR CLINICAL HISTORY: INTUBATION COMPARISON: Chest 02/11/2020. TECHNIQUE: AP Chest. FINDINGS: Diffuse interstitial and airspace opacities throughout the right and left lung are stable. Heart is enlarged. No pneumothorax. Possible small left pleural effusion is stable. Unremarkable soft tissues and bones. IMPRESSION: 1. Stable bilateral diffuse pulmonary edema and/or pneumonia. Possible small left pleura l effusion. Electronically signed by: Destinee Jacome DO 02/12/2020 6:31 AM SALES REPRESENTATIVE CONSULTANT Due to temporary technical issues with the PACS/Fluency reporting system, reports are being signed by the in house radiologists without review as a courtesy to insure prompt reporting. The interpreting radiologist is fully responsible for the content of the report.
--- NOTE | 2020-02-12 12:12 | P.PN ---
Subjective Date of Service: 02/12/20 Chief Complaint: Respiratory failure Patient's condition deteriorated had to be intubated last night became delirious agitated currently he is on a ventilator on pressure control still little agitated blood pressure is little low hypernatremia Review of Systems is unable to be obtained Physical Examination - Vital Signs Temperature: 98.6 F Blood Pressure: 98/70 Pulse: 85 Respirations: 23 Pulse Ox (%): 88 - Physical Exam General: Unresponsive Respiratory: Crackles/rales, Expiratory wheezes Cardiovascular: No edema, Normal S1 S2 - Studies Microbiology Data (last 24 hrs): 02/06/20 12:45 Blood - Blood Aerobic Blood Culture - Final No growth in 5 days. 02/06/20 12:45 Blood - Blood Anaerobic Blood Culture - Final No growth in 5 days. 02/06/20 12:55 Blood - Blood Aerobic Blood Culture - Final No growth in 5 days. 02/06/20 12:55 Blood - Blood Anaerobic Blood Culture - Final No growth in 5 days. Medications List Reviewed: Yes Assessment & Plan - Problems (Diagnosis) (1) Respiratory failure Current Visit: Yes Status: Acute Plan: Patient has ARDS from coronal virus infection chest x-ray seems to have improved i CRP is declining his still on 100% FiO2 continue with the present therapy reduce the dose of Solu-Medrol to 125 IV Q 12 brought an antibiotic coverage to cefepime I risk for opportunistic lung infection continue with Diflucan start tube feeds hypernatremia water flushes Dc Lasix blood pressure is little low he is on Levophed Qualifiers: Chronicity: acute
[2020-02-12] MEDS: FLUCONAZOLE 100mg IVPB 100 MG/50 ML BAG IV SCH (12:44)
[2020-02-12] MEDS: LORazepam 2 MG/ML VIAL IV PRN (12:46)
--- NOTE | 2020-02-12 14:11 | P.PN ---
Subjective Date of Service: 02/12/20 Primary Care Provider: unknown Chief Complaint: Respiratory failure Subjective: Other (Patient became agitated last night. Oxygen saturations were not appropriate. Blood pressure also decrease. Supervisor [employer] intubated the patient. Central line placed. Patient stable at this time on ventilator. Patient also on Levophed.) Physical Examination - Vital Signs Temperature: 98.6 F Blood Pressure: 98/70 Pulse: 85 Respirations: 23 Pulse Ox (%): 88 - Physical Exam General: Other (Patient intubated and sedated) HEENT: Atraumatic Neck: Supple Respiratory: Clear to auscultation bilaterally Cardiovascular: Regular rate/rhythm Neurological: Other (No significant edema noted.) - Studies Microbiology Data (last 24 hrs): 02/06/20 12:45 Blood - Blood Aerobic Blood Culture - Final No growth in 5 days. 02/06/20 12:45 Blood - Blood Anaerobic Blood Culture - Final No growth in 5 days. 02/06/20 12:55 Blood - Blood Aerobic Blood Culture - Final No growth in 5 days. 02/06/20 12:55 Blood - Blood Anaerobic Blood Culture - Final No growth in 5 days. Medications List Reviewed: Yes Assessment & Plan Discharge Plan: Home Plan to discharge in: Greater than 2 days Physician Review Additional Text: Impression: Toxic encephalopathy secondary to ARDS with COVID 19 pneumonia complicated with hypovolemic shock/hypernatremia Hyperlipidemia Hx of B cell Lymphoma HTN Plan: Toxic encephalopathy secondary to ARDS with COVID 19 pneumonia complicated with hypovolemic shock/hypernatremia: Patient was intubated this morning by receptionist clerk. Patient currently on ventilator at this time. Patient sedated due to agitation. Patient also on Levophed. Will wean off. Case discussed in detail with pulmonology. Pulmonology feels chest x-ray and CRP improved. Pulm onology has decrease IV steroids. Continue Remdesivir. Continue with water flushes. Patient on broad-spectrum antibiotic therapy, antifungal medication to cover for opportunistic infection. Continue Lovenox. Lasix discontinued. Adjust medication accordingly to IV. Case discussed in detail with . Continue monitor closely. agrees with plan of care. If the patient does not improve will consider transfer to long-term acute care facility. Otherwise will continue with recommendations by pulmonology. Hypertension: Will provide medication as needed. Hyperlipidemia: Continue medication History of B-cell lymphoma: Will monitor closely. Time Spent Managing Pts Care (In Minutes): 55
[2020-02-12] MEDS: VITAL HP 1,000 ML BOT RTH SCH (14:25)
[2020-02-12] MEDS: MELATONIN 3 MG TABLET PO SCH (19:21)
[2020-02-12] MEDS: CEFEPIME/SWI 1gm 10 ML IVP SCH (20:07)
[2020-02-12] MEDS: ATORVASTATIN 40 MG TAB PO SCH (20:10)
[2020-02-12] MEDS ORDERED: CEFEPIME 1 GM/VIAL IV SCH (21:00)
[2020-02-13] MEDS: propofoL 1,000 MG/100 ML VIAL IV PRN ×7 (00:44→23:29)
[2020-02-13] MEDS: NOREPINEPHRINE 4 MG in D5W 250 ML IV PRN (02:26)
[2020-02-13 05:14] LABS: Absolute Lymphocytes (CBC) 0.2 K/uL (0.7-4.9); Basophils % 0.4 % (0-1.3); Hematocrit 38.9 % (39.6-49.0); Lymphocytes % 1.8 % (15.3-44.8); MPV 9.4 fL (7.6-11.3); RBC Red Blood Cell Count 4.22 M/uL (4.33-5.43)
[2020-02-13 05:36] LABS: C-Reactive Protein 77.6 mg/L (<3.00); Ferritin 1334.7 ng/mL (26-388); Potassium 3.8 mmol/L (3.5-5.1)
[2020-02-13 05:37] LABS: Magnesium 3.8 mg/dL (1.8-2.4)
[2020-02-13 06:06] LABS: Blood Morphology Comment NOT SEEN (NOT SEEN); Platelet Estimate ADEQ; Platelets, Giant NOTED; Polychromasia 1+
--- NOTE | 2020-02-13 07:26 | P.PN ---
Subjective Date of Service: 02/13/20 Primary Care Provider: unknown Chief Complaint: Respiratory failure Subjective: Other (Patient remains intubated and sedated.) Physical Examination - Vital Signs Temperature: 99.2 F Blood Pressure: 108/60 Pulse: 74 Respirations: 28 Pulse Ox (%): 95 - Physical Exam General: Other (Patient remains intubated and sedated.) Respiratory: Other (Patient remains on ventilator.) Cardiovascular: Normal pulses, Other (Vital signs stable.) Neurological: Other (Patient remains sedated) - Studies Medications List Reviewed: Yes Assessment & Plan Discharge Plan: Home Plan to discharge in: Greater than 2 days Physician Review Additional Text: Impression: Toxic encephalopathy secondary to ARDS with COVID 19 pneumonia complicated with hypovolemic shock/hypernatremia Acute renal injury with hypernatremia likely volume depletion Hyperlipidemia Hx of B cell Lymphoma HTN Plan: Toxic encephalopathy secondary to ARDS with COVID 19 pneumonia complicated with hypovolemic shock/hypernatremia: Patient overall stable. Patient remains sedated and intubated. Patient using less FiO2 at 85%. Ferritin and CRP improved. Continue IV steroids. Patient has received Remdesivir. Case discussed with pulmonology. Patient with acute renal injury likely from volume depletion. Pulmonology plans to provide IV fluids. Will consult Nephrology for recommendations. Pulmonology anticipates improvement with IV fluids. Patient had been on diuretic therapy but this has been discontinued. Continue to wean off Levophed. Continue to monitor CRP and ferritin. Continue to monitor electrolytes. Replace in protocol in place. Patient remains on broad-spectrum antibiotic therapy, antifungal medication to cover for opportunistic infection. Continue Lovenox at current dose. Will discuss with today. If his hospitalization is prolonged will need to consider long-term acute care facility placement. Will discuss with pulmonology and nephrology. Acute renal injury with hypernatremia likely volume depletion: Pulmonology plans to give IV fluids. Lasix has been discontinued. Nephrology consulted for further recommendations. Hypertension: Will provide medication as needed. Hyperlipidemia: Continue medication History of B-cell lymphoma: Will monitor closely. Time Spent Managing Pts Care (In Minutes): 55
[2020-02-13] MEDS: FENTANYL CITR 100 MCG/2 ML IV PRN ×3 (07:54→17:15)
[2020-02-13] MEDS: CEFEPIME/SWI 1gm 10 ML IVP SCH ×2 (07:55→20:26)
[2020-02-13] MEDS: ZIPRASIDONE MESYLA 20 MG/VIAL IM PRN (07:56)
[2020-02-13] MEDS: WATER FOR INJ,STERILE 10 ML IM PRN (07:56)
[2020-02-13] MEDS: ENOXAPARIN 100 MG/ML SYR SQ SCH ×2 (07:57→20:26)
[2020-02-13] MEDS: THIAMINE 200 MG/2 ML INJ IVP SCH (07:57)
[2020-02-13] MEDS: VITAMIN D 1000 UNIT TAB PO SCH (07:57)
[2020-02-13] MEDS: FAMOTIDINE 20 MG/2 ML VIAL IV SCH ×2 (07:57→20:27)
[2020-02-13] MEDS: METHYLPREDNISOLONE 125 MG INJ IV SCH ×2 (07:59→20:26)
[2020-02-13] MEDS ORDERED: NACHLORIDE 0.45% 1,000 ML IV SCH (08:00)
--- NOTE | 2020-02-13 10:46 | RAD REPORT ---
EXAM DESCRIPTION: RAD - Chest Single View - 02/13/2020 10:38 am CLINICAL HISTORY: Resp failure Chest pain. COMPARISON: Chest Single View dated 02/12/2020; Chest Single View dated 02/12/2020; Chest Single Vie w dated 02/11/2020; Chest Single View dated 02/11/2020 FINDINGS: Portable technique limits examination quality. Mild bilateral interstitial lung opacities are present likely representing pulmonary edema. The heart is mildly enlarged size. Tip of the endotracheal tube is above the evelin. Enteric tube descends int o the stomach. Right-sided venous catheter has tip in the SVC.
--- NOTE | 2020-02-13 11:45 | P.PN ---
Subjective Date of Service: 02/16/20 Primary Care Provider: unknown Chief Complaint: Respiratory failure Patient is improving his FiO2 was decreased to 80% this morning a little agitated hypernatremia slightly low blood pressure on max dose of propofol Review of Systems is unable to be obtained Physical Examination - Vital Signs Temperature: 97.4 F Blood Pressure: 95/52 Pulse: 72 Respirations: 16 Pulse Ox (%): 93 (Defer) - Studies Medications List Reviewed: Yes Assessment & Plan - Problems (Diagnosis) (1) Respiratory failure Current Visit: Yes Status: Acute Plan: Patient has ARDS a clinically improving continue to decrease is oxygen repeat blood gases chest x-ray shows an improvement hypernatremia start on high off normal saline patient is on tube feeds CRP is declining patient is fully anti coagulated Qualifiers: Chronicity: acute
[2020-02-13] MEDS: FLUCONAZOLE 100mg IVPB 100 MG/50 ML BAG IV SCH (12:37)
[2020-02-13 13:27] LABS: Arterial Blood Carboxyhemoglob 1.7 % (0-1.5); Blood Gas Oxyhemoglobin 87.5 % (94-97); Blood O2 Saturation 89.9 % (92-98.5)
[2020-02-13] MEDS: D5W 1,000 ML IV SCH (14:29)
--- NOTE | 2020-02-13 15:32 | CON ---
Date of Consultation: 02/13/2020 Reason For Consultation: Acute renal failure and hyponatremia. History Of Present Illness: Mr. Cronin is a 59-year-old male with a past medical history significant for history of lymphoma, hypertension, hyperlipidemia, who presented to [facility] after he was positive for coronavirus with bilateral infiltrates consistent with pneumonia. Xiao baker had been symptomatic for a week prior to admission and he has had progressive cough and shortness o f breath and has been admitted to the hospital since February 07, 2020; however, he was doing okay. Xiao alejandre respiratory status worsened to the point of being severely hypoxemic and hypercapnic and could not manage him on BiPAP and he had to be intubated on February 12, 2020. The patient has had poor p.o. intake and poor intake of water since he had been on BiPAP and now that he is currently intubated, he has been started on oral feedings with an OG tube and is getting free water of 200 mL every 6 hours with OG tube as well. Nephrology is being consulted for evaluation of hypernatremia and acute renal failure. Past Medical History: Significant for history of hypertension, hyperlipidemia, CVA, gout, history of myocardial infarction, small B-cell lymphoma, splenomegaly, and congestive heart failure. Family History: Significant for father with history of heart disease and brother with history of hyp ertension and diabetes. Social History: The patient reports no history of smoking, alcohol, or drug use at this time. All t he history is obtained from review of records. Review of Systems: Unable to be obtained. Physical Examination: Vital Signs: At this time showing temperature of 97.4, pulse rate of 72, respiratory rate of 22, blo od pressure of 95/52. General: He is intubated and sedated. HEENT: Shows atraumatic head. Lungs: Clear to auscultation. OG tube in place. He is saturating 90% on 60% FiO2. Extremities: Showed no evidence of edema. Abdomen: Soft and nontender. Laboratory Data: At this time showing sodium of 149, potassium of 3.8, chloride of 115, BUN of 53, a nd creatinine of 1.42. His magnesium has been elevated to 3.8 and his C-reactive protein is improvin g to 77 and ferritin is down to 1334 improving from 3500 previously. CBC showing stable hemoglobin, hematocrit, and platelet count. Current Medications: Have been reviewed in detail. Current medications include half-normal saline a t 70 cc an hour and he is on Xanax p.r.n., cefepime 1 g every 12 hours, fluconazole, Lovenox for anti coagulation, full-dose Lovenox, lorazepam p.r.n. He is on Levophed drip at 4 mcg per minute, ___, and Geodon p.r.n. for agitation. Impression: 1.Acute renal failure, likely secondary to possibly from decreased p.o. intake and dehydration from acute tubular necrosis. The patient is having good urine output at this time. I would advise contin [facility] with fluid resuscitation with D5 water to improve his volume status and monitor his renal functi on closely. If he does require volume, he would benefit from small boluses of normal saline instead of normal saline or half-normal saline as this can lead to worsening hypernatremia and free water def icit. 2.Severe hypermagnesemia, possibly from replenish and replacing. We will hold off on any further re placement. 3.Respiratory failure secondary to COVID-19 pneumonia. The patient is being treated, has already re ceived convalescent plasma and remdesivir. He is not on any steroids at this time. Monitor blood garcia gars closely. The patient is on Solu-Medrol 125 mg every 12 hours. Monitor blood sugars closely on the steroids and adjust medications and further renal function. 4.Mild nutrition, currently on tube feedings. 5.Underlying small B-cell lymphoma. 6.Severe debility and weakness. The patient may need LTAC placement as he has had a prolonged hospi talization. Plan: Overall, the patient is doing okay. He will benefit from small fluid boluses to improve his v olume status with normal saline. We would hold off on any normal saline or half-normal saline infusi on, switch his infusion to D5 water, increase his free water through the feeding tube to 250 cc every 4 hours, and monitor his sodium levels closely. Avoid further hypotension, nephrotoxins, and adjust medications for renal insufficiency. VV/MODL Voice ID: [id number] Report ID: [id number]
[2020-02-13] MEDS ORDERED: ONDANSETRON 4 MG/2 ML VIAL ONE (16:47)
[2020-02-13] MEDS: MELATONIN 3 MG TABLET PO SCH (20:27)
[2020-02-13] MEDS: ATORVASTATIN 40 MG TAB PO SCH (20:27)
[2020-02-13] MEDS: LORazepam 2 MG/ML VIAL IV PRN (23:30)
[2020-02-14] MEDS: MORPHINE 2 MG/ML SYR IV PRN ×3 (03:05→21:39)
[2020-02-14] MEDS: D5W 1,000 ML IV SCH ×2 (03:39→16:21)
[2020-02-14] MEDS: propofoL 1,000 MG/100 ML VIAL IV PRN ×4 (04:35→22:27)
[2020-02-14 05:19] LABS: Absolute Lymphocytes (CBC) 0.2 K/uL (0.7-4.9); Basophils % 0.3 % (0-1.3); Hematocrit 37.5 % (39.6-49.0); Lymphocytes % 2.6 % (15.3-44.8); MPV 9.5 fL (7.6-11.3); RBC Red Blood Cell Count 4.04 M/uL (4.33-5.43)
[2020-02-14 05:47] LABS: Arterial Blood Carboxyhemoglob 1.9 % (0-1.5); Blood O2 Saturation 93.9 % (92-98.5)
[2020-02-14 05:57] LABS: C-Reactive Protein 35.9 mg/L (<3.00); Phosphorus 3.5 mg/dL (2.5-4.9); Potassium 3.9 mmol/L (3.5-5.1)
[2020-02-14 06:02] LABS: Magnesium 3.7 mg/dL (1.8-2.4)
[2020-02-14] MEDS: LORazepam 2 MG/ML VIAL IV PRN ×3 (06:03→19:30)
[2020-02-14] MEDS ORDERED: POTASSIUM 25 MEQ EFFERV TAB PO ONE (08:00)
[2020-02-14] MEDS: MIDAZOLAM HCL 2 MG/2 ML INJ IV PRN ×3 (08:01→12:23)
[2020-02-14] MEDS: THIAMINE 200 MG/2 ML INJ IVP SCH (08:34)
[2020-02-14] MEDS: METHYLPREDNISOLONE 125 MG INJ IV SCH ×2 (08:34→20:22)
[2020-02-14] MEDS: VITAMIN D 1000 UNIT TAB PO SCH (08:34)
[2020-02-14] MEDS: FAMOTIDINE 20 MG/2 ML VIAL IV SCH ×2 (08:34→20:23)
[2020-02-14] MEDS: ENOXAPARIN 100 MG/ML SYR SQ SCH ×2 (08:35→20:21)
[2020-02-14] MEDS: CEFEPIME/SWI 1gm 10 ML IVP SCH ×3 (08:35→20:39)
--- NOTE | 2020-02-14 08:37 | RAD REPORT ---
EXAM DESCRIPTION: RAD - Chest Single View - 02/14/2020 6:31 am CLINICAL HISTORY: Resp failure Chest pain. COMPARISON: Chest Single View dated 02/13/2020; Chest Single View dated 02/12/2020; Chest Single Vie w dated 02/12/2020; Chest Single View dated 02/11/2020 FINDINGS: Portable technique limits examination quality. No significant change is seen in lung aeration since the comparative study. The heart is mildly enlar ged in size. VT tube is above the evelin. Enteric tube descends in the stomach.Right-sided venous cat heter has tip in the SVC. IMPRESSION: Stable chest.
--- NOTE | 2020-02-14 08:47 | P.PN ---
Subjective Date of Service: 02/14/20 Primary Care Provider: unknown Chief Complaint: Respiratory failure Subjective: Improving (patient is intubated. Off Levophed.) Physical Examination - Vital Signs Temperature: 97.5 F Blood Pressure: 108/67 Pulse: 61 Respirations: 15 Pulse Ox (%): 94 - Physical Exam General: Alert, Cooperative HEENT: Atraumatic Neck: Supple Respiratory: Other (no breathing difficulty. On ventilator. ) Cardiovascular: Normal pulses, Regular rate/rhythm Gastrointestinal: Normal bowel sounds, No guarding Neurological: Normal speech, Normal strength at 5/5 x4 extr, Normal tone, Normal affect - Studies Medications List Reviewed: Yes Assessment & Plan Discharge Plan: LTAC Plan to discharge in: 72 Hours Physician Review Additional Text: Impression: Toxic encephalopathy secondary to ARDS with COVID 19 pneumonia complicated with hypovolemic shock/hypernatremia Acute renal injury with hypernatremia likely volume depletion Hyperlipidemia Hx of B cell Lymphoma HTN Plan: Toxic encephalopathy secondary to ARDS with COVID 19 pneumonia complicated with hypovolemic shock/hypernatremia: Patient overall improved. Patient no longer on Levophed. Patient continues to use less Fi02. FiO2 at 55%. Ferritin and CRP improved. Pulmonology to adjust IV steroids. Hopefully patient can be extubated in the next couple of days. Discuss with pulmonology and about the possibility of sending the patient to a long-term acute care facility. This will need to be considered especially in his debilitated state. Hopefully patient can be extubated before that time. Patient remains on broad-spectrum antibiotic therapy, antifungal medication to cover for opportunistic infection. Continue Lovenox at current dose. Will continue monitor closely. Acute renal injury with hypernatremia likely volume depletion: Continue with Nephrology recommendations. Fluids adjusted. Hypernatremic improved Hypertension: Will provide medication as needed. Hyperlipidemia: Continue medication History of B-cell lymphoma: Will monitor closely. Time Spent Managing Pts Care (In Minutes): 55
[2020-02-14] MEDS: FENTANYL CITR 100 MCG/2 ML IV PRN (08:50)
[2020-02-14] MEDS: FLUCONAZOLE 100mg IVPB 100 MG/50 ML BAG IV SCH (13:20)
--- NOTE | 2020-02-14 18:04 | P.PN ---
Subjective Date of Service: 02/16/20 Primary Care Provider: unknown Chief Complaint: Respiratory failure Pt is improving. Fio2 has been decreased. CRP declining. Remains very agitated. Requiring propofol Review of Systems is unable to be obtained Physical Examination - Vital Signs Temperature: 98.2 F Blood Pressure: 109/66 Pulse: 62 Respirations: 16 Pulse Ox (%): 94 - Physical Exam General: Unresponsive Respiratory: Clear to auscultation bilaterally, Diminished - Studies Medications List Reviewed: Yes Assessment & Plan - Problems (Diagnosis) (1) Respiratory failure Current Visit: Yes Status: Acute Plan: Pt is improved. Cont with dec in Fio2. Decrease Fio2 sat of 90% and do ABG's. CRP declining. Sodium is lower. Cw IVF. Decrease PEEP to 10 . ALBs reviwed. Decrease solumederol Qualifiers: Chronicity: acute
[2020-02-14] MEDS: MELATONIN 3 MG TABLET PO SCH (20:21)
[2020-02-14] MEDS: ATORVASTATIN 40 MG TAB PO SCH (20:21)
--- NOTE | 2020-02-14 20:46 | P.PN ---
Date of Service: 02/14/20 Vital Signs Temp Pulse Resp BP Pulse Ox 98.2 F 62 16 109/66 94 02/14/20 18:08 02/14/20 18:08 02/14/20 18:08 02/14/20 18:08 02/14/20 18:08 Medications Acetaminophen (Tylenol -Extra Strength) 500 mg PO Q4HP PRN PRN Reason: pain/fever Stop: 03/07/20 16:50 Last Admin: 02/09/20 17:29 Dose: 500 mg Documented by: Alprazolam (Xanax) 0.25 mg PO TID PRN PRN Reason: ANXIETY Stop: 03/10/20 17:15 Last Admin: 02/09/20 20:50 Dose: 0.25 mg Documented by: Atorvastatin Calcium (Lipitor) 40 mg PO BEDTIME PANFILO Stop: 03/10/20 09:24 Last Admin: 02/14/20 20:21 Dose: 40 mg Documented by: Cholecalciferol (Vitamin D 1000 Iu Tab) 2,000 unit PO DAILY PANFILO Stop: 03/10/20 09:01 Last Admin: 02/14/20 08:34 Dose: 2,000 unit Documented by: Enoxaparin Sodium (Lovenox 100 Mg Inj) 100 mg 1 mg/kg (100 mg) SQ Q12HR PANFILO Stop: 03/11/20 21:01 Last Admin: 02/14/20 20:21 Dose: 100 mg Documented by: Famotidine (Pepcid) 20 mg IV BID PANFILO Stop: 03/13/20 09:01 Last Admin: 02/14/20 20:23 Dose: 20 mg Documented by: Fentanyl Citrate (Sublimaze) 25 mcg IV Q4HP PRN PRN Reason: Pain scale 8-10 (Severe) Stop: 03/13/20 05:42 Last Admin: 02/14/20 08:50 Dose: 25 mcg Documented by: Guaifenesin/Codeine Phosphate (Robitussin A-C Syrup) 10 ml PO Q6H PRN PRN Reason: COUGH Stop: 03/09/20 22:40 Last Admin: 02/09/20 21:31 Dose: 10 ml Documented by: Haloperidol Lactate (Haldol) 2 mg IV Q4HP PRN PRN Reason: AGITATION Stop: 03/13/20 05:42 Last Admin: 02/14/20 12:23 Dose: 2 mg Documented by: Fluconazole (Diflucan 100 Mg/50 Ml Ivpb (Premix)) 100 mg in 50 mls @ 50 mls/hr IV Q24H PANFILO; Protocol Stop: 03/12/20 13:01 Last Admin: 02/14/20 13:20 Dose: 50 mls Documented by: Propofol (Diprivan) 1,000 mg in 100 mls @ 0 mls/hr IV PRN PRN; Protocol PRN Reason: SEDATION Stop: 03/13/20 05:42 Last Admin: 02/14/20 16:21 Dose: 100 mls Documented by: Norepinephrine Bitartrate 4 mg (/ Dextrose) 254 mls @ 0 mls/hr IV PRN PRN; Protocol PRN Reason: Hemodynamic Parameters Stop: 03/13/20 07:55 Last Admin: 02/13/20 02:26 Dose: 254 mls Documented by: Cefepime HCl (Maxipime 1 Gm/10 Ml Ivp) 10 mls @ 120 mls/hr IVP Q12HR PANFILO Stop: 03/13/20 21:01 Last Admin: 02/14/20 20:25 Dose: 10 mls Documented by: Dextrose/Water (Dextrose In Water (1-Liter)) 1,000 mls @ 75 mls/hr IV .[id number] [facility] Stop: 03/14/20 14:01 Last Admin: 02/14/20 16:21 Dose: 1,000 mls Documented by: Lorazepam (Ativan) 2 mg IV Q2HP PRN PRN Reason: SEDATION Stop: 03/13/20 05:37 Last Admin: 02/14/20 19:30 Dose: 2 mg Documented by: Melatonin (Melatonin) 3 mg PO BEDTIME [facility] Stop: 03/10/20 21:01 Last Admin: 02/14/20 20:21 Dose: 3 mg Documented by: Methylprednisolone Sodium Succinate (Solu-Medrol) 80 mg IV Q12HR [facility] Stop: 03/15/20 21:01 Last Admin: 02/14/20 20:22 Dose: 80 mg Documented by: Midazolam HCl (Versed) 2 mg IV Q2HP PRN PRN Reason: SEDATION Stop: 03/13/20 05:42 Last Admin: 02/14/20 12:23 Dose: 2 mg Documented by: Morphine Sulfate (Morphine Sulfate) 2 mg IV Q4H PRN PRN Reason: Pain scale 5-7 (Moderate) Stop: 03/11/20 10:35 Last Admin: 02/14/20 12:22 Dose: 2 mg Documented by: Nutritional Formula (Vital Hp) 0 ml RTH CONT PANFILO Stop: 03/13/20 15:01 Last Admin: 02/12/20 14:25 Dose: 1,000 ml Documented by: Ondansetron HCl (Zofran) 4 mg IV Q6HP PRN PRN Reason: NAUSEA / VOMITING Stop: 03/07/20 16:50 Sodium Chloride (Normal Saline Flush) 10 ml IV BID PANFILO Stop: 03/07/20 21:01 Last Admin: 02/14/20 20:23 Dose: 10 ml Documented by: Sterile Water (Sterile Water For Inj (10 Ml Vial)) 1.2 ml IM UD PRN PRN Reason: DILUTION OF MED Stop: 03/11/20 10:14 Last Admin: 02/13/20 07:56 Dose: 1.2 ml Documented by: Thiamine HCl (Vitamin B-1) 200 mg IVP DAILY [facility] Stop: 03/11/20 09:01 Last Admin: 02/14/20 08:34 Dose: 200 mg Documented by: Ziprasidone (Geodon) 10 mg IM Q6H PRN PRN Reason: AGITATION Stop: 03/11/20 10:14 Last Admin: 02/13/20 07:56 Dose: 10 mg Documented by: Microbiology Results 02/06/20 12:45 Blood - Blood Aerobic Blood Culture - Final No growth in 5 days. 02/06/20 12:45 Blood - Blood Anaerobic Blood Culture - Final No growth in 5 days. 02/06/20 12:55 Blood - Blood Aerobic Blood Culture - Final No growth in 5 days. 02/06/20 12:55 Blood - Blood Anaerobic Blood Culture - Final No growth in 5 days. 02/06/20 12:37 Nasopharnyx Influenza Type A Antigen Screen - Final 02/06/20 12:37 Nasopharnyx Influenza Type B Antigen Screen - Final Assessment/ Plan: Nephrology/ ICU No acute events overnight. Limited IH/ ROS due to AMS. Vitals, medications, blood work and imaging reviewed in the chart. Intubated. Obese. NAD. MMM. Neck supple. CTA. RRR. Soft Abd. No C/C/E. No rash. Sedated. No Speech. A/ ROSA MARIA Hypernatremia Alkalosis Hypocalcemia Hypermagnesemia HTN DM II Acute respiratory failure secondary to COVID19 Toxic metabolic encephalopathy P/ Continue current POC and Medications. Increase IVF. Continue abx. Continue steroids. COVID protocol/ Oxygen supplementation. Continue Vitamin D. AM labs. Daily weight. No NSAIDs. Greater than 30min pateint care.
[2020-02-15] MEDS: LORazepam 2 MG/ML VIAL IV PRN (01:32)
[2020-02-15] MEDS: D5W 1,000 ML IV SCH ×2 (06:45→08:18)
[2020-02-15] MEDS: propofoL 1,000 MG/100 ML VIAL IV PRN ×4 (07:08→21:39)
--- NOTE | 2020-02-15 07:16 | RAD REPORT ---
EXAM DESCRIPTION: RAD - Chest Single View - 02/15/2020 6:25 am CLINICAL HISTORY: Resp failure COMPARISON: February 13, February 12 TECHNIQUE: AP portable chest image was obtained 02/15/2020 6:25 am . FINDINGS: Lung volumes are low. Tubes and lines are unchanged. Alveolar opacities in the mid and low er lung valente not substantially different from comparison. Low lung volumes accentuates lung parench ymal opacification. Heart and vasculature are normal. No measurable pleural effusion and no pneumotho rax. No acute bony abnormality seen. No acute aortic findings suspected. IMPRESSION: No clear change in lung parenchymal opacification pattern from prior imaging. Tubes and lines are unchanged.
[2020-02-15 08:09] LABS: ALT/SGPT 36 U/L (12-78); AST/SGOT 35 U/L (15-37); Albumin 2.5 g/dL (3.4-5.0); Alkaline Phosphatase 94 U/L (45-117); BUN Blood Urea Nitrogen 35 mg/dL (7-18); Bicarbonate 33 mmol/L (21-32); Ferritin 964.9 ng/mL (26-388); Glucose Level 243 mg/dL (74-106); Magnesium 3.3 mg/dL (1.8-2.4); Phosphorus 3.7 mg/dL (2.5-4.9); Potassium 4.1 mmol/L (3.5-5.1); Protein, Total 5.4 g/dL (6.4-8.2); Sodium Level 145 mmol/L (136-145)
[2020-02-15] MEDS: THIAMINE 200 MG/2 ML INJ IVP SCH (08:18)
[2020-02-15] MEDS: ENOXAPARIN 100 MG/ML SYR SQ SCH ×2 (08:18→20:18)
[2020-02-15] MEDS: VITAMIN D 1000 UNIT TAB PO SCH (08:18)
[2020-02-15] MEDS: FAMOTIDINE 20 MG/2 ML VIAL IV SCH ×2 (08:18→20:18)
[2020-02-15] MEDS: METHYLPREDNISOLONE 125 MG INJ IV SCH ×2 (08:18→20:18)
[2020-02-15] MEDS: CEFEPIME/SWI 1gm 10 ML IVP SCH ×2 (09:14→20:19)
[2020-02-15] MEDS: MIDAZOLAM HCL 2 MG/2 ML INJ IV PRN ×2 (09:21→17:00)
[2020-02-15] MEDS ORDERED: D5W 1,000 ML IV SCH (11:05)
[2020-02-15 11:27] LABS: Arterial Blood Carboxyhemoglob 2.3 % (0-1.5); Blood Gas Oxyhemoglobin 86.2 % (94-97); Blood O2 Saturation 89.3 % (92-98.5)
--- NOTE | 2020-02-15 11:33 | P.PN ---
Subjective Date of Service: 02/15/20 Primary Care Provider: unknown Chief Complaint: Respiratory failure Subjective: Other (Patient remains intubated and sedated.) Physical Examination - Vital Signs Temperature: 97.8 F Blood Pressure: 119/70 Pulse: 60 Respirations: 17 Pulse Ox (%): 92 - Physical Exam General: Other (Patient intubated and sedated) HEENT: Atraumatic Neck: Supple Respiratory: Normal air movement, Other (Patient on ventilator) Cardiovascular: Normal pulses Neurological: Other (Patient sedated) - Studies Medications List Reviewed: Yes Assessment & Plan Discharge Plan: LTAC Plan to discharge in: 48 Hours Physician Review Additional Text: Impression: Toxic encephalopathy secondary to ARDS with COVID 19 pneumonia complicated with hypovolemic shock/hypernatremia Acute renal injury with hypernatremia likely volume depletion Hyperlipidemia Hx of B cell Lymphoma HTN Plan: Toxic encephalopathy secondary to ARDS with COVID 19 pneumonia complicated with hypovolemic shock/hypernatremia: Patient remains sedated and intubated. Patient no longer on vasopressor. Continue IV steroids. Pulmonology continues to adjust. Patient continues to be weaned off ventilator. Will discuss with pulmonology on when he could be weaned off. Patient on broad-spectrum antibiotic therapy, antifungal medication to cover for opportunistic infection. Continue Lovenox at current dose. Will continue monitor closely. Acute renal injury with hypernatremia likely volume depletion: Continue with Nephrology recommendations. Fluids adjusted. Hypernatremic improved Hypertension: Will provide medication as needed. Hyperlipidemia: Continue medication History of B-cell lymphoma: Will monitor closely. Time Spent Managing Pts Care (In Minutes): 55
[2020-02-15] MEDS: FLUCONAZOLE 100mg IVPB 100 MG/50 ML BAG IV SCH (12:06)
[2020-02-15] MEDS: ZIPRASIDONE MESYLA 20 MG/VIAL IM PRN ×2 (14:03→20:18)
[2020-02-15] MEDS: WATER FOR INJ,STERILE 10 ML IM PRN ×2 (14:04→20:17)
--- NOTE | 2020-02-15 19:12 | P.PN ---
Date of Service: 02/15/20 Vital Signs Temp Pulse Resp BP Pulse Ox 97.2 F 62 23 H 115/73 91 02/15/20 16:00 02/15/20 18:00 02/15/20 18:00 02/15/20 18:00 02/15/20 18:00 Medications Acetaminophen (Tylenol -Extra Strength) 500 mg PO Q4HP PRN PRN Reason: pain/fever Stop: 03/07/20 16:50 Last Admin: 02/09/20 17:29 Dose: 500 mg Documented by: Alprazolam (Xanax) 0.25 mg PO TID PRN PRN Reason: ANXIETY Stop: 03/10/20 17:15 Last Admin: 02/09/20 20:50 Dose: 0.25 mg Documented by: Atorvastatin Calcium (Lipitor) 40 mg PO BEDTIME [facility] Stop: 03/10/20 09:24 Last Admin: 02/14/20 20:21 Dose: 40 mg Documented by: Cholecalciferol (Vitamin D 1000 Iu Tab) 2,000 unit PO DAILY [facility] Stop: 03/10/20 09:01 Last Admin: 02/15/20 08:18 Dose: 2,000 unit Documented by: Enoxaparin Sodium (Lovenox 100 Mg Inj) 100 mg 1 mg/kg (100 mg) SQ Q12HR [facility] Stop: 03/11/20 21:01 Last Admin: 02/15/20 08:18 Dose: 100 mg Documented by: Famotidine (Pepcid) 20 mg IV BID [facility]FIL[facility] Stop: 03/13/20 09:01 Last Admin: 02/15/20 08:18 Dose: 20 mg Documented by: Fentanyl Citrate (Sublimaze) 25 mcg IV Q4HP PRN PRN Reason: Pain scale 8-10 (Severe) Stop: 03/13/20 05:42 Last Admin: 02/14/20 08:50 Dose: 25 mcg Documented by: Guaifenesin/Codeine Phosphate (Robitussin A-C Syrup) 10 ml PO Q6H PRN PRN Reason: COUGH Stop: 03/09/20 22:40 Last Admin: 02/09/20 21:31 Dose: 10 ml Documented by: Haloperidol Lactate (Haldol) 2 mg IV Q4HP PRN PRN Reason: AGITATION Stop: 03/13/20 05:42 Last Admin: 02/14/20 12:23 Dose: 2 mg Documented by: Fluconazole (Diflucan 100 Mg/50 Ml Ivpb (Premix)) 100 mg in 50 mls @ 50 mls/hr IV Q24H [facility]FIL[facility]; Protocol Stop: 03/12/20 13:01 Last Admin: 02/15/20 12:06 Dose: 50 mls Documented by: Propofol (Diprivan) 1,000 mg in 100 mls @ 0 mls/hr IV PRN PRN; Protocol PRN Reason: SEDATION Stop: 03/13/20 05:42 Last Admin: 02/15/20 17:44 Dose: 100 mls Documented by: Norepinephrine Bitartrate 4 mg (/ Dextrose) 254 mls @ 0 mls/hr IV PRN PRN; Protocol PRN Reason: Hemodynamic Parameters Stop: 03/13/20 07:55 Last Admin: 02/13/20 02:26 Dose: 254 mls Documented by: Cefepime HCl (Maxipime 1 Gm/10 Ml Ivp) 10 mls @ 120 mls/hr IVP Q12HR [facility] Stop: 03/13/20 21:01 Last Admin: 02/15/20 09:14 Dose: 10 mls Documented by: Dextrose/Water (Dextrose In Water (1-Liter)) 1,000 mls @ 75 mls/hr IV .[id number] [facility] Stop: 03/16/20 11:05 Last Admin: 02/15/20 11:05 Dose: Not Given Documented by: Lorazepam (Ativan) 2 mg IV Q2HP PRN PRN Reason: SEDATION Stop: 03/13/20 05:37 Last Admin: 02/15/20 01:32 Dose: 2 mg Documented by: Melatonin (Melatonin) 3 mg PO BEDTIME [facility] Stop: 03/10/20 21:01 Last Admin: 02/14/20 20:21 Dose: 3 mg Documented by: Methylprednisolone Sodium Succinate (Solu-Medrol) 80 mg IV Q12HR [facility] Stop: 03/15/20 21:01 Last Admin: 02/15/20 08:18 Dose: 80 mg Documented by: Midazolam HCl (Versed) 2 mg IV Q2HP PRN PRN Reason: SEDATION Stop: 03/13/20 05:42 Last Admin: 02/15/20 17:00 Dose: 2 mg Documented by: Morphine Sulfate (Morphine Sulfate) 2 mg IV Q4H PRN PRN Reason: Pain scale 5-7 (Moderate) Stop: 03/11/20 10:35 Last Admin: 02/14/20 21:39 Dose: 2 mg Documented by: Nutritional Formula (Vital Hp) 0 ml RTH CONT [facility]FILO Stop: 03/13/20 15:01 Last Admin: 02/12/20 14:25 Dose: 1,000 ml Documented by: Ondansetron HCl (Zofran) 4 mg IV Q6HP PRN PRN Reason: NAUSEA / VOMITING Stop: 03/07/20 16:50 Sodium Chloride (Normal Saline Flush) 10 ml IV BID [facility] Stop: 03/07/20 21:01 Last Admin: 02/15/20 09:15 Dose: 10 ml Documented by: Sterile Water (Sterile Water For Inj (10 Ml Vial)) 1.2 ml IM UD PRN PRN Reason: DILUTION OF MED Stop: 03/11/20 10:14 Last Admin: 02/15/20 14:04 Dose: 1.2 ml Documented by: Thiamine HCl (Vitamin B-1) 200 mg IVP DAILY [facility] Stop: 03/11/20 09:01 Last Admin: 02/15/20 08:18 Dose: 200 mg Documented by: Ziprasidone (Geodon) 10 mg IM Q6H PRN PRN Reason: AGITATION Stop: 03/11/20 10:14 Last Admin: 02/15/20 14:03 Dose: 10 mg Documented by: Microbiology Results 02/06/20 12:45 Blood - Blood Aerobic Blood Culture - Final No growth in 5 days. 02/06/20 12:45 Blood - Blood Anaerobic Blood Culture - Final No growth in 5 days. 02/06/20 12:55 Blood - Blood Aerobic Blood Culture - Final No growth in 5 days. 02/06/20 12:55 Blood - Blood Anaerobic Blood Culture - Final No growth in 5 days. 02/06/20 12:37 Nasopharnyx Influenza Type A Antigen Screen - Final 02/06/20 12:37 Nasopharnyx Influenza Type B Antigen Screen - Final Assessment/ Plan: Nephrology/ ICU No acute events overnight. Limited IH/ ROS due to AMS. Vitals, medications, blood work and imaging reviewed in the chart. Intubated. Obese. NAD. MMM. Neck supple. CTA. RRR. Soft Abd. No C/C/E. No rash. Sedated. No Speech. A/ ROSA MARIA Hypernatremia Alkalosis Hypocalcemia Hypermagnesemia HTN DM II Acute respiratory failure secondary to COVID19 Toxic metabolic encephalopathy Hx B Cell Lymphoma P/ Continue current POC and Medications. Discontinue IVF. Continue free water through NGT. Continue abx. Continue steroids. COVID protocol/ Oxygen supplementation. Continue Vitamin D. AM labs. Daily weight. No NSAIDs. Greater than 30min pateint care. Case reviewed with Dr. Hidalgo and Dr. Chanel. Plan to minimize fluid resuscitation due to ARDS but will adjust pending the blood work.
[2020-02-15] MEDS: MORPHINE 2 MG/ML SYR IV PRN (19:40)
[2020-02-15] MEDS: ATORVASTATIN 40 MG TAB PO SCH (20:19)
[2020-02-15] MEDS: MELATONIN 3 MG TABLET PO SCH (20:20)
[2020-02-16] MEDS: LORazepam 2 MG/ML VIAL IV PRN ×4 (00:49→21:32)
[2020-02-16] MEDS: propofoL 1,000 MG/100 ML VIAL IV PRN ×5 (02:24→20:32)
[2020-02-16] MEDS: MORPHINE 2 MG/ML SYR IV PRN ×2 (02:50→09:43)
[2020-02-16 04:31] LABS: ALT/SGPT 88 U/L (12-78); AST/SGOT 73 U/L (15-37); Albumin 2.4 g/dL (3.4-5.0); Alkaline Phosphatase 82 U/L (45-117); BUN Blood Urea Nitrogen 34 mg/dL (7-18); Bicarbonate 31 mmol/L (21-32); Bilirubin Total 1.3 mg/dL (0.2-1.0); Ferritin 828.2 ng/mL (26-388); Glucose Level 231 mg/dL (74-106); Magnesium 3.1 mg/dL (1.8-2.4); Phosphorus 4.1 mg/dL (2.5-4.9); Potassium 4.6 mmol/L (3.5-5.1); Protein, Total 5.6 g/dL (6.4-8.2); Sodium Level 144 mmol/L (136-145)
[2020-02-16 05:29] LABS: Arterial Blood Carboxyhemoglob 2.2 % (0-1.5); Blood Gas Oxyhemoglobin 93.2 % (94-97); Blood O2 Saturation 96.2 % (92-98.5)
--- NOTE | 2020-02-16 07:37 | RAD REPORT ---
EXAM DESCRIPTION: RAD - Chest Single View - 02/16/2020 6:45 am CLINICAL HISTORY: Resp failure COMPARISON: February 14, February 13, February 12 TECHNIQUE: AP portable chest image was obtained 02/16/2020 6:45 am . FINDINGS: Lung volumes remain low. Retrocardiac left base assessment is limited. No gross change see n. Mid and upper left lung field not substantially different. Patient may have increasing alveolar op acification in the lower right lung field. The low lung volume accentuates parenchyma. No improvement has occurred. Tubes and lines are unchanged. Heart and vasculature are normal. No measurable pleural effusion and no pneumothorax. No acute bony abnormality seen. No acute aortic findings suspected. IMPRESSION: No improvement in the chest findings. There is questionable worsening opacification at t he right base which can be monitored on subsequent imaging.
--- NOTE | 2020-02-16 08:31 | P.PN ---
Subjective Date of Service: 02/16/20 Primary Care Provider: unknown Chief Complaint: Respiratory failure Subjective: Other (Patient remains intubated and sedated.) Physical Examination - Vital Signs Temperature: 98.6 F Blood Pressure: 143/90 Pulse: 93 Respirations: 24 Pulse Ox (%): 95 - Physical Exam General: Other (Patient intubated and sedated) Respiratory: Other (Patient intubated. FiO2 of 55%. Peep of 15) Cardiovascular: Normal pulses Neurological: Other (Patient remains stable this time. No significant edema noted) - Studies Medications List Reviewed: Yes Assessment & Plan Discharge Plan: LTAC Plan to discharge in: 48 Hours Physician Review Additional Text: Impression: Toxic encephalopathy secondary to ARDS with COVID 19 pneumonia complicated with hypovolemic shock/hypernatremia Acute renal injury with hypernatremia likely volume depletion Hyperlipidemia Hx of B cell Lymphoma HTN Plan: Toxic encephalopathy secondary to ARDS with COVID 19 pneumonia complicated with hypovolemic shock/hypernatremia: Patient remains sedated and intubated. May need vasopressor if blood pressure drops. Continue IV steroids. Pulmonology continues to adjust ventilator. Patient on peep of 15 and FiO2 of 55%. Case discussed with yesterday. She agrees with long-term acute care facility placement. Will discuss further with pulmonology. Patient needs improved before consideration of transfer to long-term acute care facility if approved. Patient will likely require long-term acute care facility placement due to his deconditioning. Will continue to monitor closely. Continue broad-spectrum antibiotic therapy, antifungal medication to cover for opportunistic infection. Continue Lovenox at current dose. Will continue monitor closely. Acute renal injury with hypernatremia likely volume depletion: Continue with Nephrology recommendations. Fluids adjusted per Nephrology. Hypernatremic improved Hypertension: Will provide medication as needed. Hyperlipidemia: Continue medication History of B-cell lymphoma: Will monitor closely. Time Spent Managing Pts Care (In Minutes): 55
[2020-02-16] MEDS: THIAMINE 200 MG/2 ML INJ IVP SCH (09:38)
[2020-02-16] MEDS: CEFEPIME/SWI 1gm 10 ML IVP SCH ×2 (09:38→20:13)
[2020-02-16] MEDS: FAMOTIDINE 20 MG/2 ML VIAL IV SCH ×2 (09:38→20:13)
[2020-02-16] MEDS: METHYLPREDNISOLONE 40 MG INJ IV SCH ×2 (09:38→20:13)
[2020-02-16] MEDS: ENOXAPARIN 100 MG/ML SYR SQ SCH ×2 (09:38→20:12)
--- NOTE | 2020-02-16 10:21 | P.PN ---
Subjective Date of Service: 02/16/20 Primary Care Provider: unknown Chief Complaint: Respiratory failure Patient is improving still agitated oxygen requirements have peep every declining laboratory parameters improving Review of Systems is unable to be obtained Physical Examination - Vital Signs Temperature: 98.6 F Blood Pressure: 121/72 Pulse: 63 Respirations: 20 Pulse Ox (%): 93 - Physical Exam General: Unresponsive Respiratory: Clear to auscultation bilaterally Cardiovascular: No edema, Normal S1 S2 Gastrointestinal: Normal bowel sounds, Soft and benign - Studies Medications List Reviewed: Yes Assessment & Plan - Problems (Diagnosis) (1) Respiratory failure Current Visit: Yes Status: Acute Plan: Patient is 59 years of age with ARDS from coronal virus infection he is gradually improving continue with tube feeds IV fluids and nasal flushes have been discontinued laboratory parameters or improving continue to wean down the oxygen and peep Qualifiers: Chronicity: acute
[2020-02-16] MEDS: VITAL HP 1,000 ML BOT RTH SCH (11:26)
[2020-02-16] MEDS: FLUCONAZOLE 100mg IVPB 100 MG/50 ML BAG IV SCH (12:01)
[2020-02-16] MEDS: VITAMIN D 1000 UNIT TAB PO SCH (12:01)
[2020-02-16] MEDS: FENTANYL CITR 100 MCG/2 ML IV PRN ×2 (12:52→16:54)
--- NOTE | 2020-02-16 13:39 | CON ---
Date of Consultation: 02/16/2020 Subjective: The patient is in ICU. Remains intubated. 50% FiO2. Has not required pressors. Objective: Vital Signs: Blood pressure 115/68, pulse 65, afebrile. Remainder of report taken from nursing stating transmitted breath sounds, soft. Abdomen: Soft. Extremities: No significant edema. Laboratory Data: CBC, hemoglobin 12.9, hematocrit 37.5. Serum chemistry; sodium 144, potassium 4.6, chloride 108, CO2 31, BUN 34, creatinine 0.8, calcium 7.3, magnesium 3.1, phosphorus 4.1. Liver enzy mes are trending upward. CRP is down to 13.2, albumin is 2.4. Current Medications: Reviewed. Of note, the patient is continuing on Solu-Medrol, broad-spectrum an tibiotics, angiolytics, analgesics, sedation. Impression: 1.Acute kidney injury on chronic kidney disease. 2.Electrolyte imbalance. 3.Alkalosis. 4.Elevated liver enzymes. 5.COVID-19 pneumonia. 6.Acute hypoxemic respiratory failure. Plan: The patient's renal function is stable. We will continue monitoring daily electrolytes. The patient's free water has been discontinued and will need to monitor for signs of dehydration, which w ould manifest as hypernatremia and possibly UTI. Avoid NSAIDs. Avoid contrast. Continue respiratory failure management per Pulmonary team. We will continue to fol low. SE/MODL Voice ID: [id number] Report ID: [id number]
[2020-02-16] MEDS: ATORVASTATIN 40 MG TAB PO SCH (20:12)
[2020-02-16] MEDS: MELATONIN 3 MG TABLET PO SCH (20:13)
[2020-02-17] MEDS: propofoL 1,000 MG/100 ML VIAL IV PRN ×6 (01:07→23:54)
[2020-02-17] MEDS: FENTANYL CITR 100 MCG/2 ML IV PRN ×4 (04:00→20:24)
[2020-02-17 05:16] LABS: ALT/SGPT 184 U/L (12-78); AST/SGOT 103 U/L (15-37); Albumin 2.4 g/dL (3.4-5.0); Alkaline Phosphatase 93 U/L (45-117); BUN Blood Urea Nitrogen 38 mg/dL (7-18); Bicarbonate 30 mmol/L (21-32); Bilirubin Total 1.7 mg/dL (0.2-1.0); Ferritin 882.8 ng/mL (26-388); Glucose Level 216 mg/dL (74-106); Magnesium 2.8 mg/dL (1.8-2.4); Potassium 4.7 mmol/L (3.5-5.1); Protein, Total 5.6 g/dL (6.4-8.2); Sodium Level 145 mmol/L (136-145)
[2020-02-17] MEDS: ENOXAPARIN 100 MG/ML SYR SQ SCH ×2 (08:55→19:56)
[2020-02-17] MEDS: VITAMIN D 1000 UNIT TAB PO SCH (08:55)
[2020-02-17] MEDS: METHYLPREDNISOLONE 40 MG INJ IV SCH (08:55)
[2020-02-17] MEDS: THIAMINE 200 MG/2 ML INJ IVP SCH (08:55)
[2020-02-17] MEDS: FAMOTIDINE 20 MG/2 ML VIAL IV SCH ×2 (08:55→19:57)
[2020-02-17] MEDS: LORazepam 2 MG/ML VIAL IV PRN ×3 (08:55→20:23)
[2020-02-17] MEDS: CEFEPIME/SWI 1gm 10 ML IVP SCH ×2 (08:56→19:56)
--- NOTE | 2020-02-17 10:42 | P.PN ---
Subjective Date of Service: 02/17/20 Primary Care Provider: unknown Chief Complaint: Respiratory failure Subjective: Other (Patient intubated and sedated.) Physical Examination - Vital Signs Temperature: 97.3 F Blood Pressure: 113/72 Pulse: 70 Respirations: 12 Pulse Ox (%): 88 - Physical Exam General: Other (Patient intubated and sedated) Respiratory: Other (Patient intubated) Cardiovascular: Normal pulses Integumentary: No tenderness/swelling, No erythema, No warmth, No cyanosis Neurological: Other (Patient appears stable. Trach in place.) - Studies Medications List Reviewed: Yes Assessment & Plan Discharge Plan: LTAC Plan to discharge in: 72 Hours Physician Review Additional Text: Impression: Toxic encephalopathy secondary to ARDS with COVID 19 pneumonia complicated with hypovolemic shock/hypernatremia Acute renal injury with hypernatremia likely volume depletion Hyperlipidemia Hx of B cell Lymphoma HTN Plan: Toxic encephalopathy secondary to ARDS with COVID 19 pneumonia complicated with hypovolemic shock/hypernatremia: Patient remains sedated and intubated. Continue with vasopressor if blood pressure drops. Continue IV steroids. Will discuss with Pulmonary as IV steroids may need to be increased as CRP is slightly elevated. Continue to adjust ventilator. Hopefully patient will be able to be weaned off over the next several days. Will discuss with later. Will also discuss with Pulmonary in detail. and pulmonary agree with plan for transfer to long-term acute care facility once patient more medically stable. Continue current medication. I will turn the service over to the hospitalist team tomorrow. I will go over plan of care with him. Acute renal injury with hypernatremia likely volume depletion: Continue with Nephrology recommendations. Fluids adjusted per Nephrology. Hypernatremic improved Hypertension: Will provide medication as needed. Hyperlipidemia: Continue medication History of B-cell lymphoma: Will monitor closely. Time Spent Managing Pts Care (In Minutes): 55
--- NOTE | 2020-02-17 11:49 | P.PN ---
Subjective Date of Service: 02/17/20 Primary Care Provider: unknown Chief Complaint: Respiratory failure Patient's condition is stable is still requiring high doses of propofol on 50% FiO2 with a peep of 12 sat around 90% all rating tube feeds Review of Systems is unable to be obtained Physical Examination - Vital Signs Temperature: 97.3 F Blood Pressure: 122/74 Pulse: 77 Respirations: 12 Pulse Ox (%): 88 (Deferred due to coronal wire) - Studies Medications List Reviewed: Yes Assessment & Plan - Problems (Diagnosis) (1) Respiratory failure Current Visit: Yes Status: Acute Plan: Respiratory failure condition stable CRP is less than 50 hemodynamically stable blood pressure labs reviewed recommend transfer to an LTAC may need a tracheostomy Qualifiers: Chronicity: acute Discharge Plan: LTAC Physician Review Additional Text: Impression: Toxic encephalopathy secondary to ARDS with COVID 19 pneumonia complicated with hypovolemic shock/hypernatremia Acute renal injury with hypernatremia likely volume depletion Hyperlipidemia Hx of B cell Lymphoma HTN Plan: Toxic encephalopathy secondary to ARDS with COVID 19 pneumonia complicated with hypovolemic shock/hypernatremia: Patient remains sedated and intubated. Continue with vasopressor if blood pressure drops. Continue IV steroids. Will discuss with Pulmonary as IV steroids may need to be increased as CRP is slight ly elevated. Continue to adjust ventilator. Hopefully patient will be able to be weaned off over the next several days. Will discuss with later. Will also discuss with Pulmonary in detail. and pulmonary agree with plan for transfer to long-term acute care facility once patient more medically stable. Continue current medication. I will turn the service over to the hospitalist team tomorrow. I will go over plan of care with him. Acute renal injury with hypernatremia likely volume depletion: Continue with Nephrology recommendations. Fluids adjusted per Nephrology. Hypernatremic improved Hypertension: Will provide medication as needed. Hyperlipidemia: Continue medication History of B-cell lymphoma: Will monitor closely.
[2020-02-17] MEDS: FLUCONAZOLE 100mg IVPB 100 MG/50 ML BAG IV SCH (13:29)
[2020-02-17] MEDS ORDERED: SUCCINYLCHOLINE 20 MG/ML (10 ML) IV ONE (16:02)
[2020-02-17] MEDS ORDERED: ETOMIDATE 20 MG/10 ML VIAL IV ONE (16:02)
[2020-02-17] MEDS: MELATONIN 3 MG TABLET PO SCH (19:57)
[2020-02-17] MEDS: METHYLPREDNISOLONE 125 MG INJ IV SCH (19:58)
[2020-02-18] MEDS: propofoL 1,000 MG/100 ML VIAL IV PRN ×5 (04:02→22:53)
[2020-02-18] MEDS: VITAL HP 1,000 ML BOT RTH SCH ×2 (05:27→22:54)
[2020-02-18] MEDS: LORazepam 2 MG/ML VIAL IV PRN (05:30)
[2020-02-18 05:32] LABS: ALT/SGPT 249 U/L (12-78); AST/SGOT 104 U/L (15-37); Albumin 2.3 g/dL (3.4-5.0); Alkaline Phosphatase 103 U/L (45-117); BUN Blood Urea Nitrogen 39 mg/dL (7-18); Bicarbonate 30 mmol/L (21-32); Bilirubin Total 1.4 mg/dL (0.2-1.0); Ferritin 780.1 ng/mL (26-388); Glucose Level 207 mg/dL (74-106); Magnesium 2.5 mg/dL (1.8-2.4); Potassium 4.7 mmol/L (3.5-5.1); Protein, Total 5.7 g/dL (6.4-8.2); Sodium Level 145 mmol/L (136-145)
[2020-02-18] MEDS: ENOXAPARIN 100 MG/ML SYR SQ SCH ×2 (07:28→20:14)
[2020-02-18] MEDS: THIAMINE 200 MG/2 ML INJ IVP SCH (07:28)
[2020-02-18] MEDS: VITAMIN D 1000 UNIT TAB PO SCH (07:29)
[2020-02-18] MEDS: CEFEPIME/SWI 1gm 10 ML IVP SCH ×2 (07:29→20:13)
[2020-02-18] MEDS: METHYLPREDNISOLONE 125 MG INJ IV SCH ×2 (07:29→20:15)
[2020-02-18] MEDS: FAMOTIDINE 20 MG/2 ML VIAL IV SCH ×2 (07:29→20:15)
--- NOTE | 2020-02-18 08:10 | RAD REPORT ---
EXAM DESCRIPTION: Yary Single View02/18/2020 6:11 am CLINICAL HISTORY: Chest pain COMPARISON: February 16, 2020 FINDINGS: No change in mild bilateral pulmonary opacities. The heart remains enlarged. Endotracheal tube has its tip 6 centimeters above the evelin. A PICC line and nasogastric tube in emory ce IMPRESSION: No change in mild bilateral pulmonary opacities which could represent pneumonia or pulmo nary edema
--- NOTE | 2020-02-18 10:50 | P.PN ---
Date of Service: 02/18/20 Vital Signs Temp Pulse Resp BP Pulse Ox 94 F L 67 22 H 99/64 93 02/18/20 08:00 02/18/20 08:00 02/18/20 08:00 02/18/20 08:00 02/18/20 08:00 Medications Acetaminophen (Tylenol -Extra Strength) 500 mg PO Q4HP PRN PRN Reason: pain/fever Stop: 03/07/20 16:50 Last Admin: 02/09/20 17:29 Dose: 500 mg Documented by: Alprazolam (Xanax) 0.25 mg PO TID PRN PRN Reason: ANXIETY Stop: 03/10/20 17:15 Last Admin: 02/09/20 20:50 Dose: 0.25 mg Documented by: Cholecalciferol (Vitamin D 1000 Iu Tab) 2,000 unit PO DAILY [facility] Stop: 03/10/20 09:01 Last Admin: 02/18/20 07:29 Dose: 2,000 unit Documented by: Enoxaparin Sodium (Lovenox 100 Mg Inj) 100 mg 1 mg/kg (100 mg) SQ Q12HR [facility] Stop: 03/11/20 21:01 Last Admin: 02/18/20 07:28 Dose: 100 mg Documented by: Famotidine (Pepcid) 20 mg IV BID [facility] Stop: 03/13/20 09:01 Last Admin: 02/18/20 07:29 Dose: 20 mg Documented by: Fentanyl Citrate (Sublimaze) 25 mcg IV Q4HP PRN PRN Reason: Pain scale 8-10 (Severe) Stop: 03/13/20 05:42 Last Admin: 02/17/20 20:24 Dose: 25 mcg Documented by: Guaifenesin/Codeine Phosphate (Robitussin A-C Syrup) 10 ml PO Q6H PRN PRN Reason: COUGH Stop: 03/09/20 22:40 Last Admin: 02/09/20 21:31 Dose: 10 ml Documented by: Haloperidol Lactate (Haldol) 2 mg IV Q4HP PRN PRN Reason: AGITATION Stop: 03/13/20 05:42 Last Admin: 02/14/20 12:23 Dose: 2 mg Documented by: Fluconazole (Diflucan 100 Mg/50 Ml Ivpb (Premix)) 100 mg in 50 mls @ 50 mls/hr IV Q24H [facility]; Protocol Stop: 03/12/20 13:01 Last Admin: 02/17/20 13:29 Dose: 50 mls Documented by: Propofol (Diprivan) 1,000 mg in 100 mls @ 0 mls/hr IV PRN PRN; Protocol PRN Reason: SEDATION Stop: 03/13/20 05:42 Last Admin: 02/18/20 09:06 Dose: 100 mls Documented by: Norepinephrine Bitartrate 4 mg (/ Dextrose) 254 mls @ 0 mls/hr IV PRN PRN; Protocol PRN Reason: Hemodynamic Parameters Stop: 03/13/20 07:55 Last Admin: 02/13/20 02:26 Dose: 254 mls Documented by: Cefepime HCl (Maxipime 1 Gm/10 Ml Ivp) 10 mls @ 120 mls/hr IVP Q12HR [facility] Stop: 03/13/20 21:01 Last Admin: 02/18/20 07:29 Dose: 10 mls Documented by: Lorazepam (Ativan) 2 mg IV Q2HP PRN PRN Reason: SEDATION Stop: 03/13/20 05:37 Last Admin: 02/18/20 05:30 Dose: 2 mg Documented by: Melatonin (Melatonin) 3 mg PO BEDTIME [facility] Stop: 03/10/20 21:01 Last Admin: 02/17/20 19:57 Dose: 3 mg Documented by: Methylprednisolone Sodium Succinate (Solu-Medrol) 60 mg IV Q12HR [facility] Stop: 03/18/20 21:01 Last Admin: 02/18/20 07:29 Dose: 60 mg Documented by: Midazolam HCl (Versed) 2 mg IV Q2HP PRN PRN Reason: SEDATION Stop: 03/13/20 05:42 Last Admin: 02/15/20 17:00 Dose: 2 mg Documented by: Morphine Sulfate (Morphine Sulfate) 2 mg IV Q4H PRN PRN Reason: Pain scale 5-7 (Moderate) Stop: 03/11/20 10:35 Last Admin: 02/16/20 09:43 Dose: 2 mg Documented by: Nutritional Formula (Vital Hp) 0 ml RTH CONT [facility] Stop: 03/13/20 15:01 Last Admin: 02/18/20 05:27 Dose: 1,000 ml Documented by: Ondansetron HCl (Zofran) 4 mg IV Q6HP PRN PRN Reason: NAUSEA / VOMITING Stop: 03/07/20 16:50 Sodium Chloride (Normal Saline Flush) 10 ml IV BID [facility] Stop: 03/07/20 21:01 Last Admin: 02/18/20 07:30 Dose: 10 ml Documented by: Sterile Water (Sterile Water For Inj (10 Ml Vial)) 1.2 ml IM UD PRN PRN Reason: DILUTION OF MED Stop: 03/11/20 10:14 Last Admin: 02/15/20 20:17 Dose: 1.2 ml Documented by: Thiamine HCl (Vitamin B-1) 200 mg IVP DAILY [facility] Stop: 03/11/20 09:01 Last Admin: 02/18/20 07:28 Dose: 200 mg Documented by: Ziprasidone (Geodon) 10 mg IM Q6H PRN PRN Reason: AGITATION Stop: 03/11/20 10:14 Last Admin: 02/15/20 20:18 Dose: 10 mg Documented by: Microbiology Results 02/06/20 12:45 Blood - Blood Aerobic Blood Culture - Final No growth in 5 days. 02/06/20 12:45 Blood - Blood Anaerobic Blood Culture - Final No growth in 5 days. 02/06/20 12:55 Blood - Blood Aerobic Blood Culture - Final No growth in 5 days. 02/06/20 12:55 Blood - Blood Anaerobic Blood Culture - Final No growth in 5 days. 02/06/20 12:37 Nasopharnyx Influenza Type A Antigen Screen - Final 02/06/20 12:37 Nasopharnyx Influenza Type B Antigen Screen - Final Assessment/ Plan: Nephrology/ ICU No acute events overnight. Limited IH/ ROS due to AMS. Vitals, medications, blood work and imaging reviewed in the chart. Intubated. Obese. NAD. MMM. Neck supple. CTA. RRR. Soft Abd. No C/C/E. No rash. Sedated. No Speech. A/ ROSA MARIA Hypernatremia Alkalosis Hypocalcemia Hypermagnesemia HTN DM II Acute respiratory failure secondary to COVID19 Toxic metabolic encephalopathy Hx B Cell Lymphoma P/ Continue current POC and Medications. Continue free water through NGT. Continue abx. Continue steroids. COVID protocol/ Oxygen supplementation. Continue Vitamin D. AM labs. Daily weight. No NSAIDs. Greater than 30min pateint care. Case reviewed with Dr. Levin.
--- NOTE | 2020-02-18 12:55 | P.PN ---
Subjective Date of Service: 02/18/20 Primary Care Provider: unknown Chief Complaint: Respiratory failure P patient continues to remain agitated has copious secretion expiratory wheezing Review of Systems is unable to be obtained Physical Examination - Vital Signs Temperature: 94 F Blood Pressure: 120/78 Pulse: 68 Respirations: 22 Pulse Ox (%): 98 - Physical Exam General: Unresponsive Respiratory: Expiratory wheezes Cardiovascular: No edema, Regular rate/rhythm, Normal S1 S2 Gastrointestinal: Normal bowel sounds, Soft and benign - Studies Medications List Reviewed: Yes Assessment & Plan - Problems (Diagnosis) (1) Respiratory failure Current Visit: Yes Status: Acute Plan: Respiratory failure condition stable chest x-ray has improved CRP is less than 50 ferritin levels declining I have added some bronchodilators here some wheezing also added nebulized Pulmicort patient's status over 90% on 50% oxygen renal function is normal. Sodium normal repeat sputum culture Qualifiers: Chronicity: acute Physician Review Additional Text: Impression: Toxic encephalopathy secondary to ARDS with COVID 19 pneumonia complicated with hypovolemic shock/hypernatremia Acute renal injury with hypernatremia likely volume depletion Hyperlipidemia Hx of B cell Lymphoma HTN Plan: Toxic encephalopathy secondary to ARDS with COVID 19 pneumonia complicated with hypovolemic shock/hypernatremia: Patient remains sedated and intubated. Continue with vasopressor if blood pressure drops. Continue IV steroids. Will discuss with Pulmonary as IV steroids may need to be increased as CRP is slightly elevated. Continue to adjust ventilator. Hopefully patient will be able to be weaned off over the next several days. Will discuss with later. Will also discuss with Pulmonary in detail. and pulmonary agree with plan for transfer to long-term acute care facility once patient more medically stable. Continue current medication. I will turn the service over to the hospitalist team tomorrow. I will go over plan of care with him. Acute renal injury with hypernatremia likely volume depletion: Continue with Nephrology recommendations. Fluids adjusted per Nephrology. Hypernatremic improved Hypertension: Will provide medication as needed. Hyperlipidemia: Continue medication History of B-cell lymphoma: Will monitor closely.
[2020-02-18] MEDS: FLUCONAZOLE 100mg IVPB 100 MG/50 ML BAG IV SCH (13:02)
[2020-02-18] MEDS: BISACODYL 10 MG RECTAL SUPP PR ONE ×2 (13:02→20:36)
[2020-02-18] MEDS: ALBUTEROL 2.5 MG/3 ML NEB SOL IH SCH ×2 (14:00→20:10)
[2020-02-18] MEDS: BUDESONIDE 0.5 MG/2 ML NEB NEB SCH ×2 (14:00→20:10)
[2020-02-18] MEDS: MELATONIN 3 MG TABLET PO SCH (20:15)
[2020-02-18] MEDS: WATER FOR INJ,STERILE 10 ML IM PRN (20:16)
[2020-02-19] MEDS: ALBUTEROL 2.5 MG/3 ML NEB SOL IH SCH ×4 (01:38→20:50)
[2020-02-19] MEDS: propofoL 1,000 MG/100 ML VIAL IV PRN ×6 (02:25→21:49)
[2020-02-19 05:21] LABS: ALT/SGPT 276 U/L (12-78); AST/SGOT 114 U/L (15-37); Albumin 2.4 g/dL (3.4-5.0); Alkaline Phosphatase 119 U/L (45-117); BUN Blood Urea Nitrogen 35 mg/dL (7-18); Bicarbonate 29 mmol/L (21-32); Bilirubin Total 1.4 mg/dL (0.2-1.0); Ferritin 1039.4 ng/mL (26-388); Glucose Level 196 mg/dL (74-106); Magnesium 2.5 mg/dL (1.8-2.4); Potassium 4.6 mmol/L (3.5-5.1); Protein, Total 5.9 g/dL (6.4-8.2); Sodium Level 145 mmol/L (136-145)
[2020-02-19] MEDS: METHYLPREDNISOLONE 125 MG INJ IV SCH (07:52)
[2020-02-19] MEDS: ENOXAPARIN 100 MG/ML SYR SQ SCH ×2 (07:53→21:14)
[2020-02-19] MEDS: FAMOTIDINE 20 MG/2 ML VIAL IV SCH ×2 (07:53→21:15)
[2020-02-19] MEDS: WATER FOR INJ,STERILE 10 ML IM PRN (07:53)
[2020-02-19] MEDS: THIAMINE 200 MG/2 ML INJ IVP SCH (07:53)
[2020-02-19] MEDS: VITAMIN D 1000 UNIT TAB PO SCH (07:54)
[2020-02-19] MEDS: CEFEPIME/SWI 1gm 10 ML IVP SCH ×2 (07:54→21:14)
[2020-02-19] MEDS: FLUCONAZOLE 100 MG TAB PO SCH (07:54)
[2020-02-19] MEDS: BUDESONIDE 0.5 MG/2 ML NEB NEB SCH ×2 (08:10→20:50)
[2020-02-19] MEDS ORDERED: METHYLPREDNISOLONE 40 MG INJ IV SCH (09:00)
--- NOTE | 2020-02-19 09:17 | P.PN ---
Subjective Date of Service: 02/18/20 Patient is moving in bed. Patient is intubated and getting sedation. He moves all extremities. Slowly weaning down off the FiO2. Slow but gradual improvement. Review of Systems is unable to be obtained Physical Examination - Vital Signs Temperature: 97.3 F Blood Pressure: 115/75 Pulse: 67 Respirations: 20 Pulse Ox (%): 96 - Physical Exam General: Other (Moves around in bed; and sedated and intubated) Respiratory: Clear to auscultation bilaterally Cardiovascular: Regular rate/rhythm, Normal S1 S2 Gastrointestinal: Normal bowel sounds, Soft and benign, Non-distended Musculoskeletal: No clubbing, No swelling - Studies Medications List Reviewed: Yes Assessment & Plan - Problems (Diagnosis) (1) Pneumonia due to COVID-19 virus Current Visit: Yes Status: Acute (2) B-cell lymphoma Current Visit: No Status: Acute (3) Congestive heart failure, acute Current Visit: No Status: Acute (4) Hypoxemia Current Visit: No Status: Acute (5) Status post chemotherapy Current Visit: No Status: Acute (6) ARDS (adult respiratory distress syndrome) Current Visit: No Status: Acute - Plan 1. Continue with IV antibiotics and IV steroids 2. Chest x-ray with stabilization of the infiltrates; repeat every 48 hr 3. Gradual weaning off the ventilator 4. Pulmonary consultation appreciated 5. Continue with nebulizer therapy 6. Completed remdesivir therapy 7. Monitor labs closely 8. GI and DVT prophylaxis Discharge Plan: Home Plan to discharge in: Greater than 2 days - Advance Directives Does patient have a Living Will: No Does patient have a Durable POA for Healthcare: No - Code Status/Comfort Care Code Status: Full Code Critical Care: Yes Time Spent Managing PTS Care (In Minutes): 35
--- NOTE | 2020-02-19 12:18 | P.PN ---
Subjective Date of Service: 02/19/20 Primary Care Provider: unknown Chief Complaint: Respiratory failure Patient is improving oxygen requirements are declining still requiring peep agitated on propofol respiratory therapist suctioned out considerable amount of mucoid plugs yesterday Review of Systems is unable to be obtained Physical Examination - Vital Signs Temperature: 97.3 F Blood Pressure: 115/75 Pulse: 67 Respirations: 20 Pulse Ox (%): 96 - Physical Exam General: Unresponsive Respiratory: Expiratory wheezes Cardiovascular: No edema, Normal S1 S2 - Studies Medications List Reviewed: Yes Assessment & Plan - Problems (Diagnosis) (1) Respiratory failure Current Visit: Yes Status: Acute Plan: Respiratory failure continue with present treatment his oxygenation has improved significantly the cultures are negative sputum culture and repeat titrate peep down on O2 down stable to be transferred to an LTAC facility is on Solu-Medrol 60 IV Q 12 Qualifiers: Chronicity: acute Physician Review Additional Text: Impression: Toxic encephalopathy secondary to ARDS with COVID 19 pneumonia complicated with hypovolemic shock/hypernatremia Acute renal injury with hypernatremia likely volume depletion Hyperlipidemia Hx of B cell Lymphoma HTN Plan: Toxic encephalopathy secondary to ARDS with COVID 19 pneumonia complicated with hypovolemic shock/hypernatremia: Patient remains sedated and intubated. Continue with vasopressor if blood pressure drops. Continue IV steroids. Will discuss with Pulmonary as IV steroids may need to be increased as CRP is slightly elevated. Continue to adjust ventilator. Hopefully patient will be able to be weaned off over the next several days. Will discuss with later. Will also discuss with Pulmonary in detail. and pulmonary agree with plan for transfer to long-term acute care facility once patient more medically stable. Continue current medication. I will turn the service over to the hospitalist team tomorrow. I will go over plan of care with him. Acute renal injury with hypernatremia likely volume depletion: Continue with Nephrology recommendations. Fluids adjusted per Nephrology. Hypernatremic improved Hypertension: Will provide medication as needed. Hyperlipidemia: Continue medication History of B-cell lymphoma: Will monitor closely.
[2020-02-19] MEDS: LORazepam 2 MG/ML VIAL IV PRN ×2 (13:16→22:33)
[2020-02-19] MEDS: METHYLPREDNISOLONE 40 MG INJ IV SCH (21:15)
[2020-02-19] MEDS: MELATONIN 3 MG TABLET PO SCH (21:15)
[2020-02-20] MEDS: ALBUTEROL 2.5 MG/3 ML NEB SOL IH SCH ×4 (01:05→20:30)
[2020-02-20] MEDS: propofoL 1,000 MG/100 ML VIAL IV PRN ×5 (02:14→17:56)
[2020-02-20 05:33] LABS: Absolute Lymphocytes (CBC) 0.7 K/uL (0.7-4.9); Basophils % 0.6 % (0-1.3); Hematocrit 37.9 % (39.6-49.0); Lymphocytes % 10.4 % (15.3-44.8); MPV 10.2 fL (7.6-11.3); RBC Red Blood Cell Count 4.02 M/uL (4.33-5.43)
[2020-02-20 05:52] LABS: ALT/SGPT 271 U/L (12-78); AST/SGOT 88 U/L (15-37); Albumin 2.4 g/dL (3.4-5.0); Alkaline Phosphatase 112 U/L (45-117); BUN Blood Urea Nitrogen 35 mg/dL (7-18); Bicarbonate 28 mmol/L (21-32); Glucose Level 198 mg/dL (74-106); Potassium 4.3 mmol/L (3.5-5.1); Protein, Total 6.1 g/dL (6.4-8.2); Sodium Level 149 mmol/L (136-145)
[2020-02-20 07:22] LABS: Ferritin 805.3 ng/mL (26-388)
[2020-02-20 07:24] LABS: Blood Morphology Comment NOTED (NOT SEEN); Platelet Estimate DECR; Polychromasia 1+
[2020-02-20] MEDS: BUDESONIDE 0.5 MG/2 ML NEB NEB SCH ×2 (07:50→20:30)
--- NOTE | 2020-02-20 07:53 | P.PN ---
Subjective Date of Service: 02/19/20 Patient is clinically improving. Currently on 40% FiO2. His oxygen saturations are in the low 90 percentile. Hopefully, he will continue to improve but at this time will also will continue working on LTAC placement. Review of Systems 10-point ROS is otherwise unremarkable Physical Examination - Vital Signs Temperature: 97.3 F Blood Pressure: 115/75 Pulse: 67 Respirations: 20 Pulse Ox (%): 96 - Physical Exam General: Alert, In no apparent distress, Oriented x3 Respiratory: Clear to auscultation bilaterally, Normal air movement Cardiovascular: Regular rate/rhythm, Normal S1 S2, No murmurs Gastrointestinal: Normal bowel sounds, Soft and benign, Non-distended, No tenderness Musculoskeletal: No tenderness Integumentary: No rashes Neurological: Sensation intact, Cranial nerves 3-12 intact - Studies Medications List Reviewed: Yes Assessment & Plan - Problems (Diagnosis) (1) Acute respiratory failure with hypoxia Current Visit: Yes Status: Acute (2) Pneumonia due to COVID-19 virus Current Visit: Yes Status: Acute (3) B-cell lymphoma Current Visit: No Status: Acute (4) Congestive heart failure, acute Current Visit: No Status: Acute (5) Hypoxemia Current Visit: No Status: Acute (6) Status post chemotherapy Current Visit: No Status: Acute (7) ARDS (adult respiratory distress syndrome) Current Visit: No Status: Acute - Plan Continue with plan of care as mentioned below 1. Continue with IV antibiotics and IV steroids 2. Chest x-ray with stabilization of the infiltrates; repeat every 48 hr 3. Gradual weaning off the ventilator 4. Pulmonary consultation appreciated 5. Continue with nebulizer therapy 6. Completed remdesivir therapy 7. Monitor labs closely; LFTs are still elevated. Continue to monitor 8. GI and DVT prophylaxis Discharge Plan: Home Plan to discharge in: Greater than 2 days - Advance Directives Does patient have a Living Will: No Does patient have a Durable POA for Healthcare: No - Code Status/Comfort Care Code Status: Full Code Critical Care: Yes Time Spent Managing PTS Care (In Minutes): 35
--- NOTE | 2020-02-20 08:04 | P.PN ---
Subjective Date of Service: 02/20/20 Patient continues to show slight improvement. Overall strength is improving. He is moving around and opens his eyes up to voice stimulus. Spoke with family he and explained to them that at this time ENT did not want to proceed with tracheostomy. The goal is to give the patient 14-20 days to wean off the ventilator per ENT prior to tracheostomy for COVID-19 patient's. At this time, patient has been excepted to [facility]. I spoke with patient's and explained to her patient's current clinical status. She would like to proceed with transfer tomorrow morning. At this time patient is clinically doing better and we anticipate transfer to LTAC in a.m. Patient's LFTs are elevated slightly. Patient also with some slight thrombocytopenia. May consider discontinuing Diflucan if okay with Pulmonary. Also stop Pepcid. Will discuss with pharmacy regarding other medications that can be discontinued. Patient is also been on propofol for a prolonged period and may need triglyceride levels checked as well. Review of Systems 10-point ROS is otherwise unremarkable Physical Examination - Vital Signs Temperature: 97.3 F Blood Pressure: 115/75 Pulse: 67 Respirations: 20 Pulse Ox (%): 96 - Physical Exam General: Other (Patient following commands and opens eyes to voice stimulus) Respiratory: Clear to auscultation bilaterally Cardiovascular: Regular rate/rhythm, Normal S1 S2 Gastrointestinal: Normal bowel sounds, Soft and benign, Non-distended Musculoskeletal: No clubbing, Swelling (Very minimal) Neurological: Other (Opens eyes to voice stimulus and moves all his extremities. Responds to pain in all 4 extremities) - Studies Medications List Reviewed: Yes Assessment & Plan - Problems (Diagnosis) (1) Acute respiratory failure with hypoxia Current Visit: Yes Status: Acute (2) Pneumonia due to COVID-19 virus Current Visit: Yes Status: Acute (3) B-cell lymphoma Current Visit: No Status: Acute (4) Congestive heart failure, acute Current Visit: No Status: Acute (5) Hypoxemia Current Visit: No Status: Acute (6) Status post chemotherapy Current Visit: No Status: Acute (7) ARDS (adult respiratory distress syndrome) Current Visit: No Status: Acute - Plan Continue with plan of care as mentioned below. At this time will also proceed with transfer to LTAC facility. 1. Continue with IV antibiotics and IV steroids 2. Chest x-ray with stabilization of the infiltrates; repeat every 48 hr 3. Gradual weaning off the ventilator 4. Pulmonary consultation appreciated 5. Continue with nebulizer therapy 6. Completed remdesivir therapy 7. Monitor labs closely; LFTs are still elevated. Continue to monitor 8. GI and DVT prophylaxis Discharge Plan: LTAC Plan to discharge in: 24 Hours - Advance Directives Does patient have a Living Will: No Does patient have a Durable POA for Healthcare: No - Code Status/Comfort Care Code Status: Full Code Critical Care: Yes Time Spent Managing PTS Care (In Minutes): 35
[2020-02-20] MEDS: FLUCONAZOLE 100 MG TAB PO SCH (08:44)
[2020-02-20] MEDS: VITAMIN D 1000 UNIT TAB PO SCH (08:44)
[2020-02-20] MEDS: ENOXAPARIN 100 MG/ML SYR SQ SCH ×2 (08:44→20:45)
[2020-02-20] MEDS: THIAMINE 200 MG/2 ML INJ IVP SCH (08:45)
[2020-02-20] MEDS: FAMOTIDINE 20 MG/2 ML VIAL IV SCH ×2 (08:45→20:46)
[2020-02-20] MEDS: CEFEPIME/SWI 1gm 10 ML IVP SCH ×2 (08:45→20:45)
[2020-02-20] MEDS: METHYLPREDNISOLONE 40 MG INJ IV SCH ×2 (08:45→20:46)
[2020-02-20] MEDS: LORazepam 2 MG/ML VIAL IV PRN ×3 (09:41→16:19)
--- NOTE | 2020-02-20 12:01 | P.PN ---
Subjective Date of Service: 02/20/20 Primary Care Provider: unknown Chief Complaint: Respiratory failure Clinically improving more alert copious secretions oxygen requirements have been declining Review of Systems is unable to be obtained Physical Examination - Vital Signs Temperature: 97.3 F Blood Pressure: 106/67 Pulse: 73 Respirations: 24 Pulse Ox (%): 93 - Physical Exam General: Unresponsive Respiratory: Clear to auscultation bilaterally Cardiovascular: No edema, Normal S1 S2 - Studies Medications List Reviewed: Yes Assessment & Plan - Problems (Diagnosis) (1) Respiratory failure Current Visit: Yes Status: Acute Plan: Patient is clinically improving oxygen requirements declining copious secretions consult to ENT for tracheostomy the stable to undergo tracheostomy hypernatremia and water flushes vital signs stable requiring sedation due to agitation inflammatory parameters are improving patient is on Solu-Medrol Qualifiers: Chronicity: acute Physician Review Additional Text: Impression: Toxic encephalopathy secondary to ARDS with COVID 19 pneumonia complicated with hypovolemic shock/hypernatremia Acute renal injury with hypernatremia likely volume depletion Hyperlipidemia Hx of B cell Lymphoma HTN Plan: Toxic encephalopathy secondary to ARDS with COVID 19 pneumonia complicated with hypovolemic shock/hypernatremia: Patient remains sedated and intubated. Continue with vasopressor if blood pressure drops. Continue IV steroids. Will discuss with Pulmonary as IV steroids may need to be increased as CRP is slightly elevated. Continue to adjust ventilator. Hopefully patient will be able to be weaned off over the next several days. Will discuss with later. Will also discuss with Pulmonary in detail. and pulmonary agree with plan for transfer to long-term acute care facility once patient more medically stable. Continue current medication. I will turn the service over to the hospitalist team tomorrow. I will go over plan of care with him. Acute renal injury with hypernatremia likely volume depletion: Continue with Nephrology recommendations. Fluids adjusted per Nephrology. Hypernatremic improved Hypertension: Will provide medication as needed. Hyperlipidemia: Continue medication History of B-cell lymphoma: Will monitor closely.
[2020-02-20] MEDS: MORPHINE 2 MG/ML SYR IV PRN ×2 (12:17→16:19)
[2020-02-20] MEDS: VITAL HP 1,000 ML BOT RTH SCH (16:20)
[2020-02-20] MEDS: MELATONIN 3 MG TABLET PO SCH (20:45)
[2020-02-20] MEDS: FENTANYL CITR 100 MCG/2 ML IV PRN (20:46)
[2020-02-21] MEDS: FENTANYL CITR 100 MCG/2 ML IV PRN ×4 (00:25→15:39)
[2020-02-21] MEDS: propofoL 1,000 MG/100 ML VIAL IV PRN ×4 (01:48→17:21)
[2020-02-21] MEDS: ALBUTEROL 2.5 MG/3 ML NEB SOL IH SCH ×3 (02:40→13:25)
[2020-02-21 05:47] LABS: AST/SGOT 112 U/L (15-37); Albumin 2.2 g/dL (3.4-5.0); Alkaline Phosphatase 127 U/L (45-117); BUN Blood Urea Nitrogen 35 mg/dL (7-18); Bicarbonate 28 mmol/L (21-32); Bilirubin Total 1.1 mg/dL (0.2-1.0); Ferritin 804.3 ng/mL (26-388); Glucose Level 168 mg/dL (74-106); Magnesium 2.5 mg/dL (1.8-2.4); Phosphorus 3.4 mg/dL (2.5-4.9); Protein, Total 6.2 g/dL (6.4-8.2); Sodium Level 144 mmol/L (136-145)
[2020-02-21 05:59] LABS: ALT/SGPT 338 U/L (12-78)
[2020-02-21 06:10] VITALS: BMI 30.5
--- NOTE | 2020-02-21 06:25 | P.DS ---
Discharge Date: 02/21/20 Dis[facility] Discharge Condition: CRITICAL Reason for Admission: Respiratory failure Consultations: Pulmonary ENT Nephrology - Problems (1) Acute respiratory failure with hypoxia Status: Acute (2) Pneumonia due to COVID-19 virus Status: Acute (3) B-cell lymphoma Status: Acute (4) Congestive heart failure, acute Status: Acute (5) Hypoxemia Status: Acute (6) Status post chemotherapy Status: Acute (7) ARDS (adult respiratory distress syndrome) Status: Acute Brief History of Present Illness: Patient is a 59-year-old gentleman who came to the hospital with shortness of breath. Patient was having fever along with cough and congestion. Patient has a history of lymphoma. Patient came into the emergency room for further evaluation. In emergency room, patient had a chest x-ray which revealed moderate bilateral interstitial and alveolar lung opacities indicative of interstitial pneumonia or edema. Patient's procalcitonin was negative. Inflammatory markers are pending. At this time, will admit the patient to the [facility] [id number] ICU. Continue with nebs, steroids, and antibiotics. Hospital Course: Patient declined during hospitalization. Patient was placed on BiPAP but he became confused and was pulling it off. He was given sedation and had to be intubated. Patient did well on the mechanical ventilator. He was given a pulse dose of steroids and large doses of steroids for the first 3 days. He gradually started improving on his chest x-ray and is oxygenation. We were slowly weaning his FiO2 down slowly. Patient was contemplated to have a tracheostomy; however, they did not recommend a tracheostomy until 21 days since patient has COVID-19 . Patient was arranged for LTAC placement. At this time, patient is stable for discharge to long-term acute [facility]. Patient will follow up with physicians at the long-term acute care facility. Vital Signs/Physical Exam: Temp Pulse Resp BP Pulse Ox 97.3 F 67 20 115/75 96 02/21/20 06:24 02/21/20 06:24 02/21/20 06:24 02/21/20 06:24 02/21/20 06:24 General: Other (Patient is intubated and sedated ) Laboratory Data at Discharge: WBC 6.9 K/uL (4.3-10.9) 02/20/20 05:10 Hgb 12.9 g/dL (13.6-17.9) L 02/20/20 05:10 Hct 37.9 % (39.6-49.0) L 02/20/20 05:10 Plt Count 106 K/uL (152-406) L D 02/20/20 05:10 PT 12.0 SECONDS (9.5-12.5) 02/07/20 04:50 INR 1.02 02/07/20 04:50 APTT 29.9 SECONDS (24.3-36.9) 02/07/20 04:50 Sodium 144 mmol/L (136-145) 02/21/20 04:45 Potassium 4.0 mmol/L (3.5-5.1) 02/21/20 04:45 BUN 35 mg/dL (7-18) H 02/21/20 04:45 Creatinine 0.65 mg/dL (0.55-1.3) 02/21/20 04:45 Glucose 168 mg/dL (74-106) H 02/21/20 04:45 Phosphorus 3.4 mg/dL (2.5-4.9) 02/21/20 04:45 Magnesium 2.5 mg/dL (1.8-2.4) H 02/21/20 04:45 Total Bilirubin 1.1 mg/dL (0.2-1.0) H 02/21/20 04:45 AST 112 U/L (15-37) H 02/21/20 04:45 ALT 338 U/L (12-78) H* 02/21/20 04:45 Alkaline Phosphatase 127 U/L (45-117) H 02/21/20 04:45 Troponin I 0.04 ng/mL (0.0-0.045) 02/07/20 04:50 Triglycerides 102 mg/dL (<150) 02/07/20 04:50 Cholesterol 158 mg/dL (<200) 02/07/20 04:50 HDL Cholesterol 34 mg/dL (40-60) L 02/07/20 04:50 Cholesterol/HDL Ratio 4.65 02/07/20 04:50 Home Medications: Aspirin [Aspirin EC 81 MG] 81 mg PO DAILY 02/09/20 Furosemide [Lasix] 40 mg PO DAILY 02/09/20 Metoprolol Succinate [Toprol Xl] 25 mg PO DAILY 02/09/20 ALPRAZolam [Xanax*] 0.25 mg PO TID PRN tab 02/21/20 Albuterol Neb [Proventil 0.083% Neb Soln] 2.5 mg IH [id number] amp 02/21/20 Budesonide [Pulmicort*] 0.5 mg NEB BIDRESP amp 02/21/20 Cholecalciferol (Vitamin D3) [Vitamin D 1000 Iu Tab*] 2,000 unit PO DAILY tab 02/21/20 Enoxaparin Sodium [Lovenox 100 MG INJ*] 90 mg SQ Q12HR syr 02/21/20 Famotidine [Pepcid*] 20 mg IV BID vial 02/21/20 Fentanyl Cit [Sublimaze*] 25 mcg IV Q4HP PRN vial 02/21/20 LORazepam [Ativan*] 2 mg IV Q2HP PRN vial 02/21/20 Melatonin [Melatonin*] 3 mg PO BEDTIME tablet 02/21/20 Methylpred Na Suc [Solu-Medrol*] 40 mg IV Q12HR vial 02/21/20 Midazolam HCl [Versed*] 2 mg IV Q2HP PRN vial 02/21/20 Vital Hp [Vital AF 1.2 [place] Liquid*] 40 ml NG CONT bot 02/21/20 Patient Discharge Instructions: Okay to transfer to LTAC facility Diet: NGT feeds Activity: Bedrest (Turn every 1-2 hr) Followup: Unknown,U [Primary Care Provider] - Time spent managing pt's care (in minutes): 45
[2020-02-21] MEDS ORDERED: BISACODYL 10 MG RECTAL SUPP PR ONE (06:53)
[2020-02-21] MEDS: BUDESONIDE 0.5 MG/2 ML NEB NEB SCH (07:30)
[2020-02-21] MEDS: FLUCONAZOLE 100 MG TAB PO SCH (07:46)
[2020-02-21] MEDS: VITAMIN D 1000 UNIT TAB PO SCH (07:46)
[2020-02-21] MEDS: ENOXAPARIN 100 MG/ML SYR SQ SCH (07:46)
[2020-02-21] MEDS: METHYLPREDNISOLONE 40 MG INJ IV SCH (07:47)
[2020-02-21] MEDS: THIAMINE 200 MG/2 ML INJ IVP SCH (07:47)
[2020-02-21] MEDS: CEFEPIME/SWI 1gm 10 ML IVP SCH (07:47)
[2020-02-21 09:40] VITALS: O2SAT 93
[2020-02-21] MEDS ORDERED: INSULIN GLARGINE 100 UNITS/ML SQ SCH (14:33)
[2020-02-21] MEDS ORDERED: GLUCAGON 1 MG/VIAL IM PRN (14:33)
[2020-02-21] MEDS ORDERED: D50W 25 GM/50 ML SYRINGE IV PRN (14:33)
--- NOTE | 2020-02-21 14:35 | P.PN ---
Subjective Date of Service: 02/21/20 Primary Care Provider: unknown Chief Complaint: Respiratory failure Patient is improving more alert today and cooperative oxygen requirements declining hyperglycemia Review of Systems is unable to be obtained Physical Examination - Vital Signs Temperature: 96.6 F Blood Pressure: 122/74 Pulse: 82 Respirations: 22 Pulse Ox (%): 94 - Physical Exam Respiratory: Expiratory wheezes - Studies Medications List Reviewed: Yes Assessment & Plan - Problems (Diagnosis) (1) Respiratory failure Current Visit: Yes Status: Acute Plan: P patient is clinically improving stable to transfer to an LTAC facility continue weaning hyperglycemia at some Lantus is currently on 40% oxygen he should be able to be weaned off and extubated still has some secretion Qualifiers: Chronicity: acute Physician Review Additional Text: Impression: Toxic encephalopathy secondary to ARDS with COVID 19 pneumonia complicated with hypovolemic shock/hypernatremia Acute renal injury with hypernatremia likely volume depletion Hyperlipidemia Hx of B cell Lymphoma HTN Plan: Toxic encephalopathy secondary to ARDS with COVID 19 pneumonia complicated with hypovolemic shock/hypernatremia: Patient remains sedated and intubated. Continue with vasopressor if blood pressure drops. Continue IV steroids. Will discuss with Pulmonary as IV steroids may need to be increased as CRP is slightly elevated. Continue to adjust ventilator. Hopefully patient will be able to be weaned off over the next several days. Will discuss with later. Will also discuss with Pulmonary in detail. and pulmonary agree with plan for transfer to long-term acute care facility once patient more medically stable. Continue current medication. I will turn the service over to the hospitalist team tomorrow. I will go over plan of care with him. Acute renal injury with hypernatremia likely volume depletion: Continue with Nephrology recommendations. Fluids adjusted per Nephrology. Hypernatremic improved Hypertension: Will provide medication as needed. Hyperlipidemia: Continue medication History of B-cell lymphoma: Will monitor closely.
[2020-02-21] MEDS: LORazepam 2 MG/ML VIAL IV PRN ×2 (15:40→18:01)
--- NOTE | 2020-02-21 15:47 | P.CNS ---
Date of Consult: 02/20/[address] to return [address] Levin's call regarding this consult. I was able to speak to patient's nurse Judith. She stated the patient was intubed for CVOID related PNA about 8 days ago and is improvement. He has been accepted for LTAC and pending transfer vs holding for tracheotomy placement. Given low oxygen requirements, I am hopeful he may tolerate extubation within the next 5-10 days and that tracheotomy may not be required. I am in agreement for transfer by the primary team but remain available as his condition changes.
[2020-02-21 16:07] VITALS: BP 111/79
[2020-02-21 16:52] VITALS: TEMP 98.4
--- NOTE | 2020-02-21 19:49 | P.PN ---
Date of Service: 02/21/20 Vital Signs Temp Pulse Resp BP Pulse Ox 98.4 F 86 25 H 111/79 88 L 02/21/20 16:00 02/21/20 16:00 02/21/20 16:00 02/21/20 16:00 02/21/20 16:00 Microbiology Results 02/06/20 12:45 Blood - Blood Aerobic Blood Culture - Final No growth in 5 days. 02/06/20 12:45 Blood - Blood Anaerobic Blood Culture - Final No growth in 5 days. 02/06/20 12:55 Blood - Blood Aerobic Blood Culture - Final No growth in 5 days. 02/06/20 12:55 Blood - Blood Anaerobic Blood Culture - Final No growth in 5 days. 02/06/20 12:37 Nasopharnyx Influenza Type A Antigen Screen - Final 02/06/20 12:37 Nasopharnyx Influenza Type B Antigen Screen - Final Assessment/ Plan: Nephrology/ ICU No acute events overnight. Limited IH/ ROS due to AMS. Vitals, medications, blood work and imaging reviewed in the chart. Intubated. Obese. NAD. MMM. Neck supple. CTA. RRR. Soft Abd. No C/C/E. No rash. Sedated. No Speech. A/ ROSA MARIA Hypernatremia Alkalosis Hypocalcemia Hypermagnesemia HTN DM II Acute respiratory failure secondary to COVID19 Toxic metabolic encephalopathy Hx B Cell Lymphoma P/ Continue current POC and Medications. Continue free water through NGT. Continue abx. Continue steroids. COVID protocol/ Oxygen supplementation. Possible trach placment. ENT to evaluate. AM labs. Daily weight. No NSAIDs. Greater than 30min pateint care. Plan for transfer to an LTAC soon.
== END 2020-02-21 18:20 | DRG 207 ==
LOC: ER 11:43 → ERHOLD 16:49 → 3RD-ICU 17:43
PROVIDERS: ADMIT Hospitalist; ATTEND Hospitalist
PROC: XW033E5 Introduction of Remdesivir Anti-infective into Peripheral Vein, Percutaneous Approach, New Technology Group 5 (ICD-10-PCS; 2020-02-08)
PROC: 5A1955Z Respiratory Ventilation, Greater than 96 Consecutive Hours (ICD-10-PCS; principal; 2020-02-12)
PROC: 0BH17EZ Insertion of Endotracheal Airway into Trachea, Via Natural or Artificial Opening (ICD-10-PCS; 2020-02-12)
PROC: 02HV33Z Insertion of Infusion Device into Superior Vena Cava, Percutaneous Approach (ICD-10-PCS; 2020-02-12)
DX: U07.1 COVID-19 (principal); J12.89 Other viral pneumonia; J80 Acute respiratory distress syndrome; G92 Toxic encephalopathy; R57.1 Hypovolemic shock; N17.9 Acute kidney failure, unspecified; C85.10 Unspecified B-cell lymphoma, unspecified site; R04.2 Hemoptysis; E87.0 Hyperosmolality and hypernatremia; E87.3 Alkalosis; N13.0 Hydronephrosis with ureteropelvic junction obstruction; I13.0 Hypertensive heart and chronic kidney disease with heart failure and stage 1 through stage 4 chronic kidney disease, or unspecified chronic kidney disease; I50.9 Heart failure, unspecified; N18.9 Chronic kidney disease, unspecified; E11.22 Type 2 diabetes mellitus with diabetic chronic kidney disease; E78.5 Hyperlipidemia, unspecified; I25.2 Old myocardial infarction; D69.6 Thrombocytopenia, unspecified; D70.9 Neutropenia, unspecified; E83.41 Hypermagnesemia; E83.51 Hypocalcemia; Z86.73 Personal history of transient ischemic attack (TIA), and cerebral infarction without residual deficits; Z92.21 Personal history of antineoplastic chemotherapy; Z79.82 Long term (current) use of aspirin; Z79.899 Other long term (current) drug therapy
CPT/HCPCS: 36415; 71045; 71275; 80048; 80053; 80061; 80076; 82140; 82248; 82728; 82805; 83605; 83615; 83735; 83880; 84100; 84145; 84484; 85025; 85379; 85610; 85730; 86140; 86900; 86901; 86927; 87040; 87070; 87205; 87804; 93005; 94002; 94003; 94640; 94660; 94760; 96365; 96375; 99285; J0330; J0456; J0692; J0696; J1100; J1450; J1630; J1650; J1940; J2250; J2270; J2405; J2704; J2920; J2930; J3010; J3411; J3486; J7030; J7040; J7050; J7060; P9047; Q9967; U0003